=== PATIENT | female | born 1970 | race Two or more races ===

== ENCOUNTER → 2020-10-26 12:07 | Outpatient (BNVA) | payer OTHER, SELFPAY | PROVIDERS: PCP Internal Medicine; Visit Provider Nurse Practitioner Gerontology | DX: E11.65 Type 2 diabetes mellitus with hyperglycemia (principal); E78.5 Hyperlipidemia, unspecified; E03.9 Hypothyroidism, unspecified; E66.9 Obesity, unspecified; Z79.4 Long term (current) use of insulin | CPT/HCPCS: 82947; 99212 ==

== ENCOUNTER 2020-12-03 08:18 | Outpatient (REF) | payer OTHER, SELFPAY ==
[2020-12-03 09:51] LABS: Free T4 (Free Thyroxine) 1.08 ng/dL (0.71-1.85); Thyroid Stimulating Hormone 0.83 uIU/mL (0.32-4.0)
== END 2020-12-03 08:19 | disposition home or self-care (01) ==
LOC: HO.LAB 08:18
PROVIDERS: PCP Internal Medicine; Visit Provider Nurse Practitioner Gerontology
DX: E03.9 Hypothyroidism, unspecified (principal)
CPT/HCPCS: 36415; 84439; 84443; 93005; 99212

== ENCOUNTER → 2020-12-09 09:28 | Outpatient (BNVA) | payer OTHER, SELFPAY | PROVIDERS: PCP Internal Medicine; Visit Provider Nurse Practitioner Gerontology | DX: Z76.89 Persons encountering health services in other specified circumstances (principal) ==

== ENCOUNTER 2020-12-21 09:37 | Outpatient (REF) | payer OTHER, SELFPAY ==
[2020-12-21 10:43] LABS: Alanine Aminotransferase 45 U/L (0-31); Albumin Level 4.5 g/dL (3.5-5.0); Alkaline Phosphatase 134 U/L (39-117); Anion Gap 18 (12-20); Aspartate Amino Transferase 21 U/L (5-31); Bilirubin Total 0.5 mg/dL (0.0-1.0); Blood Urea Nitrogen 16 mg/dL (9-16); Calcium 10.2 mg/dL (8.4-10.2); Carbon Dioxide 28 mmol/L (22-29); Chloride 98 mmol/L (96-108); Estimated Glomerular Filt Rate 57; Glucose Fasting 157 mg/dL (60-99); Potassium 4.7 mmol/l (3.3-5.1); Sodium 139 mmol/L (135-145); Total Protein 8.4 g/dL (6.5-8.0)
[2020-12-21 11:04] LABS: TSH reflex Free T4 0.31 mIU/mL (0.32-4.0)
[2020-12-21 12:32] LABS: Free T4 (Free Thyroxine) 1.13 ng/dL (0.71-1.85)
== END 2020-12-21 09:38 | disposition home or self-care (01) ==
LOC: HO.LAB 09:37
PROVIDERS: Absent Provider Nurse Practitioner Gerontology; PCP Internal Medicine; Visit Provider Internal Medicine
DX: E11.65 Type 2 diabetes mellitus with hyperglycemia (principal); E03.9 Hypothyroidism, unspecified
CPT/HCPCS: 36415; 80053; 82043; 84439; 84443

== ENCOUNTER → 2020-12-24 09:00 | Outpatient (BNVA) | payer OTHER, SELFPAY | PROVIDERS: PCP Internal Medicine; Visit Provider Nurse Practitioner Gerontology | DX: Z13.89 Encounter for screening for other disorder (principal) | CPT/HCPCS: 99212 ==

== ENCOUNTER → 2021-02-01 12:58 | Outpatient (REF) | payer OTHER, SELFPAY ==
--- NOTE | 2021-02-01 13:14 | CA_ITS ---
Transthoracic Echocardiogram Patient (Last, First, Middle): Sirena Griffin, Gender: Female Date of : 1970 Age: 50 Procedure Date: 02/01/2021 Procedure Type: Transthoracic Echocardiogram Location: OP Height: 175.26 cm Weight: 103.87 kg BSA: 2.19 m2 Heart Rate: bpm BP: 122 / 81 mmHg Manager Medical Device: Referring MD: Zachary Draper MD Symptoms: I05.0 - Rheumatic mitral stenosis Study Quality: Fair ECG Rhythm: Sinus Conclusions: - The left ventricular systolic function is normal. The visually estimated ejection fraction is between 60-65%. - The mitral valve appears rheumatic. There is mild mitral valve regurgitation. There is mild mitral valve stenosis. - There is mild to moderate tricuspid valve regurgitation. - Mild pulmonary hypertension is present. Findings Left Ventricle Normal left ventricular cavity size. There is mildly increased left ventricular wall thickness. The left ventricular systolic function is normal. The visually estimated ejection fraction is between 60-65%. There is no evidence of regional wall motion abnormalities. E/E prime ratio is >15, consistent with elevated filling pressures. Evidence suggests grade I (mild) diastolic dysfunction. Right Ventricle Normal right ventricular cavity size and systolic function. Atria The left atrium is mildly dilated. The right atrium is normal in size. Aortic Valve There is a normal trileaflet aortic valve. There is no aortic valve stenosis. There is trace (trivial) aortic valve regurgitation. Mitral Valve The mitral valve appears rheumatic. There is mild anterior and posterior mitral leaflet thickening. There is mild mitral valve regurgitation. There is mild mitral valve stenosis. Mean gradient across the mitral valve 5 mm Hg at 68/Min. Calculated area by pressure half time- 1.67 sq cm. Pulmonic Valve The pulmonic valve was not well visualized. Tricuspid Valve Normal tricuspid valve structure. There is mild to moderate tricuspid valve regurgitation. The right ventricular systolic pressure is 39 mmHg. Mild pulmonary hypertension is present. Great Vessels The aortic annulus, sinuses of valsalva, asc aorta, and aortic arch are normal in size. Venous The inferior vena cava is normal in size and collapses greater than 50% with inspiration. Pericardium/Pleural There is a trivial pericardial effusion. Prior Study Comparison No significant change compared to prior study dated: 10/29/2019. Measurements 2D Linear Measurements IVSd: 1.13 0.6-0.9/0.6-1.0 cm LVIDd: 4.11 3.9-5.3/4.2-5.9 cm LVIDd Index: 1.88 2.4-3.2/2.2-3.1 cm/m2 LVIDs: 2.66 2.0-3.6 cm LVPWd: 1.08 0.7-1.1 cm Ao Root: 2.80 2.1-3.5 cm LA Diam: 4.20 2.7-3.8/3.0-4.0 cm LAIDs Index: 1.92 1.5-2.3 cm/m2 LV Mass: 190.33 67-162/88-224 g LV Mass Index: 86.91 43-95/49-115 g/m2 LVOT Diam: 2.00 3.0+(-)1.3 cm 2D Systolic Function EF 4C: 58.40 >55% EF 2C: 68.70 >55% EF BiP: 64.70 >55% Mitral Valve MV VTI: 0.53 MV Pk Wander: 2.21 MV Mn Wander: 1.07 MV Pk Grad: 20.00 MV Mn Grad: 5.00 MV Pk E: 1.29 MV PK A: 1.90 MV Decel Time: 282.00 E/A: 0.70 E'Lateral: 4.74 E'Medial: 6.29 E/E' Med: 20.50 E/E' Lat: 27.20 PHT: 132.00 MVA PHT: 1.67 MVA Continuity: 1.33 Decel Wood: 3.05 Aortic Valve AoV Pk Wander: 2.13 AoV Mn Wander: 1.40 AoV VTI: 0.41 AoV Pk Grad: 18.00 Aov Mn Grad: 10.00 MUNIRA Cont.VTI: 1.73 LVOT LVOT Pk Wander: 0.97 LVOT Mn Wander: 0.61 LVOT VTI: 0.23 LVOT Pk Grad: 4.00 LVOT Mn Grad: 2.00 LVOT Diam: 2.00 LVOT Area: 3.14 Diastolic Function MV Pk E: 1.29 MV Pk A: 1.90 E/A: 0.70 E'Medial: 6.29 E/E' Med: 20.50 E' Laterial: 4.74 E/E' Lat: 27.20 Tricuspid Valve TR Pk Wander: 3.01 TR Pk Grad: 36.00 RA Press: 3.00 RVSP: 39.00 Great Vessels Aorta Ao Root-2D: 2.80 2.0-3.7 cm Ao Asc: 2.80 2.1-3.4 cm Ao Arch: 2.70 Updated in Other Vendor System with Status of Final Deacon Sharp MD electronically signed on 02/02/2021 9:25:04 AM with status of Final
[2021-02-01 13:27] LABS: Estimated Average Glucose 223 mg/dL; Hemoglobin A1c % 9.4 %
[2021-02-01 14:21] LABS: Free T4 (Free Thyroxine) 0.82 ng/dL (0.71-1.85); Thyroid Stimulating Hormone 2.67 uIU/mL (0.32-4.0)
== END ==
LOC: HO.CARD 12:58
PROVIDERS: Absent Provider Nurse Practitioner Gerontology; PCP Internal Medicine; Visit Provider Internal Medicine Cardiovascular Disease
DX: I05.0 Rheumatic mitral stenosis (principal); I11.9 Hypertensive heart disease without heart failure; E11.65 Type 2 diabetes mellitus with hyperglycemia; E03.9 Hypothyroidism, unspecified
CPT/HCPCS: 36415; 83036; 84439; 84443; 93306

== ENCOUNTER → 2021-03-26 13:04 | Outpatient (BNVA) | payer OTHER, SELFPAY | PROVIDERS: PCP Internal Medicine; Visit Provider Nurse Practitioner Gerontology ==

== ENCOUNTER → 2021-04-28 13:23 | Outpatient (BNVA) | payer OTHER, SELFPAY | PROVIDERS: Visit Provider Nurse Practitioner Gerontology | DX: E11.65 Type 2 diabetes mellitus with hyperglycemia (principal); E03.9 Hypothyroidism, unspecified; E78.5 Hyperlipidemia, unspecified; E66.9 Obesity, unspecified | CPT/HCPCS: 82947 ==

== ENCOUNTER 2021-05-07 13:57 | Emergency (ER) | payer OTHER, SELFPAY ==
--- NOTE | ~2021-05-07 | XR_ITS ---
EXAMINATION: XR CHEST CLINICAL INFORMATION: Cough COMPARISON: Previous chest x-ray most recent January 2019 TECHNIQUE: 2 views of the chest were obtained. FINDINGS: The cardiac and mediastinal contours are normal. The lungs are clear. There is no pleural effusion or pneumothorax. Bony structures are unremarkable. Clustered radiopaque densities are seen on the lateral view only probably related to something on one of the upper arms. XR/XR chest 2V IMPRESSION: No evidence for acute disease in the chest.
[2021-05-07 14:15] VITALS: BP 130/78; BP 140/80; PULSE 89; PULSE 96; RESP 16; O2SAT 95; O2SAT 99; BMI 29.9
--- NOTE | 2021-05-07 14:35 | ECG_ITS ---
Test Reason : CHEST PAIN Blood Pressure : / mmHG Vent. Rate : 090 BPM Atrial Rate : 090 BPM P-R Int : 146 ms QRS Dur : 074 ms QT Int : 388 ms P-R-T Axes : 039 008 051 degrees QTc Int : 474 ms Normal sinus rhythm Possible Left atrial enlargement Borderline ECG When compared to the previous EKG of No significant changes seen Referred By: Kaitlin Finley Electronically Signed By:CARMEN BUSTOS MD
[2021-05-07 15:02] VITALS: PULSE 81; O2SAT 99
[2021-05-07] MEDS: Albuterol Sulfate 90 MCG 8 GM INHALER 4 PUFF INHALE (15:02)
--- NOTE | 2021-05-07 15:07 | ED.SOB ---
HPI - SOB/Dyspnea General Chief Complaint: Dyspnea Stated Complaint: cough Time Seen by Provider: 05/07/21 14:10 Source: patient Mode of arrival: ambulatory Limitations: language barrier (Grenadian-speaking) History of Present Illness HPI Narrative: 50-year-old female with a past medical history of type 2 diabetes, hypertension, hyperlipidemia, diastolic dysfunction, rheumatic mitral stenosis, obesity and hypothyroidism presenting to the ED with complaints of generalized body aches, chills, intermittent headaches, nasal congestion/runny nose, dry cough, shortness of breath, dyspnea on exertion, orthopnea, chest tightness and diarrhea for approximately 3-4 days worse today. Reports that she does not have an albuterol inhaler or nebulizer machine therefore she has been unable to give herself any treatment. Denies recent travel or sick contacts. Denies any measured fevers, dizziness, lightheadedness, nausea/vomiting, abdominal pain, palpitations, dysuria, lower extremity edema or any other symptoms complaints or concerns at this time. MD elicited complaint: shortness of breath, cough, pain with inspiration, chest pain and asthma attack Pertinent past history: asthma and diabetes Onset (ago): day(s) (3 4 days worse today) Timing: constant and progressively worsening Severity: severe Exacerbating factors: lying flat, exertion, movement, coughing, inspiration, talking and deep breaths Relieving factors: nothing Known history of: asthma and diabetes Associated symptoms: chest pain, pain with inspiration, cough, wheezing and orthopnea Treatment prior to arrival: none Related Data Home oxygen amount: none Home Medications Medication Instructions Recorded Confirmed blood sugar diagnostic #10 ea 10/26/20 04/28/21 duloxetine 60 mg capsule,delayed 60 mg PO DAILY 10/26/20 04/28/21 release flash glucose scanning reader #1 ea 10/26/20 04/28/21 gabapentin 400 mg capsule 400 mg PO TID 10/26/20 04/28/21 levothyroxine 150 mcg tablet 150 mcg PO DAILY 10/26/20 04/28/21 mirtazapine 30 mg tablet 30 mg PO BEDTIME 10/26/20 04/28/21 pen needle, diabetic 32 gauge x #50 ea 10/26/20 04/28/21 trazodone 150 mg tablet 150 mg PO BEDTIME PRN 10/26/20 04/28/21 perphenazine 4 mg tablet 4 mg PO tab 12/09/20 04/28/21 Previous Rx's Medication Instructions Recorded citalopram 40 mg tablet 40 mg PO DAILY 90 Days #90 tab 09/24/20 pen needle, diabetic 32 gauge x #120 ea 10/26/20 hydrochlorothiazide 25 mg tablet 25 mg PO DAILY 90 Days #90 tab 11/04/20 lisinopril 5 mg tablet 5 mg PO DAILY 90 Days #90 tab 11/04/20 ezetimibe 10 mg tablet 10 mg PO DAILY #30 tab 12/03/20 insulin glargine 100 unit/mL (3 34 unit SUBCUT QPM 30 Days #15 ml 12/24/20 mL) subcutaneous pen metformin 500 mg tablet,extended 1,000 mg PO BID #120 tab 02/05/21 release 24 hr atorvastatin 80 mg tablet 80 mg PO DAILY #30 tab 03/07/21 flash glucose sensor 1 ea TOPICAL Q2W #2 kit 03/26/21 dulaglutide 4.5 mg/0.5 mL 4.5 mg SUBCUT QWEEK #2 ml 04/28/21 subcutaneous pen injector insulin lispro 100 unit/mL See Rx Instructions SUBCUT TID 30 04/28/21 subcutaneous pen Days #15 ml albuterol sulfate 0.63 mg INHALATION QID PRN #75 ml 05/07/21 albuterol sulfate 1 inh INHALATION QID PRN #8.5 g 05/07/21 azithromycin See Rx Instructions .ROUTE 05/07/21 .COMPLEX #6 tab codeine-guaifenesin [Guaifenesin 5 ml PO Q6H PRN #120 ml 05/07/21 AC] nebulizers [AeroEclipse II #1 ea 05/07/21 Nebulizer] prednisone 40 mg PO DAILY 5 Days #10 tab 05/07/21 Allergies Allergy/AdvReac Type Severity Reaction Status Date / Time No Known Allergies Allergy Verified 03/26/21 13:55 Review of Systems Review of Systems: Constitutional : Positive chills/fatigue/malaise, No Weight loss, No Fever, No Night Sweats ENT/Mouth : No Hearing loss, No Ear Pain, No Nasal Congestion, No Sinus Pain, No Hoarseness, No sore throat, No Rhinorrhea, No Swallowing Difficulty Eyes: No Eye Pain, No Swelling, No Redness, No Foreign Body, No Discharge, No Vision Changes Cardiovascular : Positive chest pain with cough, positive shortness of breath/dyspnea on exertion/orthopnea, No Edema, No Palpitations Respiratory : Positive Cough/wheezing, No Sputum, No Smoke Exposure Gastrointestinal : No Nausea, No Vomiting, No Diarrhea, No Constipation, No abdominal Pain, No Hematochezia, No Melena Genitourinary : no irregular bleeding, No Dysuria, No Urinary Frequency, No Hematuria, No Urinary Incontinence, No Urgency, No Flank Pain, No Urinary Flow Changes, No Hesitancy Musculoskeletal : Positive myalgias, No joint pain, No Myalgias, No Joint Swelling Skin : No Skin Lesions, No rash Neuro : Positive intermittent headaches, No Weakness, No Numbness, No Paresthesias, No Loss of Consciousness, No Dizziness Psych : No Anxiety/Panic, No Depression, No SI/HI/AH/VH, No Social Issues, Heme/Lymph: No Bruising, No Bleeding,No Lymphadenopathy Endocrine : No Polyuria, No Polydipsia, No Temperature Intolerance Yes all other systems are reviewed and are negative [facility] Past Medical History Attestation statement: The following information was validated with the patient. Medical History Anxiety Depression Diastolic dysfunction Glaucoma Hemorrhoids HTN (hypertension) Hyperlipidemia LDL goal <100 Hypothyroidism Insomnia Obesity (BMI 30-39.9) Rheumatic heart disease Rheumatic mitral stenosis Type 2 diabetes mellitus with hyperglycemia, without long-term current use of insulin Surgical History History of section Family History Family History Father Diabetes Mother Diabetes Stroke Maternal Aunt Stroke Hypertension Social History Social History Household Members: Children Patient Tobacco Use Status: Never used Tobacco Advance Directives: Yes Advance Directives Information Provided: No Advance Directives on File: No Patient : No Physical Exam Vital Signs: Vital Signs: Last Vital Signs Pulse 81 05/07/21 15:02 Resp 16 05/07/21 14:15 BP 140/80 H 05/07/21 14:15 Pulse Ox 99 05/07/21 14:15 Body Mass Index 29.9 vital signs have been reviewed as normal and appeared to be correct. Blood pressure hypertensive at 140/80. Heart rate normal. Respiration rate normal. Temperature normal. Oxygen saturation normal. Appearance: Alert. Oriented X3. Mild respiratory distress otherwise no other acute distress. Head: Normal external exam. Normocephalic. Atraumatic. Eyes: PERRLA. EOMI. Conjunctiva and sclera normal. Eyelids normal. ENT: EAC normal. TM's Normal. Pharynx normal. Uvula midline. Moist mucous membranes. No trismus noted. No drooling noted. No muffled voice noted. Neck: Normal inspection. Neck supple. FROM. No adenopathy. Thyroid Normal. No meningeal signs. No neck mass noted. CVS: Normal heart rate and rhythm. Heart sound normal. Pulses normal throughout. No murmurs/rales/gallops. Respiratory: Mild respiratory distress with pain with deep inspiration, decreased breath sounds and mild wheezing throughout. No rales/rhonchi noted. Chest is nontender. No accessory muscle usage or retractions at this time. No stridor noted. Abdomen: Soft and nontender. Bowel sounds normal in all 4 quadrants. No distention noted. No organomegaly noted. No visible injury noted. Back: No CVA tenderness. Full range of motion noted. No rashes/lesion/induration/fluctuance or signs of infection noted. Skin: Skin warm and dry. Normal skin color. Normal skin turgor. No rashes/lesions/lacerations noted. Extremities: No lower extremity edema. No calf tenderness noted. Extremities exhibit normal range of motion. Extremities nontender. Neuro: Oriented X 3. No motor deficit. No sensory deficit. Reflexes normal. Normal steady gait. No focal neuro deficits noted. Vascular: + radial pulses/+ 2 distal pedal pulses/+2 dorsalis pedis b/l. Normal cap refill. No cyanosis noted to upper extremity nails and lower extremity toes nails. Course Course Course Narrative: 14:35pm -50-year-old female with a past medical history of type 2 diabetes, hypertension, hyperlipidemia, diastolic dysfunction, rheumatic mitral stenosis, obesity and hypothyroidism presenting to the ED with complaints of generalized body aches, chills, intermittent headaches, nasal congestion/runny nose, dry cough, shortness of breath, dyspnea on exertion, orthopnea, chest tightness and diarrhea for approximately 3-4 days worse today. Plan: Labs, EKG, COVID/RSV/flu swab, chest x-ray. Provide 4 puffs of albuterol. Provide a L of IV fluids and 125 mg of Solu-Medrol. Provide Robitussin with codeine 10 mg then re-evaluate. Reevaluation(s) Reevaluation #1: - labs reviewed and patient with an elevated creatinine at 1.43 baseline is 1.02 although she did receive a L of IV fluids - random glucose 363. - alkaline phosphate 136. - otherwise all other labs are within normal limits. - COVID/RSV/flu negative. - chest x-ray negative for any acute processes. EKG was normal sinus rhythm no acute ischemic changes were noted. - patient reports she feels mildly better after the 4 puffs of albuterol, IV Solu-Medrol and Robitussin with codeine although reports that she feels like her chest is still tight and is requesting a breathing treatment - therefore breathing treatment ordered at this time. Will also recheck the patient's POC before discharge. Will DC home with antibiotics and symptomatic treatment and instructions to stop her metformin for at least 2 days to increase her water intake for the next 2 days and to follow-up with her primary care provider by Monday for repeat renal function tests. I also explained to the patient due to she will be on steroids for her asthma exacerbation that the steroids will increase her blood glucose and if she is not on the metformin for 2 days will increase it even more therefore she needs to adjust her insulin for that and she understands agrees with this plan. Instructed the patient's return if any new or worsening symptoms. Time: 16:30 MDM - SOB/Dyspnea Medical Records Attestation: I reviewed the patient's medical records. Lab Data Attestation: I reviewed the patient's lab results. Result diagrams: 05/07/21 15:17 05/07/21 15:16 Labs: Lab Results 05/07/21 05/07/21 05/07/21 Range/Units 15:16 15:16 15:16 WBC (4.8-10.8) X10*3/uL RBC (4.20-5.50) X10*6/uL Hgb (12.0-16.0) g/dl Hct (37-47) % MCV (80-98) fL MCH (27.0-33.0) pg MCHC (31.0-35.0) g/dl RDW (11.0-16.0) % Plt Count (160-400) X10*3/uL MPV (9.4-12.3) fL Immature Gran % (Auto) (0.0-0.4) % Neut % (Auto) (45-73) % Lymph % (Auto) (20-40) % [place] % (Auto) (2-11) % Eos % (Auto) (0-4) % Baso % (Auto) (0-2) % Lymph # (Auto) (1.2-4.9) X10*3/uL [place] # (Auto) (0.1-1.2) X10*3/uL Eos # (Auto) (0.0-0.4) X10*3/uL Baso # (Auto) (0.0-0.2) X10*3/uL Abs Immat Gran (auto) (0.00-0.03) X10*3/uL Absolute Neuts (auto) (2.0-8.3) X10*3/uL Absolute Nucleated RBC (0.0-0.012) X10*3/uL Nucleated RBC % (auto) (0.0-0.2) /100WBC PT 12.1 (10.8-13.0) SEC INR 1.0 (0.9-1.1) Sodium 140 (135-145) mmol/L Potassium 4.4 (3.3-5.1) mmol/L Chloride 103 (96-108) mmol/L Carbon Dioxide 27 (22-29) mmol/L Anion Gap 14 (12-20) BUN 16 (9-16) mg/dL Creatinine 1.43 H (0.5-1.4) mg/dL Estim Creat Clear Calc 49.6 Estimated GFR 39 Random Glucose 363 H* (60-115) mg/dL Calcium 9.1 D (8.4-10.2) mg/dL Total Bilirubin 0.2 (0.0-1.0) mg/dL AST 20 (5-31) U/L ALT 20 (0-31) U/L Alkaline Phosphatase 136 H (39-117) U/L Lactate Dehydrogenase (122-220) U/L Troponin I High Sens 3.5 (<3.5-17.0) ng/L B-Natriuretic Peptide 39 (<100) pg/mL Total Protein 7.5 (6.5-8.0) g/dL Albumin 4.0 (3.5-5.0) g/dL Coronavirus (PCR) (Negative) Influenza Type A (PCR) (Negative) Influenza Type B (PCR) (Negative) RSV RNA Qual (PCR) (Negative) 05/07/21 05/07/21 05/07/21 Range/Units 15:16 15:17 15:17 WBC 8.7 (4.8-10.8) X10*3/uL RBC 5.11 (4.20-5.50) X10*6/uL Hgb 14.0 (12.0-16.0) g/dl Hct 43.7 (37-47) % MCV 85.5 (80-98) fL MCH 27.4 (27.0-33.0) pg MCHC 32.0 (31.0-35.0) g/dl RDW 13.4 (11.0-16.0) % Plt Count 238 (160-400) X10*3/uL MPV 10.5 (9.4-12.3) fL Immature Gran % (Auto) 0.2 (0.0-0.4) % Neut % (Auto) 56.0 (45-73) % Lymph % (Auto) 27.8 (20-40) % [place] % (Auto) 6.6 (2-11) % Eos % (Auto) 8.7 H (0-4) % Baso % (Auto) 0.7 (0-2) % Lymph # (Auto) 2.4 (1.2-4.9) X10*3/uL [place] # (Auto) 0.6 (0.1-1.2) X10*3/uL Eos # (Auto) 0.8 H (0.0-0.4) X10*3/uL Baso # (Auto) 0.1 (0.0-0.2) X10*3/uL Abs Immat Gran (auto) 0.02 (0.00-0.03) X10*3/uL Absolute Neuts (auto) 4.9 (2.0-8.3) X10*3/uL Absolute Nucleated RBC 0.000 (0.0-0.012) X10*3/uL Nucleated RBC % (auto) 0.0 (0.0-0.2) /100WBC PT (10.8-13.0) SEC INR (0.9-1.1) Sodium (135-145) mmol/L Potassium (3.3-5.1) mmol/L Chloride (96-108) mmol/L Carbon Dioxide (22-29) mmol/L Anion Gap (12-20) BUN (9-16) mg/dL Creatinine (0.5-1.4) mg/dL Estim Creat Clear Calc Estimated GFR Random Glucose (60-115) mg/dL Calcium (8.4-10.2) mg/dL Total Bilirubin (0.0-1.0) mg/dL AST (5-31) U/L ALT (0-31) U/L Alkaline Phosphatase (39-117) U/L Lactate Dehydrogenase 213 (122-220) U/L Troponin I High Sens (<3.5-17.0) ng/L B-Natriuretic Peptide (<100) pg/mL Total Protein (6.5-8.0) g/dL Albumin (3.5-5.0) g/dL Coronavirus (PCR) NEGATIVE (Negative) Influenza Type A (PCR) NEGATIVE (Negative) Influenza Type B (PCR) NEGATIVE (Negative) RSV RNA Qual (PCR) NEGATIVE (Negative) Imaging Data Chest x-ray: Attestation: I personally reviewed and interpreted this imaging study as follows: Radiologist's impression: FINDINGS: The cardiac and mediastinal contours are normal. The lungs are clear. There is no pleural effusion or pneumothorax. Bony structures are unremarkable. Clustered radiopaque densities are seen on the lateral view only probably related to something on one of the upper arms. XR/XR chest 2V IMPRESSION: No evidence for acute disease in the chest. ECG Data Attestation: I personally reviewed and interpreted this ECG as follows: ECG interpretation date: 05/07/21 ECG interpretation time: 15:34 Interpretation: Normal sinus rhythm with ventricular rate of 90 with a normal KS interval normal QRS duration normal QT/QTC interval. No acute ischemic changes are noted. Critical Care Time Critical Care Time Critical Care Time: Yes Total Critical Care Time: 60 Attestation: I personally attest to this time spent taking care of the patient Discharge Plan Discharge Clinical Impression: WILMAN (acute kidney injury), Acute dehydration, Asthma exacerbation, Bronchitis, Acute bronchitis with bronchospasm, Acute hyperglycemia Patient Disposition: Home, Self-Care Instructions: Asthma (ED), Dehydration (ED), Acute Kidney Injury (DC), Acute Bronchitis (ED), How to Use a Nebulizer (ED), Bronchospasm (ED) Additional Instructions: Your kidney function levels were elevated today your creatinine was 1.43 and her baseline is 1.02 therefore I instructed you do not take the metformin for approximately 2 days although you will be on steroids which will increase her glucose levels therefore you need to adjust her insulin to manage her glucose levels in the normal range. You also need to increase her fluid intake for the next 2-3 days. And I wanted to follow-up with your primary care provider by Monday for repeat kidney function test. At that time discussed with her PCP about restarting metformin. Return if any new or worsening symptoms. You should also get re tested for COVID in approximately 7-10 days because he tested negative today although you might not have enough viral load in your body to produce a positive COVID test. Mitzi niveles de la funci?n del ri??n fueron elevados hoy acosta creatinina era 1,43 y acosta l?sanchez de fondo es 1,02 por lo tanto le instru? no tome el metformin por aproximadamente 2 d?as aunque usted estar? en los esteroides que aumentar?n mitzi niveles de la glucosa por lo tanto usted necesita ajustar acosta insulina para manejar mitzi niveles de la glucosa en la cheng normal. Tambi?n necesita aumentar acosta ingesta de l?quidos lon los pr?ximos 2-3 d?as. Y quer?a hacer un seguimiento con acosta proveedor de atenci?n primaria para el lunes para repetir la prueba de funci?n renal. En aquel momento discuti? con acosta PCP sobre recomenzar metformin. Regrese si hay s?ntomas nuevos o que empeoran. Tambi?n debe volver a hacerse la prueba de COVID en aproximadamente 7-10 d?as porque ?l dylan negativo hoy, aunque es posible que no tenga suficiente carga viral en acosta cuerpo para producir jaclyn prueba de COVID positiva. Prescriptions: New albuterol sulfate 0.63 mg/3 mL solution for nebulization 0.63 mg inhalation QID PRN (Reason: shortness of breath or wheezing) Qty: 75 RF: 0 (DME) AeroEclipse II Nebulizer Misc See Rx Instructions .ROUTE .MEDSUPPLY Qty: 1 RF: 0 albuterol sulfate 90 mcg/actuation HFA aerosol inhaler 1 inh inhalation QID PRN (Reason: shortness of breath or wheezing) Qty: 8.5 RF: 0 azithromycin 250 mg tablet See Rx Instructions .ROUTE .COMPLEX Qty: 6 RF: 0 codeine-guaifenesin [Guaifenesin AC] 10-100 mg/5 mL liquid 5 ml PO Q6H PRN (Reason: cold symptoms) Qty: 120 RF: 0 prednisone 20 mg tablet 40 mg PO DAILY 5 Days Qty: 10 RF: 0 No Action citalopram 40 mg tablet 40 mg PO DAILY 90 Days Qty: 90 RF: 3 lisinopril 5 mg tablet 5 mg PO DAILY 90 Days Qty: 90 RF: 3 hydrochlorothiazide 25 mg tablet 25 mg PO DAILY 90 Days Qty: 90 RF: 3 metformin 500 mg tablet extended release 24 hr 1,000 mg PO BID Qty: 120 RF: 3 atorvastatin 80 mg tablet 80 mg PO DAILY Qty: 30 RF: 1 levothyroxine 150 mcg tablet 150 mcg PO DAILY RF: 0 duloxetine 60 mg capsule,delayed release(DR/EC) 60 mg PO DAILY RF: 0 mirtazapine 30 mg tablet 30 mg PO BEDTIME RF: 0 trazodone 150 mg tablet 150 mg PO BEDTIME PRNRF: 0 gabapentin 400 mg capsule 400 mg PO TID RF: 0 (DME) pen needle, diabetic 32 gauge x 5/32 needle See Rx Instructions ea subcut TID Qty: 50 RF: 0 (DME) FreeStyle Precision Emanuel Strips Strip See Rx Instructions strip .ROUTE .MEDSUPPLY Qty: 10 RF: 0 (DME) FreeStyle Sera 14 Day [place] Misc See Rx Instructions ea topical .MEDSUPPLY Qty: 1 RF: 0 (DME) pen needle, diabetic [BD Ultra-Fine Ramya Pen Needle] 32 gauge x 5/32 needle See Rx Instructions .ROUTE .MEDSUPPLY Qty: 120 RF: 11 perphenazine 4 mg tablet 4 mg PO RF: 0 FreeStyle Sera 14 Day Sensor Kit 1 ea topical Q2W Qty: 2 RF: 11 ezetimibe [Zetia] 10 mg tablet 10 mg PO DAILY Qty: 30 RF: 5 Lantus Solostar U-100 Insulin 100 unit/mL (3 mL) insulin pen 34 unit subcut QPM 30 Days Qty: 15 RF: 3 insulin lispro [Humalog KwikPen Insulin] 100 unit/mL insulin pen See Rx Instructions subcut TID 30 Days Qty: 15 RF: 3 Trulicity 4.5 mg/0.5 mL pen injector 4.5 mg subcut QWEEK Qty: 2 RF: 3 Referrals: Aleyda Paul MD [Primary Care Provider] - 2 days (Patient needs to be seen by Monday for recheck kidney function test) Print Language: Grenadian
[2021-05-07 15:25] LABS: MANUAL DIFF FLAG NO
[2021-05-07 15:27] LABS: Basophils Absolute Auto 0.1 X10*3/uL (0.0-0.2); Basophils Percent Auto 0.7 % (0-2); Eosinophils Absolute Auto 0.8 X10*3/uL (0.0-0.4); Eosinophils Percent Auto 8.7 % (0-4); Hematocrit 43.7 % (37-47); Imm Gran Abs Auto 0.02 X10*3/uL (0.00-0.03); Imm Gran Pct Auto 0.2 % (0.0-0.4); Lymphocytes Absolute Auto 2.4 X10*3/uL (1.2-4.9); Lymphocytes Percent Auto 27.8 % (20-40); Mean Corpuscular Hemoglobin 27.4 pg (27.0-33.0); Mean Corpuscular Volume 85.5 fL (80-98); Mean Platelet Volume 10.5 fL (9.4-12.3); Monocytes Absolute Auto 0.6 X10*3/uL (0.1-1.2); Monocytes Percent Auto 6.6 % (2-11); Neutrophils Absolute Auto 4.9 X10*3/uL (2.0-8.3); Platelet Count 238 X10*3/uL (160-400); Red Blood Count 5.11 X10*6/uL (4.20-5.50); Red Cell Distribution Width 13.4 % (11.0-16.0); White Blood Count 8.7 X10*3/uL (4.8-10.8)
[2021-05-07] MEDS: guaiFEN/Codeine SF 200/20/10ML 10 ML LIQUID PO (15:29)
[2021-05-07] MEDS: 0.9 % Sodium Chloride 1,000 ML 999 ML IVCONT (15:29)
[2021-05-07] MEDS: methylPREDNISolone Sod Succ 125 MG/2 ML VIAL IVPUSH (15:29)
[2021-05-07 15:35] LABS: Prothrombin Time 12.1 SEC (10.8-13.0)
[2021-05-07 16:02] LABS: Lactate Dehydrogenase 213 U/L (122-220)
[2021-05-07 16:06] LABS: B Type Natriuretic Peptide 39 pg/mL (<100); Troponin-I High Sensitivity 3.5 ng/L (<3.5-17.0)
[2021-05-07 16:09] LABS: Influenza A PCR NEGATIVE (Negative); Influenza B PCR NEGATIVE (Negative); Resp Syncy Virus RNA Qual PCR NEGATIVE (Negative); SARS COV2 PCR INHOUSE NEGATIVE (Negative)
[2021-05-07 16:15] LABS: Alanine Aminotransferase 20 U/L (0-31); Alkaline Phosphatase 136 U/L (39-117); Anion Gap 14 (12-20); Aspartate Amino Transferase 20 U/L (5-31); Bilirubin Total 0.2 mg/dL (0.0-1.0); Blood Urea Nitrogen 16 mg/dL (9-16); Calcium 9.1 mg/dL (8.4-10.2); Carbon Dioxide 27 mmol/L (22-29); Chloride 103 mmol/L (96-108); Creatinine Clr Calc Pharmacy 49.6; Estimated Glomerular Filt Rate 39; Glucose Random 363 mg/dL (60-115); Potassium 4.4 mmol/L (3.3-5.1); Sodium 140 mmol/L (135-145); Total Protein 7.5 g/dL (6.5-8.0)
[2021-05-07 16:46] VITALS: PULSE 87; O2SAT 97
[2021-05-07] MEDS: Albuterol Sulfate (0.083%) 2.5 MG/3 ML VIAL.NEB 5 MG INHALE (16:46)
[2021-05-07 17:14] LABS: Glucose, Whole Blood 280 mg/dL (60-115)
[2021-05-07] MEDS: Insulin Regular, Human 100 UNIT/ML 3 ML VIAL 10 UNIT SUBCUT (17:30)
[2021-05-07 17:32] VITALS: BP 122/74; PULSE 95; RESP 16; O2SAT 98
[2021-05-07 18:16] LABS: Procalcitonin 0.03 ng/mL
[2021-05-07 18:26] LABS: C Reactive Protein 3.26 mg/dL (< or = 0.50)
== END 2021-05-07 18:52 | disposition home or self-care (01) ==
PROVIDERS: Physician Assistant Medical; Emergency Provider Emergency Medicine; PCP Internal Medicine
DX: J45.901 Unspecified asthma with (acute) exacerbation (principal); R06.02 Shortness of breath; J20.9 Acute bronchitis, unspecified; N17.9 Acute kidney failure, unspecified; E86.0 Dehydration; E11.65 Type 2 diabetes mellitus with hyperglycemia; I11.9 Hypertensive heart disease without heart failure; Z79.899 Other long term (current) drug therapy; Z20.822 Contact with and (suspected) exposure to COVID-19
CPT/HCPCS: 0241U; 36415; 71046; 80053; 82947; 83615; 83880; 84145; 84484; 85025; 85610; 86140; 86141; 93005; 94640; 96361; 96374; 99285; 99291; J2930

== ENCOUNTER 2021-05-11 08:55 | Outpatient (REF) | payer OTHER, SELFPAY ==
[2021-05-11 11:26] LABS: Creatinine Urine 142.21 mg/dL; Microalbum/Creatinine Ratio Ur 12.6 ug/mg cr
[2021-05-11 11:29] LABS: Alanine Aminotransferase 23 U/L (0-31); Albumin Level 4.1 g/dL (3.5-5.0); Alkaline Phosphatase 99 U/L (39-117); Anion Gap 13 (12-20); Aspartate Amino Transferase 16 U/L (5-31); Bilirubin Total 0.5 mg/dL (0.0-1.0); Blood Urea Nitrogen 18 mg/dL (9-16); Calcium 9.4 mg/dL (8.4-10.2); Carbon Dioxide 25 mmol/L (22-29); Chloride 103 mmol/L (96-108); Cholesterol 204 mg/dL; Estimated Glomerular Filt Rate 55; Glucose Fasting 269 mg/dL (60-99); HDL Cholesterol 51 mg/dL; LDL Cholesterol Calculated 132 mg/dl; Potassium 5.2 mmol/L (3.3-5.1); Sodium 136 mmol/L (135-145); Total Protein 7.3 g/dL (6.5-8.0); Triglycerides 107 mg/dL
[2021-05-12 19:11] LABS: LDL Cholesterol Direct 135 mg/dL (<100)
[2021-05-15 16:57] LABS: Vitamin D 25-OH, D2 <4 ng/mL; Vitamin D 25-OH, D3 15 ng/mL; Vitamin D 25-OH, Total 15 ng/mL (30-100)
== END 2021-05-11 08:56 | disposition home or self-care (01) ==
LOC: HO.LAB 08:55
PROVIDERS: Absent Provider Nurse Practitioner Gerontology; PCP Internal Medicine; Referring Provider Internal Medicine; Visit Provider Internal Medicine Cardiovascular Disease
DX: I10 Essential (primary) hypertension (principal); E55.9 Vitamin D deficiency, unspecified; E11.65 Type 2 diabetes mellitus with hyperglycemia
CPT/HCPCS: 36415; 80053; 80061; 82043; 82306; 83721

== ENCOUNTER 2021-06-18 07:14 | Outpatient (REF) | payer OTHER, SELFPAY ==
[2021-06-18 08:01] LABS: Cholesterol 235 mg/dL; HDL Cholesterol 44 mg/dL; LDL Cholesterol Calculated 136 mg/dl; Triglycerides 278 mg/dL
== END 2021-06-18 07:15 | disposition home or self-care (01) ==
LOC: HO.LAB 07:14
PROVIDERS: PCP Internal Medicine; Visit Provider Nurse Practitioner Gerontology
DX: E11.65 Type 2 diabetes mellitus with hyperglycemia (principal); E78.5 Hyperlipidemia, unspecified; E03.9 Hypothyroidism, unspecified
CPT/HCPCS: 36415; 80061

== ENCOUNTER 2021-07-01 07:37 | Outpatient (REF) | payer OTHER, SELFPAY ==
[2021-07-01 08:41] LABS: Estimated Average Glucose 252 mg/dL; Hemoglobin A1c % 10.4 %
[2021-07-01 09:38] LABS: Alanine Aminotransferase 26 U/L (0-31); Albumin Level 3.9 g/dL (3.5-5.0); Alkaline Phosphatase 100 U/L (39-117); Anion Gap 14 (12-20); Aspartate Amino Transferase 16 U/L (5-31); Bilirubin Total 0.4 mg/dL (0.0-1.0); Blood Urea Nitrogen 11 mg/dL (9-16); Calcium 9.4 mg/dL (8.4-10.2); Carbon Dioxide 27 mmol/L (22-29); Chloride 101 mmol/L (96-108); Estimated Glomerular Filt Rate 53; Glucose Fasting 190 mg/dL (60-99); Potassium 4.6 mmol/L (3.3-5.1); Sodium 137 mmol/L (135-145); Total Protein 7.3 g/dL (6.5-8.0)
[2021-07-01 09:49] LABS: Thyroid Stimulating Hormone 13.42 uIU/mL (0.32-4.0)
== END 2021-07-01 07:38 | disposition home or self-care (01) ==
LOC: HO.LAB 07:37
PROVIDERS: PCP Internal Medicine; Visit Provider Nurse Practitioner Gerontology
DX: E03.9 Hypothyroidism, unspecified (principal); E11.65 Type 2 diabetes mellitus with hyperglycemia
CPT/HCPCS: 36415; 80053; 83036; 84439; 84443

== ENCOUNTER 2021-09-17 08:44 | Outpatient (REF) | payer OTHER, SELFPAY ==
[2021-09-17 09:42] LABS: Alanine Aminotransferase 16 U/L (0-31); Albumin Level 4.1 g/dL (3.5-5.0); Alkaline Phosphatase 117 U/L (39-117); Anion Gap 12 (12-20); Aspartate Amino Transferase 15 U/L (5-31); Bilirubin Total 0.2 mg/dL (0.0-1.0); Blood Urea Nitrogen 12 mg/dL (9-16); Calcium 9.9 mg/dL (8.4-10.2); Carbon Dioxide 28 mmol/L (22-29); Chloride 103 mmol/L (96-108); Estimated Glomerular Filt Rate 55; Glucose Random 214 mg/dL (60-115); Potassium 4.7 mmol/L (3.3-5.1); Sodium 138 mmol/L (135-145); Total Protein 7.4 g/dL (6.5-8.0)
[2021-09-17 10:03] LABS: Vitamin D 25-OH Total 12.4 ng/mL (>30)
== END 2021-09-17 08:45 | disposition home or self-care (01) ==
LOC: HO.LAB 08:44
PROVIDERS: PCP Internal Medicine; Visit Provider Internal Medicine Hypertension Specialist
DX: E11.22 Type 2 diabetes mellitus with diabetic chronic kidney disease (principal); N18.31 Chronic kidney disease, stage 3a
CPT/HCPCS: 36415; 80053; 82306

== ENCOUNTER 2021-09-29 13:30 | Outpatient (REF) | payer OTHER, SELFPAY ==
--- NOTE | ~2021-09-29 | US_ITS ---
EXAMINATION: US RETROPERITONEAL LIMITED (RENAL ONLY) CLINICAL INFORMATION: CKD stage 3. COMPARISON: CT abdomen and pelvis 11/22/2018. KUB 08/13/2017. TECHNIQUE: Real-time imaging of the kidneys. FINDINGS: RIGHT KIDNEY: 11.4 x 4.9 x 5.5 cm (SAG x AP x TRV). The kidney is normal in size, contour, and echogenicity. Renal cortical thickness is normal. No calculi or focal parenchymal lesions. No hydronephrosis. LEFT KIDNEY: 12.0 x 6.2 x 4.7 cm (SAG x AP x TRV). The kidney is normal in size, contour, and echogenicity. Renal cortical thickness is normal. No renal calculi or hydronephrosis. There is a cyst at the lower pole measuring 3.5 x 2.8 x 3.1 cm. There is a thin internal septation without Doppler vascularity. US/US renal BI IMPRESSION: Cyst with thin septation at the lower pole of the left kidney, likely Bosniak 2. No hydronephrosis..
== END 2021-09-29 13:31 | disposition home or self-care (01) ==
LOC: HO.US 13:30
PROVIDERS: PCP Internal Medicine; Visit Provider Internal Medicine Hypertension Specialist
DX: N18.31 Chronic kidney disease, stage 3a (principal)
CPT/HCPCS: 76775

== ENCOUNTER 2021-10-22 17:30 | Emergency (ER) | payer OTHER, SELFPAY ==
--- NOTE | ~2021-10-22 | XR_ITS ---
EXAMINATION: XR CHEST CLINICAL INFORMATION: Cough and shortness of breath. COMPARISON: Chest radiograph dated from 05/07/2021. TECHNIQUE: PA view of the chest was obtained. FINDINGS: No significant abnormality is noted involving the heart, lungs, mediastinum, bony thorax or soft tissues. XR/XR chest 1V IMPRESSION: Unremarkable examination.
[2021-10-22 17:51] VITALS: BP 147/73; PULSE 80; RESP 22; TEMP 37.4; O2SAT 98; BMI 32.3
[2021-10-22 17:55] LABS: COVID-19 Test Positive (Negative); IDNOW Serial# 9DD0AD1C
--- NOTE | 2021-10-22 18:15 | ED_ITS ---
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 Patient having some chest discomfort with coughing with some mild shortness of breath. Patient tells me the cough is keeping her from sleeping. No fevers or chills. No leg swelling or pain. No vomiting or diarrhea. Received Sticky x 2 in August 2021 using albuterol MDI with continued symptoms. Related Data Home Medications Medication Instructions Recorded Confirmed duloxetine 60 mg capsule,delayed 60 mg PO DAILY 10/26/20 05/10/21 release mirtazapine 30 mg tablet 30 mg PO BEDTIME 10/26/20 05/10/21 pen needle, diabetic 32 gauge x #50 ea 10/26/20 05/10/21 trazodone 150 mg tablet 150 mg PO BEDTIME PRN 10/26/20 05/10/21 perphenazine 4 mg tablet 4 mg PO tab 12/09/20 05/10/21 Previous Rx's Medication Instructions Recorded citalopram 40 mg tablet 40 mg PO DAILY 90 Days #90 tab 09/24/20 pen needle, diabetic 32 gauge x #120 ea 10/26/20 (BD Ultra-Fine Ramya Pen Needle) hydrochlorothiazide 25 mg tablet 25 mg PO DAILY 90 Days #90 tab 11/04/20 ezetimibe 10 mg tablet (Zetia) 10 mg PO DAILY #30 tab 12/03/20 insulin glargine 100 unit/mL (3 34 unit (0.34 mL) SUBCUT QPM 30 12/24/20 mL) subcutaneous pen (Lantus Days #15 ml Solostar U-100 Insulin) atorvastatin 80 mg tablet 80 mg PO DAILY #30 tab 03/07/21 flash glucose sensor (FreeStyle 1 ea TOPICAL Q2W #2 kit 03/26/21 Sera 14 Day Sensor) dulaglutide 4.5 mg/0.5 mL 4.5 mg (0.5 mL) SUBCUT QWEEK #2 ml 04/28/21 subcutaneous pen injector (Trulicity) albuterol sulfate 0.63 mg/3 mL 0.63 mg (3 mL) INHALATION QID PRN 05/07/21 solution for nebulization #75 ml albuterol sulfate 90 mcg/actuation 1 inh INHALATION QID PRN #8.5 g 05/07/21 aerosol inhaler azithromycin 250 mg tablet See Rx Instructions .ROUTE 05/07/21 .COMPLEX #6 tab prednisone 20 mg tablet 40 mg PO DAILY 5 Days #10 tab 05/07/21 dextromethorphan-guaifenesin ER 60 1 tab PO Q12H 7 Days #14 tab 05/10/21 mg-1,200 mg tab,extend release,12hr (Mucus Relief ER DM-MAX) nebulizers (AeroEclipse II #1 ea 05/10/21 Nebulizer) codeine 10 mg-guaifenesin 200 mg/5 5 ml PO Q6H PRN 7 Days #473 ml 05/11/21 mL oral liquid lisinopril 10 mg tablet 10 mg PO DAILY 90 Days #90 tab 05/11/21 blood sugar diagnostic (FreeStyle 1 strip MISCELLANEOUS DAILY #25 05/13/21 Precision Emanuel Strips) strip flash glucose scanning reader #1 ea 07/05/21 metformin 500 mg tablet,extended 1,000 mg PO BID #2 tab 07/22/21 release 24 hr levothyroxine 150 mcg tablet See Rx Instructions PO DAILY 30 08/02/21 Days #32 tab insulin lispro 100 unit/mL See Rx Instructions SUBCUT TID 30 10/12/21 subcutaneous pen (Humalog #15 ml (U-100) Insulin) hydrocodone-homatropine 5 mg-1.5 5 ml PO Q6H PRN #30 ml 10/22/21 mg/5 mL (5 mL) oral syrup (Hycodan) prednisone 20 mg tablet 40 mg PO DAILY #10 tab 10/22/21 Allergies Allergy/AdvReac Type Severity Reaction Status Date / Time No Known Allergies Allergy Verified 10/22/21 17:51 Review of Systems Review of Systems: Yes all other systems are reviewed and are negative Constitutional: Constitutional: Reports no additional constitutional complaints, Denies body ache(s), Denies chills, Denies fever(s), Denies headache(s) and Denies weakness Eyes: Eyes: Reports no additional eye complaints and Denies change in vision ENT: Reports system reviewed and no additional complaints, except as documented, Denies dizziness, Denies headache(s), Denies nasal congestion, Denies nasal discharge and Denies neck pain Cardiovascular: Cardiovascular: Reports no additional cardiovascular complaints, Reports chest pain (chest tightness), Denies leg edema and Reports dyspnea Respiratory: Respiratory: Reports no additional respiratory complaints, Reports cough and Reports dyspnea Gastrointestinal: Gastrointestinal: Reports no additional gastrointestinal complaints, Denies abdominal pain, Denies diarrhea, Denies nausea and Denies vomiting Genitourinary: Genitourinary: Reports no additional female genitourinary complaints and Denies urinary incontinence Musculoskeletal: Musculoskeletal: Reports no additional musculoskeletal complaints, Denies back pain, Denies arthralgias, Denies joint swelling, Denies neck pain, Denies numbness and Denies tingling Integumentary/Breasts: Skin/Breast: Reports system reviewed and no additional complaints, except as docu and Denies rash Neurologic: Denies Abnormal speech present, Denies dizziness, Denies headache(s), Denies numbness, Denies tingling and Denies weakness PMFSH Past Medical History Attestation statement: The following information was validated with the patient. Source: old records reviewed and nursing notes reviewed Medical History Anxiety CKD (chronic kidney disease) Depression Diastolic dysfunction Glaucoma Hemorrhoids HTN (hypertension) Hyperlipidemia LDL goal <100 Hypothyroidism Insomnia Obesity (BMI 30-39.9) Rheumatic heart disease Rheumatic mitral stenosis Type 2 diabetes mellitus with hyperglycemia, without long-term current use of insulin Surgical History History of section Family History Family History Father Diabetes Mother Diabetes Stroke Maternal Aunt Stroke Hypertension Social History Social History Household Members: Children Housing: Apartment Alcohol intake: current Alcohol intake frequency: holidays/special occasions only Alcohol type: wine Patient Tobacco Use Status: Never used Tobacco e-Cigarette/Vaping Use: Never Used Second Hand Smoke Exposure: No Advance Directives: No Advance Directives Information Provided: No Patient : No service: No Current occupational status: unemployed Physical Exam Vital Signs: Vital Signs: Last Vital Signs Temp 99.4 F 10/22/21 17:51 Pulse 80 10/22/21 17:51 Resp 22 H 10/22/21 17:51 BP 147/73 H 10/22/21 17:51 Pulse Ox 98 10/22/21 17:51 Body Mass Index 32.3 Const: General: cooperative, healthy appearing, comfortable and no acute distress Orientation/consciousness: patient oriented x3 Limitations: no limitations HENMT: Head: Yes normal to inspection Ears: hearing grossly normal bilaterally General nose exam: Normal external nose present Face and sinus: Yes normal facial exam Mouth: Normal oral and palatal mucosa present Throat: Yes posterior oropharynx normal Eyes: General: appearance normal, both eyes and all related structures Pupils: Equal, round and reactive pupils present Neck: Neck: Yes normal visual inspection Chest: Chest palpation & inspection: normal inspection of the chest Resp: Other: frequent bronchospastic cough Effort & Inspection: normal respiratory effort Auscultation: clear to auscultation bilaterally Cardio: Rate: regular rate Rhythm: regular rhythm Peripheral pulses: Peripheral pulses 2+ throughout GI: Inspection: Yes normal to inspection Palpation (GI): Soft to palpation and nontender Auscultation: normal bowel sounds Back/Spine/Pelvis: Thoracic/Lumbar Spine: thoracic and lumbar spine normal to inspection Skin: General skin exam: no rashes or lesions noted Neuro: General: patient oriented x3, no focal motor deficits and normal sensation to monofilament Cranial nerves: Yes Equal, round and reactive pupils present Cognition (Neuro): normal cognition Speech: No Abnormal speech present Gait exam (Neuro): Normal gait present Motor exam (neuro): 5/5 motor strength present throughout Extrem: General: Yes normal to inspection, Yes no pedal edema and Yes no calf tenderness Course Course Course Narrative: 51-year-old female here with complaints of cough, chest tightness and mild shortness of breath for the last 4 days. On arrival the patient is actual appearing quite well she does have a frequent bronchospastic cough but is speaking full sentences with clear lung sounds. Vitals are stable. will check COVID screen and chest x-ray 1844- COVID screen is positive. Chest x-ray shows no acute finding. Patient appears well. Her oxygen saturation is stable. Speaking full sentences. Will discharge her home with course of prednisone. Reviewed worrisome signs and symptoms of when to return to the emergency department. Comfortable discharge home. MDM - URI/Sore Throat Medical Records Attestation: I reviewed the patient's medical records. Lab Data Attestation: I reviewed the patient's lab results. Labs: Lab Results 10/22/21 Range/Units 17:39 COVID-19 ([facility]) Positive A (Negative) COVID-19 Clin Com See Note Imaging Data Chest x-ray: Attestation: I personally reviewed and interpreted this imaging study as follows: Radiologist's impression: EXAMINATION: XR CHEST CLINICAL INFORMATION: Cough and shortness of breath. COMPARISON: Chest radiograph dated from 05/07/2021. TECHNIQUE: PA view of the chest was obtained. FINDINGS: No significant abnormality is noted involving the heart, lungs, mediastinum, bony thorax or soft tissues. XR/XR chest 1V IMPRESSION: Unremarkable examination. ? Discharge Plan Discharge Clinical Impression: COVID-19 Patient Disposition: Home, Self-Care Instructions: COVID-19 (Coronavirus Disease 2019) (ED) Additional Instructions: Your COVID test is positive. You need to quarantine for 10 days from when your COVID symptoms began. Increase fluids, rest Take Tylenol every 4 hours as needed for pain or fever Seek care in the emergency department for increasing shortness of breath, chest pain or fever which does not respond to Tylenol home. Continue to use the albuterol inhaler 2 puffs every 4 hours Prescriptions: New prednisone 20 mg tablet 40 mg PO DAILY Qty: 10 RF: 0 hydrocodone-homatropine [Hycodan] 5-1.5 mg/5 mL (5 mL) syrup 5 ml PO Q6H PRN (Reason: cough) Qty: 30 RF: 0 No Action citalopram 40 mg tablet 40 mg PO DAILY 90 Days Qty: 90 RF: 3 hydrochlorothiazide 25 mg tablet 25 mg PO DAILY 90 Days Qty: 90 RF: 3 atorvastatin 80 mg tablet 80 mg PO DAILY Qty: 30 RF: 1 lisinopril 10 mg tablet 10 mg PO DAILY 90 Days Qty: 90 RF: 1 codeine-guaifenesin 10-200 mg/5 mL liquid 5 ml PO Q6H PRN (Reason: cough) 7 Days Qty: 473 RF: 0 blood sugar diagnostic [FreeStyle Precision Emanuel Strips] Strip 1 strip miscellaneous DAILY Qty: 25 RF: 11 (DME) flash glucose scanning reader Misc See Rx Instructions ea topical .MEDSUPPLY Qty: 1 RF: 0 metformin 500 mg tablet extended release 24 hr 1,000 mg PO BID Qty: 2 RF: 6 levothyroxine 150 mcg tablet See Rx Instructions PO DAILY 30 Days Qty: 32 RF: 11 insulin lispro [Humalog KwikPen Insulin] 100 unit/mL insulin pen See Rx Instructions subcut TID 30 Days Qty: 15 RF: 4 albuterol sulfate 0.63 mg/3 mL solution for nebulization 0.63 mg inhalation QID PRN (Reason: shortness of breath or wheezing) Qty: 75 RF: 0 albuterol sulfate 90 mcg/actuation HFA aerosol inhaler 1 inh inhalation QID PRN (Reason: shortness of breath or wheezing) Qty: 8.5 RF: 0 azithromycin 250 mg tablet See Rx Instructions .ROUTE .COMPLEX Qty: 6 RF: 0 prednisone 20 mg tablet 40 mg PO DAILY 5 Days Qty: 10 RF: 0 (DME) AeroEclipse II Nebulizer Mis See Rx Instructions .ROUTE .MEDSUPPLY Qty: 1 RF: 0 dextromethorphan-guaifenesin [Mucus Relief ER DM-MAX] 60-1,200 mg tablet extended release 12 hr 1 tab PO Q12H 7 Days Qty: 14 RF: 0 duloxetine 60 mg capsule,delayed release(DR/EC) 60 mg PO DAILY RF: 0 mirtazapine 30 mg tablet 30 mg PO BEDTIME RF: 0 trazodone 150 mg tablet 150 mg PO BEDTIME PRNRF: 0 (DME) pen needle, diabetic 32 gauge x 5/32 needle See Rx Instructions ea subcut TID Qty: 50 RF: 0 (DME) pen needle, diabetic [BD Ultra-Fine Ramya Pen Needle] 32 gauge x 5/32 needle See Rx Instructions .ROUTE .MEDSUPPLY Qty: 120 RF: 11 perphenazine 4 mg tablet 4 mg PO RF: 0 FreeStyle Sera 14 Day Sensor Kit 1 ea topical Q2W Qty: 2 RF: 11 ezetimibe [Zetia] 10 mg tablet 10 mg PO DAILY Qty: 30 RF: 5 Lantus Solostar U-100 Insulin 100 unit/mL (3 mL) insulin pen 34 unit subcut QPM 30 Days Qty: 15 RF: 3 Trulicity 4.5 mg/0.5 mL pen injector 4.5 mg subcut QWEEK Qty: 2 RF: 3 Referrals: Aleyda Paul MD [Primary Care Provider] - 2 days Print Language: Yi
== END 2021-10-22 19:30 | disposition home or self-care (01) ==
PROVIDERS: Emergency Provider Internal Medicine; PCP Internal Medicine
DX: U07.1 COVID-19 (principal); E11.9 Type 2 diabetes mellitus without complications; I10 Essential (primary) hypertension; E78.5 Hyperlipidemia, unspecified; Z79.4 Long term (current) use of insulin; Z79.02 Long term (current) use of antithrombotics/antiplatelets; Z79.899 Other long term (current) drug therapy
CPT/HCPCS: 36415; 71045; 87635; 99283

== ENCOUNTER → 2021-12-06 09:43 | Outpatient (BNVA) | payer OTHER, SELFPAY | PROVIDERS: PCP Internal Medicine; Referring Provider Internal Medicine; Visit Provider Internal Medicine Cardiovascular Disease | DX: I05.0 Rheumatic mitral stenosis (principal); I51.89 Other ill-defined heart diseases | CPT/HCPCS: 99212 ==

== ENCOUNTER 2021-12-22 09:43 | Outpatient (REF) | payer OTHER, SELFPAY ==
[2021-12-22 12:07] LABS: Microalbumin Urine < 5.0 mg/L
[2021-12-22 12:16] LABS: Cholesterol 229 mg/dL; HDL Cholesterol 46 mg/dL; LDL Cholesterol Calculated 141 mg/dl; Triglycerides 213 mg/dL
[2021-12-22 12:17] LABS: Free T4 (Free Thyroxine) 0.66 ng/dL (0.71-1.85); Thyroid Stimulating Hormone 20.33 uIU/mL (0.32-4.0)
== END 2021-12-22 09:44 | disposition home or self-care (01) ==
LOC: HO.LAB 09:43
PROVIDERS: PCP Internal Medicine; Visit Provider Nurse Practitioner Gerontology
DX: E11.65 Type 2 diabetes mellitus with hyperglycemia (principal); E03.9 Hypothyroidism, unspecified; E78.5 Hyperlipidemia, unspecified; E66.9 Obesity, unspecified; I10 Essential (primary) hypertension
CPT/HCPCS: 36415; 80061; 82043; 82947; 83036; 84439; 84443; 99212

== ENCOUNTER → 2022-01-03 10:03 | Outpatient (REF) | payer OTHER, SELFPAY | LOC: HO.SL 10:03 | PROVIDERS: PCP Internal Medicine; Visit Provider Internal Medicine | DX: G47.33 Obstructive sleep apnea (adult) (pediatric) (principal); G47.10 Hypersomnia, unspecified; R06.83 Snoring; R40.0 Somnolence; I10 Essential (primary) hypertension; I51.89 Other ill-defined heart diseases | CPT/HCPCS: 95806 ==

== ENCOUNTER 2022-01-15 22:54 | Emergency (ER) | payer OTHER, SELFPAY ==
--- NOTE | 2022-01-15 | ECG_ITS ---
Test Reason : CHEST PAIN Blood Pressure : / mmHG Vent. Rate : 075 BPM Atrial Rate : 075 BPM P-R Int : 154 ms QRS Dur : 076 ms QT Int : 386 ms P-R-T Axes : 035 019 074 degrees QTc Int : 431 ms Normal sinus rhythm Normal ECG When compared with ECG of 07-MAY-2021 15:34, No significant change was found Referred By: Generic ED Physician Electronically Signed By:CARMEN BUSTOS MD
[2022-01-15 22:56] VITALS: BP 171/54; PULSE 71; RESP 20; TEMP 36.4; O2SAT 100; BMI 32.5
--- NOTE | 2022-01-15 23:17 | ED.CHESTPAIN ---
HPI - Chest Pain General Chief Complaint: Chest Pain Stated Complaint: chest pain Time Seen by Provider: 01/15/22 23:17 Source: patient Mode of arrival: ambulatory Limitations: no limitations History of Present Illness HPI narrative: Patient with history of anxiety/depression hypertension hyperlipidemia diabetes diastolic heart function history of recurrent chest pain comes here for chest pain started 2 hours prior to arrival cardiogram done in the triage showed normal sinus rhythm no acute ischemic changes. Patient complaining of chest pain which increases with palpation and movements also complaining of headache. No nausea no vomiting no shortness of Related Data Home Medications Medication Instructions Recorded Confirmed duloxetine 60 mg capsule,delayed 60 mg PO DAILY 10/26/20 12/06/21 release mirtazapine 30 mg tablet 30 mg PO BEDTIME 10/26/20 12/06/21 pen needle, diabetic 32 gauge x #50 ea 10/26/20 05/10/21 trazodone 150 mg tablet 150 mg PO BEDTIME PRN 10/26/20 12/06/21 perphenazine 4 mg tablet 4 mg PO tab 12/09/20 12/06/21 dextromethorphan-guaifenesin ER 60 1 tab PO Q12H tab 12/06/21 12/06/21 mg-1,200 mg tab,extend release,12hr (Mucus Relief ER DM-MAX) ergocalciferol (vitamin D2) 1,250 1,250 mcg PO QWEEK 12/22/21 12/22/21 mcg (50,000 unit) capsule gabapentin 400 mg capsule 400 mg PO TID 12/22/21 12/22/21 Previous Rx's Medication Instructions Recorded citalopram 40 mg tablet 40 mg PO DAILY 90 Days #90 tab 09/24/20 ezetimibe 10 mg tablet (Zetia) 10 mg PO DAILY #30 tab 12/03/20 flash glucose sensor (FreeStyle 1 ea TOPICAL Q2W #2 kit 03/26/21 Sera 14 Day Sensor) albuterol sulfate 0.63 mg/3 mL 0.63 mg (3 mL) INHALATION QID PRN 05/07/21 solution for nebulization #75 ml albuterol sulfate 90 mcg/actuation 1 inh INHALATION QID PRN #8.5 g 05/07/21 aerosol inhaler prednisone 20 mg tablet 40 mg PO DAILY 5 Days #10 tab 05/07/21 nebulizers (AeroEclipse II #1 ea 05/10/21 Nebulizer) codeine 10 mg-guaifenesin 200 mg/5 5 ml PO Q6H PRN 7 Days #473 ml 05/11/21 mL oral liquid lisinopril 10 mg tablet 10 mg PO DAILY 90 Days #90 tab 05/11/21 blood sugar diagnostic (FreeStyle 1 strip MISCELLANEOUS DAILY #25 05/13/21 Precision Emanuel Strips) strip flash glucose scanning reader #1 ea 07/05/21 hydrocodone-homatropine 5 mg-1.5 5 ml PO Q6H PRN #30 ml 10/22/21 mg/5 mL (5 mL) oral syrup (Hycodan) hydrochlorothiazide 25 mg tablet 25 mg PO DAILY #30 tab 10/31/21 dulaglutide 4.5 mg/0.5 mL 4.5 mg (0.5 mL) SUBCUT QWEEK #2 ml 11/05/21 subcutaneous pen injector (Fashism) pen needle, diabetic 32 gauge x #120 ea 11/11/21 (BD Ultra-Fine Ramya Pen Needle) insulin glargine 100 unit/mL (3 48 unit (0.48 mL) SUBCUT QPM 30 12/22/21 mL) subcutaneous pen (Lantus Days #15 ml Solostar U-100 Insulin) insulin lispro 100 unit/mL See Rx Instructions SUBCUT TID 30 12/22/21 subcutaneous pen (Humalog KwikPen Days #30 ml (U-100) Insulin) rosuvastatin 40 mg tablet 40 mg PO DAILY #30 tab 12/29/21 levothyroxine 175 mcg tablet 175 mcg PO DAILY #90 tab 12/30/21 Allergies Allergy/AdvReac Type Severity Reaction Status Date / Time No Known Allergies Allergy Verified 01/15/22 22:56 Review of Systems Review of Systems: Yes all other systems are reviewed and are negative PMFSH Past Medical History Medical History Anxiety CKD (chronic kidney disease) Depression Diastolic dysfunction Essential hypertension Glaucoma Hemorrhoids HTN (hypertension) Hyperlipidemia LDL goal <100 Hypothyroidism Insomnia Obesity (BMI 30-39.9) Rheumatic heart disease Rheumatic mitral stenosis Type 2 diabetes mellitus with hyperglycemia, without long-term current use of insulin Surgical History History of section Family History Family History Father Diabetes Mother Diabetes Stroke Maternal Aunt Stroke Hypertension Social History Social History Household Members: Children Housing: Apartment Alcohol intake: current Alcohol intake frequency: holidays/special occasions only Alcohol type: wine Patient Tobacco Use Status: Never used Tobacco e-Cigarette/Vaping Use: Never Used Second Hand Smoke Exposure: No Advance Directives: No Patient : No service: No Current occupational status: unemployed Physical Exam Vital Signs: Vital Signs: Last Vital Signs Temp 97.5 F 01/15/22 22:56 Pulse 67 01/16/22 00:00 Resp 16 01/16/22 00:00 BP 154/77 H 01/16/22 00:00 Pulse Ox 96 01/16/22 00:00 BMI result Body Mass Index 32.5 Appearance: Alert. Oriented X3. No acute distress. Eyes: PERRLA, No Nystagmus ENT: Pharynx normal. Oral Mucosa moist Neck: Normal inspection. Neck supple. CVS: Normal heart rate and rhythm. Pulses normal. Left parasternal tenderness Respiratory: No respiratory distress. Equal air entry bilateral, no wheezing/rales/rhonchi Abdomen: Soft and nontender. Bowel sounds are present, no mass palpable, no CVA tenderness Skin: Skin warm and dry. Normal skin color. Normal skin turgor. Extremities: No lower extremity edema. No calf tenderness Neuro: Oriented X 3. No motor deficit. MDM - Chest Pain MDM Narrative Medical decision making narrative: Patient with atypical recurrent musculoskeletal chest pain normal EKG and normal troponin pain improved after Toradol IM will discharge patient home Medical Records Data Attestation: I reviewed the patient's medical records. Lab Data Attestation: I reviewed the patient's lab results. Result diagrams: 01/15/22 23:35 01/15/22 23:35 Labs: Lab Results 01/15/22 01/15/22 01/15/22 Range/Units 23:35 23:35 23:35 WBC 9.9 (4.8-10.8) X10*3/uL RBC 5.25 (4.20-5.50) X10*6/uL Hgb 14.4 (12.0-16.0) g/dl Hct 43.7 (37.0-47.0) % MCV 83.2 (80.0-98.0) fL MCH 27.4 (27.0-33.0) pg MCHC 33.0 (31.0-35.0) g/dl RDW 13.7 (11.0-16.0) % Plt Count 267 (160-400) X10*3/uL MPV 10.5 (9.4-12.3) fL Immature Gran % (Auto) 0.2 (0.0-0.4) % Neut % (Auto) 55.1 (45-73) % Lymph % (Auto) 32.1 (20-40) % [place] % (Auto) 7.2 (2-11) % Eos % (Auto) 4.9 H (0-4) % Baso % (Auto) 0.5 (0-2) % Lymph # (Auto) 3.2 (1.2-4.9) X10*3/uL [place] # (Auto) 0.7 (0.1-1.2) X10*3/uL Eos # (Auto) 0.5 H (0.0-0.4) X10*3/uL Baso # (Auto) 0.1 (0.0-0.2) X10*3/uL Abs Immat Gran (auto) 0.02 (0.00-0.03) X10*3/uL Absolute Neuts (auto) 5.5 (2.0-8.3) x10*3/uL Absolute Nucleated RBC 0.000 (0.0-0.012) X10*3/uL Nucleated RBC % (auto) 0.0 (0.0-0.2) /100WBC Sodium 136 (135-145) mmol/L Potassium 4.3 (3.3-5.1) mmol/L Chloride 103 (96-108) mmol/L Carbon Dioxide 24 (22-29) mmol/L Anion Gap 13 (12-20) BUN 19 H (9-16) mg/dL Creatinine 1.30 (0.5-1.4) mg/dL Estim Creat Clear Calc 64.4 Estimated GFR 43 Random Glucose 249 H (60-115) mg/dL Calcium 10.5 H D (8.4-10.2) mg/dL Troponin I High Sens < 3.5 (<3.5-17.0) ng/L Discharge Plan Discharge Clinical Impression: Chest wall pain Patient Disposition: Home, Self-Care Instructions: Chest Wall Pain (ED) Additional Instructions: Your chest pain is likely musculoskeletal Take ibuprofen for pain 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 Prescriptions: No Action citalopram 40 mg tablet 40 mg PO DAILY 90 Days Qty: 90 3RF lisinopril 10 mg tablet 10 mg PO DAILY 90 Days Qty: 90 1RF codeine-guaifenesin 10-200 mg/5 mL liquid 5 ml PO Q6H PRN (Reason: cough) 7 Days Qty: 473 0RF blood sugar diagnostic [FreeStyle Precision Emanuel Strips] Strip 1 strip miscellaneous DAILY Qty: 25 11RF (DME) flash glucose scanning reader Misc See Rx Instructions ea topical .MEDSUPPLY Qty: 1 0RF Rx Instructions: As directed hydrochlorothiazide 25 mg tablet 25 mg PO DAILY Qty: 30 11RF Trulicity 4.5 mg/0.5 mL pen injector 4.5 mg subcut QWEEK Qty: 2 4RF (DME) pen needle, diabetic [BD Ultra-Fine Ramya Pen Needle] 32 gauge x 5/32 needle See Rx Instructions .ROUTE .MEDSUPPLY Qty: 120 11RF Rx Instructions: As directed four times a day rosuvastatin 40 mg tablet 40 mg PO DAILY Qty: 30 11RF levothyroxine 175 mcg tablet 175 mcg PO DAILY Qty: 90 3RF albuterol sulfate 0.63 mg/3 mL solution for nebulization 0.63 mg inhalation QID PRN (Reason: shortness of breath or wheezing) Qty: 75 0RF albuterol sulfate 90 mcg/actuation HFA aerosol inhaler 1 inh inhalation QID PRN (Reason: shortness of breath or wheezing) Qty: 8.5 0RF prednisone 20 mg tablet 40 mg PO DAILY 5 Days Qty: 10 0RF hydrocodone-homatropine [Hycodan] 5-1.5 mg/5 mL (5 mL) syrup 5 ml PO Q6H PRN (Reason: cough) Qty: 30 0RF (DME) AeroEclipse II Nebulizer Misc See Rx Instructions .ROUTE .MEDSUPPLY Qty: 1 0RF Rx Instructions: As directed duloxetine 60 mg capsule,delayed release(DR/EC) 60 mg PO DAILY 0RF mirtazapine 30 mg tablet 30 mg PO BEDTIME 0RF trazodone 150 mg tablet 150 mg PO BEDTIME PRN0RF (DME) pen needle, diabetic 32 gauge x 5/32 needle See Rx Instructions ea subcut TID Qty: 50 0RF Rx Instructions: As directed perphenazine 4 mg tablet 4 mg PO 0RF FreeStyle Sera 14 Day Sensor Kit 1 ea topical Q2W Qty: 2 11RF ergocalciferol (vitamin D2) 1,250 mcg (50,000 unit) capsule 1,250 mcg PO QWEEK 0RF gabapentin 400 mg capsule 400 mg PO TID 0RF Lantus Solostar U-100 Insulin 100 unit/mL (3 mL) insulin pen 48 unit subcut QPM 30 Days Qty: 15 5RF insulin lispro [Humalog KwikPen Insulin] 100 unit/mL insulin pen See Rx Instructions subcut TID 30 Days Qty: 30 5RF Rx Instructions: 18 units breakfast, 14 units lunch and 22 units dinner, +2units for bg >200 subcut 3x per day. ezetimibe [Zetia] 10 mg tablet 10 mg PO DAILY Qty: 30 5RF dextromethorphan-guaifenesin [Mucus Relief ER DM-MAX] 60-1,200 mg tablet extended release 12 hr 1 tab PO Q12H 0RF
[2022-01-15 23:40] LABS: MANUAL DIFF FLAG NO
[2022-01-15 23:41] LABS: Basophils Absolute Auto 0.1 X10*3/uL (0.0-0.2); Basophils Percent Auto 0.5 % (0-2); Eosinophils Absolute Auto 0.5 X10*3/uL (0.0-0.4); Eosinophils Percent Auto 4.9 % (0-4); Hematocrit 43.7 % (37.0-47.0); Hemoglobin 14.4 g/dl (12.0-16.0); Imm Gran Abs Auto 0.02 X10*3/uL (0.00-0.03); Imm Gran Pct Auto 0.2 % (0.0-0.4); Lymphocytes Absolute Auto 3.2 X10*3/uL (1.2-4.9); Lymphocytes Percent Auto 32.1 % (20-40); Mean Corpuscular Hemoglobin 27.4 pg (27.0-33.0); Mean Corpuscular Volume 83.2 fL (80.0-98.0); Mean Platelet Volume 10.5 fL (9.4-12.3); Monocytes Absolute Auto 0.7 X10*3/uL (0.1-1.2); Monocytes Percent Auto 7.2 % (2-11); Neutrophils Absolute Auto 5.5 x10*3/uL (2.0-8.3); Neutrophils Percent Auto 55.1 % (45-73); Platelet Count 267 X10*3/uL (160-400); Red Blood Count 5.25 X10*6/uL (4.20-5.50); Red Cell Distribution Width 13.7 % (11.0-16.0); White Blood Count 9.9 X10*3/uL (4.8-10.8)
[2022-01-16] VITALS: BP 154/77; PULSE 67; RESP 16; O2SAT 96
[2022-01-16] LABS: Anion Gap 13 (12-20); Blood Urea Nitrogen 19 mg/dL (9-16); Calcium 10.5 mg/dL (8.4-10.2); Carbon Dioxide 24 mmol/L (22-29); Chloride 103 mmol/L (96-108); Creatinine Clr Calc Pharmacy 64.4; Estimated Glomerular Filt Rate 43; Glucose Random 249 mg/dL (60-115); Potassium 4.3 mmol/L (3.3-5.1); Sodium 136 mmol/L (135-145)
[2022-01-16 00:04] LABS: Troponin-I High Sensitivity < 3.5 ng/L (<3.5-17.0)
[2022-01-16] MEDS: Ketorolac Tromethamine 60 MG/2 ML VIAL IM (00:17)
== END 2022-01-16 00:57 | disposition home or self-care (01) ==
PROVIDERS: Emergency Provider Internal Medicine; PCP Internal Medicine
DX: R07.89 Other chest pain (principal); I10 Essential (primary) hypertension; E11.9 Type 2 diabetes mellitus without complications; E78.5 Hyperlipidemia, unspecified; F41.9 Anxiety disorder, unspecified; Z79.4 Long term (current) use of insulin; Z79.02 Long term (current) use of antithrombotics/antiplatelets
CPT/HCPCS: 36415; 80048; 84484; 85025; 93005; 96372; 99284; J1885

== ENCOUNTER 2022-02-01 07:41 | Outpatient (REF) | payer OTHER, SELFPAY ==
[2022-02-01 07:55] LABS: MANUAL DIFF FLAG NO
[2022-02-01 08:26] LABS: Basophils Absolute Auto 0.1 X10*3/uL (0.0-0.2); Basophils Percent Auto 0.6 % (0-2); Eosinophils Absolute Auto 0.5 X10*3/uL (0.0-0.4); Eosinophils Percent Auto 6.2 % (0-4); Hematocrit 44.3 % (37.0-47.0); Hemoglobin 14.1 g/dl (12.0-16.0); Imm Gran Abs Auto 0.03 X10*3/uL (0.00-0.03); Imm Gran Pct Auto 0.4 % (0.0-0.4); Lymphocytes Absolute Auto 2.6 X10*3/uL (1.2-4.9); Lymphocytes Percent Auto 32.2 % (20-40); Mean Corpuscular HGB Conc 31.8 g/dl (31.0-35.0); Mean Corpuscular Hemoglobin 27.4 pg (27.0-33.0); Mean Corpuscular Volume 86.2 fL (80.0-98.0); Mean Platelet Volume 10.7 fL (9.4-12.3); Monocytes Absolute Auto 0.6 X10*3/uL (0.1-1.2); Monocytes Percent Auto 6.8 % (2-11); Neutrophils Absolute Auto 4.4 x10*3/uL (2.0-8.3); Neutrophils Percent Auto 53.8 % (45-73); Platelet Count 249 X10*3/uL (160-400); Red Blood Count 5.14 X10*6/uL (4.20-5.50); White Blood Count 8.2 X10*3/uL (4.8-10.8)
[2022-02-01 08:51] LABS: Creatinine Urine 147.83 mg/dL; Protein/Creatinine Ratio, Ur 0.09 (<0.2); Total Protein Urine Random 13 mg/dL (<12)
[2022-02-01 08:53] LABS: Anion Gap 12 (12-20); Blood Urea Nitrogen 22 mg/dL (9-16); Calcium 9.3 mg/dL (8.4-10.2); Carbon Dioxide 26 mmol/L (22-29); Chloride 104 mmol/L (96-108); Estimated Glomerular Filt Rate 51; Glucose Random 238 mg/dL (60-115); Potassium 4.8 mmol/L (3.3-5.1); Sodium 137 mmol/L (135-145)
== END 2022-02-01 07:42 | disposition home or self-care (01) ==
LOC: HO.LAB 07:41
PROVIDERS: PCP Internal Medicine; Visit Provider Internal Medicine Hypertension Specialist
DX: N18.31 Chronic kidney disease, stage 3a (principal)
CPT/HCPCS: 36415; 80048; 84156; 85025

== ENCOUNTER → 2022-02-10 09:53 | Outpatient (REF) | payer OTHER, SELFPAY ==
--- NOTE | 2022-02-10 09:56 | CA_ITS ---
Transthoracic Echocardiogram Patient (Last, First, Middle): Sirena Griffin, Gender: Female Date of : 1970 Age: 51 Procedure Date: 02/10/2022 Procedure Type: Transthoracic Echocardiogram Location: OP Height: 175.26 cm Weight: 108.86 kg BSA: 2.23 m2 Heart Rate: bpm BP: 122 / 80 mmHg Card Clothier: CONCHIS Referring MD: Zachary Draper MD Symptoms: I05.0 - Rheumatic mitral stenosis Study Quality: Fair ECG Rhythm: Sinus Conclusions: - The left ventricular systolic function is normal. The calculated ejection fraction is 57% by biplane method. - The left atrium is moderately dilated. - The mitral valve appears rheumatic. There is mild mitral valve stenosis. Findings Left Ventricle Normal left ventricular cavity size. There is mildly increased left ventricular wall thickness. The left ventricular systolic function is normal. The calculated ejection fraction is 57% by biplane method. There is no evidence of regional wall motion abnormalities. E/E prime ratio is >15, consistent with elevated filling pressures. Evidence suggests grade I (mild) diastolic dysfunction. Right Ventricle Normal right ventricular cavity size and systolic function. Atria The left atrium is moderately dilated. The right atrium is normal in size. Aortic Valve The aortic valve was not well visualized. There is no aortic valve stenosis. There is trace (trivial) aortic valve regurgitation. Mitral Valve The mitral valve appears rheumatic. There is mild anterior and moderate posterior mitral leaflet thickening. There is trace mitral valve regurgitation. There is mild mitral valve stenosis. Mean gradient across the mitral valve 5 mm Hg. Mitral valve area by pressure half time 1.7 sq cm. Pulmonic Valve The pulmonic valve was not well visualized. Tricuspid Valve Normal tricuspid valve structure. There is mild tricuspid valve regurgitation. The right ventricular systolic pressure is 44 mmHg. Mild pulmonary hypertension is present. Great Vessels The aortic annulus, sinuses of valsalva, asc aorta, and aortic arch are normal in size. Venous The inferior vena cava is normal in size and collapses greater than 50% with inspiration. Pericardium/Pleural There is a small loculated pericardial effusion overlying the left ventricle. There are no definitive echocardiographic findings of tamponade physiology. Prior Study Comparison No significant change compared to prior study dated: 02/01/2021. Measurements 2D Linear Measurements IVSd: 1.13 0.6-0.9/0.6-1.0 cm LVIDd: 4.41 3.9-5.3/4.2-5.9 cm LVIDd Index: 1.98 2.4-3.2/2.2-3.1 cm/m2 LVIDs: 2.87 2.0-3.6 cm LVPWd: 1.14 0.7-1.1 cm LA Diam: 4.50 2.7-3.8/3.0-4.0 cm LAIDs Index: 2.02 1.5-2.3 cm/m2 LV Mass: 220.80 67-162/88-224 g LV Mass Index: 99.02 43-95/49-115 g/m2 LVOT Diam: 2.00 3.0+(-)1.3 cm 2D Systolic Function EF 4C: 50.50 >55% EF 2C: 64.30 >55% EF BiP: 56.90 >55% Mitral Valve MV VTI: 0.57 MV Pk Wander: 1.96 MV Mn Wander: 0.99 MV Pk Grad: 15.00 MV Mn Grad: 5.00 MV Pk E: 1.32 MV PK A: 1.81 MV Decel Time: 360.00 E/A: 0.70 E'Lateral: 5.55 E'Medial: 4.57 E/E' Med: 28.90 E/E' Lat: 23.80 PHT: 127.00 MVA PHT: 1.73 MVA Continuity: 1.30 Decel Tift: 3.34 Aortic Valve AoV Pk Wander: 1.71 AoV Mn Wander: 1.16 AoV VTI: 0.36 AoV Pk Grad: 12.00 Aov Mn Grad: 6.00 MUNIRA Cont.VTI: 2.02 LVOT LVOT Pk Wander: 1.07 LVOT Mn Wander: 0.69 LVOT VTI: 0.23 LVOT Pk Grad: 5.00 LVOT Mn Grad: 2.00 LVOT Diam: 2.00 LVOT Area: 3.14 Diastolic Function MV Pk E: 1.32 MV Pk A: 1.81 E/A: 0.70 E'Medial: 4.57 E/E' Med: 28.90 E' Laterial: 5.55 E/E' Lat: 23.80 Right Ventricle TAPSE (mm): 24.40 TVS' Wander: 12.40 Tricuspid Valve TR Pk Wander: 3.00 TR Pk Grad: 36.00 RA Press: 8.00 RVSP: 44.00 Great Vessels Aorta Sinus of Valsalva: 3.17 2.0-3.[address] Ridge: 2.89 1.7-3.4 cm Ao Asc: 3.30 2.1-3.4 cm Ao Arch: 2.80 Updated in Other Vendor System with Status of Final Deacon Sharp MD electronically signed on 02/12/2022 12:24:47 PM with status of Final
== END ==
LOC: HO.CARD 09:53
PROVIDERS: PCP Internal Medicine; Visit Provider Internal Medicine Cardiovascular Disease
DX: I05.0 Rheumatic mitral stenosis (principal)
CPT/HCPCS: 93306

== ENCOUNTER 2022-03-24 09:36 | Outpatient (REF) | payer OTHER, SELFPAY ==
[2022-03-24 12:29] LABS: Thyroid Stimulating Hormone 9.42 uIU/mL (0.32-4.0)
== END 2022-03-24 09:37 | disposition home or self-care (01) ==
LOC: HO.LAB 09:36
PROVIDERS: PCP Internal Medicine; Visit Provider Nurse Practitioner Gerontology
DX: E11.65 Type 2 diabetes mellitus with hyperglycemia (principal); E03.9 Hypothyroidism, unspecified; E78.5 Hyperlipidemia, unspecified; E66.9 Obesity, unspecified; I10 Essential (primary) hypertension; Z79.4 Long term (current) use of insulin
CPT/HCPCS: 36415; 82947; 83036; 84439; 84443; 99212

== ENCOUNTER 2022-03-29 11:26 | Outpatient (REF) | payer OTHER, SELFPAY ==
--- NOTE | ~2022-03-29 | US_ITS ---
EXAMINATION: US VENOUS ULTRASOUND WITH DOPPLER LOWER EXTREMITY, RIGHT CLINICAL INFORMATION: Pain COMPARISON: None TECHNIQUE: Ultrasound of the deep veins is performed from the hip to the calf with compression sonography and color and pulse Doppler assessment. Spectral analysis with color-flow imaging is performed. FINDINGS: There is normal venous compression and respiratory variation and augmented flow. The visualized common femoral vein, superficial femoral vein, profunda femoral vein, popliteal vein, and the trifurcation region shows no evidence of deep venous thrombosis. There is no significant popliteal fossa cyst. US/US venous duplex LE RT IMPRESSION: No DVT demonstrated in the right lower extremity.
--- NOTE | ~2022-03-29 | XR_ITS ---
EXAMINATION: XR LUMBOSACRAL SPINE CLINICAL INFORMATION: Radiculopathy. COMPARISON: None TECHNIQUE: Three views of the lumbosacral spine. FINDINGS: There is mild straightening of lumbar lordosis. The vertebral heights and alignment is normal. There is mild loss of L5-S1 disc height with mild ventral spondylosis L4-L5 and L5-S1 disc levels. No lytic or sclerotic process seen. XR/XR lumbar spine 2-3V IMPRESSION: Mild degenerative disc changes L5-S1 disc level. No visible acute fracture or dislocation seen.
[2022-03-29 11:35] LABS: MANUAL DIFF FLAG NO
[2022-03-29 12:12] LABS: Basophils Absolute Auto 0.1 X10*3/uL (0.0-0.2); Basophils Percent Auto 0.6 % (0-2); Eosinophils Absolute Auto 0.3 X10*3/uL (0.0-0.4); Eosinophils Percent Auto 3.2 % (0-4); Hematocrit 48.9 % (37.0-47.0); Hemoglobin 15.3 g/dl (12.0-16.0); Imm Gran Abs Auto 0.03 X10*3/uL (0.00-0.03); Imm Gran Pct Auto 0.3 % (0.0-0.4); Lymphocytes Absolute Auto 2.5 X10*3/uL (1.2-4.9); Lymphocytes Percent Auto 27.7 % (20-40); Mean Corpuscular HGB Conc 31.3 g/dl (31.0-35.0); Mean Corpuscular Hemoglobin 26.9 pg (27.0-33.0); Mean Corpuscular Volume 86.1 fL (80.0-98.0); Mean Platelet Volume 10.6 fL (9.4-12.3); Monocytes Absolute Auto 0.4 X10*3/uL (0.1-1.2); Neutrophils Absolute Auto 5.6 x10*3/uL (2.0-8.3); Neutrophils Percent Auto 63.2 % (45-73); Platelet Count 274 X10*3/uL (160-400); Red Blood Count 5.68 X10*6/uL (4.20-5.50); Red Cell Distribution Width 13.4 % (11.0-16.0); White Blood Count 8.8 X10*3/uL (4.8-10.8)
[2022-03-29 12:40] LABS: Alanine Aminotransferase 28 U/L (0-31); Albumin Level 4.5 g/dL (3.5-5.0); Alkaline Phosphatase 98 U/L (39-117); Anion Gap 13 (12-20); Aspartate Amino Transferase 21 U/L (5-31); Bilirubin Total 0.6 mg/dL (0.0-1.0); Blood Urea Nitrogen 15 mg/dL (9-16); Calcium 10.1 mg/dL (8.4-10.2); Carbon Dioxide 27 mmol/L (22-29); Chloride 103 mmol/L (96-108); Cholesterol 226 mg/dL; Estimated Glomerular Filt Rate 50; Glucose Fasting 190 mg/dL (60-99); HDL Cholesterol 43 mg/dL; LDL Cholesterol Calculated 152 mg/dl; Potassium 4.8 mmol/L (3.3-5.1); Sodium 138 mmol/L (135-145); Total Protein 8.4 g/dL (6.5-8.0); Triglycerides 158 mg/dL
[2022-03-29 12:55] LABS: Thyroid Stimulating Hormone 0.64 uIU/mL (0.32-4.0)
[2022-03-29 13:15] LABS: Estimated Average Glucose 229 mg/dL; Hemoglobin A1c % 9.6 %
== END 2022-03-29 11:27 | disposition home or self-care (01) ==
LOC: HO.US 11:26
PROVIDERS: Nurse Practitioner Gerontology; PCP Nurse Practitioner Family; Visit Provider Nurse Practitioner Acute Care
DX: Z00.00 Encounter for general adult medical examination without abnormal findings (principal); E03.9 Hypothyroidism, unspecified; M79.661 Pain in right lower leg; M51.16 Intervertebral disc disorders with radiculopathy, lumbar region; M62.830 Muscle spasm of back
CPT/HCPCS: 36415; 72100; 80053; 80061; 83036; 84439; 84443; 85025; 93971

== ENCOUNTER → 2022-04-22 12:30 | Outpatient (BNVA) | payer OTHER, SELFPAY | PROVIDERS: PCP Nurse Practitioner Family; Visit Provider Registered Nurse Diabetes Educator | DX: E11.65 Type 2 diabetes mellitus with hyperglycemia (principal) | CPT/HCPCS: 99211 ==

== ENCOUNTER 2022-05-02 11:02 | Outpatient (RCR) | payer OTHER, SELFPAY | END 2022-05-13 08:27 | disposition home or self-care (01) | LOC: HO.PT 11:02 | PROVIDERS: Visit Provider Nurse Practitioner Acute Care | DX: M51.16 Intervertebral disc disorders with radiculopathy, lumbar region (principal) | CPT/HCPCS: 97110; 97162 ==

== ENCOUNTER 2022-05-02 22:01 | Emergency (ER) | payer OTHER, SELFPAY ==
--- NOTE | ~2022-05-02 | XR_ITS ---
EXAMINATION: XR CHEST CLINICAL INFORMATION: Cough. COMPARISON: 10/22/2021 chest radiograph. TECHNIQUE: 2 views of the chest were obtained. FINDINGS: No significant abnormality is noted involving the heart, lungs, mediastinum, bony thorax or soft tissues. XR/XR chest 2V IMPRESSION: No acute cardiopulmonary process.
[2022-05-02 22:09] VITALS: BP 146/74; PULSE 83; RESP 18; TEMP 36.4; O2SAT 96; BMI 34.0
--- NOTE | 2022-05-02 23:06 | ED.ASTHMA ---
HPI - Asthma General Chief Complaint: Asthma Stated Complaint: Asthma Time Seen by Provider: 05/02/22 22:20 Source: patient Mode of arrival: ambulatory History of Present Illness HPI Narrative: Patient presents emergency department for evaluation multiple complaints. She reports that she has been having a cough for 3-4 days with ?lung pain?, states that it feels like an exacerbation of her asthma. Her cough was worse today and she has had headaches since earlier this morning. She has trialed Tylenol and ibuprofen without improvement of her pain. She has tried using her albuterol inhaler with no relief. She does not have any albuterol solution for her nebulizer machine. Additional she reports onset of substernal chest pressure and tightness with onset of 3 hours ago. She states that the pain is present constantly, even if she is not coughing. Denies known sick contacts. Denies fevers, chills, dizziness, lightheadedness, vision changes, neck pain, neck stiffness, anterior chest pain back pain, nausea, vomiting, abdominal pain, numbness or tingling of the extremities, generalized weakness. MD complaint: asthma attack Onset (ago): day(s) Severity: moderate Context: none known Associated symptoms: dry cough Treatments Prior to Arrival: inhaled bronchodilator Related Data Home Medications Medication Instructions Recorded Confirmed duloxetine 60 mg capsule,delayed 60 mg PO DAILY 10/26/20 12/06/21 release mirtazapine 30 mg tablet 30 mg PO BEDTIME 10/26/20 12/06/21 pen needle, diabetic 32 gauge x #50 ea 10/26/20 05/10/21 trazodone 150 mg tablet 150 mg PO BEDTIME PRN 10/26/20 12/06/21 perphenazine 4 mg tablet 4 mg PO tab 12/09/20 12/06/21 ergocalciferol (vitamin D2) 1,250 1,250 mcg PO QWEEK 12/22/21 03/24/22 mcg (50,000 unit) capsule gabapentin 400 mg capsule 400 mg PO TID 12/22/21 03/24/22 Previous Rx's Medication Instructions Recorded citalopram 40 mg tablet 40 mg PO DAILY 90 Days #90 tab 09/24/20 ezetimibe 10 mg tablet (Zetia) 10 mg PO DAILY #30 tab 12/03/20 albuterol sulfate 0.63 mg/3 mL 0.63 mg (3 mL) INHALATION QID PRN 05/07/21 solution for nebulization #75 ml albuterol sulfate 90 mcg/actuation 1 inh INHALATION QID PRN #8.5 g 05/07/21 aerosol inhaler flash glucose scanning reader #1 ea 07/05/21 hydrochlorothiazide 25 mg tablet 25 mg PO DAILY #30 tab 10/31/21 pen needle, diabetic 32 gauge x #120 ea 11/11/21 (BD Ultra-Fine Ramya Pen Needle) rosuvastatin 40 mg tablet 40 mg PO DAILY #30 tab 12/29/21 levothyroxine 175 mcg tablet 175 mcg PO DAILY #90 tab 12/30/21 lisinopril 10 mg tablet 10 mg PO DAILY 90 Days #90 tab 01/31/22 flash glucose sensor (FreeStyle 1 ea TOPICAL Q2W #2 kit 03/08/22 Sera 14 Day Sensor) blood sugar diagnostic (FreeStyle #50 ea 03/24/22 Precision Emanuel Strips) insulin degludec 200 unit/mL (3 56 unit (0.28 mL) SUBCUT BEDTIME 03/24/22 mL) subcutaneous pen (Tresiba 30 Days #9 ml FlexTouch U-200 insulin) blood sugar diagnostic (FreeStyle 4 strip MISCELLANEOUS QID #125 03/25/22 Precision Emaunel Strips) strip diclofenac sodium 1 % topical gel 4 g TOPICAL QID PRN #100 g 03/29/22 (Voltaren Arthritis Pain) dulaglutide 4.5 mg/0.5 mL 4.5 mg (0.5 mL) SUBCUT QWEEK #2 ml 04/12/22 subcutaneous pen injector (Trulicity) insulin lispro 100 unit/mL See Rx Instructions SUBCUT TID 30 04/12/22 subcutaneous pen (Humalog #30 ml (U-100) Insulin) tizanidine 2 mg tablet 2 mg PO BEDTIME PRN #30 tab 04/29/22 albuterol sulfate 2.5 mg (3 mL) INHALATION Q4-6H PRN 05/03/22 #75 ml prednisone 20 mg tablet 40 mg PO DAILY 5 Days #10 tab 05/03/22 Allergies Allergy/AdvReac Type Severity Reaction Status Date / Time No Known Allergies Allergy Verified 03/29/22 10:07 Review of Systems Review of Systems: Constitutional : No Weight loss, No Fever, No Chills ENT/Mouth :? No sore throat, No Rhinorrhea Eyes: No Eye Pain, No Swelling Cardiovascular : Positive Chest Pain, pos SOB, no Dyspnea on Exertion, No Orthopnea, No Edema, No Palpitations Respiratory : No Cough, No Sputum Gastrointestinal : No Nausea, No Vomiting, No Diarrhea, No abdominal Pain, No Hematochezia, No Melena Genitourinary : No Dysuria, No Urinary Frequency Musculoskeletal : No joint pain, No Myalgias, No Joint Swelling Skin : No Skin Lesions, No rash Neuro : No Weakness, No Numbness, No Dizziness, positive Headache Psych : No Anxiety/Panic, No Depression Heme/Lymph: No Bruising, No Lymphadenopathy Endocrine : No Polyuria, No Polydipsia Yes all other systems are reviewed and are negative [facility] Past Medical History Attestation statement: The following information was validated with the patient. Source: old records reviewed Medical History Anxiety CKD (chronic kidney disease) Depression Diastolic dysfunction Essential hypertension Glaucoma Hemorrhoids HTN (hypertension) Hyperlipidemia LDL goal <100 Hypothyroidism Insomnia Obesity (BMI 30-39.9) Rheumatic heart disease Rheumatic mitral stenosis Type 2 diabetes mellitus with hyperglycemia, without long-term current use of insulin Surgical History History of section Family History Family History Father Diabetes Mother Diabetes Stroke Maternal Aunt Stroke Hypertension Social History Social History Household Members: Children Housing: Apartment Alcohol intake: current Alcohol intake frequency: holidays/special occasions only Alcohol type: wine Patient Tobacco Use Status: Never used Tobacco e-Cigarette/Vaping Use: Never Used Second Hand Smoke Exposure: No Advance Directives: No service: No Current occupational status: unemployed Cognitive needs: No Hearing needs: No Vision needs: Yes Physical Exam Vital Signs: Vital Signs: Last Vital Signs Temp 97.5 F 05/02/22 22:09 Pulse 83 05/02/22 22:09 Resp 18 05/02/22 22:09 BP 146/74 H 05/02/22 22:09 Pulse Ox 96 05/02/22 22:09 BMI result Body Mass Index 34.0 Vital signs have been reviewed as normal and appeared to be correct. Hypertensive. Heart rate normal.? Respiration rate normal. Temperature normal.? Oxygen saturation normal. Appearance: Alert.?Oriented to person, place and time. No acute distress.?Normal affect. Eyes: Pupils equal, round and reactive to light.? EOMI. No nystagmus. ENT: Pharynx normal.?? Neck: Normal inspection.? Neck supple.??No JVD CVS: Heart sounds normal. Normal heart rate and rhythm.? Pulses normal.?? Respiratory: No respiratory distress.? Lung sounds clear to auscultation mild rhonchi bilaterally, diminished at the bases Abdomen: Soft and non-tender. Normoactive bowel sounds. No pulsatile mass.?? Skin: Skin warm and dry.? Normal skin color.? Normal skin turgor.?? Extremities: No lower extremity edema.? No calf ttp? Neuro: Moves all extremities spontaneously. Sensation intact bilaterally. No motor deficits. Ambulates with normal steady gait. Course Course Course Narrative: Patient is a 51-year-old female with a past medical history of anxiety, chronic kidney disease, depression, diastolic heart dysfunction, rheumatic heart disease with mitral stenosis, mitral regurgitation, aortic regurgitation, hypertension, hyperlipidemia, hypothyroidism, type 2 diabetes. She presents to emergency department for evaluation of headache cough and chest pain. Initially reporting symptoms consistent with an asthma exacerbation, however she is also having constant anterior chest pain with onset a couple of hours ago. Pain is reproducible with palpation of the anterior chest. Given her past medical history, Will obtain CBC to evaluate for leukocytosis/ anemia, CMP and lipase to evaluate for abnormal electrolytes /abnormal renal function/ abnormal hepatic/biliary function, EKG and troponin to evaluate for ischemia/ACS. Chest x-ray to evaluate for consolidation/ infiltrate/ mass/ pulmonary congestion. COVID-19 and influenza testing. Disposition will be pending results. Patient to receive Fioricet for headache at this time, took ibuprofen prior to arrival, will avoid NSAID at this time Reevaluation(s) Reevaluation #1: CBC reveals mild leukocytosis, no left shift. CMP is overall unremarkable. Troponin <3.5, EKG reveals normal sinus rhythm, no acute ischemic changes. Chest x-ray no acute findings. Influenza testing is negative. COVID-19 testing is positive. Chest pain is reproducible, most consistent with muscular strain of the chest wall secondary to cough. COVID-19 infection has likely caused secondary asthma exacerbation. No dyspnea on exertion, no tachypnea or hypoxia with ambulation. Discussed plan of care with patient, patient accepted monoclonal antibody infusion referral, patient received prescriptions for albuterol solution, prednisone, discussed reasons that she should return back to emergency department, advised follow-up with primary care provider within 1 week. [facility] - Asthma Medical Records Attestation: I reviewed the patient's medical records. Lab Data Attestation: I reviewed the patient's lab results. Result diagrams: 05/02/22 23:46 05/02/22 23:46 Labs: Lab Results 05/02/22 05/02/22 05/02/22 Range/Units 22:47 23:46 23:46 WBC 10.9 H (4.8-10.8) X10*3/uL RBC 5.26 (4.20-5.50) X10*6/uL Hgb 14.0 (12.0-16.0) g/dl Hct 44.4 (37.0-47.0) % MCV 84.4 (80.0-98.0) fL MCH 26.6 L (27.0-33.0) pg MCHC 31.5 (31.0-35.0) g/dl RDW 13.8 (11.0-16.0) % Plt Count 295 (160-400) X10*3/uL MPV 10.2 (9.4-12.3) fL Immature Gran % (Auto) 0.4 (0.0-0.4) % Neut % (Auto) 55.4 (45-73) % Lymph % (Auto) 31.9 (20-40) % Kinney % (Auto) 6.0 (2-11) % Eos % (Auto) 5.7 H (0-4) % Baso % (Auto) 0.6 (0-2) % Lymph # (Auto) 3.5 (1.2-4.9) X10*3/uL Kinney # (Auto) 0.7 (0.1-1.2) X10*3/uL Eos # (Auto) 0.6 H (0.0-0.4) X10*3/uL Baso # (Auto) 0.1 (0.0-0.2) X10*3/uL Abs Immat Gran (auto) 0.04 H (0.00-0.03) X10*3/uL Absolute Neuts (auto) 6.0 (2.0-8.3) x10*3/uL Absolute Nucleated RBC 0.000 (0.0-0.012) X10*3/uL Nucleated RBC % (auto) 0.0 (0.0-0.2) /100WBC Sodium 139 (135-145) mmol/L Potassium 4.9 (3.3-5.1) mmol/L Chloride 106 (96-108) mmol/L Carbon Dioxide 25 (22-29) mmol/L Anion Gap 13 (12-20) BUN 21 H (9-16) mg/dL Creatinine 1.12 (0.5-1.4) mg/dL Estim Creat Clear Calc 76.3 Estimated GFR 51 Random Glucose 242 H (60-115) mg/dL Calcium 9.0 D (8.4-10.2) mg/dL Magnesium 2.2 (1.6-2.6) mg/dL Total Bilirubin 0.3 (0.0-1.0) mg/dL AST 20 (5-31) U/L ALT 29 (0-31) U/L Alkaline Phosphatase 133 H D (39-117) U/L Troponin I High Sens (<3.5-17.0) ng/L Total Protein 7.9 (6.5-8.0) g/dL Albumin 3.9 (3.5-5.0) g/dL COVID-19 ([facility]) Positive A (Negative) COVID-19 Clin Com See Note 05/02/22 Range/Units 23:46 WBC (4.8-10.8) X10*3/uL RBC (4.20-5.50) X10*6/uL Hgb (12.0-16.0) g/dl Hct (37.0-47.0) % MCV (80.0-98.0) fL MCH (27.0-33.0) pg MCHC (31.0-35.0) g/dl RDW (11.0-16.0) % Plt Count (160-400) X10*3/uL MPV (9.4-12.3) fL Immature Gran % (Auto) (0.0-0.4) % Neut % (Auto) (45-73) % Lymph % (Auto) (20-40) % Kinney % (Auto) (2-11) % Eos % (Auto) (0-4) % Baso % (Auto) (0-2) % Lymph # (Auto) (1.2-4.9) X10*3/uL Kinney # (Auto) (0.1-1.2) X10*3/uL Eos # (Auto) (0.0-0.4) X10*3/uL Baso # (Auto) (0.0-0.2) X10*3/uL Abs Immat Gran (auto) (0.00-0.03) X10*3/uL Absolute Neuts (auto) (2.0-8.3) x10*3/uL Absolute Nucleated RBC (0.0-0.012) X10*3/uL Nucleated RBC % (auto) (0.0-0.2) /100WBC Sodium (135-145) mmol/L Potassium (3.3-5.1) mmol/L Chloride (96-108) mmol/L Carbon Dioxide (22-29) mmol/L Anion Gap (12-20) BUN (9-16) mg/dL Creatinine (0.5-1.4) mg/dL Estim Creat Clear Calc Estimated GFR Random Glucose (60-115) mg/dL Calcium (8.4-10.2) mg/dL Magnesium (1.6-2.6) mg/dL Total Bilirubin (0.0-1.0) mg/dL AST (5-31) U/L ALT (0-31) U/L Alkaline Phosphatase (39-117) U/L Troponin I High Sens < 3.5 (<3.5-17.0) ng/L Total Protein (6.5-8.0) g/dL Albumin (3.5-5.0) g/dL COVID-19 ([facility]) (Negative) COVID-19 Clin Com Imaging Data Chest x-ray: Radiologist's impression: XR/XR chest 2V IMPRESSION: No acute cardiopulmonary process. ECG Data Attestation: I personally reviewed and interpreted this ECG as follows: ECG interpretation date: 05/03/22 Prior ECG tracings: available for review Interpretation: Rate: 75 Rhythm:? Normal sinus rhythm Revere:? Normal Normal P waves.? Normal SHANNA.?? Normal QRS complex.?? ST T wave :??No ST elevation, no ST depression. T-wave inversion in aVL, consistent with prior EKG in December 2021 qTC: 431 prior studies:? December 2021 The study has been interpreted contemporaneously by me. Discharge Plan Discharge Clinical Impression: Asthma exacerbation, COVID-19 Patient Disposition: Home, Self-Care Instructions: Asthma (ED), COVID-19 (Coronavirus Disease 2019) (ED) Additional Instructions: You will be contacted by Con for the monoclonal antibody infusion. Prescriptions were sent to the pharmacy for your albuterol solution in addition to prednisone. Tylenol may be used as needed for pain/fever. You may return to the emergency department any new or worsening symptoms or concerns. If you develop worsening chest pain, shortness of breath, difficulty breathing please come back for re-evaluation. Contact your primary care provider and schedule follow-up visit within 1 week. Prescriptions: New albuterol sulfate 2.5 mg /3 mL (0.083 %) solution for nebulization 2.5 mg inhalation Q4-6H PRN (Reason: shortness of breath or wheezing) Qty: 75 0RF prednisone 20 mg tablet 40 mg PO DAILY 5 Days Qty: 10 0RF No Action citalopram 40 mg tablet 40 mg PO DAILY 90 Days Qty: 90 3RF (DME) flash glucose scanning reader Misc See Rx Instructions ea topical .MEDSUPPLY Qty: 1 0RF Rx Instructions: As directed hydrochlorothiazide 25 mg tablet 25 mg PO DAILY Qty: 30 11RF (DME) pen needle, diabetic [BD Ultra-Fine Ramya Pen Needle] 32 gauge x 5/32 needle See Rx Instructions .ROUTE .MEDSUPPLY Qty: 120 11RF Rx Instructions: As directed four times a day rosuvastatin 40 mg tablet 40 mg PO DAILY Qty: 30 11RF levothyroxine 175 mcg tablet 175 mcg PO DAILY Qty: 90 3RF lisinopril 10 mg tablet 10 mg PO DAILY 90 Days Qty: 90 1RF FreeStyle Sera 14 Day Sensor Kit 1 ea topical Q2W Qty: 2 11RF FreeStyle Precision Emanuel Strips Strip 4 strip miscellaneous QID Qty: 125 11RF Trulicity 4.5 mg/0.5 mL pen injector 4.5 mg subcut QWEEK Qty: 2 6RF insulin lispro [Humalog KwikPen Insulin] 100 unit/mL insulin pen See Rx Instructions subcut TID 30 Days Qty: 30 6RF Rx Instructions: 18 units breakfast, 14 units lunch and 22 units dinner, +2units for bg >200 subcut 3x per day. tizanidine 2 mg tablet 2 mg PO BEDTIME PRN (Reason: muscle spasticity) Qty: 30 0RF albuterol sulfate 0.63 mg/3 mL solution for nebulization 0.63 mg inhalation QID PRN (Reason: shortness of breath or wheezing) Qty: 75 0RF albuterol sulfate 90 mcg/actuation HFA aerosol inhaler 1 inh inhalation QID PRN (Reason: shortness of breath or wheezing) Qty: 8.5 0RF diclofenac sodium [Voltaren Arthritis Pain] 1 % gel 4 g topical QID PRN (Reason: pain (scale score 7-10)) Qty: 100 0RF Rx Instructions: apply to single knee, ankle, foot; for foot includes sole/toes/top of foot duloxetine 60 mg capsule,delayed release(DR/EC) 60 mg PO DAILY 0RF mirtazapine 30 mg tablet 30 mg PO BEDTIME 0RF trazodone 150 mg tablet 150 mg PO BEDTIME PRN0RF (DME) pen needle, diabetic 32 gauge x 5/32 needle See Rx Instructions ea subcut TID Qty: 50 0RF Rx Instructions: As directed perphenazine 4 mg tablet 4 mg PO 0RF ergocalciferol (vitamin D2) 1,250 mcg (50,000 unit) capsule 1,250 mcg PO QWEEK 0RF gabapentin 400 mg capsule 400 mg PO TID 0RF ezetimibe [Zetia] 10 mg tablet 10 mg PO DAILY Qty: 30 5RF Tresiba FlexTouch U-200 200 unit/mL (3 mL) insulin pen 56 unit subcut BEDTIME 30 Days Qty: 9 6RF (DME) FreeStyle Precision Emanuel Strips Strip See Rx Instructions .ROUTE .MEDSUPPLY Qty: 50 11RF Rx Instructions: As directed once daily Print Language: Kiswahili
[2022-05-02 23:07] LABS: COVID-19 Test Positive (Negative)
[2022-05-02] MEDS: Butalb/Acetamin/Caff 50/325/40 TABLET 1 TAB PO (23:28)
--- NOTE | 2022-05-02 23:34 | ECG_ITS ---
Test Reason : CP Blood Pressure : / mmHG Vent. Rate : 075 BPM Atrial Rate : 075 BPM P-R Int : 162 ms QRS Dur : 080 ms QT Int : 400 ms P-R-T Axes : 037 005 067 degrees QTc Int : 446 ms Normal sinus rhythm Possible Left atrial enlargement Borderline ECG When compared with ECG of 15-JAN-2022 22:58, No significant change was found Referred By: Eunice Hernadez Electronically Signed By:CHELLY MORTON
[2022-05-02 23:51] LABS: MANUAL DIFF FLAG NO
[2022-05-02 23:52] LABS: Basophils Absolute Auto 0.1 X10*3/uL (0.0-0.2); Basophils Percent Auto 0.6 % (0-2); Eosinophils Absolute Auto 0.6 X10*3/uL (0.0-0.4); Eosinophils Percent Auto 5.7 % (0-4); Hematocrit 44.4 % (37.0-47.0); Imm Gran Abs Auto 0.04 X10*3/uL (0.00-0.03); Imm Gran Pct Auto 0.4 % (0.0-0.4); Lymphocytes Absolute Auto 3.5 X10*3/uL (1.2-4.9); Lymphocytes Percent Auto 31.9 % (20-40); Mean Corpuscular HGB Conc 31.5 g/dl (31.0-35.0); Mean Corpuscular Hemoglobin 26.6 pg (27.0-33.0); Mean Corpuscular Volume 84.4 fL (80.0-98.0); Mean Platelet Volume 10.2 fL (9.4-12.3); Monocytes Absolute Auto 0.7 X10*3/uL (0.1-1.2); Neutrophils Percent Auto 55.4 % (45-73); Platelet Count 295 X10*3/uL (160-400); Red Blood Count 5.26 X10*6/uL (4.20-5.50); Red Cell Distribution Width 13.8 % (11.0-16.0); White Blood Count 10.9 X10*3/uL (4.8-10.8)
[2022-05-03 00:11] LABS: Troponin-I High Sensitivity < 3.5 ng/L (<3.5-17.0)
[2022-05-03 00:17] LABS: Alanine Aminotransferase 29 U/L (0-31); Albumin Level 3.9 g/dL (3.5-5.0); Alkaline Phosphatase 133 U/L (39-117); Anion Gap 13 (12-20); Aspartate Amino Transferase 20 U/L (5-31); Bilirubin Total 0.3 mg/dL (0.0-1.0); Blood Urea Nitrogen 21 mg/dL (9-16); Carbon Dioxide 25 mmol/L (22-29); Chloride 106 mmol/L (96-108); Creatinine Clr Calc Pharmacy 76.3; Estimated Glomerular Filt Rate 51; Glucose Random 242 mg/dL (60-115); Magnesium 2.2 mg/dL (1.6-2.6); Potassium 4.9 mmol/L (3.3-5.1); Sodium 139 mmol/L (135-145); Total Protein 7.9 g/dL (6.5-8.0)
== END 2022-05-03 01:17 | disposition home or self-care (01) ==
PROVIDERS: Emergency Medicine; Nurse Practitioner Family; Emergency Provider Internal Medicine; PCP Nurse Practitioner Family
DX: U07.1 COVID-19 (principal); J45.901 Unspecified asthma with (acute) exacerbation; I13.0 Hypertensive heart and chronic kidney disease with heart failure and stage 1 through stage 4 chronic kidney disease, or unspecified chronic kidney disease; N18.9 Chronic kidney disease, unspecified; I50.30 Unspecified diastolic (congestive) heart failure; E78.5 Hyperlipidemia, unspecified; Z79.02 Long term (current) use of antithrombotics/antiplatelets; Z79.4 Long term (current) use of insulin
CPT/HCPCS: 36415; 71046; 80053; 83735; 84484; 85025; 87635; 93005; 99283; 99284

== ENCOUNTER → 2022-06-02 10:15 | Outpatient (BNVA) | payer OTHER, SELFPAY | PROVIDERS: PCP Nurse Practitioner Family; Visit Provider Surgery | DX: K64.9 Unspecified hemorrhoids (principal) | CPT/HCPCS: 46600; 99202 ==

== ENCOUNTER 2022-06-03 13:01 | Outpatient (REF) | payer OTHER, SELFPAY ==
--- NOTE | ~2022-06-03 | MM_ITS ---
EXAMINATION: MM SCREENING DIGITAL BREAST TOMOSYNTHESIS, BILATERAL CLINICAL INFORMATION: Screening. Asymptomatic. The lifetime risk of breast cancer based on the Tyrer-Cuzick Model is 9%. COMPARISON: Mammography: 04/10/2018, 02/17/2017, 12/14/2015 TECHNIQUE: Digital breast tomosynthesis is performed in both the craniocaudal and mediolateral oblique views along with computer-aided detection (CAD). Synthesized 2D images are generated from the tomosynthesis. Additional right CC view is provided. FINDINGS: The breasts are almost entirely fatty (ACR BI-RADS breast composition Category a). There are no significant masses, abnormal calcifications, or other abnormalities. Background stromal markings are stable. The axilla are unremarkable. MM/MM tomosynthesis screening BI IMPRESSION: No mammographic evidence of malignancy. ASSESSMENT: BI-RADS 1: Negative RECOMMENDATION: Routine annual mammography screening. This patient's information was entered into a reminder system with a target due date for their next mammogram.
== END 2022-06-03 13:02 | disposition home or self-care (01) ==
LOC: HO.MAMMO 13:01
PROVIDERS: PCP Nurse Practitioner Family; Visit Provider Nurse Practitioner Family
DX: Z12.31 Encounter for screening mammogram for malignant neoplasm of breast (principal)
CPT/HCPCS: 77063; 77067; 99211

== ENCOUNTER → 2022-06-27 10:35 | Outpatient (BNVA) | payer OTHER, SELFPAY | PROVIDERS: PCP Nurse Practitioner Family; Visit Provider Obstetrics & Gynecology | DX: N95.0 Postmenopausal bleeding (principal) | CPT/HCPCS: 99202 ==

== ENCOUNTER → 2022-06-28 07:42 | Outpatient (BNVA) | payer OTHER, SELFPAY | PROVIDERS: PCP Nurse Practitioner Family; Referring Provider Nurse Practitioner Family; Visit Provider Nurse Practitioner Family | DX: Z12.11 Encounter for screening for malignant neoplasm of colon (principal) | CPT/HCPCS: 99202; 99212 ==

== ENCOUNTER → 2022-07-08 09:35 | Outpatient (BNVA) | payer OTHER, SELFPAY | PROVIDERS: PCP Nurse Practitioner Family; Visit Provider Registered Nurse Diabetes Educator | DX: E11.65 Type 2 diabetes mellitus with hyperglycemia (principal) | CPT/HCPCS: 99211 ==

== ENCOUNTER → 2022-07-20 08:44 | Outpatient (BNVA) | payer OTHER, SELFPAY | PROVIDERS: PCP Nurse Practitioner Family; Visit Provider Surgery | DX: K64.9 Unspecified hemorrhoids (principal) | CPT/HCPCS: 99212 ==

== ENCOUNTER 2022-08-05 08:34 | Outpatient (REF) | payer OTHER, SELFPAY ==
--- NOTE | ~2022-08-05 | US_ITS ---
EXAM: Pelvic Ultrasound CLINICAL INDICATION: Postmenopausal bleeding COMPARISON: CT abdomen pelvis 11/22/2018 and pelvic ultrasound 08/08/2013 TECHNIQUE: The pelvis was evaluated using transabdominal and transvaginal imaging. FINDINGS: Retroverted uterus measures 9.2 x 4.6 x 5.6 cm in longitudinal by AP by transverse dimension. The endometrial stripe measures 0.4 cm. The left ovary measures approximately 3.0 x 1.4 x 1.6 cm and is normal. The right ovary measures approximately 2.9 x 1.9 x 2.8 cm and is also normal. There are no abnormal adnexal masses. There is no free fluid in the pelvis. US/US pelvic and transvaginal IMPRESSION: -Endometrium measures 4 mm in thickness. -Unremarkable ovaries.
== END 2022-08-05 08:35 | disposition home or self-care (01) ==
LOC: HO.US 08:34
PROVIDERS: Visit Provider Obstetrics & Gynecology
DX: N95.0 Postmenopausal bleeding (principal)
CPT/HCPCS: 76830; 76856

== ENCOUNTER 2022-08-07 15:51 | Emergency (ER) | payer OTHER, SELFPAY | END 2022-08-07 17:01 | disposition left against medical advice (07) | PROVIDERS: Emergency Provider Emergency Medicine | DX: M54.50 Low back pain, unspecified (principal) ==

== ENCOUNTER 2022-08-09 08:51 | Outpatient (REF) | payer OTHER, SELFPAY ==
[2022-08-09 09:35] LABS: Hematocrit 47.5 % (37.0-47.0); Hemoglobin 15.3 g/dl (12.0-16.0); Mean Corpuscular HGB Conc 32.2 g/dl (31.0-35.0); Mean Corpuscular Hemoglobin 26.9 pg (27.0-33.0); Mean Corpuscular Volume 83.6 fL (80.0-98.0); Mean Platelet Volume 10.4 fL (9.4-12.3); Platelet Count 318 X10*3/uL (160-400); Red Blood Count 5.68 X10*6/uL (4.20-5.50); White Blood Count 7.6 X10*3/uL (4.8-10.8)
[2022-08-09 10:01] LABS: Anion Gap 16 (12-20); Blood Urea Nitrogen 22 mg/dL (9-16); Calcium 10.2 mg/dL (8.4-10.2); Carbon Dioxide 28 mmol/L (22-29); Chloride 97 mmol/L (96-108); Estimated Glomerular Filt Rate 44; Phosphorus 4.6 mg/dL (2.7-4.5); Potassium 5.1 mmol/L (3.3-5.1); Sodium 136 mmol/L (135-145)
[2022-08-09 10:11] LABS: Alanine Aminotransferase 23 U/L (0-31); Albumin Level 4.3 g/dL (3.5-5.0); Alkaline Phosphatase 100 U/L (39-117); Anion Gap 15 (12-20); Aspartate Amino Transferase 16 U/L (5-31); Bilirubin Total 0.4 mg/dL (0.0-1.0); Blood Urea Nitrogen 25 mg/dL (9-16); Calcium 10.2 mg/dL (8.4-10.2); Carbon Dioxide 28 mmol/L (22-29); Chloride 99 mmol/L (96-108); Cholesterol 291 mg/dL; Estimated Glomerular Filt Rate 45; Glucose Random 209 mg/dL (60-115); HDL Cholesterol 44 mg/dL; LDL Cholesterol Calculated 202 mg/dl; Potassium 5.1 mmol/L (3.3-5.1); Sodium 137 mmol/L (135-145); Total Protein 8.3 g/dL (6.5-8.0); Triglycerides 229 mg/dL
[2022-08-09 10:15] LABS: TSH reflex Free T4 3.44 uIU/mL (0.32-4.0); Vitamin D 25-OH Total 17.3 ng/mL (>30)
[2022-08-09 11:05] LABS: Vitamin B12 393 pg/mL (200-900)
== END 2022-08-09 08:52 | disposition home or self-care (01) ==
LOC: HO.LAB 08:51
PROVIDERS: Absent Provider Nurse Practitioner Family; PCP Nurse Practitioner Family; Visit Provider Internal Medicine Hypertension Specialist
DX: E78.5 Hyperlipidemia, unspecified (principal); E03.9 Hypothyroidism, unspecified; I12.9 Hypertensive chronic kidney disease with stage 1 through stage 4 chronic kidney disease, or unspecified chronic kidney disease; N18.31 Chronic kidney disease, stage 3a
CPT/HCPCS: 36415; 80051; 80053; 80061; 82306; 82310; 82565; 82607; 82746; 84100; 84443; 84520; 85027

== ENCOUNTER 2022-08-12 08:31 | Day surgery (SDC) | payer OTHER, SELFPAY ==
[2022-08-04 10:19] VITALS: BMI 34.0
--- NOTE | 2022-08-11 10:42 | HO.ANESPROP2 ---
Documented by User: Cierra Peña NP 08/11/22 10:55 HPI - Anesthesia Eval Consult details Narrative: 51yo F for EUA,Hemorrhoidectomy,poss Sphincterotomy Stable at 11/2021 cardiac visit - post visit Echo nml and mild CORNELIUS by sleep study PMF Active Problems Active Problems: All Active Problems (Updated 08/10/22 @ 13:18 by CAMILLA Plunkett) Low vitamin D level (Acute) Atypical chest pain (Acute) DVT (deep vein thrombosis) in (Acute) Lumbar paraspinal muscle spasm (Acute) Annual physical exam (Acute) Lumbar disc disease with radiculopathy (Acute) Lumbar back pain with radiculopathy affecting lower extremity (Acute) DVT (deep venous thrombosis) (Acute) Pain of left calf (Acute) Pain of right calf (Acute) Screening for breast cancer (Acute) Screening for colon cancer (Acute) Migraines (Acute) Abnormal uterine bleeding (AUB) (Acute) Postmenopausal bleeding (Acute) Bleeding hemorrhoids (Acute) Depression (Acute) Essential hypertension (Acute) CKD (chronic kidney disease) (Acute) Rheumatic mitral stenosis (Acute) Diastolic dysfunction (Acute) HTN (hypertension) (Acute) Type 2 diabetes mellitus with hyperglycemia, without long-term current use of insulin (Acute) Hypothyroidism (Acute) Hyperlipidemia LDL goal <100 (Acute) Obesity (BMI 30-39.9) (Acute) Past Medical History Medical History Anxiety Bleeding hemorrhoids Cervical high risk HPV (human papillomavirus) test positive CKD (chronic kidney disease) COVID-19 Depression Diastolic dysfunction Essential hypertension Glaucoma Hemorrhoids HTN (hypertension) Hyperlipidemia LDL goal <100 Hypothyroidism Insomnia Obesity (BMI 30-39.9) Rheumatic heart disease Rheumatic mitral stenosis Type 2 diabetes mellitus with hyperglycemia, without long-term current use of insulin Family History Family History Father Diabetes Mother Diabetes Stroke Maternal Aunt Stroke Hypertension Surgical History Surgical History H/O hemorrhoidectomy History of section Hx of colonoscopy Hx of tubal ligation Social History Social History Household Members: Children Housing: Apartment Are you a primary medication care manager to a significant other at home: No Do you presently have visiting nurse or other home services: No Alcohol intake: current Alcohol intake frequency: does not drink Alcohol type: wine Patient Tobacco Use Status: Never used Tobacco e-Cigarette/Vaping Use: Never Used Second Hand Smoke Exposure: No Use of substances other than those prescribed or required for medical reasons: No Have you been hit, kicked, punched, or otherwise hurt by someone within the past year? If so, by whom?: No Are you DNR?: No Advance Directives: No Advance Directives Information Provided: Yes Advance Directives on File: No Recently lost weight without trying: No Eating poorly because of decreased appetite: No Nutrition Risks: No Nutritional Risk service: No Current occupational status: unemployed Cognitive needs: No Hearing needs: No Vision needs: Yes Meds Allergies Allergy/AdvReac Type Severity Reaction Status Date / Time No Known Allergies Allergy Verified 08/08/22 09:52 Home Medications Medication Instructions Recorded Confirmed Last Taken Type duloxetine 60 mg capsule,delayed 60 mg PO DAILY 10/26/20 08/04/22 Unknown History release mirtazapine 30 mg tablet 30 mg PO BEDTIME 10/26/20 08/04/22 Unknown History pen needle, diabetic 32 gauge x #50 ea 10/26/20 07/20/22 Unknown History trazodone 150 mg tablet 150 mg PO BEDTIME PRN Sleep 10/26/20 08/04/22 Unknown History perphenazine 4 mg tablet 4 mg PO 12/09/20 07/20/22 Unknown History gabapentin 400 mg capsule 400 mg PO TID 12/22/21 08/04/22 Unknown History Exam Exam Date and Time: August 11, 2022 1042 Height,Weight and Vital Signs: Height 5 ft 9 in Weight 104.326 kg Pertinent Lab Results Pertinent Lab Results: Laboratory Tests 08/09/22 08/09/22 09:14 09:14 WBC 7.6 Hgb 15.3 Hct 47.5 H Plt Count 318 Sodium 137 Potassium 5.1 Chloride 99 Carbon Dioxide 28 BUN 25 H Creatinine 1.26 Narrative Narrative: EKG 04/2022 Vent. Rate : 075 BPM ? ? Atrial Rate : 075 BPM ?? P-R Int : 162 ms? QRS Dur : 080 ms ? ? QT Int : 400 ms ? ? ? P-R-T Axes : 037 005 067 degrees ?? QTc Int : 446 ms ? ECHO 01/2022 Normal sinus rhythm Possible Left atrial enlargement Borderline ECG When compared with ECG of 15-JAN-2022 22:58, No significant change was found Assessment and Plan Assessment Anesthesia Assessment: Chart Reviewed Documented by User: Juan Antonio Ortega MD 08/12/22 10:16 PMFSH Past Medical History Medical History Anxiety Bleeding hemorrhoids Cervical high risk HPV (human papillomavirus) test positive CKD (chronic kidney disease) COVID-19 Depression Diastolic dysfunction Essential hypertension Glaucoma Hemorrhoids HTN (hypertension) Hyperlipidemia LDL goal <100 Hypothyroidism Insomnia Obesity (BMI 30-39.9) Rheumatic heart disease Rheumatic mitral stenosis Type 2 diabetes mellitus with hyperglycemia, without long-term current use of insulin Family History Family History Father Diabetes Mother Diabetes Stroke Maternal Aunt Stroke Hypertension Family history of problems with anesthesia: No Surgical History Surgical History H/O hemorrhoidectomy History of section Hx of colonoscopy Hx of tubal ligation History of Problems with Anesthesia: No Social History Social History Household Members: Children Housing: Apartment Are you a primary medication care manager to a significant other at home: No Do you presently have visiting nurse or other home services: No Alcohol intake: current Alcohol intake frequency: does not drink Alcohol type: wine Patient Tobacco Use Status: Never used Tobacco e-Cigarette/Vaping Use: Never Used Second Hand Smoke Exposure: No Use of substances other than those prescribed or required for medical reasons: No Have you been hit, kicked, punched, or otherwise hurt by someone within the past year? If so, by whom?: No Are you DNR?: No Advance Directives: No Advance Directives Information Provided: Yes Advance Directives on File: No Recently lost weight without trying: No Eating poorly because of decreased appetite: No Nutrition Risks: No Nutritional Risk service: No Current occupational status: unemployed Cognitive needs: No Hearing needs: No Vision needs: Yes Meds Allergies Allergy/AdvReac Type Severity Reaction Status Date / Time No Known Allergies Allergy Verified 08/08/22 09:52 Home Medications Medication Instructions Recorded Confirmed Last Taken Type duloxetine 60 mg capsule,delayed 60 mg PO DAILY 10/26/20 08/04/22 Unknown History release mirtazapine 30 mg tablet 30 mg PO BEDTIME 10/26/20 08/04/22 Unknown History pen needle, diabetic 32 gauge x #50 ea 10/26/20 07/20/22 Unknown History trazodone 150 mg tablet 150 mg PO BEDTIME PRN Sleep 10/26/20 08/04/22 Unknown History perphenazine 4 mg tablet 4 mg PO 12/09/20 07/20/22 Unknown History gabapentin 400 mg capsule 400 mg PO TID 12/22/21 08/04/22 Unknown History Exam Airway Mallampati Class: III TM Dist: >3cm Neck ROM: Full Loose/Missing/Broken Teeth: Yes (2 upper front caps, loer middle missing vs gap) Heart: rrr+[id number] Lungs: cta b/l Assessment and Plan Assessment Anesthesia Assessment: Anesthesia Plan Discussed Final Anesthetic Review Family History of Problems with Anesthesia: No History of Problems with Anesthesia: No NPO: Yes ASA Class: III Final Preanesthetic Review: No Changes in Pt Med Stat, Meds/Allgs Chart Reviewed, Consent Obtained/Reviewed and Anes Risks/Benef Reviewed Patient Risk: Intermediate Procedure Risk: Intermediate Assessment/Block/Sedation in SS: Assess/Block/Sedation-SS Anesthetic Plan Anesthetic Plan: GA and Agree w/ Assess. and Plan Disposition: Standard PACU
[2022-08-12] VITALS (16 sets, daily range): BP systolic 123–153; BP diastolic 64–90; PULSE 67–85; RESP 10–20; TEMP 35.9–36.2; O2SAT 94–98
[2022-08-12 08:51] LABS: Glucose, Whole Blood 196 mg/dL (60-115)
--- NOTE | 2022-08-12 09:03 | MHC.SHP ---
Pre-Procedural Eval Section A Date of Service: 08/12/22 The patient is an INPATIENT: No The History & Physical has been completed within 30 days and I have reviewed it.: Yes Section B Chief Complaint: hemorrhoids Allergies: Allergies Allergy/AdvReac Type Severity Reaction Status Date / Time No Known Allergies Allergy Verified 08/08/22 09:52 Plan I have reviewed the history and physical and performed a pertinent physical examination on my patient. No changes have occurred unless specified.
[2022-08-12] MEDS: Lactated Ringers 1,000 ML 100 ML IVCONT (09:04)
--- NOTE | 2022-08-12 10:10 | W.PM.OPN ---
Operative Note Operative Note Date of Service: 08/12/22 Narrative: Preop diagnosis: internal and external hemorrhoids with bleeding and pain Postop diagnsosi: the same Procedure: Exam under anestehsia, hemorrhoidectomy x 2 columns The patient is a 51F with internal and external hemorrhoids, who wanted to proceed with hemorrhoidectomy in view of symptoms. She was aware of the risks, benefits and alternatives and had given consent. She was brought to the OR and placed in prone jacknife position. The buttocks were retracted with wide tape laterally. The perianal area was prepped and draped in the usual fashion. A surgical timeout was done. I infiltrated the perianal with Lidocaine 1%. Examination showed external hemorrhoids, not bulky, on the left and right side. There was no fissure. I inserted the He-Roque retractor and examined the anal canal circumferentially. Again, the 2 hemorrhoidal columns were seen, a mix of internal and external. There were no other lesions. There was no bleeding. I applied a Moon grasper on the hemorrhoidal column on the left. I made a figure of 8 stitch at the pedicle using a chromic 3-0. I made an incision around this hemorrhoidal column to the perianal skin using a christy 15. I excised the hemorrhoidal column above the plane of the sphincters using scissors. I closed the incision with a running chromic 3-0 stitch with additionl hemostatic figure of 8 sutures placed for oozing. I repeated the procedure on the hemorrhoidal column on the right. I applied a Moon graper on the hemorrhoid, made a figure of 8 stitch at the pedicle and made an incision around this column with a blade 15. I excised this column above the plane of the sphincters using scissors and closed the incision using a ruinnign chromic 3-0 stitch. I obeserved for hemostasis. Once hemostasis was confirmed, I infiltrated the perianal area with Marcain .5% for postop analagesia. The procedure was then completed. The patient tolerated the procedure well. There were no immediate complications. Estimated blood loss was about 25 cc. The patient was extubated without difficulty and transferred to the PACU with stable VS.
[2022-08-12] MEDS: oxyCODONE HCl Immed Release 5 MG TABLET 10 MG PO (10:34)
[2022-08-12] MEDS: Acetaminophen 325 MG TABLET 650 MG PO (10:35)
[2022-08-12] MEDS: fentaNYL citrate/PF 100 MCG/2 ML VIAL 50 MCG IVPUSH ×3 (10:37→11:32)
== END 2022-08-12 16:10 | disposition home or self-care (01) ==
PROVIDERS: Visit Provider Surgery
PROC: (CPT 46260; principal; 2022-08-12 10:45)
DX: K64.8 Other hemorrhoids (principal); K64.4 Residual hemorrhoidal skin tags; I13.0 Hypertensive heart and chronic kidney disease with heart failure and stage 1 through stage 4 chronic kidney disease, or unspecified chronic kidney disease; I50.30 Unspecified diastolic (congestive) heart failure; N18.30 Chronic kidney disease, stage 3 unspecified; E11.22 Type 2 diabetes mellitus with diabetic chronic kidney disease; Z79.4 Long term (current) use of insulin; Z79.899 Other long term (current) drug therapy; Z86.16 Personal history of COVID-19; E78.5 Hyperlipidemia, unspecified; E03.9 Hypothyroidism, unspecified; I09.9 Rheumatic heart disease, unspecified
CPT/HCPCS: 46260; 82947; 88304; J1100; J2250; J2405; J2795; J3010

== ENCOUNTER → 2022-10-03 09:43 | Outpatient (BNVA) | payer OTHER, SELFPAY | PROVIDERS: PCP Nurse Practitioner Family; Visit Provider Registered Nurse Diabetes Educator | DX: E11.65 Type 2 diabetes mellitus with hyperglycemia (principal) | CPT/HCPCS: 99211 ==

== ENCOUNTER → 2022-11-03 10:20 | Outpatient (BNVA) | payer OTHER, SELFPAY | PROVIDERS: PCP Nurse Practitioner Family; Visit Provider Registered Nurse Diabetes Educator | DX: E11.65 Type 2 diabetes mellitus with hyperglycemia (principal) | CPT/HCPCS: 99211 ==

== ENCOUNTER → 2022-11-09 07:51 | Outpatient (BNVA) | payer OTHER, SELFPAY | PROVIDERS: PCP Nurse Practitioner Family; Visit Provider Internal Medicine Endocrinology, Diabetes & Metabolism | DX: E11.65 Type 2 diabetes mellitus with hyperglycemia (principal); E11.22 Type 2 diabetes mellitus with diabetic chronic kidney disease; N18.9 Chronic kidney disease, unspecified; E03.9 Hypothyroidism, unspecified; Z79.4 Long term (current) use of insulin; Z79.899 Other long term (current) drug therapy | CPT/HCPCS: 82947; 99212 ==

== ENCOUNTER 2022-11-14 10:41 | Day surgery (SDC) | payer OTHER, SELFPAY ==
[2022-11-09 10:44] VITALS: BMI 34.4
--- NOTE | 2022-11-11 13:32 | HO.ANESPROP2 ---
Documented by User: Cierra Peña NP 11/11/22 13:38 HPI - Anesthesia Eval Consult details Narrative: 52yo F Colonoscopy s/p hemmorhoidectomy 07/2022 with GA-ETT 7 PMFSH Active Problems Active Problems: All Active Problems (Updated 11/09/22 @ 10:46 by Massile Marte RN) Atypical chest pain (Acute) DVT (deep vein thrombosis) in (Acute) Lumbar paraspinal muscle spasm (Acute) Annual physical exam (Acute) Lumbar disc disease with radiculopathy (Acute) Lumbar back pain with radiculopathy affecting lower extremity (Acute) DVT (deep venous thrombosis) (Acute) Pain of left calf (Acute) Pain of right calf (Acute) Screening for breast cancer (Acute) Screening for colon cancer (Acute) Migraines (Acute) Abnormal uterine bleeding (AUB) (Acute) Postmenopausal bleeding (Acute) Low vitamin D level (Acute) Bleeding hemorrhoids (Acute) Depression (Acute) Essential hypertension (Acute) CKD (chronic kidney disease) (Acute) Rheumatic mitral stenosis (Acute) Diastolic dysfunction (Acute) HTN (hypertension) (Acute) Type 2 diabetes mellitus with hyperglycemia, without long-term current use of insulin (Acute) Hypothyroidism (Acute) Hyperlipidemia LDL goal <100 (Acute) Obesity (BMI 30-39.9) (Acute) Past Medical History Medical History (Updated 11/09/22 @ 10:46 by Massiel Marte RN) Anxiety Bleeding hemorrhoids Cervical high risk HPV (human papillomavirus) test positive CKD (chronic kidney disease) COVID-19 Depression Diastolic dysfunction Essential hypertension Glaucoma Hemorrhoids HTN (hypertension) Hyperlipidemia LDL goal <100 Hypothyroidism Insomnia Obesity (BMI 30-39.9) Rheumatic heart disease Rheumatic mitral stenosis Sleep apnea Type 2 diabetes mellitus with hyperglycemia, without long-term current use of insulin Family History Family History Father Diabetes Mother Diabetes Stroke Maternal Aunt Stroke Hypertension Family history of problems with anesthesia: No Surgical History Surgical History (Updated 11/09/22 @ 10:23 by Massiel Marte RN) H/O hemorrhoidectomy History of section Hx of colonoscopy Hx of tubal ligation History of Problems with Anesthesia: No Social History Social History Household Members: Children Housing: Apartment Are you a primary pharmacy customer care specialist to a significant other at home: No Do you presently have visiting nurse or other home services: No Alcohol intake: current Alcohol intake frequency: does not drink Alcohol type: wine Patient Tobacco Use Status: Never used Tobacco e-Cigarette/Vaping Use: Never Used Second Hand Smoke Exposure: No Advance Directives: No Advance Directives Information Provided: Yes service: No Current occupational status: unemployed Cognitive needs: No Hearing needs: No Vision needs: Yes Meds Allergies Allergy/AdvReac Type Severity Reaction Status Date / Time No Known Allergies Allergy Verified 11/14/22 10:54 Home Medications Medication Instructions Recorded Confirmed Last Taken Type duloxetine 60 mg capsule,delayed 60 mg PO DAILY 10/26/20 11/09/22 Unknown History release mirtazapine 30 mg tablet 30 mg PO BEDTIME 10/26/20 11/09/22 Unknown History pen needle, diabetic 32 gauge x #50 ea 10/26/20 11/14/22 Unknown History perphenazine 4 mg tablet 4 mg PO BID 12/09/20 11/09/22 Unknown History trazodone 100 mg tablet 200 mg PO BEDTIME PRN Insomnia 11/09/22 11/09/22 Unknown History Exam Exam Date and Time: November 11, 2022 1332 Height,Weight and Vital Signs: Height 5 ft 9 in Weight 106 kg Pertinent Lab Results Pertinent Lab Results: Laboratory Tests 08/09/22 08/09/22 09:14 09:14 WBC 7.6 Hgb 15.3 Hct 47.5 H Plt Count 318 Sodium 137 Potassium 5.1 Chloride 99 Carbon Dioxide 28 BUN 25 H Creatinine 1.26 Narrative Narrative: EKG 04/2022 Vent. Rate : 075 BPM ? ? Atrial Rate : 075 BPM ?? P-R Int : 162 ms? QRS Dur : 080 ms ? ? QT Int : 400 ms ? ? ? P-R-T Axes : 037 005 067 degrees ?? QTc Int : 446 ms ? Normal sinus rhythm Possible Left atrial enlargement Borderline ECG When compared with ECG of 15-JAN-2022 22:58, No significant change was found ECHO 01/2022 Conclusions: - The left ventricular systolic function is normal.? The ? calculated ejection fraction is 57% by biplane method. ? - The left atrium is moderately dilated. ? - The mitral valve appears rheumatic. ? There is mild mitral ? ? valve stenosis.? Assessment and Plan Assessment Anesthesia Assessment: Chart Reviewed Final Anesthetic Review Family History of Problems with Anesthesia: No History of Problems with Anesthesia: No Documented by User: Adri Helton MD 11/14/22 11:06 [facility] Past Medical History Medical History (Updated 11/09/22 @ 10:46 by Massiel Marte RN) Anxiety Bleeding hemorrhoids Cervical high risk HPV (human papillomavirus) test positive CKD (chronic kidney disease) COVID-19 Depression Diastolic dysfunction Essential hypertension Glaucoma Hemorrhoids HTN (hypertension) Hyperlipidemia LDL goal <100 Hypothyroidism Insomnia Obesity (BMI 30-39.9) Rheumatic heart disease Rheumatic mitral stenosis Sleep apnea Type 2 diabetes mellitus with hyperglycemia, without long-term current use of insulin Family History Family History Father Diabetes Mother Diabetes Stroke Maternal Aunt Stroke Hypertension Surgical History Surgical History (Updated 11/09/22 @ 10:23 by Massiel Marte RN) H/O hemorrhoidectomy History of section Hx of colonoscopy Hx of tubal ligation Social History Social History Household Members: Children Housing: Apartment Are you a primary pharmacy customer care specialist to a significant other at home: No Do you presently have visiting nurse or other home services: No Alcohol intake: current Alcohol intake frequency: does not drink Alcohol type: wine Patient Tobacco Use Status: Never used Tobacco e-Cigarette/Vaping Use: Never Used Second Hand Smoke Exposure: No Advance Directives: No Advance Directives Information Provided: Yes service: No Current occupational status: unemployed Cognitive needs: No Hearing needs: No Vision needs: Yes Meds Allergies Allergy/AdvReac Type Severity Reaction Status Date / Time No Known Allergies Allergy Verified 12/19/22 10:54 Home Medications Medication Instructions Recorded Confirmed Last Taken Type duloxetine 60 mg capsule,delayed 60 mg PO DAILY 10/26/20 11/09/22 Unknown History release mirtazapine 30 mg tablet 30 mg PO BEDTIME 10/26/20 11/09/22 Unknown History pen needle, diabetic 32 gauge x #50 ea 10/26/20 11/14/22 Unknown History perphenazine 4 mg tablet 4 mg PO BID 12/09/20 11/09/22 Unknown History trazodone 100 mg tablet 200 mg PO BEDTIME PRN Insomnia 11/09/22 11/09/22 Unknown History Exam Airway Mallampati Class: II (Top front left cap) TM Dist: >3cm Neck ROM: Full Heart: rrr Lungs: cta Assessment and Plan Assessment Anesthesia Assessment: Anesthesia Plan Discussed Final Anesthetic Review NPO: Yes ASA Class: III Final Preanesthetic Review: No Changes in Pt Med Stat, Meds/Allgs Chart Reviewed and Consent Obtained/Reviewed Patient Risk: Intermediate Procedure Risk: Intermediate Anesthetic Plan Anesthetic Plan: MAC: Disposition: Standard PACU
[2022-11-14 11:05] VITALS: BP 164/85; PULSE 67; RESP 16; TEMP 36.3; O2SAT 97; BMI 34.0
[2022-11-14 11:15] LABS: Glucose, Whole Blood 140 mg/dL (60-115)
[2022-11-14] MEDS: Lactated Ringers 1,000 ML 100 ML IVCONT (11:23)
--- NOTE | 2022-11-14 11:40 | P.CONAN_ITS ---
[facility] Active Problems Active Problems: All Active Problems (Updated 11/09/22 @ 10:46 by Massiel Marte RN) Atypical chest pain (Acute) DVT (deep vein thrombosis) in (Acute) Lumbar paraspinal muscle spasm (Acute) Annual physical exam (Acute) Lumbar disc disease with radiculopathy (Acute) Lumbar back pain with radiculopathy affecting lower extremity (Acute) DVT (deep venous thrombosis) (Acute) Pain of left calf (Acute) Pain of right calf (Acute) Screening for breast cancer (Acute) Screening for colon cancer (Acute) Migraines (Acute) Abnormal uterine bleeding (AUB) (Acute) Postmenopausal bleeding (Acute) Low vitamin D level (Acute) Bleeding hemorrhoids (Acute) Depression (Acute) Essential hypertension (Acute) CKD (chronic kidney disease) (Acute) Rheumatic mitral stenosis (Acute) Diastolic dysfunction (Acute) HTN (hypertension) (Acute) Type 2 diabetes mellitus with hyperglycemia, without long-term current use of insulin (Acute) Hypothyroidism (Acute) Hyperlipidemia LDL goal <100 (Acute) Obesity (BMI 30-39.9) (Acute) Past Medical History Medical History Anxiety Bleeding hemorrhoids Cervical high risk HPV (human papillomavirus) test positive CKD (chronic kidney disease) COVID-19 Depression Diastolic dysfunction Essential hypertension Glaucoma Hemorrhoids HTN (hypertension) Hyperlipidemia LDL goal <100 Hypothyroidism Insomnia Obesity (BMI 30-39.9) Rheumatic heart disease Rheumatic mitral stenosis Sleep apnea Type 2 diabetes mellitus with hyperglycemia, without long-term current use of insulin Family History Family History Father Diabetes Mother Diabetes Stroke Maternal Aunt Stroke Hypertension Family history of problems with anesthesia: No Surgical History Surgical History H/O hemorrhoidectomy History of section Hx of colonoscopy Hx of tubal ligation History of Problems with Anesthesia: No Social History Social History Household Members: Children Housing: Apartment Are you a primary physician primary care sports medicine to a significant other at home: No Do you presently have visiting nurse or other home services: No Alcohol intake: current Alcohol intake frequency: does not drink Alcohol type: wine Patient Tobacco Use Status: Never used Tobacco e-Cigarette/Vaping Use: Never Used Second Hand Smoke Exposure: No Use of substances other than those prescribed or required for medical reasons: No Are you DNR?: No Advance Directives: No Advance Directives Information Provided: Yes service: No Current occupational status: unemployed Cognitive needs: No Hearing needs: No Vision needs: Yes Meds Allergies Allergy/AdvReac Type Severity Reaction Status Date / Time No Known Allergies Allergy Verified 11/14/22 10:54 Active Medications: Current Medications Lactated Ringer's (Lr) 1,000 mls @ 100 mls/hr IVCONT .Q10H ANGIE Last Admin: 11/14/22 11:23 Dose: 100 mls/hr Ondansetron HCl (Ondansetron Hcl 4 Mg/2 Ml Vial) 4 mg IVPUSH ONCE PRN PRN Reason: Nausea and Vomiting Ondansetron HCl (Ondansetron Hcl 4 Mg/2 Ml Vial) 4 mg IVPUSH ONCE PRN PRN Reason: Nausea and Vomiting Home Medications Medication Instructions Recorded Confirmed Last Taken Type duloxetine 60 mg capsule,delayed 60 mg PO DAILY 10/26/20 11/14/22 Unknown History release mirtazapine 30 mg tablet 30 mg PO BEDTIME 10/26/20 11/14/22 Unknown History pen needle, diabetic 32 gauge x #50 ea 10/26/20 11/14/22 Unknown History perphenazine 4 mg tablet 4 mg PO BID 12/09/20 11/14/22 Unknown History trazodone 100 mg tablet 200 mg PO BEDTIME PRN Insomnia 11/09/22 11/14/22 Unknown History Exam Exam Date and Time: November 14, 2022 1140 Height,Weight and Vital Signs: Height 5 ft 9 in Weight 104.326 kg Last Vital Signs Temp 97.3 F 11/14/22 11:05 Pulse 67 11/14/22 11:05 Resp 16 11/14/22 11:05 BP 164/85 H 11/14/22 11:05 Pulse Ox 97 11/14/22 11:05 O2 Del Method 11/14/22 11:05 Pertinent Lab Results Pertinent Lab Results: Laboratory Tests 11/14/22 11:10 POC Glucose 140 H Assessment and Plan Final Anesthetic Review Family History of Problems with Anesthesia: No History of Problems with Anesthesia: No
--- NOTE | 2022-11-14 12:00 | MHC.SHP ---
Pre-Procedural Eval Section A Date of Service: 11/14/22 The patient is an INPATIENT: No The History & Physical has been completed within 30 days and I have reviewed it.: No Section B Chief Complaint: screening Details of Present Illness: screening Relevant Family History (Specify if Yes): No Relevant Social History: None Present Medications: see Short Stay Collaborative assessment Medical History: Significant History (Cervical high risk HPV (human papillomavirus) test positive CKD (chronic kidney disease) COVID-19 Depression Diastolic dysfunction Encounter to establish care with new doctor Essential hypertension Glaucoma Hemorrhoids HTN (hypertension) Hyperlipidemia LDL goal <100 Hypothyroidism Insomnia Obesity () History of Previous Operations: Relevant previous surgery/procedure and date(s) (H/O hemorrhoidectomy History of section Hx of tubal ligation) Allergies: Allergies Allergy/AdvReac Type Severity Reaction Status Date / Time No Known Allergies Allergy Verified 11/14/22 10:54 Review of Systems Sugical H&P ROS: Negative: Constitution, Cardiovascular, Respiratory and Gastrointestinal Exam Surgical H&P Exam: Normal: Heart, Normal: Lungs, Normal: Extremities and Normal: Abdomen Plan Diagnosis/Plan: Unchanged I have reviewed the history and physical and performed a pertinent physical examination on my patient. No changes have occurred unless specified. Time Spent With Patient Time: Total time managing care of this patient today ____ minutes.
--- NOTE | 2022-11-14 12:02 | PM.OP ---
Brief Operative Note Date of Service: 11/14/22 Pre-op diagnosis: COLON CANCER SCREENING Post-op diagnosis: other (COLON POLYP, DIVERTICULOSIS, HEMORRHOIDS) Procedure: COLONOSCOPY TO CECUM WITH SNARE POLYPECTOMY Surgeon: Nichelle Roberson MD Anesthesia: MAC Was an Railroad Mechanic used for this Procedure?: Yes Railroad Mechanic: Lilly Torrez Estimated blood loss (mL): 0 Pathology: other (A. rectal polyp) Condition: stable Disposition: PACU
--- NOTE | 2022-11-14 12:40 | P.OP_ITS ---
Operative Note Operative Note Date of Service: 11/14/22 Narrative: Pre-op diagnosis: COLON CANCER SCREENING Post-op diagnosis:?other (COLON POLYP, DIVERTICULOSIS, HEMORRHOIDS) Surgeon: Nichelle Roberson MD Anesthesia:?MAC COLONOSCOPY TILL CECUM WITH SNARE POLYPECTOMY Consent: Indications for the procedure and potential complications of bleeding, perforation, reaction to medications and missed diagnosis were discussed with the patient with the help of a Kiswahili modern languages professor and informed consent was obtained. Instrument: Olympus PCF H 190 L variable stiffness pediatric colonoscope Monitoring: Vital signs and clinical assessment, intermittent blood pressure monitoring, continuous EKG monitoring, Pulse oximetry and Carbon Dioxide monitoring were done throughout the procedure. Colon withdrawl time was 22 minutes. Procedure: The patient was placed in the left lateral decubitis position and pre-procedure medications were administered. After a digital rectal examination of the ano-rectum, the video colonoscope was inserted into the rectum and advanced through the colon to the cecum. The colonoscope was slowly withdrawn in a retrograde panoramic fashion and the colon mucosa was carefully examined including a retroflexed view of the rectum. Findings and interventions are described below. Procedure Difficulty: Without difficulty Findings: Terminal Ileum: Not evaluated Cecum: Partially evaluated due to sub-optimal prep with adherent stools Ascending Colon: Partially evaluated due to suboptimal prep Transverse Colon: Normal Descending Colon: Moderate diverticulosis Sigmoid Colon: Moderate diverticulosis Rectum: A 12-15 mm sessile polyp at the anal verge - Removed with a hot snare. Ano-rectum: Moderate internal hemorrhoids Colon preparation: Good in the transverse and left colon and poor in the right colon due to adherent stools which could not be flushed despite copious irrigation. Impression and Post Procedure Diagnosis: Colonoscopy Findings: One medium sized polyp removed Moderate diverticulosis seen in the left colon Moderate hemorrhoids on retroflexed exam. Poor prep in the right colon due to adherent stools which could not be flushed despite copious irrigation. Plan: Await pathology results Patient has an appointment on 12/05/22 in the [facility] with Zenaida Smith FNP-BC. Repeat Colonoscopy in 6 months due to poor prep in the right colon (recommend dulcolax 2 tablets daily x 5 days prior to future colonoscopies). Colon polyps and diverticulosis handouts were given in the discharge area
[2022-11-14 12:48] VITALS: BP 111/64; PULSE 63; RESP 16; TEMP 36.1; O2SAT 96
[2022-11-14] MEDS: Acetaminophen 325 MG TABLET 650 MG PO (12:56)
[2022-11-14 13:02] VITALS: BP 137/80; PULSE 88; RESP 16; O2SAT 99
[2022-11-14 13:15] VITALS: BP 142/75; PULSE 60; RESP 16; TEMP 36.1; O2SAT 99
== END 2022-11-14 13:46 | disposition home or self-care (01) ==
PROVIDERS: Visit Provider Internal Medicine Gastroenterology
PROC: 0DJD8ZZ Inspection of Lower Intestinal Tract, Via Natural or Artificial Opening Endoscopic (ICD-10-PCS; CPT 45378; principal; 2022-11-14 12:00)
DX: Z12.11 Encounter for screening for malignant neoplasm of colon (principal); K62.1 Rectal polyp; K57.30 Diverticulosis of large intestine without perforation or abscess without bleeding; K64.8 Other hemorrhoids; I12.9 Hypertensive chronic kidney disease with stage 1 through stage 4 chronic kidney disease, or unspecified chronic kidney disease; E08.22 Diabetes mellitus due to underlying condition with diabetic chronic kidney disease; N18.30 Chronic kidney disease, stage 3 unspecified; Z79.4 Long term (current) use of insulin; I09.9 Rheumatic heart disease, unspecified; I05.0 Rheumatic mitral stenosis; E78.5 Hyperlipidemia, unspecified; E03.9 Hypothyroidism, unspecified; Z79.899 Other long term (current) drug therapy; Z86.16 Personal history of COVID-19
CPT/HCPCS: 45385; 82947; 88305

== ENCOUNTER → 2022-12-05 08:43 | Outpatient (BNVA) | payer OTHER, SELFPAY | PROVIDERS: Visit Provider Nurse Practitioner Family | DX: K59.01 Slow transit constipation (principal); Z98.890 Other specified postprocedural states | CPT/HCPCS: 99212 ==

== ENCOUNTER 2022-12-06 10:03 | Outpatient (REF) | payer OTHER, SELFPAY ==
[2022-12-07 16:57] LABS: HPV mRNA E6/E7 rflx Not Detected (Not Detected)
== END 2022-12-06 10:04 | disposition home or self-care (01) ==
LOC: HO.LNP 10:03
PROVIDERS: Visit Provider Obstetrics & Gynecology
DX: N95.0 Postmenopausal bleeding (principal)
CPT/HCPCS: 87624; 88142; 99212

== ENCOUNTER 2022-12-08 09:52 | Outpatient (REF) | payer OTHER, SELFPAY ==
[2022-12-08 11:35] LABS: D Dimer High Sensitivity 200 NG/ML
== END 2022-12-08 09:53 | disposition home or self-care (01) ==
LOC: HO.LAB 09:52
PROVIDERS: PCP Nurse Practitioner Family; Referring Provider Nurse Practitioner Family; Visit Provider Internal Medicine Cardiovascular Disease
DX: R07.89 Other chest pain (principal); I05.0 Rheumatic mitral stenosis; Z79.899 Other long term (current) drug therapy
CPT/HCPCS: 36415; 85379; 93005; 99212

== ENCOUNTER → 2022-12-21 08:08 | Outpatient (REF) | payer OTHER, SELFPAY ==
--- NOTE | ~2022-12-21 | NM_ITS ---
Exercise Myocardial perfusion study Indication: Chest pain to evaluate for myocardial ischemia Technique: The patient was brought in for an exercise perfusion study on 12/21/2022. Patient performed exercise as per Phani protocol and was injected 35 mCi of sestamibi was given intravenously one target HR was achieved. Images were obtained using the SPECT gamma camera interlaced with the gating device. Images were obtained in supine position. Resting perfusion study was performed on 12/22/2022. Patient was administered 35 mCi of sestamibi intravenously at rest. Images were then obtained in supine position. Images obtained with and without CT attenuation. Total DLP 158 mGy-cm. Images were processed with the software and compared side to side in short axis, horizontal long axis and vertical long axis views. Findings: The stress perfusion study showed non attenuated images show some thinning of the distal anterior wall of the LV myocardium. Remainder of the LV myocardium normally perfused. There is also minimally reduced uptake in the distal anterolateral wall of the LV myocardium. Attenuation corrected images show normal uptake of radiotracer in all segments of LV myocardium.. The gated study shows normal LV systolic function with calculated LVEF of 63%. LV cavity is normal in size. The gated study shows normal systolic wall thickening and contraction of all segments. There is no transient ischemic dilation. Resting study shows attenuated corrected show normal uptake of radiotracer in all segments of LV myocardium. Gating at rest reveals normal systolic wall motion with ejection fraction at 73%. The findings are consistent with normal myocardial perfusion. NM/NM cardiolite stress test Impression: 1. Normal myocardial perfusion 2. Gated LVEF is 63 3. Transient ischemic dilatation not present Stress EKG is no evidence of ischemia.
--- NOTE | 2022-12-21 08:11 | CA_ITS ---
Acquisition Time: 2022-12-21 08:43:09 Total Exercise Time: 00:07:43 Test Indications: CP Medications: Protocol: KEMAL Max HR: 141 BPM 83% of Pred: 168 BPM Max BP: 210/092 mmHG Max Work Load: 9.6 METS Exercise stress test with exercise 7 min 43 sec of Kemal protocol, achieving 82% MPHR, 9.6 METS, with need to stop due to fatigue and sob, with mild to moderate sob, no chest discomfort, with isolated PACs and in stage 3 there are isolated PVCs, with hypertensive response to exercise with max BP 210/92, without EKG changes meeting criteria for ischemia at achieved workload. In recovery her BP returned to 144/80 and breathing normalized. Nuclear images pending. Test reviewed with Dr Sharp Referred By: Zachary Draper Overread By: JENNIE CORONEL
== END ==
LOC: HO.CARD 08:08
PROVIDERS: PCP Nurse Practitioner Family; Visit Provider Internal Medicine Cardiovascular Disease
DX: R07.89 Other chest pain (principal)
CPT/HCPCS: 78452; 93017; A9500

== ENCOUNTER 2022-12-22 07:54 | Outpatient (REF) | payer OTHER, SELFPAY ==
[2022-12-22 08:09] LABS: Hematocrit 44.2 % (37.0-47.0); Hemoglobin 14.3 g/dl (12.0-16.0); Mean Corpuscular HGB Conc 32.4 g/dl (31.0-35.0); Mean Corpuscular Hemoglobin 27.2 pg (27.0-33.0); Mean Corpuscular Volume 84.2 fL (80.0-98.0); Platelet Count 256 X10*3/uL (160-400); Red Blood Count 5.25 X10*6/uL (4.20-5.50); Red Cell Distribution Width 13.7 % (11.0-16.0); White Blood Count 10.5 X10*3/uL (4.8-10.8)
[2022-12-22 08:42] LABS: Alanine Aminotransferase 28 U/L (0-31); Albumin Level 3.9 g/dL (3.5-5.0); Alkaline Phosphatase 99 U/L (39-117); Anion Gap 12 (12-20); Aspartate Amino Transferase 22 U/L (5-31); Bilirubin Total 0.3 mg/dL (0.0-1.0); Blood Urea Nitrogen 20 mg/dL (9-16); Calcium 8.9 mg/dL (8.4-10.2); Carbon Dioxide 29 mmol/L (22-29); Chloride 105 mmol/L (96-108); Cholesterol 174 mg/dL; Estimated Glomerular Filt Rate 59; Glucose Random 151 mg/dL (60-115); HDL Cholesterol 44 mg/dL; LDL Cholesterol Calculated 98 mg/dl; Potassium 4.5 mmol/L (3.3-5.1); Sodium 141 mmol/L (135-145); Total Protein 7.2 g/dL (6.5-8.0); Triglycerides 164 mg/dL
[2022-12-22 08:55] LABS: TSH reflex Free T4 21.52 uIU/mL (0.32-4.0); Vitamin D 25-OH Total 10.8 ng/mL (>30)
[2022-12-22 08:58] LABS: Free T4 (Free Thyroxine) 0.87 ng/dL (0.71-1.85); Thyroid Stimulating Hormone 24.38 uIU/mL (0.32-4.0)
[2022-12-22 11:14] LABS: Creatinine Urine 111.74 mg/dL
== END 2022-12-22 07:55 | disposition home or self-care (01) ==
LOC: HO.LAB 07:54
PROVIDERS: Absent Provider Nurse Practitioner Family; PCP Nurse Practitioner Family; Visit Provider Internal Medicine Endocrinology, Diabetes & Metabolism
DX: E03.9 Hypothyroidism, unspecified (principal); E78.5 Hyperlipidemia, unspecified; I10 Essential (primary) hypertension; E11.65 Type 2 diabetes mellitus with hyperglycemia; R79.89 Other specified abnormal findings of blood chemistry
CPT/HCPCS: 36415; 80053; 80061; 82043; 82306; 84439; 84443; 85027

== ENCOUNTER 2022-12-23 09:07 | Day surgery (SDC) | payer OTHER, SELFPAY ==
[2022-12-20 15:06] VITALS: BMI 34.7
--- NOTE | 2022-12-22 09:31 | P.CONAN_ITS ---
Documented by User: Cierra Peña NP 12/22/22 09:37 HPI - Anesthesia Eval Consult details Narrative: 52yo F for D&C Hysteroscopy possible polypectomy/myomectomy Cardiology cleared [facility] Active Problems Active Problems: All Active Problems (Updated 12/08/22 @ 17:36 by CAMILLA Plunkett) Atypical chest pain (Acute) DVT (deep vein thrombosis) in (Acute) Lumbar paraspinal muscle spasm (Acute) Annual physical exam (Acute) Lumbar disc disease with radiculopathy (Acute) Lumbar back pain with radiculopathy affecting lower extremity (Acute) DVT (deep venous thrombosis) (Acute) Pain of left calf (Acute) Pain of right calf (Acute) Screening for breast cancer (Acute) Screening for colon cancer (Acute) Migraines (Acute) Abnormal uterine bleeding (AUB) (Acute) Postmenopausal bleeding (Acute) Low vitamin D level (Acute) Asthma (Acute) Bleeding hemorrhoids (Acute) Depression (Acute) Essential hypertension (Acute) CKD (chronic kidney disease) (Acute) Rheumatic mitral stenosis (Acute) Diastolic dysfunction (Acute) HTN (hypertension) (Acute) Type 2 diabetes mellitus with hyperglycemia, without long-term current use of insulin (Acute) Hypothyroidism (Acute) Hyperlipidemia LDL goal <100 (Acute) Obesity (BMI 30-39.9) (Acute) Past Medical History Medical History Anxiety Bleeding hemorrhoids Cervical high risk HPV (human papillomavirus) test positive CKD (chronic kidney disease) COVID-19 Depression Diastolic dysfunction Essential hypertension Glaucoma Hemorrhoids HTN (hypertension) Hyperlipidemia LDL goal <100 Hypothyroidism Insomnia Obesity (BMI 30-39.9) Rheumatic heart disease Rheumatic mitral stenosis Sleep apnea Type 2 diabetes mellitus with hyperglycemia, without long-term current use of insulin Family History Family History Father Diabetes Mother Diabetes Stroke Maternal Aunt Stroke Hypertension Family history of problems with anesthesia: No Surgical History Surgical History (Updated 12/16/22 @ 12:48 by Lima Vera RN) H/O hemorrhoidectomy History of section Hx of colonoscopy Hx of tubal ligation History of Problems with Anesthesia: No Social History Social History Household Members: Children Housing: Apartment Are you a primary career services assistant to a significant other at home: No Do you presently have visiting nurse or other home services: No Alcohol intake: current Alcohol intake frequency: does not drink Alcohol type: wine Patient Tobacco Use Status: Never used Tobacco e-Cigarette/Vaping Use: Never Used Second Hand Smoke Exposure: No Are you DNR?: No Advance Directives: No Advance Directives Information Provided: Yes Advance Directives on File: No Recently lost weight without trying: No Eating poorly because of decreased appetite: No Nutrition Risks: No Nutritional Risk Patient : No service: No Current occupational status: unemployed Cognitive needs: No Hearing needs: No Vision needs: Yes Meds Allergies Allergy/AdvReac Type Severity Reaction Status Date / Time No Known Allergies Allergy Verified 12/20/22 14:51 Home Medications Medication Instructions Recorded Confirmed Last Taken Type duloxetine 60 mg capsule,delayed 60 mg PO DAILY 10/26/20 12/16/22 Unknown History release mirtazapine 30 mg tablet 30 mg PO BEDTIME 10/26/20 12/16/22 Unknown History pen needle, diabetic 32 gauge x #50 ea 10/26/20 12/08/22 Unknown History perphenazine 4 mg tablet 4 mg PO BID 12/09/20 12/16/22 Unknown History trazodone 100 mg tablet 200 mg PO BEDTIME PRN Insomnia 11/09/22 12/16/22 Unknown History hydroxyzine HCl 25 mg tablet 25 mg PO BID PRN anxiety 12/08/22 12/16/22 Unknown History gabapentin 400 mg capsule 1 cap PO TID 12/16/22 12/16/22 Unknown History Exam Exam Date and Time: December 22, 2022 0931 Height,Weight and Vital Signs: Height 5 ft 9 in Weight 106.594 kg Pertinent Lab Results Pertinent Lab Results: Laboratory Tests 12/22/22 12/22/22 08:02 08:02 WBC 10.5 Hgb 14.3 Hct 44.2 Plt Count 256 Sodium 141 Potassium 4.5 Chloride 105 Carbon Dioxide 29 BUN 20 H Creatinine 0.99 Narrative Narrative: EKG 11/2022 normal sinus rhythm with normal EKG ECHO 2021 Conclusions: - The left ventricular systolic function is normal.? The ? calculated ejection fraction is 57% by biplane method. ? - The left atrium is moderately dilated. ? - The mitral valve appears rheumatic. ? There is mild mitral ? ? valve stenosis.? Stress Test 11/2022 Protocol: PHANI ? Max HR: 141 BPM? 83% of? Pred: 168 BPM Max BP: 210/092 mmHG Max Work Load: 9.6 METS ? Exercise stress test with exercise 7 min 43 sec of Phani protocol, achieving 82% ?MPHR, 9.6 METS, with need to stop due to fatigue and sob, with mild to moderate ?sob, no chest discomfort, with isolated PACs and in stage 3 there are isolated ?PVCs, with hypertensive response to exercise with max BP 210/92, without EKG ?changes meeting criteria for ischemia at achieved workload. In recovery her BP ?returned to 144/80 and breathing normalized. Nuclear images pending. Test ?reviewed with Dr Sharp Assessment and Plan Assessment Anesthesia Assessment: Chart Reviewed Final Anesthetic Review Family History of Problems with Anesthesia: No History of Problems with Anesthesia: No Documented by User: Tyler Sethi MD 12/23/22 11:46 PMFSH Past Medical History Medical History Anxiety Bleeding hemorrhoids Cervical high risk HPV (human papillomavirus) test positive CKD (chronic kidney disease) COVID-19 Depression Diastolic dysfunction Essential hypertension Glaucoma Hemorrhoids HTN (hypertension) Hyperlipidemia LDL goal <100 Hypothyroidism Insomnia Obesity (BMI 30-39.9) Rheumatic heart disease Rheumatic mitral stenosis Sleep apnea Type 2 diabetes mellitus with hyperglycemia, without long-term current use of insulin Family History Family History Father Diabetes Mother Diabetes Stroke Maternal Aunt Stroke Hypertension Surgical History Surgical History (Updated 12/16/22 @ 12:48 by Lima Vera RN) H/O hemorrhoidectomy History of section Hx of colonoscopy Hx of tubal ligation Social History Social History Household Members: Children Housing: Apartment Are you a primary career services assistant to a significant other at home: No Do you presently have visiting nurse or other home services: No Alcohol intake: current Alcohol intake frequency: does not drink Alcohol type: wine Patient Tobacco Use Status: Never used Tobacco e-Cigarette/Vaping Use: Never Used Second Hand Smoke Exposure: No Are you DNR?: No Advance Directives: No Advance Directives Information Provided: Yes Advance Directives on File: No Recently lost weight without trying: No Eating poorly because of decreased appetite: No Nutrition Risks: No Nutritional Risk Patient : No service: No Current occupational status: unemployed Cognitive needs: No Hearing needs: No Vision needs: Yes Meds Allergies Allergy/AdvReac Type Severity Reaction Status Date / Time No Known Allergies Allergy Verified 12/20/22 14:51 Home Medications Medication Instructions Recorded Confirmed Last Taken Type duloxetine 60 mg capsule,delayed 60 mg PO DAILY 10/26/20 12/16/22 Unknown History release mirtazapine 30 mg tablet 30 mg PO BEDTIME 10/26/20 12/16/22 Unknown History pen needle, diabetic 32 gauge x #50 ea 10/26/20 12/08/22 Unknown History perphenazine 4 mg tablet 4 mg PO BID 12/09/20 12/16/22 Unknown History trazodone 100 mg tablet 200 mg PO BEDTIME PRN Insomnia 11/09/22 12/16/22 Unknown History hydroxyzine HCl 25 mg tablet 25 mg PO BID PRN anxiety 12/08/22 12/16/22 Unknown History gabapentin 400 mg capsule 1 cap PO TID 12/16/22 12/16/22 Unknown History Exam Airway Mallampati Class: I TM Dist: >3cm Neck ROM: Full Loose/Missing/Broken Teeth: No Heart: ok Lungs: ok Assessment and Plan Final Anesthetic Review NPO: Yes ASA Class: III Final Preanesthetic Review: No Changes in Pt Med Stat, Meds/Allgs Chart Reviewed, Consent Obtained/Reviewed and Anes Risks/Benef Reviewed Patient Risk: High Procedure Risk: Low Anesthetic Plan Anesthetic Plan: GA and Agree w/ Assess. and Plan Disposition: Standard PACU
[2022-12-23] VITALS (9 sets, daily range): BP systolic 119–178; BP diastolic 68–105; PULSE 56–76; RESP 11–18; TEMP 36.2–37; O2SAT 93–97
[2022-12-23 10:04] LABS: Glucose, Whole Blood 154 mg/dL (60-115)
[2022-12-23] MEDS: Lactated Ringers 1,000 ML 100 ML IVCONT (10:22)
--- NOTE | 2022-12-23 11:25 | MHC.SHP ---
Pre-Procedural Eval Section A Date of Service: 12/23/22 The patient is an INPATIENT: No Changes since office visit: No Cold of Flu in the past 2 weeks, No New Medical Problems, No Changes in Medication and No Patient answered all questions The History & Physical has been completed within 30 days and I have reviewed it.: Yes Section B Chief Complaint: Postmenopausal bleeding Allergies: Allergies Allergy/AdvReac Type Severity Reaction Status Date / Time No Known Allergies Allergy Verified 12/20/22 14:51 Plan Diagnosis/Plan: Unchanged I have reviewed the history and physical and performed a pertinent physical examination on my patient. No changes have occurred unless specified. Time Spent With Patient Time: Total time managing care of this patient today ____ minutes.
--- NOTE | 2022-12-23 12:28 | PM.OP ---
Brief Operative Note Date of Service: 12/23/22 Pre-op diagnosis: Postmenopausal bleeding Post-op diagnosis: same (Endometrial polyp) Procedure: Hysteroscopy D&C, Polypectomy Surgeon: Guanako Fernandez MD Anesthesia: GLMA Was an Chemical Sales Representative used for this Procedure?: No Estimated blood loss (mL): 0 Pathology: other (Endometrial Scrapping. Polyp) Condition: stable Disposition: PACU
--- NOTE | 2022-12-23 12:29 | P.OP_ITS ---
Operative Note Operative Note Date of Service: 12/23/22 Narrative: Preop Diagnosis: Postmenopausal bleeding Operation: Diagnostic Hysteroscopy, Dilataion & Curettage and polypectomy Post Op Diagnosis: Endometrial Polyp QBL: Minimal Anesthesia: GLMA Surgeon: Guanako Fernandez MD Elevator Examiner: None Complication: None Pathology: Endometrial Scrapings, Endometrial polyp Procedure: The patient was put in the dorsal lithotomy position, scrubbed, and draped in the usual manner. A sterile speculum was inserted in the patient's vagina. The anterior lip of the cervix was grasped with a single tooth tenaculum. The cervix was dilated up to 5 mm, then the scope was inserted in the patient's uterus. Inspection revealed endometrial polyp. The Myosure Reach device was used; it was introduced through the operative channel and polypectomy done with no complications. The scope was then taken out from the uterine cavity, sharp curettings was carried on with minimal amount of tissues retrieved. At the end of the procedure, all instruments were taken out of the patient uterine and vaginal cavity. The single tooth tenaculum was removed and homeostasis was assured using pressure,. The patient tolerated the procedure well and was transferred to the PACU in a stable condition.
[2022-12-23] MEDS: oxyCODONE HCl Immed Release 5 MG TABLET PO (12:41)
[2022-12-23] MEDS: Acetaminophen 325 MG TABLET 650 MG PO (12:42)
[2022-12-23] MEDS: fentaNYL citrate/PF 100 MCG/2 ML VIAL 50 MCG IVPUSH (12:43)
--- NOTE | 2022-12-23 14:01 | PC.NURSE ---
all discharge instructions reviewed by Mitra Willingham in Pacu - see pacu documentation. Patient in discharge tolerating maynor breezy well and waiting for ride.
== END 2022-12-23 14:06 | disposition home or self-care (01) ==
PROVIDERS: PCP Nurse Practitioner Family; Visit Provider Obstetrics & Gynecology
PROC: 0UDB8ZZ Extraction of Endometrium, Via Natural or Artificial Opening Endoscopic (ICD-10-PCS; CPT 58558; principal; 2022-12-23 12:10)
DX: N95.0 Postmenopausal bleeding (principal); N84.0 Polyp of corpus uteri; R87.810 Cervical high risk human papillomavirus (HPV) DNA test positive; E11.22 Type 2 diabetes mellitus with diabetic chronic kidney disease; I13.10 Hypertensive heart and chronic kidney disease without heart failure, with stage 1 through stage 4 chronic kidney disease, or unspecified chronic kidney disease; N18.30 Chronic kidney disease, stage 3 unspecified; I05.0 Rheumatic mitral stenosis; E78.5 Hyperlipidemia, unspecified; G47.30 Sleep apnea, unspecified; E66.9 Obesity, unspecified; Z68.34 Body mass index [BMI] 34.0-34.9, adult; Z79.4 Long term (current) use of insulin; Z79.899 Other long term (current) drug therapy; Z98.51 Tubal ligation status; Z86.16 Personal history of COVID-19
CPT/HCPCS: 58558; 82947; 88305; J1885; J2405; J3010

== ENCOUNTER → 2023-01-02 08:43 | Outpatient (BNVA) | payer OTHER, SELFPAY | PROVIDERS: PCP Nurse Practitioner Family; Visit Provider Obstetrics & Gynecology | DX: N95.0 Postmenopausal bleeding (principal); Z98.890 Other specified postprocedural states | CPT/HCPCS: 99212 ==

== ENCOUNTER → 2023-01-26 07:28 | Outpatient (REF) | payer OTHER, SELFPAY ==
--- NOTE | 2023-01-26 07:42 | CA_ITS ---
Transthoracic Echocardiogram Patient (Last, First, Middle): Sirena Griffin, Gender: Female Date of : 1970 Age: 52 Procedure Date: 01/26/2023 Procedure Type: Transthoracic Echocardiogram Location: OP Height: 175.26 cm Weight: 104.33 kg BSA: 2.19 m2 Heart Rate: bpm BP: 145 / 92 mmHg Interventional Neuroradiologist: TO Referring MD: Zachary Draper MD Special Warfare Combatant Crewman: Zachary Draper MD Symptoms: I05.0 - Rheumatic mitral stenosis Study Quality: Adequate ECG Rhythm: Sinus Conclusions: - 1. Normal LV systolic function 2. Mildly dilated left atrium 3. Moderate rheumatic mitral stenosis with [id number] mitral regurgitation 4. Mild aortic regurgitation 5. Upper limits of normal RV systolic pressure 6. No gross pericardial effusion Findings Left Ventricle Normal left ventricular size, thickness, and systolic function. The visually estimated ejection fraction is between 60-65%. Diastolic function is indeterminate on the basis of available data. Right Ventricle Normal right ventricular cavity size and systolic function. Atria The left atrium is mildly dilated. There is no evidence of interatrial shunt. The right atrium is likely dilated. Aortic Valve There is mild thickening of the aortic valve. There is no aortic valve stenosis. There is mild aortic valve regurgitation. Mitral Valve The mitral valve appears rheumatic. There is moderate anterior and posterior mitral leaflet thickening. There is mild to moderate mitral valve regurgitation. There is moderate mitral valve stenosis. Pulmonic Valve The pulmonic valve is likely normal. Tricuspid Valve There is mild tricuspid valve regurgitation. Normal right atrial pressure. There is no evidence of pulmonary hypertension. Great Vessels All visible segments of the aorta are normal in size. The pulmonary artery was not well visualized. Venous The inferior vena cava is normal in size and collapses greater than 50% with inspiration. Pericardium/Pleural There is no evidence of pericardial effusion. Measurements 2D Linear Measurements IVSd: 1.28 0.6-0.9/0.6-1.0 cm LVIDd: 4.66 3.9-5.3/4.2-5.9 cm LVIDd Index: 2.13 2.4-3.2/2.2-3.1 cm/m2 LVIDs: 2.97 2.0-3.6 cm LVPWd: 1.06 0.7-1.1 cm LA Diam: 4.60 2.7-3.8/3.0-4.0 cm LAIDs Index: 2.10 1.5-2.3 cm/m2 LV Mass: 251.48 67-162/88-224 g LV Mass Index: 114.83 43-95/49-115 g/m2 LVOT Diam: 1.90 3.0+(-)1.3 cm 2D Systolic Function EF 4C: 62.40 >55% EF 2C: 61.00 >55% EF BiP: 60.30 >55% Mitral Valve MV VTI: 0.57 MV Pk Wander: 2.06 MV Mn Wander: 1.36 MV Pk Grad: 17.00 MV Mn Grad: 9.00 MV Pk E: 1.62 MV PK A: 1.65 MV Decel Time: 292.00 E/A: 1.00 E'Lateral: 5.66 E'Medial: 4.24 E/E' Med: 38.20 E/E' Lat: 28.60 PHT: 85.00 MVA PHT: 2.59 MVA Continuity: 1.22 Decel [place]: 5.56 MR Vol - PW Dopp: 86.94 MR VTI: 2.07 MR ERO: 42.00 MR Alias Wander: 0.47 MR RAD: 0.90 Aortic Valve AoV Pk Wander: 2.02 AoV Mn Wander: 1.46 AoV VTI: 0.46 AoV Pk Grad: 16.00 Aov Mn Grad: 9.00 MUNIRA Cont.VTI: 1.52 AI Pk Wander: 4.92 AI [place]: 2.22 LVOT LVOT Pk Wander: 1.13 LVOT Mn Wander: 0.77 LVOT VTI: 0.25 LVOT Pk Grad: 5.00 LVOT Mn Grad: 3.00 LVOT Diam: 1.90 LVOT Area: 2.84 Diastolic Function MV Pk E: 1.62 MV Pk A: 1.65 E/A: 1.00 E'Medial: 4.24 E/E' Med: 38.20 E' Laterial: 5.66 E/E' Lat: 28.60 Right Ventricle TAPSE (mm): 18.40 TVS' Wander: 10.60 Tricuspid Valve TR Pk Wander: 2.91 TR Pk Grad: 34.00 RA Press: 0.00 RVSP: 37.00 Great Vessels Aorta Sinus of Valsalva: 2.89 2.0-3.5 cm Ao Asc: 3.30 2.1-3.4 cm Updated in Other Vendor System with Status of Final Zachary Draper MD electronically signed on 01/27/2023 12:24:28 PM with status of Final
[2023-01-26 10:00] LABS: Free T4 (Free Thyroxine) 1.51 ng/dL (0.71-1.85); Thyroid Stimulating Hormone 0.07 uIU/mL (0.32-4.0)
== END ==
LOC: HO.CARD 07:28
PROVIDERS: Absent Provider Internal Medicine Endocrinology, Diabetes & Metabolism; PCP Nurse Practitioner Family; Visit Provider Internal Medicine Cardiovascular Disease
DX: I05.0 Rheumatic mitral stenosis (principal); E03.9 Hypothyroidism, unspecified
CPT/HCPCS: 36415; 84439; 84443; 93306

== ENCOUNTER 2023-02-08 13:13 | Outpatient (REF) | payer OTHER, SELFPAY ==
[2023-02-08 16:19] LABS: Creatinine Urine 141.85 mg/dL; Total Protein Urine Random 14 mg/dL (<12)
[2023-02-08 16:23] LABS: Anion Gap 17 (12-20); Blood Urea Nitrogen 17 mg/dL (9-16); Calcium 9.5 mg/dL (8.4-10.2); Carbon Dioxide 26 mmol/L (22-29); Chloride 105 mmol/L (96-108); Estimated Glomerular Filt Rate > 60; Glucose Random 98 mg/dL (60-115); Potassium 5.2 mmol/L (3.3-5.1); Sodium 143 mmol/L (135-145)
== END 2023-02-08 13:14 | disposition home or self-care (01) ==
LOC: HO.LAB 13:13
PROVIDERS: Absent Provider Internal Medicine Hypertension Specialist; PCP Nurse Practitioner Family; Visit Provider Internal Medicine Endocrinology, Diabetes & Metabolism
DX: E11.22 Type 2 diabetes mellitus with diabetic chronic kidney disease (principal); E11.65 Type 2 diabetes mellitus with hyperglycemia; E78.5 Hyperlipidemia, unspecified; E03.9 Hypothyroidism, unspecified; I12.9 Hypertensive chronic kidney disease with stage 1 through stage 4 chronic kidney disease, or unspecified chronic kidney disease; N18.31 Chronic kidney disease, stage 3a; Z79.899 Other long term (current) drug therapy; Z79.4 Long term (current) use of insulin
CPT/HCPCS: 36415; 80048; 82947; 84156; 99212

== ENCOUNTER 2023-03-17 12:33 | Outpatient (REF) | payer OTHER, SELFPAY ==
[2023-03-17 13:38] LABS: Free T4 (Free Thyroxine) 1.24 ng/dL (0.71-1.85); Thyroid Stimulating Hormone 0.06 uIU/mL (0.32-4.0)
== END 2023-03-17 12:34 | disposition home or self-care (01) ==
LOC: HO.LAB 12:33
PROVIDERS: Absent Provider Internal Medicine Endocrinology, Diabetes & Metabolism; PCP Nurse Practitioner Family; Visit Provider Nurse Practitioner Family
DX: Z01.818 Encounter for other preprocedural examination (principal); K59.04 Chronic idiopathic constipation; E03.9 Hypothyroidism, unspecified
CPT/HCPCS: 36415; 84439; 84443; 99212

== ENCOUNTER 2023-04-20 14:00 | Emergency (ER) | payer OTHER, SELFPAY ==
--- NOTE | ~2023-04-20 | XR_ITS ---
EXAMINATION: XR CHEST CLINICAL INFORMATION: Bilateral chest wall pain COMPARISON: Chest x-ray on 05/02/2022 TECHNIQUE: 2 views of the chest were obtained. FINDINGS: The cardiac silhouette is normal. There is mild diffuse bronchial wall thickening. There are no areas of consolidation. There are no pleural effusions or pneumothoraces. The bones and soft tissues are unremarkable for the patient's age. XR/XR chest 2V IMPRESSION: Bronchial wall thickening may be infectious and/or inflammatory in etiology.
--- NOTE | ~2023-04-20 | CT_ITS ---
EXAMINATION: CT HEAD WITHOUT CONTRAST CLINICAL INFORMATION: Headache COMPARISON: None available. TECHNIQUE: Contiguous axial imaging was performed from the skull base to vertex without intravenous administration of contrast. This CT examination was performed using dose optimization techniques as appropriate, variously including the following: *Automated exposure control *Adjustment of mA and/or kV according to patient size (this includes techniques or standardized protocols for targeted exams where dose is matched to indication/reason for exam; i.e. extremities or head) *Use of iterative reconstruction technique DLP: 699 mGy-cm FINDINGS: There is no acute intra-axial, extra-axial bleed, masses or midline shift. There is no acute infarction evolution. There is no edema. The holguin to white matter differentiation is maintained. The lateral ventricles are symmetrical in size and configuration without enlargement. Bone windows reveal no calvarial abnormality. There is no scalp soft tissue abnormality. There is diffuse mucoperiosteal thickening right maxillary sinus. Rest of the paranasal sinuses and mastoid air cells are well-aerated. There is no scalp soft tissue abnormality. CT/CT head/brain wo IV con IMPRESSION: 1. No acute intracranial process seen. 2. Chronic right maxillary sinus inflammatory changes.
--- NOTE | 2023-04-20 14:03 | ED.CHESTPAIN ---
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 complaining of headache x3 days, no photophobia, no neck stiffness describes the head as involving the whole entire head, feeling nauseous but no vomiting patient stated it is similar to her previous migraines in the past. Patient also is complaining of bilateral rib pain, no history of trauma to the chest, no coughing, no fever, no chills. Patient also has been losing her with spot of baldness on the back of her scalp. Related Data Home Medications Medication Instructions Recorded Confirmed duloxetine 60 mg capsule,delayed 60 mg PO DAILY 10/26/20 12/27/22 release mirtazapine 30 mg tablet 30 mg PO BEDTIME 10/26/20 12/27/22 pen needle, diabetic 32 gauge x #50 ea 10/26/20 12/27/22 perphenazine 4 mg tablet 4 mg PO BID 12/09/20 12/27/22 trazodone 100 mg tablet 200 mg PO BEDTIME PRN Insomnia 11/09/22 12/27/22 hydroxyzine HCl 25 mg tablet 25 mg PO BID PRN anxiety 12/08/22 12/27/22 Previous Rx's Medication Instructions Recorded citalopram 40 mg tablet 40 mg PO DAILY 90 days #90 tabs 09/24/20 hydrochlorothiazide 25 mg tablet 25 mg PO DAILY #30 tabs 10/31/21 pen needle, diabetic 32 gauge x #120 ea 11/11/21 (BD Ultra-Fine Ramya Pen Needle) rosuvastatin 40 mg tablet 40 mg PO DAILY #30 tabs 12/29/21 blood sugar diagnostic (FreeStyle #50 ea 03/24/22 Precision Emanuel Strips) diclofenac sodium 1 % topical gel 4 g topical QID PRN pain (scale 03/29/22 (Voltaren Arthritis Pain) score 7-10) #100 grams tizanidine 2 mg tablet 2 mg PO BEDTIME PRN muscle 04/29/22 spasticity #30 tabs blood sugar diagnostic (FreeStyle 1 strip miscellaneous QID #125 06/02/22 Precision Emanuel Strips) strips sumatriptan succinate 25 mg tablet See Rx Instructions PO .COMPLEX #7 06/14/22 tabs ergocalciferol (vitamin D2) 1,250 1,250 mcg PO QWEEK #12 caps 08/10/22 mcg (50,000 unit) capsule docusate sodium 100 mg capsule 100 mg PO BID #60 caps 08/12/22 (Colace) ibuprofen 600 mg tablet 600 mg PO Q6H PRN pain #30 tabs 08/12/22 metformin 500 mg tablet 500 mg PO BID #60 tabs 11/09/22 dulaglutide 1.5 mg/0.5 mL 1.5 mg (0.5 mL) subcut QWEEK #2 mL 11/15/22 subcutaneous pen injector (Trulicity) polyethylene glycol 3350 17 17 g PO DAILY #510 grams 12/05/22 gram/dose oral powder (Miralax) albuterol sulfate 2.5 mg/3 mL 2.5 mg (3 mL) inhalation Q4-6H PRN 12/08/22 (0.083 %) solution for nebulization shortness of breath or wheezing #75 mL miscellaneous medical supply 1 ea miscellaneous DAILY #1 ea 12/08/22 flash glucose scanning reader #1 ea 01/06/23 (FreeStyle Sera 2 Fithian) flash glucose sensor (FreeStyle #2 ea 01/06/23 Sera 2 Sensor kit) albuterol sulfate 90 mcg/actuation 1 puff PO QID PRN for wheezing #18 03/11/23 aerosol inhaler (Ventolin HFA) ea bisacodyl 5 mg tablet,delayed 10 mg PO BEDTIME #180 tabs 03/17/23 release (Dulcolax (bisacodyl)) levothyroxine 137 mcg tablet 137 mcg PO DAILY #30 tabs 03/17/23 polyethylene glycol 3350 17 238 g PO ONCE #238 grams 03/17/23 gram/dose oral powder (Miralax) ezetimibe 10 mg tablet (Zetia) 10 mg PO DAILY #30 tabs 03/30/23 lisinopril 10 mg tablet 10 mg PO DAILY 90 days #90 tabs 04/11/23 insulin degludec 200 unit/mL (3 56 unit (0.28 mL) subcut BEDTIME 04/12/23 mL) subcutaneous pen (Tresiba 30 days #9 mL FlexTouch U-200 insulin) insulin lispro 100 unit/mL See Rx Instructions subcut TID 30 04/12/23 subcutaneous pen (Humalog KwikPen days #30 mL (U-100) Insulin) Allergies Allergy/AdvReac Type Severity Reaction Status Date / Time No Known Allergies Allergy Verified 03/17/23 12:58 Review of Systems Review of Systems: All other systems are reviewed and are negative Constitutional: Reports as per HPI and Reports no additional constitutional complaints Eyes: Reports as per HPI and Reports no additional eye complaints Reports system reviewed and no additional complaints, except as documented Cardiovascular: Reports as per HPI and Reports no additional cardiovascular complaints Respiratory: Reports as per HPI and Reports no additional respiratory complaints Gastrointestinal: Reports as per HPI and Reports no additional gastrointestinal complaints Genitourinary: Reports no additional female genitourinary complaints Musculoskeletal: Reports no additional musculoskeletal complaints Skin/Breast: Reports system reviewed and no additional complaints, except as docu Psychiatric: Reports no additional psychiatric complaints Endocrine: Reports no additional endocrine complaints Hematologic/Lymphatic: Reports no additional hematologic/lymphatic complaints Allergic/Immunologic: Reports no additional allergic/immunologic complaints Reports system reviewed and no additional complaints, except as documented and Reports Abnormal speech present [facility] Past Medical History Medical History Anxiety Bleeding hemorrhoids Cervical high risk HPV (human papillomavirus) test positive CKD (chronic kidney disease) COVID-19 Depression Diastolic dysfunction Essential hypertension Glaucoma Hemorrhoids HTN (hypertension) Hyperlipidemia LDL goal <100 Hypothyroidism Insomnia Obesity (BMI 30-39.9) Rheumatic heart disease Rheumatic mitral stenosis Sleep apnea Type 2 diabetes mellitus with hyperglycemia, without long-term current use of insulin Surgical History H/O hemorrhoidectomy History of section Hx of colonoscopy Hx of tubal ligation Family History Family History Father Diabetes Mother Diabetes Stroke Maternal Aunt Stroke Hypertension Social History Social History Household Members: Children Housing: Apartment Are you a primary home health aide caregiver to a significant other at home: No Do you presently have visiting nurse or other home services: No Alcohol intake: current Alcohol intake frequency: does not drink Alcohol type: wine Patient Tobacco Use Status: Never used Tobacco e-Cigarette/Vaping Use: Never Used Second Hand Smoke Exposure: No Advance Directives: No Advance Directives Information Provided: No service: No Current occupational status: unemployed Cognitive needs: No Hearing needs: No Vision needs: Yes Physical Exam Vital Signs: Vital Signs: Last Vital Signs Temp 98.6 F 04/20/23 20:37 Pulse 79 04/20/23 20:37 Resp 17 04/20/23 20:37 BP 153/72 H 04/20/23 20:37 Pulse Ox 93 04/20/23 20:37 O2 Del Method Room Air 04/20/23 20:37 BMI result Body Mass Index 34.0 Vital signs have been reviewed as appeared to be correct. Blood pressure normal. Heart rate normal. Respiration rate normal. Temperature normal. Oxygen saturation normal. Appearance: Alert. Oriented X3. No acute distress. Head: Normal external exam. Normocephalic. Atraumatic. No Live signs noted. No raccoon eyes noted, 3 x 4 cm area of alopecia. Eyes: PERRLA. EOMI. Conjunctiva and sclera normal. Eyelids normal. ENT: TM's Normal. Pharynx normal. Uvula midline. Moist mucous membranes. No trismus noted. No drooling noted. No muffled voice noted. Neck: Normal inspection. Neck supple. FROM. No adenopathy. Thyroid Normal. No meningeal signs. No neck mass noted. CVS: Normal heart rate and rhythm. Heart sound normal. No murmurs noted. Pulses normal throughout. Respiratory: No respiratory distress. Painless inspiration. Breath sounds normal. No wheezes/rales/rhonchi noted. Chest nontender. No accessory muscle usage noted or decreased air movement noted. Abdomen: Soft and nontender. Bowel sounds normal in all 4 quadrants. No distention noted. No organomegaly noted. No visible injury noted. Back: No CVA tenderness. Full range of motion noted. Skin: Skin warm and dry. Normal skin color. Normal skin turgor. No rashes/lesions/lacerations noted. Extremities: No lower extremity edema. Extremities exhibit normal range of motion. Extremities nontender. Neuro: Oriented X 3. Cranial nerve exam: II-XII are grossly intact No motor deficit. No sensory deficit. Reflexes normal. Course Course Course Narrative: This is a rapid medical exam. Deferred additional HPI, ROS, PE to primary provider. 52 yo with history of HTN, HLD, DM, depression, anxiety here headache, chest tightness, nausea, high blood pressure, back pain, dizziness which began today at 9am. Will obtain labs, EKG BP 176/89 in triage, other VS stable. Reevaluation(s) Reevaluation #1: Patient feels better, no headache, nausea vomiting. Area of alopecia patient was instructed to follow up with compactor driver. Bilateral chest wall pain negative x-ray, unremarkable EKG and troponin. Time: 22:21 Medications Administered Discontinued Medications Generic Name Dose Route Start Last Admin Trade Name Freq PRN Reason Stop Dose Admin Diphenhydramine HCl 25 mg 04/20/23 19:03 04/20/23 19:23 Diphenhydramine Hcl 50 Mg/Ml Vial IVPUSH 04/20/23 19:04 25 mg ONCE ONE Administration Sodium Chloride 1,000 mls @ 999 mls/hr 04/20/23 19:03 04/20/23 21:43 Ns IV 04/20/23 20:03 Infused .Q1H1M ONE Infusion Methylprednisolone Sodium Succinate 125 mg 04/20/23 19:03 04/20/23 19:25 Methylprednisolone Sod Succ 125 Mg/2 Ml Vial IVPUSH 04/20/23 19:04 125 mg ONCE ONE Administration Ondansetron HCl 4 mg 04/20/23 19:03 04/20/23 19:25 Ondansetron Hcl 4 Mg/2 Ml Vial IVPUSH 04/20/23 19:04 4 mg ONCE ONE Administration Medical Decision Making Differential Diagnosis Differential Diagnoses: The differential diagnosis associated with the presentation includes (Tension headache, migraine, chest wall pain, rib fracture.) Admission/Observation Consideration of admission/observation: Escalation of care including admission/observation considered Lab Data MDM Lab Attestation statement: I reviewed the patient's lab results. 04/20/23 14:19 04/20/23 14:19 Labs: Lab Results 04/20/23 04/20/23 04/20/23 Range/Units 14:19 14:19 14:19 WBC 9.4 (4.8-10.8) X10*3/uL RBC 5.46 (4.20-5.50) X10*6/uL Hgb 14.2 (12.0-16.0) g/dl Hct 44.0 (37.0-47.0) % MCV 80.6 (80.0-98.0) fL MCH 26.0 L (27.0-33.0) pg MCHC 32.3 (31.0-35.0) g/dl RDW 14.3 (11.0-16.0) % Plt Count 271 (160-400) X10*3/uL MPV 10.2 (9.4-12.3) fL Immature Gran % (Auto) 0.3 (0.0-0.4) % Neut % (Auto) 64.9 (45-73) % Lymph % (Auto) 23.9 (20-40) % [place] % (Auto) 4.9 (2-11) % Eos % (Auto) 5.3 H (0-4) % Baso % (Auto) 0.7 (0-2) % Lymph # (Auto) 2.2 (1.2-4.9) X10*3/uL [place] # (Auto) 0.5 (0.1-1.2) X10*3/uL Eos # (Auto) 0.5 H (0.0-0.4) X10*3/uL Baso # (Auto) 0.1 (0.0-0.2) X10*3/uL Abs Immat Gran (auto) 0.03 (0.00-0.03) X10*3/uL Absolute Neuts (auto) 6.1 (2.0-8.3) x10*3/uL Absolute Nucleated RBC 0.000 (0.0-0.012) X10*3/uL Nucleated RBC % (auto) 0.0 (0.0-0.2) /100WBC PT 10.9 (10.0-13.1) SEC INR 1.0 (0.9-1.1) D-Dimer High Sensitivty 217 NG/ML Sodium 140 (135-145) mmol/L Potassium 4.3 (3.3-5.1) mmol/L Chloride 106 (96-108) mmol/L Carbon Dioxide 26 (22-29) mmol/L Anion Gap 12 (12-20) BUN 12 (9-16) mg/dL Creatinine 1.15 (0.5-1.4) mg/dL Estim Creat Clear Calc 73.5 Estimated GFR 50 Random Glucose 201 H (60-115) mg/dL Calcium 9.3 (8.4-10.2) mg/dL Magnesium 1.9 (1.6-2.6) mg/dL Total Bilirubin 0.3 (0.0-1.0) mg/dL Direct Bilirubin 0.1 (0.0-0.5) mg/dL AST 18 (5-31) U/L ALT 25 (0-31) U/L Alkaline Phosphatase 106 (39-117) U/L Troponin I High Sens (<3.5-17.0) ng/L Total Protein 7.4 (6.5-8.0) g/dL Albumin 3.8 (3.5-5.0) g/dL Urine Color Urine Appearance Urine pH (5.0-9.0) Ur Specific [place] (1.005-1.025) Urine Protein (Neg-Trace) mg/dL Urine Glucose (UA) (Negative) mg/dL Urine Ketones (Negative) mg/dL Urine Blood (Negative) Urine Nitrite (Negative) Ur Leukocyte Esterase (Negative) Influenza Type A (PCR) (Negative) Influenza Type B (PCR) (Negative) RSV RNA Qual (PCR) (Negative) SARS-CoV-2 RNA (RT-PCR) (Negative) 04/20/23 04/20/23 04/20/23 Range/Units 14:19 15:48 20:43 WBC (4.8-10.8) X10*3/uL RBC (4.20-5.50) X10*6/uL Hgb (12.0-16.0) g/dl Hct (37.0-47.0) % MCV (80.0-98.0) fL MCH (27.0-33.0) pg MCHC (31.0-35.0) g/dl RDW (11.0-16.0) % Plt Count (160-400) X10*3/uL MPV (9.4-12.3) fL Immature Gran % (Auto) (0.0-0.4) % Neut % (Auto) (45-73) % Lymph % (Auto) (20-40) % [place] % (Auto) (2-11) % Eos % (Auto) (0-4) % Baso % (Auto) (0-2) % Lymph # (Auto) (1.2-4.9) X10*3/uL [place] # (Auto) (0.1-1.2) X10*3/uL Eos # (Auto) (0.0-0.4) X10*3/uL Baso # (Auto) (0.0-0.2) X10*3/uL Abs Immat Gran (auto) (0.00-0.03) X10*3/uL Absolute Neuts (auto) (2.0-8.3) x10*3/uL Absolute Nucleated RBC (0.0-0.012) X10*3/uL Nucleated RBC % (auto) (0.0-0.2) /100WBC PT (10.0-13.1) SEC INR (0.9-1.1) D-Dimer High Sensitivty NG/ML Sodium (135-145) mmol/L Potassium (3.3-5.1) mmol/L Chloride (96-108) mmol/L Carbon Dioxide (22-29) mmol/L Anion Gap (12-20) BUN (9-16) mg/dL Creatinine (0.5-1.4) mg/dL Estim Creat Clear Calc Estimated GFR Random Glucose (60-115) mg/dL Calcium (8.4-10.2) mg/dL Magnesium (1.6-2.6) mg/dL Total Bilirubin (0.0-1.0) mg/dL Direct Bilirubin (0.0-0.5) mg/dL AST (5-31) U/L ALT (0-31) U/L Alkaline Phosphatase (39-117) U/L Troponin I High Sens 3.1 (<3.5-17.0) ng/L Total Protein (6.5-8.0) g/dL Albumin (3.5-5.0) g/dL Urine Color Yellow Urine Appearance Clear Urine pH 5.5 (5.0-9.0) Ur Specific [place] 1.010 (1.005-1.025) Urine Protein Negative (Neg-Trace) mg/dL Urine Glucose (UA) Negative (Negative) mg/dL Urine Ketones Negative (Negative) mg/dL Urine Blood Negative (Negative) Urine Nitrite Negative (Negative) Ur Leukocyte Esterase Negative (Negative) Influenza Type A (PCR) NEGATIVE (Negative) Influenza Type B (PCR) NEGATIVE (Negative) RSV RNA Qual (PCR) NEGATIVE (Negative) SARS-CoV-2 RNA (RT-PCR) NEGATIVE (Negative) Independent Interpretation I performed an independent interpretation of an: EKG (Normal sinus rhythm at 81 beats per minutes, normal intervals, no ST-T changes, no change from previous EKG.), Plain X-Ray (Bronchial wall thickening may be infectious and/or inflammatory in etiology. ) and CT Scan (Head CT: No acute intracranial pathology.) Radiology Impression Discussion of test interpretation with radiology: I have reviewed the radiologist's reading. Discharge Plan Discharge Clinical Impression: Headache, Acute chest wall pain, Alopecia Patient Disposition: Home, Self-Care Instructions: Acute Headache (ED) Prescriptions: No Action citalopram 40 mg tablet 40 mg PO DAILY 90 Days Qty: 90 3RF hydrochlorothiazide 25 mg tablet 25 mg PO DAILY Qty: 30 11RF (DME) pen needle, diabetic [BD Ultra-Fine Ramya Pen Needle] 32 gauge x 5/32 needle See Rx Instructions .ROUTE .MEDSUPPLY Qty: 120 11RF Rx Instructions: As directed four times a day rosuvastatin 40 mg tablet 40 mg PO DAILY Qty: 30 11RF tizanidine 2 mg tablet 2 mg PO BEDTIME PRN (Reason: muscle spasticity) Qty: 30 0RF FreeStyle Precision Emanuel Strips Strip 1 strip miscellaneous QID Qty: 125 11RF Rx Instructions: Testing blood glucose 4 times per day. sumatriptan succinate 25 mg tablet See Rx Instructions PO .COMPLEX Qty: 7 0RF Rx Instructions: take 1 tab at onset of headache; if no relief may repeat 1 tab after at least 2 hrs; max = 4 tabs/24 hr PO ergocalciferol (vitamin D2) 1,250 mcg (50,000 unit) capsule 1,250 mcg PO QWEEK Qty: 12 0RF Trulicity 1.5 mg/0.5 mL pen injector 1.5 mg subcut QWEEK Qty: 2 5RF albuterol sulfate 2.5 mg /3 mL (0.083 %) solution for nebulization 2.5 mg inhalation Q4-6H PRN (Reason: shortness of breath or wheezing) Qty: 75 0RF miscellaneous medical supply Misc 1 ea miscellaneous DAILY Qty: 1 0RF Rx Instructions: nebulizer mask (DME) FreeStyle Sera 2 Fithian Misc See Rx Instructions .Route Qty: 1 0RF Rx Instructions: As directed (DME) FreeStyle Sera 2 Sensor Kit See Rx Instructions .Route Qty: 2 5RF Rx Instructions: As directed change every 14 days albuterol sulfate [Ventolin HFA] 90 mcg/actuation HFA aerosol inhaler 1 puff PO QID PRN (Reason: for wheezing) Qty: 18 2RF levothyroxine 137 mcg tablet 137 mcg PO DAILY Qty: 30 5RF ezetimibe [Zetia] 10 mg tablet 10 mg PO DAILY Qty: 30 5RF lisinopril 10 mg tablet 10 mg PO DAILY 90 Days Qty: 90 1RF Tresiba FlexTouch U-200 200 unit/mL (3 mL) insulin pen 56 unit subcut BEDTIME 30 Days Qty: 9 6RF Patient Comments: patient states she only takes 20 units at night insulin lispro [Humalog KwikPen Insulin] 100 unit/mL insulin pen See Rx Instructions subcut TID 30 Days Qty: 30 6RF Rx Instructions: 18 units breakfast, 14 units lunch and 22 units dinner, +2units for bg >200 subcut 3x per day. docusate sodium [Colace] 100 mg capsule 100 mg PO BID Qty: 60 2RF ibuprofen 600 mg tablet 600 mg PO Q6H PRN (Reason: pain) Qty: 30 0RF diclofenac sodium [Voltaren Arthritis Pain] 1 % gel 4 g topical QID PRN (Reason: pain (scale score 7-10)) Qty: 100 0RF Rx Instructions: apply to single knee, ankle, foot; for foot includes sole/toes/top of foot duloxetine 60 mg capsule,delayed release(DR/EC) 60 mg PO DAILY mirtazapine 30 mg tablet 30 mg PO BEDTIME (DME) pen needle, diabetic 32 gauge x 5/32 needle See Rx Instructions subcut TID Qty: 50 Rx Instructions: As directed perphenazine 4 mg tablet 4 mg PO BID hydroxyzine HCl 25 mg tablet 25 mg PO BID PRN (Reason: anxiety) (DME) FreeStyle Precision Emanuel Strips Strip See Rx Instructions .ROUTE .MEDSUPPLY Qty: 50 11RF Rx Instructions: As directed once daily polyethylene glycol 3350 [Miralax] 17 gram/dose powder 17 g PO DAILY Qty: 510 2RF bisacodyl [Dulcolax (bisacodyl)] 5 mg tablet,delayed release (DR/EC) 10 mg PO BEDTIME Qty: 180 4RF polyethylene glycol 3350 [Miralax] 17 gram/dose powder 238 g PO ONCE Qty: 238 0RF Rx Instructions: As directed by gastroenterology department at [facility] trazodone 100 mg tablet 200 mg PO BEDTIME PRN (Reason: Insomnia) metformin 500 mg tablet 500 mg PO BID Qty: 60 5RF Referrals: Oly Sanchez FNP [Primary Care Provider] - Stand Alone Forms: Work/School Release
[2023-04-20 14:04] VITALS: BP 176/99; PULSE 84; RESP 18; TEMP 36.6; O2SAT 97; BMI 34.0
--- NOTE | 2023-04-20 14:05 | ECG_ITS ---
Test Reason : cheat pain Blood Pressure : / mmHG Vent. Rate : 081 BPM Atrial Rate : 081 BPM P-R Int : 142 ms QRS Dur : 078 ms QT Int : 396 ms P-R-T Axes : 042 008 079 degrees QTc Int : 460 ms Normal sinus rhythm Possible Left atrial enlargement Borderline ECG When compared with ECG of 02-MAY-2022 23:48, No significant change was found Referred By: Jalyn Coats Electronically Signed By:CHELLY MORTON
[2023-04-20 14:27] LABS: MANUAL DIFF FLAG NO
[2023-04-20 14:32] LABS: Basophils Absolute Auto 0.1 X10*3/uL (0.0-0.2); Basophils Percent Auto 0.7 % (0-2); Eosinophils Absolute Auto 0.5 X10*3/uL (0.0-0.4); Eosinophils Percent Auto 5.3 % (0-4); Hemoglobin 14.2 g/dl (12.0-16.0); Imm Gran Abs Auto 0.03 X10*3/uL (0.00-0.03); Imm Gran Pct Auto 0.3 % (0.0-0.4); Lymphocytes Absolute Auto 2.2 X10*3/uL (1.2-4.9); Lymphocytes Percent Auto 23.9 % (20-40); Mean Corpuscular HGB Conc 32.3 g/dl (31.0-35.0); Mean Corpuscular Volume 80.6 fL (80.0-98.0); Mean Platelet Volume 10.2 fL (9.4-12.3); Monocytes Absolute Auto 0.5 X10*3/uL (0.1-1.2); Monocytes Percent Auto 4.9 % (2-11); Neutrophils Absolute Auto 6.1 x10*3/uL (2.0-8.3); Neutrophils Percent Auto 64.9 % (45-73); Platelet Count 271 X10*3/uL (160-400); Red Blood Count 5.46 X10*6/uL (4.20-5.50); Red Cell Distribution Width 14.3 % (11.0-16.0); White Blood Count 9.4 X10*3/uL (4.8-10.8)
[2023-04-20 14:36] LABS: Prothrombin Time 10.9 SEC (10.0-13.1)
[2023-04-20 14:44] LABS: Alanine Aminotransferase 25 U/L (0-31); Albumin Level 3.8 g/dL (3.5-5.0); Alkaline Phosphatase 106 U/L (39-117); Anion Gap 12 (12-20); Aspartate Amino Transferase 18 U/L (5-31); Bilirubin Direct 0.1 mg/dL (0.0-0.5); Bilirubin Total 0.3 mg/dL (0.0-1.0); Blood Urea Nitrogen 12 mg/dL (9-16); Calcium 9.3 mg/dL (8.4-10.2); Carbon Dioxide 26 mmol/L (22-29); Chloride 106 mmol/L (96-108); Creatinine Clr Calc Pharmacy 73.5; Estimated Glomerular Filt Rate 50; Glucose Random 201 mg/dL (60-115); Magnesium 1.9 mg/dL (1.6-2.6); Potassium 4.3 mmol/L (3.3-5.1); Sodium 140 mmol/L (135-145); Total Protein 7.4 g/dL (6.5-8.0)
[2023-04-20 14:49] LABS: Troponin-I High Sensitivity 3.1 ng/L (<3.5-17.0)
[2023-04-20 16:07] LABS: Appearance Urine Clear; Color Urine Yellow; Glucose Urine UA Negative (Negative); Leukocyte Esterase Urine Negative (Negative); Nitrite Urine Negative (Negative); PH 5.5 (5.0-9.0); Urine Blood Negative (Negative); Urine Ketones Negative (Negative); Urine Protein Negative (Neg-Trace)
[2023-04-20 18:25] VITALS: BP 166/76; PULSE 79; RESP 18; TEMP 36.7; O2SAT 95
--- NOTE | 2023-04-20 19:12 | PC.NURSE ---
pt to CT.
[2023-04-20] MEDS: 0.9 % Sodium Chloride 1,000 ML 999 ML IV (19:21)
[2023-04-20] MEDS: diphenhydrAMINE HCL 50 MG/ML VIAL 25 MG IVPUSH (19:23)
[2023-04-20] MEDS: methylPREDNISolone Sod Succ 125 MG/2 ML VIAL IVPUSH (19:25)
[2023-04-20] MEDS: ondansetron HCL 4 MG/2 ML VIAL IVPUSH (19:25)
[2023-04-20 19:41] LABS: D Dimer High Sensitivity 217 NG/ML
[2023-04-20 20:37] VITALS: BP 153/72; PULSE 79; RESP 17; TEMP 37; O2SAT 93
--- NOTE | 2023-04-20 20:58 | PC.NURSE ---
pt reporting improvement in pain, feeling much better, ivf running, pt pending ED provider reeval.
[2023-04-20 21:25] LABS: Influenza A PCR NEGATIVE (Negative); Influenza B PCR NEGATIVE (Negative); Resp Syncy Virus RNA Qual PCR NEGATIVE (Negative); SARS COV2 PCR INHOUSE NEGATIVE (Negative)
== END 2023-04-20 22:34 | disposition home or self-care (01) ==
PROVIDERS: Nurse Practitioner Family; Emergency Provider Emergency Medicine; PCP Nurse Practitioner Family
DX: R07.89 Other chest pain (principal); R07.81 Pleurodynia; I10 Essential (primary) hypertension; G43.909 Migraine, unspecified, not intractable, without status migrainosus; L65.9 Nonscarring hair loss, unspecified; Z20.822 Contact with and (suspected) exposure to COVID-19; Z20.828 Contact with and (suspected) exposure to other viral communicable diseases; Z79.899 Other long term (current) drug therapy
CPT/HCPCS: 0241U; 36415; 70450; 71046; 80048; 80076; 81003; 83735; 84484; 85025; 85379; 85610; 93005; 96361; 96374; 96375; 99284; J1200; J2405; J2930

== ENCOUNTER 2023-05-16 10:56 | Outpatient (REF) | payer OTHER, SELFPAY ==
[2023-05-16 11:44] LABS: Hematocrit 46.9 % (37.0-47.0); Mean Corpuscular Hemoglobin 26.5 pg (27.0-33.0); Mean Platelet Volume 10.4 fL (9.4-12.3); Platelet Count 282 X10*3/uL (160-400); Red Blood Count 5.65 X10*6/uL (4.20-5.50); Red Cell Distribution Width 15.1 % (11.0-16.0); White Blood Count 8.7 X10*3/uL (4.8-10.8)
[2023-05-16 11:54] LABS: Estimated Average Glucose 171 mg/dL; Hemoglobin A1c % 7.6 %
[2023-05-16 12:25] LABS: Alanine Aminotransferase 24 U/L (0-31); Albumin Level 3.9 g/dL (3.5-5.0); Alkaline Phosphatase 92 U/L (39-117); Anion Gap 14 (12-20); Aspartate Amino Transferase 19 U/L (5-31); Bilirubin Total 0.4 mg/dL (0.0-1.0); Blood Urea Nitrogen 16 mg/dL (9-16); Calcium 9.5 mg/dL (8.4-10.2); Carbon Dioxide 26 mmol/L (22-29); Chloride 105 mmol/L (96-108); Cholesterol 247 mg/dL; Estimated Glomerular Filt Rate > 60; Glucose Fasting 139 mg/dL (60-99); HDL Cholesterol 40 mg/dL; LDL Cholesterol Calculated 152 mg/dl; Potassium 4.6 mmol/L (3.3-5.1); Sodium 140 mmol/L (135-145); Triglycerides 279 mg/dL
[2023-05-16 12:31] LABS: Creatinine Urine 85.43 mg/dL; Microalbum/Creatinine Ratio Ur 9.3 ug/mg cr
[2023-05-16 12:40] LABS: Free T4 (Free Thyroxine) 0.86 ng/dL (0.71-1.85)
[2023-05-16 12:42] LABS: Thyroid Stimulating Hormone 6.44 uIU/mL (0.32-4.0); Vitamin D 25-OH Total 17.8 ng/mL (>30)
[2023-05-16 12:56] LABS: Folate 10.5 ng/mL (> or = 4.0); Vitamin B12 425 pg/mL (200-900)
== END 2023-05-16 10:57 | disposition home or self-care (01) ==
LOC: HO.LAB 10:56
PROVIDERS: Absent Provider Nurse Practitioner Family; PCP Nurse Practitioner Family; Visit Provider Internal Medicine Endocrinology, Diabetes & Metabolism
DX: I10 Essential (primary) hypertension (principal); E11.65 Type 2 diabetes mellitus with hyperglycemia; E03.9 Hypothyroidism, unspecified; E78.5 Hyperlipidemia, unspecified; R79.89 Other specified abnormal findings of blood chemistry
CPT/HCPCS: 36415; 80053; 80061; 82043; 82306; 82607; 82746; 83036; 84439; 84443; 85027

== ENCOUNTER 2023-05-22 11:11 | Day surgery (SDC) | payer OTHER, SELFPAY ==
[2023-05-18 15:42] VITALS: BMI 36.5
--- NOTE | 2023-05-19 10:46 | HO.ANESPROP2 ---
Documented by User: Cierra Peña NP 05/19/23 10:50 HPI - Anesthesia Eval Consult details Narrative: 52yo F for Colonoscopy PMFSH Active Problems Active Problems: All Active Problems (Updated 05/16/23 @ 10:39 by CAMILLA Plunkett) Atypical chest pain (Acute) DVT (deep vein thrombosis) in (Acute) Lumbar paraspinal muscle spasm (Acute) Annual physical exam (Acute) Lumbar disc disease with radiculopathy (Acute) Lumbar back pain with radiculopathy affecting lower extremity (Acute) DVT (deep venous thrombosis) (Acute) Pain of left calf (Acute) Pain of right calf (Acute) Screening for breast cancer (Acute) Screening for colon cancer (Acute) Migraines (Acute) Abnormal uterine bleeding (AUB) (Acute) Postmenopausal bleeding (Acute) Low vitamin D level (Acute) Asthma (Acute) Snoring (Acute) CORNELIUS (obstructive sleep apnea) (Acute) Bleeding hemorrhoids (Acute) Depression (Acute) Essential hypertension (Acute) CKD (chronic kidney disease) (Acute) Rheumatic mitral stenosis (Acute) Diastolic dysfunction (Acute) HTN (hypertension) (Acute) Type 2 diabetes mellitus with hyperglycemia, without long-term current use of insulin (Acute) Hypothyroidism (Acute) Hyperlipidemia LDL goal <100 (Acute) Obesity (BMI 30-39.9) (Acute) Past Medical History Medical History Anxiety Bleeding hemorrhoids Cervical high risk HPV (human papillomavirus) test positive CKD (chronic kidney disease) COVID-19 Depression Diastolic dysfunction Essential hypertension Glaucoma Hemorrhoids HTN (hypertension) Hyperlipidemia LDL goal <100 Hypothyroidism Insomnia Obesity (BMI 30-39.9) Rheumatic heart disease Rheumatic mitral stenosis Sleep apnea Type 2 diabetes mellitus with hyperglycemia, without long-term current use of insulin Family History Family History Father Diabetes Mother Diabetes Stroke Maternal Aunt Stroke Hypertension Family history of problems with anesthesia: No Surgical History Surgical History H/O hemorrhoidectomy History of section History of hysteroscopy Hx of colonoscopy Hx of tubal ligation History of Problems with Anesthesia: No Social History Social History Household Members: Children Housing: Apartment Are you a primary primary care physician to a significant other at home: No Do you presently have visiting nurse or other home services: No Alcohol intake: current Alcohol intake frequency: does not drink Alcohol type: wine Patient Tobacco Use Status: Never used Tobacco e-Cigarette/Vaping Use: Never Used Second Hand Smoke Exposure: No Use of substances other than those prescribed or required for medical reasons: No Are you DNR?: No Advance Directives: No Advance Directives Information Provided: Yes service: No Current occupational status: unemployed Cognitive needs: No Hearing needs: No Vision needs: Yes Meds Allergies Allergy/AdvReac Type Severity Reaction Status Date / Time No Known Allergies Allergy Verified 05/16/23 10:23 Home Medications Medication Instructions Recorded Confirmed Last Taken Type duloxetine 60 mg capsule,delayed 60 mg PO DAILY 10/26/20 05/18/23 Unknown History release mirtazapine 30 mg tablet 30 mg PO BEDTIME 10/26/20 05/18/23 Unknown History pen needle, diabetic 32 gauge x #50 ea 10/26/20 05/16/23 Unknown History perphenazine 4 mg tablet 4 mg PO BID 12/09/20 05/18/23 Unknown History trazodone 100 mg tablet 200 mg PO BEDTIME PRN Insomnia 11/09/22 05/18/23 Unknown History hydroxyzine HCl 25 mg tablet 25 mg PO BID PRN anxiety 12/08/22 05/18/23 Unknown History Exam Exam Date and Time: May 19, 2023 1046 Height,Weight and Vital Signs: Height 5 ft 9 in Weight 112.037 kg Pertinent Lab Results Pertinent Lab Results: Laboratory Tests 05/16/23 05/16/23 11:16 11:16 WBC 8.7 Hgb 15.0 Hct 46.9 Plt Count 282 Sodium 140 Potassium 4.6 Chloride 105 Carbon Dioxide 26 BUN 16 Creatinine 0.97 Narrative Narrative: EKG Vent. Rate : 081 BPM ? ? Atrial Rate : 081 BPM ?? P-R Int : 142 ms? QRS Dur : 078 ms ? ? QT Int : 396 ms ? ? ? P-R-T Axes : 042 008 079 degrees ?? QTc Int : 460 ms ? Normal sinus rhythm Possible Left atrial enlargement Borderline ECG When compared with ECG of 02-MAY-2022 23:48, No significant change was found ECHO 01/2023 Conclusions: - 1. Normal LV systolic function ? 2. Mildly dilated left atrium? 3. Moderate rheumatic mitral stenosis with [id number]? ? ? mitral regurgitation ? 4. Mild aortic regurgitation ? 5. Upper limits of normal RV systolic pressure ? 6. No gross pericardial effusion ? Assessment and Plan Assessment Anesthesia Assessment: Chart Reviewed Final Anesthetic Review Family History of Problems with Anesthesia: No History of Problems with Anesthesia: No Documented by User: Catalina Zapata MD 05/22/23 13:21 [facility] Past Medical History Medical History Anxiety Bleeding hemorrhoids Cervical high risk HPV (human papillomavirus) test positive CKD (chronic kidney disease) COVID-19 Depression Diastolic dysfunction Essential hypertension Glaucoma Hemorrhoids HTN (hypertension) Hyperlipidemia LDL goal <100 Hypothyroidism Insomnia Obesity (BMI 30-39.9) Rheumatic heart disease Rheumatic mitral stenosis Sleep apnea Type 2 diabetes mellitus with hyperglycemia, without long-term current use of insulin Family History Family History Father Diabetes Mother Diabetes Stroke Maternal Aunt Stroke Hypertension Surgical History Surgical History H/O hemorrhoidectomy History of section History of hysteroscopy Hx of colonoscopy Hx of tubal ligation Social History Social History Household Members: Children Housing: Apartment Are you a primary primary care physician to a significant other at home: No Do you presently have visiting nurse or other home services: No Alcohol intake: current Alcohol intake frequency: does not drink Alcohol type: wine Patient Tobacco Use Status: Never used Tobacco e-Cigarette/Vaping Use: Never Used Second Hand Smoke Exposure: No Use of substances other than those prescribed or required for medical reasons: No Are you DNR?: No Advance Directives: No Advance Directives Information Provided: Yes service: No Current occupational status: unemployed Cognitive needs: No Hearing needs: No Vision needs: Yes Meds Allergies Allergy/AdvReac Type Severity Reaction Status Date / Time No Known Allergies Allergy Verified 05/16/23 10:23 Home Medications Medication Instructions Recorded Confirmed Last Taken Type duloxetine 60 mg capsule,delayed 60 mg PO DAILY 10/26/20 05/18/23 Unknown History release mirtazapine 30 mg tablet 30 mg PO BEDTIME 10/26/20 05/18/23 Unknown History pen needle, diabetic 32 gauge x #50 ea 10/26/20 05/16/23 Unknown History perphenazine 4 mg tablet 4 mg PO BID 12/09/20 05/18/23 Unknown History trazodone 100 mg tablet 200 mg PO BEDTIME PRN Insomnia 11/09/22 05/18/23 Unknown History hydroxyzine HCl 25 mg tablet 25 mg PO BID PRN anxiety 12/08/22 05/18/23 Unknown History Exam Airway Mallampati Class: III TM Dist: >3cm Neck ROM: Full Loose/Missing/Broken Teeth: No Heart: RRR Lungs: CTA Assessment and Plan Assessment Anesthesia Assessment: Anesthesia Plan Discussed Final Anesthetic Review NPO: Yes ASA Class: III Final Preanesthetic Review: Meds/Allgs Chart Reviewed, Consent Obtained/Reviewed and Anes Risks/Benef Reviewed Patient Risk: Intermediate Procedure Risk: Low Anesthetic Plan Anesthetic Plan: MAC: Disposition: Standard PACU
[2023-05-22 12:37] VITALS: BMI 32.5
[2023-05-22 12:39] VITALS: BP 162/77; PULSE 68; RESP 18; TEMP 36.1; O2SAT 96
--- NOTE | 2023-05-22 12:52 | MHC.SHP ---
Pre-Procedural Eval Section A Date of Service: 05/22/23 Section B Chief Complaint: Encounter for screening for malignant neoplasm Relevant Family History (Specify if Yes): No Relevant Social History: None Present Medications: see Short Stay Collaborative assessment Medical History: Significant History (Bleeding hemorrhoids Cervical high risk HPV (human papillomavirus) test positive CKD (chronic kidney disease) COVID-19 Depression Diastolic dysfunction Essential hypertension Glaucoma Hemorrhoids HTN (hypertension) Hyperlipidemia LDL goal <100 Hypothyroidism Insomnia Obesity (BMI 30-39.9) Rheumatic ) History of Previous Operations: Relevant previous surgery/procedure and date(s) (H/O hemorrhoidectomy History of section Hx of colonoscopy Hx of tubal ligation) Allergies: Allergies Allergy/AdvReac Type Severity Reaction Status Date / Time No Known Allergies Allergy Verified 05/16/23 10:23 Review of Systems Sugical H&P ROS: Negative: Constitution, Cardiovascular, Respiratory and Gastrointestinal Exam Surgical H&P Exam: Normal: Heart, Normal: Lungs, Normal: Extremities and Normal: Abdomen Plan Diagnosis/Plan: Unchanged I have reviewed the history and physical and performed a pertinent physical examination on my patient. No changes have occurred unless specified. Time Spent With Patient Time: Total time managing care of this patient today ____ minutes.
[2023-05-22 12:54] LABS: Glucose, Whole Blood 120 mg/dL (60-115)
[2023-05-22] MEDS: Lactated Ringers 1,000 ML 100 ML IVCONT (13:06)
--- NOTE | 2023-05-22 13:40 | W.PM.OPN ---
Operative Note Operative Note Date of Service: 05/22/23 Narrative: COLONOSCOPY TILL CECUM WITH BIOPSIES AND SNARE POLYPECTOMY Pre-op diagnosis: Colon cancer screening (sub-optimal prep on colon 6 months ago) Post-op diagnosis:?colon polyps, diverticulosis, hemorrhoids Endoscopist:? Nichelle Roberson MD Anesthesia:?MAC Consent: Indications for the procedure and potential complications of bleeding, perforation, reaction to medications and missed diagnosis were discussed with the patient and informed consent was obtained. Instrument: Olympus PCF H 190 L variable stiffness pediatric colonoscope Monitoring: Vital signs and clinical assessment, intermittent blood pressure monitoring, continuous EKG monitoring, Pulse oximetry and Carbon Dioxide monitoring were done throughout the procedure. Please see anesthesia flowsheet. Colon withdrawl time was 15 minutes. Procedure: The patient was placed in the left lateral decubitis position and pre-procedure medications were administered. After a digital rectal examination of the ano-rectum, the video colonoscope was inserted into the rectum and advanced through the colon to the cecum. The colonoscope was slowly withdrawn in a retrograde panoramic fashion and the colon mucosa was carefully examined including a retroflexed view of the rectum. Findings and interventions are described below. Procedure Difficulty: Without difficulty Findings: Terminal Ileum: Not evaluated Cecum: Normal Ascending Colon: A 2-3 mm sessile polyp in the distal AC/hepatic flexure - removed with a cold bx Transverse Colon: A 7 - 8 mm sessile polyp - removed with a cold snare Descending Colon: Normal Sigmoid Colon: Moderate diverticulosis Rectum: Normal Ano-rectum: Moderate internal hemorrhoids Colon preparation: Good after some irrigation Impression and Post Procedure Diagnosis: Colonoscopy Findings: Two small polyps removed Moderate diverticulosis seen in the left colon Moderate hemorrhoids on retroflexed exam. Plan: Await pathology results Patient has an appointment on 06/05/23 in the GI Clinic with Zenaida Smith FNP-BC. Repeat Colonoscopy interval based on path results - in 5 years if polyps are adenomatous and 10 years if polyps are hyperplastic. Above findings were reviewed with the patient and colon polyps handout was given in the discharge area
[2023-05-22 14:17] VITALS: BP 90/41; PULSE 97; RESP 20; TEMP 36.5; O2SAT 98
[2023-05-22 14:22] VITALS: BP 87/46; PULSE 93; RESP 20; O2SAT 95
[2023-05-22 14:27] VITALS: BP 101/46; PULSE 64; RESP 20; O2SAT 94
[2023-05-22 14:32] VITALS: BP 113/53; PULSE 62; RESP 20; O2SAT 95
[2023-05-22 14:49] VITALS: BP 113/53; PULSE 62; RESP 20; TEMP 36.5; O2SAT 95
== END 2023-05-22 15:17 | disposition home or self-care (01) ==
PROVIDERS: PCP Nurse Practitioner Family; Visit Provider Internal Medicine Gastroenterology
PROC: 0DJD8ZZ Inspection of Lower Intestinal Tract, Via Natural or Artificial Opening Endoscopic (ICD-10-PCS; CPT 45378; principal; 2023-05-22 13:40)
DX: Z12.11 Encounter for screening for malignant neoplasm of colon (principal); K63.5 Polyp of colon; K57.30 Diverticulosis of large intestine without perforation or abscess without bleeding; K64.8 Other hemorrhoids; K59.04 Chronic idiopathic constipation; E11.22 Type 2 diabetes mellitus with diabetic chronic kidney disease; I12.9 Hypertensive chronic kidney disease with stage 1 through stage 4 chronic kidney disease, or unspecified chronic kidney disease; N18.9 Chronic kidney disease, unspecified; I09.9 Rheumatic heart disease, unspecified; I05.0 Rheumatic mitral stenosis; E03.9 Hypothyroidism, unspecified; E78.5 Hyperlipidemia, unspecified; G47.33 Obstructive sleep apnea (adult) (pediatric); F41.1 Generalized anxiety disorder; E66.9 Obesity, unspecified; Z68.35 Body mass index [BMI] 35.0-35.9, adult; Z79.84 Long term (current) use of oral hypoglycemic drugs; Z79.899 Other long term (current) drug therapy; Z86.16 Personal history of COVID-19
CPT/HCPCS: 45385; 45380; 82947; 88305

== ENCOUNTER 2023-06-05 13:17 | Outpatient (AMB) | payer OTHER, SELFPAY ==
--- NOTE | 2023-06-05 13:23 | A.OFFVIS_ITS ---
Intake Vital Signs 06/05/23 13:24 Height 5 ft 9 in Weight 238 lb 1.588 oz BMI 35.2 BP 157/74 H Blood Pressure Location Lt brachial Position Sitting Pulse 73 Intake Visit Reasons: S/p colo Da Intake Note: Sirena presents in office as a est.patient for a post-op for colonoscopy Pt got it done 05.22.23 PT CC: pt reports having no concerns pt denies any other GI Issues Change Management Consultant Required: Yes Change Management Consultant Language: Ugandan Accompanied by: Self / Same As Patient Allergies No Known Allergies Allergy (Verified 06/05/23 13:24) HPI S/p colo Da HPI Details LAST VISIT Screening for colon cancer Discussed with patient the importance of good bowel prep and moving her bowels before going for procedure. Patient still does not moving her bowels well she can continue taking MiraLax in the morning. Patient will start taking Dulcolax 1-2 tablets every night. What to expect before during and after the procedure discussed with patient. Patient reports no change since the procedure. Denies any respiratory or cardiac symptoms. Will book patient for procedure for April Chronic idiopathic constipation Continue MiraLax will add DULCOLAX tablets 1-2 every evening. Patient was encouraged to increase fluid intake as much as about due to CKD as well as activity to promote better bowel motility. I will see patient after the procedure, sooner on as needed basis. Patient is agreeable to this plan and verbalizes understanding of instructions. She was given the opportunity to ask questions and all questions answered. ? Thank you for allowing me to participate in her care Plan Medications New bisacodyl (Dulcolax (bisacodyl)) 10 mg (2 x 5 mg) PO BEDTIME 180 tabs 4RF polyethylene glycol 3350 (Miralax) As directed by gastroenterology department at [facility] 238 grams PO ONCE 238 grams 0RF Z12.11 COLONOSCOPY Findings: Terminal Ileum: Not evaluated Cecum:? Normal Ascending Colon:? A 2-3 mm sessile polyp in the distal AC/hepatic flexure - removed with a cold bx Transverse Colon:? A 7 - 8 mm sessile polyp - removed with a cold snare Descending Colon:? Normal Sigmoid Colon:? Moderate diverticulosis Rectum:? Normal Ano-rectum:? Moderate internal hemorrhoids Colon preparation:? Good after some irrigation Impression and Post Procedure Diagnosis: Colonoscopy Findings: Two small polyps removed Moderate diverticulosis seen in the left colon Moderate hemorrhoids on retroflexed exam. Plan: Repeat Colonoscopy interval based on path results - in 5 years if polyps are adenomatous and 10 years if polyps are hyperplastic. PATHOLOGY RESULTS Diagnosis A.? Colon, hepatic flexure, polypectomy:? Colonic mucosa with prominent lymphoid aggregate; no dysplasia seen. B.? Colon, transverse, polypectomy:? Hyperplastic mucosal polyp; multiple additional levels examined. TODAY'S VISIT Patient is here today for follow-up and to discuss colonoscopy results. Patient denies any ill effects from the prep, anesthesia procedure itself. Patient had hyperplastic mucosal polyps and colonoscopy screening will be repeated in 10 years, sooner if clinically necessary. Patient reports that she is moving her bowels better. Patient states that she takes MiraLax never received Dulcolax tablets. States that she is moving her bowels, however she does not feel like she empties them completely. Patient denies melena, hematochezia, unintentional weight loss or ribbon like stools. Patient denies any dyspepsia, dysphagia or odynophagia. Patient denies any GI concerning symptoms today PFSH Medical History Anxiety Bleeding hemorrhoids Cervical high risk HPV (human papillomavirus) test positive CKD (chronic kidney disease) COVID-19 Depression Diastolic dysfunction Essential hypertension Glaucoma Hemorrhoids HTN (hypertension) Hyperlipidemia LDL goal <100 Hypothyroidism Insomnia Obesity (BMI 30-39.9) Rheumatic heart disease Rheumatic mitral stenosis Sleep apnea Type 2 diabetes mellitus with hyperglycemia, without long-term current use of insulin Surgical History H/O hemorrhoidectomy History of section History of hysteroscopy Hx of colonoscopy Hx of tubal ligation Family History Father Diabetes Mother Diabetes Stroke Maternal Aunt Stroke Hypertension Social History Household Members: Children Housing: Apartment Are you a primary critical care nurse to a significant other at home: No Do you presently have visiting nurse or other home services: No Alcohol intake: current Alcohol intake frequency: does not drink Alcohol type: wine Patient Tobacco Use Status: Never used Tobacco e-Cigarette/Vaping Use: Never Used Second Hand Smoke Exposure: No service: No Current occupational status: unemployed Cognitive needs: No Hearing needs: No Vision needs: Yes Female Reproductive History Menstrual Age of Menarche: 9 Review of Systems Const Denies weight gain and Denies weight loss ENT Reports no additional complaints, Denies dysphagia and Denies odynophagia Card Reports no additional complaints Resp Reports no additional complaints GI Denies abdominal pain, Denies belching, Denies melena, Denies bloating, Denies change in bowel habits, Denies dysphagia, Denies excessive flatus, Denies dyspepsia, Denies heartburn, Denies diarrhea, Denies loose stools, Denies nausea, Denies odynophagia and Denies vomiting Musc Reports no additional complaints Neuro Reports no additional complaints Psych Reports no additional complaints Endo Reports no additional complaints Physical Exam Vital Signs: Last Vital Signs Pulse 73 06/05/23 13:24 BP 157/74 H 06/05/23 13:24 BMI result Body Mass Index 35.2 Const General: healthy appearing, no acute distress and well developed Nutritional Appearance: obese Orientation/consciousness: patient oriented x3 HEENT Head: Yes normal to inspection, Yes normocephalic and Yes atraumatic Face and sinus: Yes normal facial exam Mouth: Normal oral and palatal mucosa present Throat: Yes posterior oropharynx normal, Yes tonsils normal and Yes uvula midline Eyes General: appearance normal, both eyes and all related structures Neck Neck: Yes normal visual inspection, Yes full ROM and Yes trachea midline Thyroid: Thyroid normal Resp Effort & Inspection: normal respiratory effort, able to speak in complete sentences, no tracheal deviation and symmetric chest movement Auscultation: clear to auscultation bilaterally Cardio Rate: regular rate Heart sounds: S1 normal heart sound present and S2 normal heart sound present GI Inspection: Yes normal to inspection, No distended and Yes obesity Palpation (GI): Soft to palpation, not firm, nontender and No hepatosplenomegaly present Auscultation: normal bowel sounds General: Yes no CVA tenderness Back/Spine/Pelvis Back: no CVA tenderness Skin General skin exam: elasticity normal, turgor normal and dry skin Neuro General: patient oriented x3 Psych Appearance: grossly normal Mental Status: mental status grossly normal Speech and movement: Normal speech and movement present Affect: normal affect Assessment & Plan Assessment & Plan (1) Chronic idiopathic constipation: Code(s): K59.04 - Chronic idiopathic constipation Plan: Continue MiraLax, will start patient on Dulcolax tablets. Patient was also encouraged to increase fluid intake and activity to promote better bowel motility (2) Status post colonoscopy: Code(s): Z98.890 - Other specified postprocedural states Plan: Patient denies any ill effects from the prep, anesthesia procedure itself. Hyperplastic polyp found. Colorectal screening in 10 years, sooner if clinically necessary. I will see patient in 6 months, sooner on as needed basis. Patient is agreeable to this plan and verbalizes understanding of instructions. She was given the opportunity to ask questions and all questions answered. Thank you for allowing me to participate in her care Medications: Refilled polyethylene glycol 3350 (Miralax) 17 grams PO DAILY 510 grams 2RF bisacodyl (Dulcolax (bisacodyl)) 10 mg (2 x 5 mg) PO BEDTIME 180 tabs 4RF Coding Level of Care Code Est Pt Level 3 (40891) Diagnoses Chronic idiopathic constipation K59.04 Status post colonoscopy Z98.890 Time Spent (min) 30 Comment 20 minutes spent with patient and additional 10 minutes spent reviewing her records
[2023-06-05 13:24] VITALS: BP 157/74; PULSE 73; BMI 35.2
== END 2023-06-05 13:45 | disposition home or self-care (01) ==
PROVIDERS: PCP Nurse Practitioner Family; Visit Provider Nurse Practitioner Family
DX: K59.04 Chronic idiopathic constipation (principal); Z98.890 Other specified postprocedural states
CPT/HCPCS: 99213

== ENCOUNTER → 2023-06-05 13:17 | Outpatient (BNVA) | payer OTHER, SELFPAY | PROVIDERS: PCP Nurse Practitioner Family; Visit Provider Nurse Practitioner Family | DX: K59.04 Chronic idiopathic constipation (principal); Z98.890 Other specified postprocedural states | CPT/HCPCS: 99212 ==

== ENCOUNTER 2023-06-08 08:57 | Outpatient (REF) | payer OTHER, SELFPAY ==
--- NOTE | ~2023-06-08 | MM_ITS ---
EXAMINATION: MM SCREENING DIGITAL BREAST TOMOSYNTHESIS, BILATERAL CLINICAL INFORMATION: Screening. Asymptomatic. The lifetime risk of breast cancer based on the Tyrer-Cuzick Model is 6.3%. COMPARISON: Mammography: This study is compared with prior exams dating back to 2018. TECHNIQUE: Digital breast tomosynthesis is performed in both the craniocaudal and mediolateral oblique views along with computer-aided detection (CAD). Synthesized 2D images are generated from the tomosynthesis. FINDINGS: The breasts are almost entirely fatty (ACR BI-RADS breast composition Category a). There are no significant masses, abnormal calcifications, or other abnormalities. MM/MM tomosynthesis screening BI IMPRESSION: No mammographic evidence of malignancy. ASSESSMENT: BI-RADS BI-RADS 1 - Negative RECOMMENDATION: Routine annual mammography screening. 1 year F/U This examination should not preclude the clinical evaluation of a suspicious palpable abnormality. This patient's information was entered into a reminder system with a target due date for their next mammogram.
== END 2023-06-08 08:58 | disposition home or self-care (01) ==
LOC: HO.MAMMO 08:57
PROVIDERS: PCP Nurse Practitioner Family; Visit Provider Nurse Practitioner Family
DX: Z12.31 Encounter for screening mammogram for malignant neoplasm of breast (principal)
CPT/HCPCS: 77063; 77067

== ENCOUNTER → 2023-06-08 10:15 | Outpatient (BNV) | payer OTHER, SELFPAY | PROVIDERS: PCP Nurse Practitioner Family; Visit Provider Radiology Diagnostic Radiology | DX: Z12.31 Encounter for screening mammogram for malignant neoplasm of breast (principal) | CPT/HCPCS: 77063; 77067 ==

== ENCOUNTER 2023-06-16 12:14 | Outpatient (AMB) | payer OTHER, SELFPAY ==
--- NOTE | 2023-06-16 13:03 | MHC.AMDMED ---
Intake Intake Visit Reasons: dm Safety And Security Officer Required: Yes Safety And Security Officer Language: Pie Crimping Machine Operator Name: Video [id number] Information Interpreted: non-clinical & clinical Accompanied by: Self / Same As Patient Allergies No Known Allergies Allergy (Verified 06/05/23 13:24) HPI Comprehensive Diabetes Asmnt General Diabetes type type 2 Most Recent Diabetes Results: Microalb/Creat Ratio 9.3 ug/mg cr 05/16/23 Cholesterol 247 mg/dL 05/16/23 HDL Cholesterol 40 mg/dL 05/16/23 Triglycerides 279 mg/dL 05/16/23 Creatinine 0.97 mg/dL (0.5-1.4) 05/16/23 Blood Urea Nitrogen 16 mg/dL (9-16) 05/16/23 Sodium 140 mmol/L (135-145) 05/16/23 Potassium 4.6 mmol/L (3.3-5.1) 05/16/23 Chloride 105 mmol/L (96-108) 05/16/23 Carbon Dioxide 26 mmol/L (22-29) 05/16/23 Calcium 9.5 mg/dL (8.4-10.2) 05/16/23 AST 19 U/L (5-31) 05/16/23 ALT 24 U/L (0-31) 05/16/23 Total Protein 8.0 g/dL (6.5-8.0) 05/16/23 Albumin 3.9 g/dL (3.5-5.0) 05/16/23 PFSH Medical History Anxiety Bleeding hemorrhoids Cervical high risk HPV (human papillomavirus) test positive CKD (chronic kidney disease) COVID-19 Depression Diastolic dysfunction Essential hypertension Glaucoma Hemorrhoids HTN (hypertension) Hyperlipidemia LDL goal <100 Hypothyroidism Insomnia Obesity (BMI 30-39.9) Rheumatic heart disease Rheumatic mitral stenosis Sleep apnea Type 2 diabetes mellitus with hyperglycemia, without long-term current use of insulin Surgical History H/O hemorrhoidectomy History of section History of hysteroscopy Hx of colonoscopy Hx of tubal ligation Family History Father Diabetes Mother Diabetes Stroke Maternal Aunt Stroke Hypertension Social History Household Members: Children Housing: Apartment Are you a primary healthcare economics consultant to a significant other at home: No Do you presently have visiting nurse or other home services: No Alcohol intake: current Alcohol intake frequency: does not drink Alcohol type: wine Patient Tobacco Use Status: Never used Tobacco e-Cigarette/Vaping Use: Never Used Second Hand Smoke Exposure: No service: No Current occupational status: unemployed Cognitive needs: No Hearing needs: No Vision needs: Yes Female Reproductive History Menstrual Age of Menarche: 9 Assessment & Plan Assessment & Plan (1) Type 2 diabetes mellitus with hyperglycemia, without long-term current use of insulin: Code(s): E11.65 - Type 2 diabetes mellitus with hyperglycemia Plan: Learning objectives: The patient was provided with verbal and written education on the following topics as outlined below. The patient met all learning objectives and was able to verbalize understanding and provide teach back of education topics discussed . The patient was provided with the opportunity to ask questions and all questions were answered. Patient Assessment Assess patient education level/literacy/barriers Patient questions/concerns, previous appointment discussed insulin pump therapy. Patient has decided that she is not interested in pursuing pump therapy. What is Diabetes? Pathophysiology How the body produces and uses insulin Identify type of DM Risk factors Signs of Diabetes Brief overview of Diabetes Management Monitoring blood sugar Following a meal plan Regular exercise Maintaining a healthy weight Taking medication as needed Members of the care team (PCP, RN, MA, RD, CDE, field control inspector) Blood glucose monitoring When/how often to test Target blood sugar ranges Patient using Sera 2 glucose sensor Average glucose for the past 2 weeks 173 mg/dL Introduction to Nutrition Importance of healthy diet in managing DM Diet is personalized to individual preference Review patient?s regular diet/food preferences Who prepares meals/does food shopping/ Dining out?/ Barriers? How diet effects glucose Eating 3 balanced meals a day with small, healthy snacks between meals Review food groups Carbohydrates: What is a carbohydrate/Which food/food groups are considered carbohydrates Effect of carbohydrates on blood glucose Portion sizes Reading food labels Basic carb counting (if applicable per nursing assessment) Plate method Meal planning Recommendations: Follow plate method, consistent carbs and read nutritional labels. Smart Goal: Patient will keep meals to 30-45 g of carbohydrate per meal Educational Materials: The patient was provided with the following written educational materials: Planning Healthy Meals Handout Patient Response to instructions: Comprehension of Instructions: Fair Readiness to make changes: Contemplation How confident they feel about making changes:faird Patient Instructions: Incluir actividad diaria regular. ADA recomienda 30 minutos de ejercicio 5 d?as a la semana. P?rdida de peso, hable con el PCP o el cardi?logo antes de comenzar un nuevo plan. Mida el nivel de az?car en la [place] seg?n las indicaciones; Ayuno y comida m?s doreen de 2hpp. Observe las tendencias en los resultados. Utilice los resultados y eval?e c?mo los alimentos, la actividad f?jcarlos y los medicamentos afectan los resultados de az?car en la [place]. Lleve el gluc?metro o CGM a la pr?xima visita. Conocer los medicamentos para la diabetes, acosta acci?n, los efectos secundarios, la eficacia, la toxicidad, la dosis prescrita, el momento y la frecuencia de administraci?n apropiados, el efecto de las dosis olvidadas y retrasadas y las instrucciones de almacenamiento, viaje y seguridad. Coding Level of Care Code Est Pt Level 1 (12176) Diagnoses Type 2 diabetes mellitus with hyperglycemia, without long-term current use of insulin E11.65
== END 2023-06-16 13:07 | disposition home or self-care (01) ==
PROVIDERS: PCP Nurse Practitioner Family; Referring Provider Nurse Practitioner Family; Visit Provider Registered Nurse Diabetes Educator
DX: E11.65 Type 2 diabetes mellitus with hyperglycemia (principal)

== ENCOUNTER → 2023-06-16 12:14 | Outpatient (BNVA) | payer OTHER, SELFPAY | PROVIDERS: Visit Provider Registered Nurse Diabetes Educator | DX: E11.65 Type 2 diabetes mellitus with hyperglycemia (principal) | CPT/HCPCS: 99211 ==

== ENCOUNTER 2023-07-12 09:55 | Outpatient (AMB) | payer OTHER, SELFPAY ==
[2023-07-12 10:04] VITALS: BP 128/60; PULSE 74; O2SAT 99; BMI 35.1
--- NOTE | 2023-07-12 10:04 | A.OFFVIS_ITS ---
Intake Vital Signs 07/12/23 10:04 Height 5 ft 9 in Weight 238 lb BMI 35.1 BP 128/60 Blood Pressure Location Lt brachial Position Sitting Pulse 74 Pulse Source Pulse Oximeter Pulse Oximetry (%) 99 Oxygen Delivery Method Room Air Intake Visit Reasons: Obstructive sleep apnea Intake Note: pt is here as a new patient for sleep apnea. she states she is here for asthma also. Sleeping she gets out of breath, wheezy in throat area.She needs a refill on albuterol. Systems Integration Manager Required: Yes Systems Integration Manager Name: nena Allergies No Known Allergies Allergy (Verified 07/12/23 10:34) Medication List - Last Reconciled 07/12/23 by Daniel Ortega MD albuterol sulfate 2.5 mg (3 mL) inhalation Q4-6H PRN albuterol sulfate 90 mcg/actuation (Ventolin HFA) 1 puff PO QID PRN bisacodyl (Dulcolax (bisacodyl)) 10 mg (2 x 5 mg) PO BEDTIME blood sugar diagnostic (FreeStyle Precision Emanuel Strips) As directed once daily blood sugar diagnostic (FreeStyle Precision Emanuel Strips) 1 strip miscellaneous QID cholecalciferol (vitamin D3) 50 mcg PO DAILY citalopram 40 mg PO DAILY 90 days diclofenac sodium 1% (Voltaren Arthritis Pain) 4 grams topical QID PRN docusate sodium (Colace) 100 mg PO BID dulaglutide (Trulicity) 1.5 mg (0.5 mL) subcut QWEEK duloxetine 60 mg PO DAILY ezetimibe (Zetia) 10 mg PO DAILY flash glucose scanning reader (FreeStyle Sera 2 [place]) As directed flash glucose sensor (FreeStyle Sera 2 Sensor kit) As directed change every 14 days hydrochlorothiazide 25 mg PO DAILY hydroxyzine HCl 25 mg PO BID PRN ibuprofen 600 mg PO Q6H PRN insulin degludec (Tresiba FlexTouch U-200 insulin) 56 units (0.28 mL) subcut BEDTIME 30 days insulin lispro (Humalog KwikPen (U-100) Insulin) 18 units breakfast, 14 units lunch and 22 units dinner, +2units for bg >200 subcut 3x per day. 30 days levothyroxine 137 mcg PO DAILY lisinopril 10 mg PO DAILY 90 days metformin 500 mg PO BID mirtazapine 30 mg PO BEDTIME miscellaneous medical supply 1 ea miscellaneous DAILY pen needle, diabetic As directed pen needle, diabetic (BD Ultra-Fine Ramya Pen Needle) As directed four times a day perphenazine 4 mg PO BID polyethylene glycol 3350 (Miralax) 17 grams PO DAILY rosuvastatin 40 mg PO DAILY sumatriptan succinate take 1 tab at onset of headache; if no relief may repeat 1 tab after at least 2 hrs; max = 4 tabs/24 hr PO tizanidine 2 mg PO BEDTIME PRN trazodone 200 mg PO BEDTIME PRN Do you need a note to return to daycare/school/sports/work: No HPI Obstructive sleep apnea HPI Details 52 YEARS OLD FEMALE, BEING SEEN FOR THE 1ST TIME FOR PULMONARY EVALUATION. SHE GIVES HISTORY OF GETTING COLD-LIKE SYMPTOMS WHICH LAST FOR A FEW WEEKS, ON A YEARLY BASIS, USUALLY IN THE SUMM,ER MONTHS SINCE AGE 20. THIS YEAR IT STARTED ABOUT 1 AND HALF WEEK AGO WITH NASAL, CONGESTION AND COUGH. SHE DENIES FEVER CHILLS OR ANY EXPECTORATION. THE SYMPTOMS ARE WORSE AT NIGHT, SHE USES ALBUTEROL INHALER A FEW TIMES DURING THE DAY SHE IS NOT USING ANY DECONGESTANTS. THE SYMPTOMS ARE SOMEWHAT MILD. SHE THINKS SHE MAY HAVE BRONCHIAL ASTHMA BUT HAS NEVER BEEN CHECKED FOR THAT. UNDER NORMAL CIRCUMSTANCES SHE DOES GET SHORT OF BREATH ON WALKING FAST OR CLIMBING STAIRS. SHE HAS BEEN OVERWEIGHT THROUGHOUT HER ADULT LIFE, IS BEING TREATED FOR HYPERTENSION, HYPERLIPIDEMIA, DIABETES MELLITUS, HYPOTHYROIDISM, AND DEPRESSION. SHE HAS SYMPTOMS OF OBSTRUCTIVE SLEEP APNEA. SHE WAKES UP FREQUENTLY DURING THE NIGHT GASPING FOR AIR, SHE WAKES UP UN- REFRESHED AND REMAINS TIRED AND SLEEPY DURING THE DAYTIME. EPWORTH SLE=EPINESS SCALE = 14 SHE HAD A SLEEP STUDY AT HOME ON 01/03/2022, WHICH SHOWED ONLY MILD DEGREE OF SLEEP APNEA. CONSERVATIVE MEASURES INCLUDING WEIGHT REDUCTION AND POSITION THERAPY WERE SUGGESTED. SHE HAS NOT BEEN ABLE TO LOSE ANY WEIGHT, TRIES TO SLEEP ON THE SIDE BUT THEN FALLS ON TO HER BACK DURING THE NIGHT. SHE CLAIMS THAT HER SYMPTOMS HAVE GOTTEN WORSE DURING THE PAST 1 YEAR. SHE ALSO CLAIMS THAT HER HOME STUDY WAS NOT RELIABLE BECAUSE THERE WAS LOT OF CROWDING AND DISTURBANCE IN THE HOUSE. [facility] [place] Medical History (Updated 07/12/23 @ 12:50 by Daniel Ortega MD) Anxiety Bleeding hemorrhoids Cervical high risk HPV (human papillomavirus) test positive CKD (chronic kidney disease) COVID-19 Depression Diastolic dysfunction Essential hypertension Glaucoma Hemorrhoids HTN (hypertension) Hyperlipidemia LDL goal <100 Hypothyroidism Insomnia Obesity (BMI 30-39.9) Rheumatic heart disease Rheumatic mitral stenosis Sleep apnea Somnolence Type 2 diabetes mellitus with hyperglycemia, without long-term current use of insulin Surgical History H/O hemorrhoidectomy History of section History of hysteroscopy Hx of colonoscopy Hx of tubal ligation Family History Father Diabetes Mother Diabetes Stroke Maternal Aunt Stroke Hypertension Social History Household Members: Children Housing: Apartment Are you a primary child care centre director to a significant other at home: No Do you presently have visiting nurse or other home services: No Alcohol intake: current Alcohol intake frequency: does not drink Alcohol type: wine Patient Tobacco Use Status: Never used Tobacco e-Cigarette/Vaping Use: Never Used Second Hand Smoke Exposure: No service: No Current occupational status: unemployed Cognitive needs: No Hearing needs: No Vision needs: Yes Female Reproductive History Menstrual Age of Menarche: 9 Review of Systems Const All systems reviewed & are unremarkable except as noted in HPI and below Reports fatigue Eyes Reports no additional complaints ENT Reports nasal congestion (MILD OFF AND ON ) Card Denies irregular heart rhythm and Denies leg edema Resp Reports as per HPI GI Reports constipation Reports no additional complaints Musc Reports back pain and Reports myalgias Skin/Breast Reports system reviewed and no additional complaints, except as documented Neuro Reports no additional complaints Psych Reports anxiety and Reports depression Endo Reports fatigue and Reports other ( DIABETES MELLITUS, HYPOTHYROIDISM) Kody/Lymph Reports no additional complaints Aller/Immun Reports seasonal rhinorrhea Physical Exam Const General: comfortable, no acute distress, alert and awake Orientation/consciousness: patient oriented x3 HEENT Head: Yes normal to inspection General nose exam: No nasal polyps present, No nasal discharge present and Other nasal findings present (MILD NASAL CONGESTION ) Face and sinus: Yes sinuses nontender Mouth: oropharynx normal Throat: Yes posterior oropharynx normal Eyes General: appearance normal, both eyes and all related structures Neck Neck: Yes normal visual inspection, Yes no lymphadenopathy, Yes trachea midline, Yes no JVD and Yes other ( NECK SIZE 16 IN) Thyroid: Thyroid normal Chest Chest palpation & inspection: normal inspection of the chest, normal palpation of entire chest wall and no tenderness Resp Effort & Inspection: normal respiratory effort Auscultation: no crackles, no wheezes and other ( BREATH SOUNDS ARE DECREASED OVER THE BASILAR AREAS) Cardio Palpation: normal PMI Rate: regular rate Rhythm: regular rhythm Heart sounds: no gallops and no murmurs Peripheral pulses: Peripheral pulses 2+ throughout GI Palpation (GI): Soft to palpation, nontender, No hepatosplenomegaly present and no masses Auscultation: normal bowel sounds Back/Spine/Pelvis Thoracic/Lumbar Spine: thoracic and lumbar spine normal to inspection and thoraco-lumbar ROM limited Skin General skin exam: no rashes or lesions noted Neuro General: patient oriented x3 and no focal motor deficits Cranial nerves: Yes CN's II-XII intact bilaterally Extrem General: Yes normal to inspection, Yes no clubbing, cyanosis or edema and Yes no calf tenderness Psych Appearance: grossly normal and well kempt Speech and movement: Normal speech and movement present Assessment & Plan Assessment & Plan (1) Obesity (BMI 30-39.9): Comment: PATIENT IS GROSSLY OBESE, SHE IS ENCOUR.AGED TO LOSE WEIGHT, AT LEAST 10-15 LB IN THE NEXT FEW MONTHS. Code(s): E66.9 - Obesity, unspecified (2) CORNELIUS (obstructive sleep apnea): Comment: PATIENT HAS TYPICAL SYMPTOMS OF OBSTRUCTIVE SLEEP APNEA. HER LAST STUDY IN DECEMBER 29 SHOWED ONLY MILD OBSTRUCTIVE SLEEP APNEA WITH TOTAL SLEEP TIME AHI 5.7 SINCE THEN HER SYMPTOMS HAVE BECOME WORSE THE SHE HOLGUIN.S PUT ON SOME MORE WEIGHT. SHE DOES HAVE SIGNIFICANT DAYTIME SOMNOLENCE, ESS=14 ALSO SHE INDICATES THAT THE HOME-BASED SLEEP STUDY WAS NOT THAT RELIABLE. SHE WOULD LIKE TO REPEAT SLEEP STUDY IN THE SLEEP LAB. I THINK THAT IS REASONABLE AND WE WILL TRY TO SCHEDULE IT, AND THEN DECIDE IF SHE CAN BE HELPED BY USING CPAP. Code(s): G47.33 - Obstructive sleep apnea (adult) (pediatric) (3) Asthma: Comment: IT IS ONLY MILD AND FLARES UP WHENEVER SHE HAS NASAL CONGESTION OR UPPER RESPIRATORY .INFECTION USUALLY ABOUT ONCE A YEAR . ADVISED TO CONTINUE USING ALBUTEROL 2 PUFFS Q. 4-6 HOURS ONLY P.R.N. PATIENT IS SCHEDULED TO HAVE PULMONARY FUNCTION TEST, AFTER WHICH WILL DECIDE IF SHE NEEDS ANY ADDITIONAL MEDIC.ATION Code(s): J45.909 - Unspecified asthma, uncomplicated Orders: Orders PFT pulmonary function test Today G47.33 - Obstructive sleep apnea (adult) (pediatric), J45.909 - Unspecified asthma, uncomplicated, R06.83 - Snoring RT PSG in-lab sleep study Today E66.9 - Obesity, unspecified, G47.33 - Obstructive sleep apnea (adult) (pediatric), R06.83 - Snoring, R40.0 - Somnolence Coding Level of Care Code New Pt Level 4 (88140) Diagnoses Obesity (BMI 30-39.9) E66.9 CORNELIUS (obstructive sleep apnea) G47.33 Asthma J45.909
== END 2023-07-12 10:55 | disposition home or self-care (01) ==
PROVIDERS: PCP Nurse Practitioner Family; Visit Provider Internal Medicine
DX: E66.9 Obesity, unspecified (principal); G47.33 Obstructive sleep apnea (adult) (pediatric); J45.909 Unspecified asthma, uncomplicated
CPT/HCPCS: 99214

== ENCOUNTER → 2023-07-12 09:55 | Outpatient (BNVA) | payer OTHER, SELFPAY | PROVIDERS: PCP Nurse Practitioner Family; Visit Provider Internal Medicine | DX: J45.909 Unspecified asthma, uncomplicated (principal); E66.9 Obesity, unspecified; Z68.35 Body mass index [BMI] 35.0-35.9, adult; G47.33 Obstructive sleep apnea (adult) (pediatric) | CPT/HCPCS: 99212 ==

== ENCOUNTER 2023-07-28 10:04 | Outpatient (REF) | payer OTHER, SELFPAY ==
--- NOTE | 2023-07-28 10:48 | PFT_ITS ---
FLOWS: 1. FEV1 75% of predicted at 2.44 L. 2. FVC 72% of predicted at 2.91 L. 3. FEV1 to FVC ratio of 0.84. 4. No bronchodilator response. LUNG VOLUMES: 1. Total lung capacity 79% of predicted at 4.61 L. 2. Residual volume 72% of predicted at 1.53 L. 3. Slow vital capacity 83% of predicted at 3.07 L. 4. Expiratory reserve volume 41% of predicted at 0.49 L. 5. Diffusion capacity is mildly decreased, diffusion capacity corrects to normal after adjustment for alveolar ventilation. IMPRESSION: Moderate restrictive ventilatory defect with no bronchodilator response. Decreased expiratory reserve volume suggests extrathoracic restriction, likely secondary to abdominal obesity. MD NEISHA Gu/MODL / [id number]
== END 2023-07-28 10:05 | disposition home or self-care (01) ==
LOC: HO.RESP 10:04
PROVIDERS: PCP Nurse Practitioner Family; Visit Provider Internal Medicine
DX: J45.909 Unspecified asthma, uncomplicated (principal); R06.83 Snoring; G47.33 Obstructive sleep apnea (adult) (pediatric)
CPT/HCPCS: 94010; 94727; 94729

== ENCOUNTER → 2023-07-28 10:48 | Outpatient (BNV) | payer OTHER, SELFPAY | PROVIDERS: PCP Nurse Practitioner Family; Visit Provider Internal Medicine Pulmonary Disease | DX: J45.909 Unspecified asthma, uncomplicated (principal) | CPT/HCPCS: 94060; 94727; 94729 ==

== ENCOUNTER → 2023-08-01 22:11 | Outpatient (BNV) | payer OTHER, SELFPAY | PROVIDERS: PCP Nurse Practitioner Family; Visit Provider Psychiatry & Neurology Neurology | DX: G47.33 Obstructive sleep apnea (adult) (pediatric) (principal); R06.83 Snoring | CPT/HCPCS: 95810 ==

== ENCOUNTER → 2023-08-01 22:25 | Outpatient (REF) | payer OTHER, SELFPAY | LOC: HO.SL 22:25 | PROVIDERS: PCP Nurse Practitioner Family; Visit Provider Internal Medicine | DX: E66.9 Obesity, unspecified (principal); R06.83 Snoring; G47.33 Obstructive sleep apnea (adult) (pediatric); R40.0 Somnolence | CPT/HCPCS: 95810 ==

== ENCOUNTER 2023-08-23 10:13 | Outpatient (AMB) | payer OTHER, SELFPAY ==
--- NOTE | 2023-08-23 10:54 | A.OFFVIS_ITS ---
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: Yes Allergies No Known Allergies Allergy (Verified 08/23/23 11:26) Medication List - Last Reconciled 08/23/23 by Daniel Ortega MD albuterol sulfate 2.5 mg (3 mL) inhalation Q4-6H PRN albuterol sulfate 90 mcg/actuation (Ventolin HFA) 1 puff PO QID PRN bisacodyl (Dulcolax (bisacodyl)) 10 mg (2 x 5 mg) PO BEDTIME blood sugar diagnostic (FreeStyle Precision [place]manuel Strips) As directed once daily blood sugar diagnostic (FreeStyle Precision Emanuel Strips) 1 strip miscellaneous QID cholecalciferol (vitamin D3) 50 mcg PO DAILY citalopram 40 mg PO DAILY 90 days diclofenac sodium 1% (Voltaren Arthritis Pain) 4 grams topical QID PRN docusate sodium (Colace) 100 mg PO BID dulaglutide (Trulicity) 1.5 mg (0.5 mL) subcut QWEEK duloxetine 60 mg PO DAILY ezetimibe (Zetia) 10 mg PO DAILY flash glucose scanning reader (FreeStyle Sera 2 [place]) As directed flash glucose sensor (FreeStyle Sera 2 Sensor kit) As directed change every 14 days hydrochlorothiazide 25 mg PO DAILY hydroxyzine HCl 25 mg PO BID PRN ibuprofen 600 mg PO Q6H PRN insulin degludec (Tresiba FlexTouch U-200 insulin) 56 units (0.28 mL) subcut BEDTIME 30 days insulin lispro (Humalog KwikPen (U-100) Insulin) 18 units breakfast, 14 units lunch and 22 units dinner, +2units for bg >200 subcut 3x per day. 30 days levothyroxine 137 mcg PO DAILY lisinopril 10 mg PO DAILY 90 days metformin 500 mg PO BID mirtazapine 30 mg PO BEDTIME miscellaneous medical supply 1 ea miscellaneous DAILY pen needle, diabetic As directed pen needle, diabetic (BD Ultra-Fine Ramya Pen Needle) As directed four times a day perphenazine 4 mg PO BID polyethylene glycol 3350 (Miralax) 17 grams PO DAILY prednisone 40 mg (2 x 20 mg) PO DAILY 5 days rosuvastatin 40 mg PO DAILY sumatriptan succinate take 1 tab at onset of headache; if no relief may repeat 1 tab after at least 2 hrs; max = 4 tabs/24 hr PO tizanidine 2 mg PO BEDTIME PRN trazodone 200 mg PO BEDTIME PRN Do you need a note to return to daycare/school/sports/work: No HPI cornelius HPI Details This 53 years old female with gross obesity he is back here for follow- up after the polysomnogram study in the sleep lab. She has mild obstructive sleep apnea with total sleep time AHI 10, but she had clusters of obstructive sleep apnea in the REM sleep. She also had associated nocturnal hypoxemia. Clinically she continues to have difficulty in sleeping, wakes up unrefreshed in the morning, and remains tired and sleepy during the daytime. Weight remains same. She also has bronchial asthma mild and intermittent, and uses albuterol only once in a while. Complaining of pain across the right lower chest in the back, for about 2-3 weeks. No history of any acute infection or any injuries to the chest. The pain is more like a discomfort, it is not pleuritic in nature. [facility] Medical History (Updated 08/23/23 @ 11:36 by Daniel Ortega MD) Chest pain Somnolence Sleep apnea Cervical high risk HPV (human papillomavirus) test positive Bleeding hemorrhoids Essential hypertension COVID-19 CKD (chronic kidney disease) HTN (hypertension) Diastolic dysfunction Rheumatic mitral stenosis Glaucoma Insomnia Rheumatic heart disease Depression Anxiety Hemorrhoids Hypothyroidism Hyperlipidemia LDL goal <100 Obesity (BMI 30-39.9) Type 2 diabetes mellitus with hyperglycemia, without long-term current use of insulin Surgical History History of hysteroscopy Hx of colonoscopy Hx of tubal ligation H/O hemorrhoidectomy History of section Family History Father Diabetes Mother Diabetes Stroke Maternal Aunt Stroke Hypertension Social History Household Members: Children Housing: Apartment Are you a primary managed care director to a significant other at home: No Do you presently have visiting nurse or other home services: No Alcohol intake: current Alcohol intake frequency: does not drink Alcohol type: wine Patient Tobacco Use Status: Never used Tobacco e-Cigarette/Vaping Use: Never Used Second Hand Smoke Exposure: No service: No Current occupational status: unemployed Cognitive needs: No Hearing needs: No Vision needs: Yes Female Reproductive History Menstrual Age of Menarche: 9 Review of Systems Const All systems reviewed & are unremarkable except as noted in HPI and below Reports fatigue Eyes Reports no additional complaints ENT Reports nasal congestion (MILD OFF AND ON ) Card Denies irregular heart rhythm and Denies leg edema Resp Reports as per HPI GI Reports constipation Reports no additional complaints Musc Reports back pain and Reports myalgias Skin/Breast Reports system reviewed and no additional complaints, except as documented Neuro Reports no additional complaints Psych Reports anxiety and Reports depression Endo Reports fatigue and Reports other ( DIABETES MELLITUS, HYPOTHYROIDISM) Kody/Lymph Reports no additional complaints Aller/Immun Reports seasonal rhinorrhea Physical Exam Vital Signs: Last Vital Signs Pulse 69 08/23/23 11:00 BP 140/70 H 08/23/23 11:00 Pulse Ox 98 08/23/23 11:00 Oxygen Delivery Method Room Air 08/23/23 11:00 BMI result Body Mass Index 36.3 Const General: comfortable, no acute distress, alert and awake Orientation/consciousness: patient oriented x3 HEENT Head: Yes normal to inspection General nose exam: No nasal polyps present, No nasal discharge present and Other nasal findings present (MILD NASAL CONGESTION ) Face and sinus: Yes sinuses nontender Mouth: oropharynx normal Throat: Yes posterior oropharynx normal Eyes General: appearance normal, both eyes and all related structures Neck Neck: Yes normal visual inspection, Yes no lymphadenopathy, Yes trachea midline, Yes no JVD and Yes other ( NECK SIZE 16 IN) Thyroid: Thyroid normal Chest Chest palpation & inspection: normal inspection of the chest, normal palpation of entire chest wall and tenderness (There is some tenderness on deep pressure over the right side of the chest,) Resp Effort & Inspection: normal respiratory effort Auscultation: no crackles, no wheezes, No rub present and other ( BREATH SOUNDS ARE DECREASED OVER THE BASILAR AREAS) Cardio Palpation: normal PMI Rate: regular rate Rhythm: regular rhythm Heart sounds: no gallops and no murmurs Peripheral pulses: Peripheral pulses 2+ throughout GI Palpation (GI): Soft to palpation, nontender, No hepatosplenomegaly present and no masses Auscultation: normal bowel sounds Back/Spine/Pelvis Thoracic/Lumbar Spine: thoracic and lumbar spine normal to inspection and thoraco-lumbar ROM limited Skin General skin exam: no rashes or lesions noted Neuro General: patient oriented x3 and no focal motor deficits Cranial nerves: Yes CN's II-XII intact bilaterally Extrem General: Yes normal to inspection, Yes no clubbing, cyanosis or edema and Yes no calf tenderness Psych Appearance: grossly normal and well kempt Speech and movement: Normal speech and movement present Results Reviewed Results Reviewed: The results of sleep study are reviewed with the patient. Total sleep time AHI 10.4. Her O2 sat ramesh 71% and O2 sat below 88% for 19 minute Assessment & Plan Assessment & Plan (1) Obesity (BMI 30-39.9): Comment: PATIENT IS GROSSLY OBESE, SHE IS ENCOURAGED TO LOSE WEIGHT, AT LEAST 10-15 LB IN THE NEXT FEW MONTHS. Code(s): E66.9 - Obesity, unspecified (2) CORNELIUS (obstructive sleep apnea): Comment: PATIENT HAS TYPICAL SYMPTOMS OF OBSTRUCTIVE SLEEP APNEA. Her current study on 08/01/2023, shows obstructive sleep apnea with total sleep time AHI 10.4, and significant clusters of sleep apnea during REM sleep. REM AHI is actually 97. Also presence of nocturnal hypoxemia. So because she is symptomatic and she has significant degree of sleep apnea with hypoxemia, the best approach is to start. Her on CPAP therapy Explained about the use. Of CPAP ORDERED AUTO PAP MODE WITH PRESSURE SETTING 6-16 CM, USING FULLFACE MASK, . AND HUMIDIFICATION PATIENT WOULD BE RECHECKED IN ABOUT 6 WEEKS TO GO OVER HER COMPLIANCE. Code(s): G47.33 - Obstructive sleep apnea (adult) (pediatric) (3) Asthma: Comment: IT IS ONLY MILD AND FLARES UP WHENEVER SHE HAS NASAL CONGESTION OR UPPER RESPIRATORY .INFECTION USUALLY ABOUT ONCE A YEAR . ADVISED TO CONTINUE USING ALBUTEROL 2 PUFFS Q. 4-6 HOURS ONLY P.R.N. * PULMONARY FUNCTION TEST HAS NOT BEEN DONE YET. Code(s): J45.909 - Unspecified asthma, uncomplicated (4) Chest pain: Comment: HAS DISCOMFORT OVER THE RIGHT THORACIC AREA, POSTERIORLY, HIS SEEMS TO BE MUSCULAR PAIN/ MAY BE SECONDARY TO INTERCOSTAL MUSCULAR STRAIN. ADVISED TO USE WARM PACKS 3 TIMES A DAY, AND TYLENOL 2 TABLETS Q.6 HOURS P.R.N.. Code(s): R07.9 - Chest pain, unspecified Coding Level of Care Code Est Pt Level 3 (29158) Diagnoses Obesity (BMI 30-39.9) E66.9 CORNELIUS (obstructive sleep apnea) G47.33 Asthma J45.909 Chest pain R07.9
[2023-08-23 11:00] VITALS: BP 140/70; PULSE 69; O2SAT 98; BMI 36.3
== END 2023-08-23 11:24 | disposition home or self-care (01) ==
PROVIDERS: PCP Nurse Practitioner Family; Visit Provider Internal Medicine
DX: E66.9 Obesity, unspecified (principal); G47.33 Obstructive sleep apnea (adult) (pediatric); J45.909 Unspecified asthma, uncomplicated; R07.9 Chest pain, unspecified
CPT/HCPCS: 99213

== ENCOUNTER → 2023-08-23 10:13 | Outpatient (BNVA) | payer OTHER, SELFPAY | PROVIDERS: PCP Nurse Practitioner Family; Visit Provider Internal Medicine | DX: G47.33 Obstructive sleep apnea (adult) (pediatric) (principal); J45.909 Unspecified asthma, uncomplicated; R07.9 Chest pain, unspecified; E66.9 Obesity, unspecified; Z68.36 Body mass index [BMI] 36.0-36.9, adult | CPT/HCPCS: 99212 ==

== ENCOUNTER 2023-09-26 10:48 | Outpatient (REF) | payer OTHER, SELFPAY ==
[2023-09-26 14:40] LABS: IDNOW Serial# 08D9AD1C
[2023-09-26 14:41] LABS: COVID-19 Test Negative (Negative)
[2023-09-26 14:52] LABS: IDNOW Serial# BCCEAD1C; Influenza A Negative (Negative); Influenza B2 Negative (Negative)
== END 2023-09-26 10:49 | disposition home or self-care (01) ==
LOC: HO.LAB 10:48
PROVIDERS: PCP Nurse Practitioner Family; Visit Provider Nurse Practitioner Family
DX: J45.909 Unspecified asthma, uncomplicated (principal); E11.65 Type 2 diabetes mellitus with hyperglycemia; E78.5 Hyperlipidemia, unspecified; E03.9 Hypothyroidism, unspecified; E55.9 Vitamin D deficiency, unspecified
CPT/HCPCS: 36415; 80061; 82306; 84439; 84443; 87502; 87635

== ENCOUNTER 2023-09-26 12:59 | Outpatient (AMB) | payer OTHER, SELFPAY ==
--- NOTE | 2023-09-26 13:02 | A.OFFPC_ITS ---
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: No Allergies No Known Allergies Allergy (Verified 09/26/23 13:27) Medication List - Last Reconciled 09/26/23 by CAMILLA Plunkett albuterol sulfate 2.5 mg (3 mL) inhalation Q4-6H PRN albuterol sulfate 90 mcg/actuation (Ventolin HFA) 1 puff PO QID PRN bisacodyl (Dulcolax (bisacodyl)) 10 mg (2 x 5 mg) PO BEDTIME blood sugar diagnostic (FreeStyle Precision Emanuel Strips) As directed once daily blood sugar diagnostic (FreeStyle Precision Emanuel Strips) 1 strip miscellaneous QID cholecalciferol (vitamin D3) 50 mcg PO DAILY citalopram 40 mg PO DAILY 90 days diclofenac sodium 1% (Voltaren Arthritis Pain) 4 grams topical QID PRN docusate sodium (Colace) 100 mg PO BID dulaglutide (Trulicity) 1.5 mg (0.5 mL) subcut QWEEK duloxetine 60 mg PO DAILY ezetimibe (Zetia) 10 mg PO DAILY flash glucose scanning reader (FreeStyle Sera 2 [place]) As directed flash glucose sensor (FreeStyle Sera 2 Sensor kit) As directed change every 14 days hydrochlorothiazide 25 mg PO DAILY hydroxyzine HCl 25 mg PO BID PRN ibuprofen 600 mg PO Q6H PRN insulin degludec (Tresiba FlexTouch U-200 insulin) 56 units (0.28 mL) subcut BEDTIME 30 days insulin lispro (Humalog KwikPen (U-100) Insulin) 18 units breakfast, 14 units lunch and 22 units dinner, +2units for bg >200 subcut 3x per day. 30 days levothyroxine 137 mcg PO DAILY lisinopril 10 mg PO DAILY 90 days metformin 500 mg PO BID mirtazapine 30 mg PO BEDTIME miscellaneous medical supply 1 ea miscellaneous DAILY pen needle, diabetic As directed pen needle, diabetic (BD Ultra-Fine Ramya Pen Needle) As directed four times a day perphenazine 4 mg PO BID polyethylene glycol 3350 (Miralax) 17 grams PO DAILY prednisone 40 mg (2 x 20 mg) PO DAILY 5 days rosuvastatin 40 mg PO DAILY sumatriptan succinate take 1 tab at onset of headache; if no relief may repeat 1 tab after at least 2 hrs; max = 4 tabs/24 hr PO tizanidine 2 mg PO BEDTIME PRN trazodone 200 mg PO BEDTIME PRN Tobacco use date assessed: 09/26/23 HPI F/U on DM, HTN, HLD HPI Details Patient is a 53-ye ar-old female who presents today to follow-up on her c hronic conditions. ? Medical history significant for de pression, lumbar d isc disease with r adiculopathy, hype rtension, CKD, rhe umatic mitral sten osis, diastolic dy sfunction, hyperte nsion, diabetes ty pe 2 with insulin use, hypothyroidis m, hyperlipidemia, obesity, CORNELIUS-on C PAP-followed by [facility]. Recent blood wor k results reviewed with the patient. Patient reports that she sometimes forgets to take h er cholesterol med ications and levot hyroxine. Patient reports dry cough for the past 3 we eks with intermitt ent wheezing sensa tion and shortness of breath, report s using albuterol inhaler with no mu ch improvement. R eports being aroun d sick people with URI. Reports chi lls 3 days ago. R eports negative CO VID test 3 weeks a go. Patient is a Setswana-speaking a nd her daughter wa s helping with int erpretation. PFS Medical History Chest pain Somnolence Sleep apnea Cervical high risk HPV (human papillomavirus) test positive Bleeding hemorrhoids Essential hypertension COVID-19 CKD (chronic kidney disease) HTN (hypertension) Diastolic dysfunction Rheumatic mitral stenosis Glaucoma Insomnia Rheumatic heart disease Depression Anxiety Hemorrhoids Hypothyroidism Hyperlipidemia LDL goal <100 Obesity (BMI 30-39.9) Type 2 diabetes mellitus with hyperglycemia, without long-term current use of insulin Surgical History History of hysteroscopy Hx of colonoscopy Hx of tubal ligation H/O hemorrhoidectomy History of section Family History Father Diabetes Mother Diabetes Stroke Maternal Aunt Stroke Hypertension Social History Household Members: Children Housing: Apartment Are you a primary rn complex care to a significant other at home: No Do you presently have visiting nurse or other home services: No Alcohol intake: current Alcohol intake frequency: does not drink Alcohol type: wine Patient Tobacco Use Status: Never used Tobacco e-Cigarette/Vaping Use: Never Used Second Hand Smoke Exposure: No service: No Current occupational status: unemployed Cognitive needs: No Hearing needs: No Vision needs: Yes Female Reproductive History Menstrual Age of Menarche: 9 Questionnaire Thrive Questionnaire Date Thrive assessed: 12/27/22 AUDIT C Alcohol Use Questionnaire (AUDIT-C) 1. How often do you have a drink containing alcohol?: Monthly or less 2. How many drinks containing alcohol do you have on a typical day when you are drinking?: 1 or 2 (0) 3. How often do you have six or more drinks on one occasion?: Never Total Score: 1 Score Reviewed/Action Taken: No REHAN-7 AMB Questionnaire REHAN-7 Date REHAN - 7 assessed: 12/27/22 Source: Developed by Drs. Luis Elias, Vivaine Christie, Peng Irwin and colleagues, with an educational lindsey from [employer]. Review of Systems Const Denies body aches, Denies chills, Reports fatigue, Denies fever(s) and Denies headache(s) Eyes Denies change in vision ENT Denies dizziness, Denies otalgia, Denies headache(s), Denies nasal discharge, Denies sinus pain and Denies sore throat Card Denies chest pain, Denies edema, Denies lightheadedness and Reports dyspnea Resp Denies chest congestion, Reports cough, Reports dyspnea and Reports wheezing GI Denies abdominal pain Denies dysuria Musc Denies myalgias Skin/Breast Denies lesions and Denies rash Neuro Denies dizziness and Denies headache(s) Endo Reports fatigue Aller/Immun Reports wheezing Physical exam (Primary Care) Vital Signs: Last Vital Signs Pulse 80 09/26/23 13:03 BP 130/72 09/26/23 13:03 Pulse Ox 97 09/26/23 13:03 Oxygen Delivery Method Room Air 09/26/23 13:03 BMI result Body Mass Index 36.6 Tobacco/Smoking Status: Tobacco use Status Tobacco use date assessed 09/26/23 09/26/23 13:03 Patient Tobacco Use Status Never used Tobacco 09/26/23 13:03 e-Cigarette/Vaping Use Never Used 09/26/23 13:03 Thrive Assessment: Date of Thrive Assessment Date Thrive assessed 12/27/22 09/26/23 13:03 Const General: cooperative and no acute distress Orientation/consciousness: patient oriented x3 HENMT Head: Yes normocephalic and Yes atraumatic Face and sinus: Yes sinuses nontender Mouth: oropharynx normal and moist mucous membranes Throat: Yes posterior oropharynx normal Eyes General: appearance normal, both eyes and all related structures Neck Neck: Yes normal visual inspection, Yes full ROM and Yes no lymphadenopathy Thyroid: Thyroid normal Resp Effort & Inspection: normal respiratory effort, able to speak in complete sentences and Actively coughing Quality: dry Auscultation: clear to auscultation bilaterally, no crackles, no rales, no rhonchi and no wheezes Cardio Rate: regular rate Rhythm: regular rhythm Heart sounds: S1 normal heart sound present and S2 normal heart sound present GI Auscultation: normal bowel sounds Skin General skin exam: no rashes or lesions noted Neuro General: patient oriented x3 Gait exam (Neuro): Normal gait present Extrem General: Yes full ROM and No edema Results AMB Hemoglobin A1c AMB Hemoglobin A1c 7.8 % Last Edit by CLARISSA Araujo on 09/26/23 13:28 Assessment and Plan Assessment & Plan (1) Depression: Code(s): F32.9 - Major depressive disorder, single episode, unspecified Qualifiers: Depression Type: major depressive disorder Major depression recurrence: recurrent Active/Remission status: currently active Major depression episode severity: moderate Qualified Code(s): F33.1 - Major depressive disorder, recurrent, moderate Plan: Citalopram 40 mg daily Duloxetine 60 mg daily Continue to follow-up with psychiatry Dr. Galvan as scheduled (2) Essential hypertension: Code(s): I10 - Essential (primary) hypertension Plan: Hydrochlorothiazide 25 mg daily Lisinopril 10 mg daily Low-sodium diet Goal BP equal or less than 140/90 (3) CKD (chronic kidney disease): Comment: Stage 3 - Foll'd by Dr. Martin Brito- [facility] Code(s): N18.9 - Chronic kidney disease, unspecified Qualifiers: Chronic kidney disease stage: stage 3 (moderate) Chronic kidney disease stage 3 subtype: stage 3b (GFR 30-44) Qualified Code(s): N18.32 - Chronic kidney disease, stage 3b Plan: Continue to monitor Continue to follow-up with nephrology (4) Diastolic dysfunction: Code(s): I51.89 - Other ill-defined heart diseases Plan: Continue to follow-up with cardiology Dr. Draper as scheduled (5) Type 2 diabetes mellitus with hyperglycemia, without long-term current use of insulin: Code(s): E11.65 - Type 2 diabetes mellitus with hyperglycemia Plan: A1c 7.8 today, goal less than 7 Continue to follow-up with endocrinology Dr. Olivo as scheduled Low-carbohydrate diet Trulicity 1.5 mg weekly and Tresiba 56 units at bedtime Lispro insulin Continue metformin Diabetic eye exam 12/2022 (6) Hypothyroidism: Code(s): E03.9 - Hypothyroidism, unspecified Qualifiers: Hypothyroidism type: acquired Qualified Code(s): E03.9 - Hypothyroidism, unspecified Plan: Continue to follow-up with endocrinology Levothyroxine 137 mcg daily - reinforced compliance TSH 12.48, free T4 0.77 08/2023 (7) Hyperlipidemia LDL goal <100: Code(s): E78.5 - Hyperlipidemia, unspecified Plan: LDL 120 08/2023, goal less than 100 Zetia 10 mg daily Rosuvastatin 40 mg daily Reinforced compliance with cholesterol medications Low-cholesterol diet (8) Asthma: Comment: IT IS ONLY MILD AND FLARES UP WHENEVER SHE HAS NASAL CONGESTION OR UPPER RESPIRATORY .INFECTION USUALLY ABOUT ONCE A YEAR . ADVISED TO CONTINUE USING ALBUTEROL 2 PUFFS Q. 4-6 HOURS ONLY P.R.N. * PULMONARY FUNCTION TEST HAS NOT BEEN DONE YET. Code(s): J45.909 - Unspecified asthma, uncomplicated Plan: Asthma exacerbation Refills sent for albuterol nebulizer treatment and Ventolin inhaler Start prednisone and Z-Philippe Signs and symptoms reviewed when to notify provider or go to the emergency department Continue to follow-up with [facility] pulmonology Plan Follow-up in 3 months or sooner as needed Orders: Orders COVID-19 ID NOW ([facility]) Today J45.909 - Unspecified asthma, uncomplicated Influenza A B2 ID NOW ([facility]) Today J45.909 - Unspecified asthma, uncomplicated TSH reflex Free T4 3 Months E03.9 - Hypothyroidism, unspecified Lipid Panel 3 Months E78.5 - Hyperlipidemia, unspecified Comprehensive [place]. Panel Fast 3 Months E11.65 - Type 2 diabetes mellitus with hyperglycemia Vitamin D 25-OH Total 3 Months R79.89 - Other specified abnormal findings of blood chemistry Medications: New azithromycin For 250 mg dose pack: take 500 mg today (day 1), then 250 mg for 4 days (days 2-5) PO 6 tabs 0RF J45.909 - Unspecified asthma, uncomplicated Refilled albuterol sulfate 2.5 mg (3 mL) inhalation Q4-6H PRN 75 mL 0RF shortness of breath or wheezing albuterol sulfate 90 mcg/actuation (Ventolin HFA) 1 puff PO QID PRN 18 ea 2RF for wheezing J20.9 - Acute bronchitis, unspecified, J40 - Bronchitis, not specified as acute or chronic, J45.901 - Unspecified asthma with (acute) exacerbation cholecalciferol (vitamin D3) 50 mcg PO DAILY 90 tabs 0RF R79.89 - Other specified abnormal findings of blood chemistry prednisone 40 mg (2 x 20 mg) PO DAILY 5 days 10 tabs 0RF J45.909 - Unspecified asthma, uncomplicated Coding Level of Care Code Est Pt Level 4 (87059) Diagnoses Moderate episode of recurrent major depressive disorder F33.1 Depression Type: major depressive disorder Major depression recurrence: recurrent Active/Remission status: currently active Major depression episode severity: moderate Essential hypertension I10 Stage 3b chronic kidney disease N18.32 Chronic kidney disease stage: stage 3 (moderate) Chronic kidney disease stage 3 subtype: stage 3b (GFR 30-44) Diastolic dysfunction I51.89 Type 2 diabetes mellitus with hyperglycemia, without long-term current use of insulin E11.65 Acquired hypothyroidism E03.9 Hypothyroidism type: acquired Hyperlipidemia LDL goal <100 E78.5 Asthma J45.909
[2023-09-26 13:03] VITALS: BP 130/72; PULSE 80; O2SAT 97; BMI 36.6
== END 2023-09-26 13:47 | disposition home or self-care (01) ==
PROVIDERS: PCP Nurse Practitioner Family; Visit Provider Nurse Practitioner Family
DX: I12.9 Hypertensive chronic kidney disease with stage 1 through stage 4 chronic kidney disease, or unspecified chronic kidney disease (principal); N18.32 Chronic kidney disease, stage 3b; F33.1 Major depressive disorder, recurrent, moderate; E11.65 Type 2 diabetes mellitus with hyperglycemia; E03.9 Hypothyroidism, unspecified; E78.5 Hyperlipidemia, unspecified; J45.909 Unspecified asthma, uncomplicated
CPT/HCPCS: 83036; 99214

== ENCOUNTER 2023-10-26 10:57 | Outpatient (AMB) | payer OTHER, SELFPAY ==
[2023-10-26 11:11] VITALS: BP 134/64; PULSE 78; O2SAT 95; BMI 36.8
--- NOTE | 2023-10-26 11:11 | A.OFFVIS_ITS ---
Intake Vital Signs 10/26/23 11:11 Height 5 ft 9 in Weight 249 lb BMI 36.8 BP 134/64 Blood Pressure Location Lt brachial Position Sitting Pulse 78 Pulse Source Pulse Oximeter Pulse Oximetry (%) 95 Oxygen Delivery Method Room Air Intake Visit Reasons: suzie Intake Note: pt is here for follow up and states she is feeling good with cpap. 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 She is extremely happy with the CPAP, claimed that even her snoring is gone and sleeps good. She wakes up refreshed. She has no issue with the fullface mask and the CPAP machine. Her breathing is under good control with the use of Ventolin/ or albuterol in the nebulizer as needed,. PFSH Medical History Chest pain Somnolence Sleep apnea Cervical high risk HPV (human papillomavirus) test positive Bleeding hemorrhoids Essential hypertension COVID-19 CKD (chronic kidney disease) HTN (hypertension) Diastolic dysfunction Rheumatic mitral stenosis Glaucoma Insomnia Rheumatic heart disease Depression Anxiety Hemorrhoids Hypothyroidism Hyperlipidemia LDL goal <100 Obesity (BMI 30-39.9) Type 2 diabetes mellitus with hyperglycemia, without long-term current use of insulin Surgical History History of hysteroscopy Hx of colonoscopy Hx of tubal ligation H/O hemorrhoidectomy History of section Family History Father Diabetes Mother Diabetes Stroke Maternal Aunt Stroke Hypertension Social History Household Members: Children Housing: Apartment Are you a primary healthcare social worker to a significant other at home: No Do you presently have visiting nurse or other home services: No Alcohol intake: current Alcohol intake frequency: does not drink Alcohol type: wine Patient Tobacco Use Status: Never used Tobacco e-Cigarette/Vaping Use: Never Used Second Hand Smoke Exposure: No service: No Current occupational status: unemployed Cognitive needs: No Hearing needs: No Vision needs: Yes Female Reproductive History Menstrual Age of Menarche: 9 Review of Systems Const All systems reviewed & are unremarkable except as noted in HPI and below Reports fatigue Eyes Reports no additional complaints ENT Reports nasal congestion (MILD OFF AND ON ) Card Denies irregular heart rhythm and Denies leg edema Resp Reports as per HPI GI Reports constipation Reports no additional complaints Musc Reports back pain and Reports myalgias Skin/Breast Reports system reviewed and no additional complaints, except as documented Neuro Reports no additional complaints Psych Reports anxiety and Reports depression Endo Reports fatigue and Reports other ( DIABETES MELLITUS, HYPOTHYROIDISM) Kody/Lymph Reports no additional complaints Aller/Immun Reports seasonal rhinorrhea Physical Exam Vital Signs: Last Vital Signs Pulse 78 10/26/23 11:11 BP 134/64 10/26/23 11:11 Pulse Ox 95 10/26/23 11:11 Oxygen Delivery Method Room Air 10/26/23 11:11 BMI result Body Mass Index 36.8 Const General: comfortable, no acute distress, alert and awake Orientation/consciousness: patient oriented x3 HEENT Head: Yes normal to inspection General nose exam: No nasal polyps present, No nasal discharge present and Other nasal findings present (MILD NASAL CONGESTION ) Face and sinus: Yes sinuses nontender Mouth: oropharynx normal Throat: Yes posterior oropharynx normal Eyes General: appearance normal, both eyes and all related structures Neck Neck: Yes normal visual inspection, Yes no lymphadenopathy, Yes trachea midline, Yes no JVD and Yes other ( NECK SIZE 16 IN) Thyroid: Thyroid normal Chest Chest palpation & inspection: normal inspection of the chest, normal palpation of entire chest wall and tenderness (There is some tenderness on deep pressure over the right side of the chest,) Resp Effort & Inspection: normal respiratory effort Auscultation: no crackles, no wheezes, No rub present and other ( BREATH SOUNDS ARE DECREASED OVER THE BASILAR AREAS) Cardio Palpation: normal PMI Rate: regular rate Rhythm: regular rhythm Heart sounds: no gallops and no murmurs Peripheral pulses: Peripheral pulses 2+ throughout GI Palpation (GI): Soft to palpation, nontender, No hepatosplenomegaly present and no masses Auscultation: normal bowel sounds Back/Spine/Pelvis Thoracic/Lumbar Spine: thoracic and lumbar spine normal to inspection and thoraco-lumbar ROM limited Skin General skin exam: no rashes or lesions noted Neuro General: patient oriented x3 and no focal motor deficits Cranial nerves: Yes CN's II-XII intact bilaterally Extrem General: Yes normal to inspection, Yes no clubbing, cyanosis or edema and Yes no calf tenderness Psych Appearance: grossly normal and well kempt Speech and movement: Normal speech and movement present Results Reviewed Results Reviewed: Compliance report for the last 30 nights is reviewed. She has used 28/30 nights, 93% Average use per night 6 hours 26 minutes. Pressure used mostly 13-14 cm. No significant air leak. Residual AHI 0.7 Assessment & Plan Assessment & Plan (1) Obesity (BMI 30-39.9): Comment: PATIENT IS GROSSLY OBESE, SHE IS ENCOURAGED TO LOSE WEIGHT, AT LEAST 10-15 LB IN THE NEXT FEW MONTHS. Code(s): E66.9 - Obesity, unspecified Plan: as above (2) SUZIE (obstructive sleep apnea): Comment: PATIENT HAS TYPICAL SYMPTOMS OF OBSTRUCTIVE SLEEP APNEA. Her current study on 08/01/2023, shows obstructive sleep apnea with total sleep time AHI 10.4, and significant clusters of sleep apnea during REM sleep. REM AHI is actually 97. She was started on CPAP therapy and she is using it very regularly. She is very happy claiming that she does not have any snoring and then sleeps very good. Code(s): G47.33 - Obstructive sleep apnea (adult) (pediatric) Plan: She is commended for her good compliance and encouraged to keep on using CPAP regularly every night. (3) Asthma: Comment: IT IS ONLY MILD AND FLARES UP WHENEVER SHE HAS NASAL CONGESTION OR UPPER RESPIRATORY .INFECTION USUALLY ABOUT ONCE A YEAR . ADVISED TO CONTINUE USING ALBUTEROL 2 PUFFS Q. 4-6 HOURS ONLY P.R.N. * PULMONARY FUNCTION TEST IS C/W MILD RESTRICTIVE PATTERN, AND NO SIGNIFICANT OBSTRUCTIVE DISORDER. SHE COULD STILL HAVE A MILD BRONCHIAL ASTHMA. Code(s): J45.909 - Unspecified asthma, uncomplicated Plan: ABOVE Coding Level of Care Code Est Pt Level 3 (85759) Diagnoses Obesity (BMI 30-39.9) E66.9 SUZIE (obstructive sleep apnea) G47.33 Asthma J45.909
== END 2023-10-26 11:25 | disposition home or self-care (01) ==
PROVIDERS: PCP Nurse Practitioner Family; Visit Provider Internal Medicine
DX: E66.9 Obesity, unspecified (principal); G47.33 Obstructive sleep apnea (adult) (pediatric); J45.909 Unspecified asthma, uncomplicated
CPT/HCPCS: 99213

== ENCOUNTER → 2023-10-26 10:57 | Outpatient (BNVA) | payer OTHER, SELFPAY | PROVIDERS: PCP Nurse Practitioner Family; Visit Provider Internal Medicine | DX: G47.33 Obstructive sleep apnea (adult) (pediatric) (principal); J45.909 Unspecified asthma, uncomplicated; E66.9 Obesity, unspecified; Z68.36 Body mass index [BMI] 36.0-36.9, adult | CPT/HCPCS: 99212 ==

== ENCOUNTER 2023-12-18 07:07 | Outpatient (REF) | payer OTHER, SELFPAY ==
[2023-12-18 08:24] LABS: Free T4 (Free Thyroxine) 1.17 ng/dL (0.71-1.85); Thyroid Stimulating Hormone 0.12 uIU/mL (0.32-4.0)
== END 2023-12-18 07:08 | disposition home or self-care (01) ==
LOC: HO.LAB 07:07
PROVIDERS: PCP Physician Assistant; Visit Provider Internal Medicine Endocrinology, Diabetes & Metabolism
DX: E11.65 Type 2 diabetes mellitus with hyperglycemia (principal)
CPT/HCPCS: 36415; 84439; 84443

== ENCOUNTER 2023-12-19 13:38 | Outpatient (AMB) | payer OTHER, SELFPAY ==
[2023-12-19 13:43] VITALS: BP 148/68; PULSE 72; BMI 36.0
--- NOTE | 2023-12-19 13:43 | A.OFFVIS_ITS ---
Intake Vital Signs 12/19/23 13:43 Height 5 ft 9 in Weight 243 lb 9.773 oz BMI 36.0 BP 148/68 H Blood Pressure Location Lt brachial Position Sitting Pulse 72 Pulse Source Pulse Oximeter Intake Visit Reasons: Type 2 DM and hypothyroidism-confirmed Intake Note: Patient present today to follow up on Type 2 Diabetes Mellitus and Hypothyroidism. Last Diabetic Eye exam: 01/24/2023 Last Podiatry Visit: None Random Glucose: 211mg/dl HgA1C: 8.1% Custom Leather Products Maker Required: Yes Custom Leather Products Maker Name: Marcia medical staff Information Interpreted: non-clinical & clinical Accompanied by: Self / Same As Patient Allergies No Known Allergies Allergy (Verified 10/26/23 11:13) Medication List - Last Reconciled 12/19/23 by Luis Olivo MD albuterol sulfate 90 mcg/actuation (Ventolin HFA) 1 puff PO QID PRN albuterol sulfate 2.5 mg (3 mL) inhalation Q4-6H PRN bisacodyl (Dulcolax (bisacodyl)) 10 mg (2 x 5 mg) PO BEDTIME blood sugar diagnostic (FreeStyle Precision Emanuel Strips) As directed once daily blood sugar diagnostic (FreeStyle Precision Emanuel Strips) 1 strip miscellaneous QID cholecalciferol (vitamin D3) 50 mcg PO DAILY citalopram 40 mg PO DAILY 90 days diclofenac sodium 1% (Voltaren Arthritis Pain) 4 grams topical QID PRN docusate sodium (Colace) 100 mg PO BID dulaglutide (Trulicity) 1.5 mg (0.5 mL) subcut QWEEK duloxetine 60 mg PO DAILY ezetimibe (Zetia) 10 mg PO DAILY flash glucose scanning reader (FreeStyle Sera 2 [place]) As directed flash glucose sensor (FreeStyle Sera 2 Sensor kit) As directed change every 14 days hydrochlorothiazide 25 mg PO DAILY hydroxyzine HCl 25 mg PO BID PRN ibuprofen 600 mg PO Q6H PRN insulin degludec (Tresiba FlexTouch U-200 insulin) 56 units (0.28 mL) subcut BEDTIME 30 days insulin lispro (Humalog KwikPen (U-100) Insulin) 18 units breakfast, 14 units lunch and 22 units dinner, +2units for bg >200 subcut 3x per day. 30 days levothyroxine 137 mcg PO DAILY lisinopril 10 mg PO DAILY 90 days mirtazapine 30 mg PO BEDTIME miscellaneous medical supply 1 ea miscellaneous DAILY pen needle, diabetic As directed pen needle, diabetic (BD Ultra-Fine Ramya Pen Needle) As directed four times a day perphenazine 4 mg PO BID polyethylene glycol 3350 (Miralax) 17 grams PO DAILY prednisone 40 mg (2 x 20 mg) PO DAILY 5 days rosuvastatin 40 mg PO DAILY sumatriptan succinate take 1 tab at onset of headache; if no relief may repeat 1 tab after at least 2 hrs; max = 4 tabs/24 hr PO tizanidine 2 mg PO BEDTIME PRN trazodone 200 mg PO BEDTIME PRN HPI HPI Comments History of Present Illness Details Patient is 53 yo female with DM2 and hypothyroidism here for continued management. Past Medical History: DM2, HLD, HTN, hypothryoidism, rheumatic heart disease, anxiety and depression. 1) Diabetes Diabetes Medications: 52 units of Tresiba once a day. 18 units of Humalog for breakfast 14 units with lunch and 22 units dinner 3 times a day. + 2 units for bg over 200mg/dl, not taking metformin er 500 two pills twice a day Is taking Trulicity 4.5mg. Intolerant of Invokana. Intolerant of metformin due to gi issues. Symptoms: Denies numbness tingling or cramping in lower extremities CGM: In the last 14 days C GM is active 42% Average blood glucose 135 glucose management indicator 6.5%. Glucose in target range of 70-180, 91%. Glucose high , 8%. . No low glucose events. Hypoglycemia: rare Hyperglycemia: + polyuria, + nocturia Exercise: 1 hour of walking most days of the week when weather permits, but currently is too cold Eye exam: has appt on 11/24/2022 2). Hypothyroidism : On December 28 patient's levothyroxine was increased to 175mcg due to elevated TSH. She was to do labs in 6 weeks time but these were not done. She has been on levothyroxine 137 since 1 wk ago Patient denies dysphagia, dysphonia, cold intolerance. She takes it in the am on empty stomach at 06:00. She eats breakfast and takes meds 2 hours later. Denies forgetting but knows to take 2 the next day if forgets. Laboratory Tests 12/22/21 12/22/21 02/01/22 11:00 11:02 07:40 Creatinine 1.13 Estimated GFR 51 Hgb A1c (Clinic) Triglycerides 213 Cholesterol 229 LDL Cholesterol, C alc 141 HDL Cholesterol 46 TSH 20.33 H Free T4 0.66 L Microalb/Creat Rat io TNP 03/24/22 10:11 Creatinine Estimated GFR Hgb A1c (Clinic) 9.6 H Triglycerides Cholesterol LDL Cholesterol, C alc HDL Cholesterol TSH Free T4 Microalb/Creat Rat io Lost 4 lbs in 1 wk . Cutting back carbs [facility] Medical History Chest pain Somnolence Sleep apnea Cervical high risk HPV (human papillomavirus) test positive Bleeding hemorrhoids Essential hypertension COVID-19 CKD (chronic kidney disease) HTN (hypertension) Diastolic dysfunction Rheumatic mitral stenosis Glaucoma Insomnia Rheumatic heart disease Depression Anxiety Hemorrhoids Hypothyroidism Hyperlipidemia LDL goal <100 Obesity (BMI 30-39.9) Type 2 diabetes mellitus with hyperglycemia, without long-term current use of insulin Surgical History History of hysteroscopy Hx of colonoscopy Hx of tubal ligation H/O hemorrhoidectomy History of section Family History Father Diabetes Mother Diabetes Stroke Maternal Aunt Stroke Hypertension Social History Household Members: Children Housing: Apartment Are you a primary care connector to a significant other at home: No Do you presently have visiting nurse or other home services: No Alcohol intake: current Alcohol intake frequency: does not drink Alcohol type: wine Patient Tobacco Use Status: Never used Tobacco e-Cigarette/Vaping Use: Never Used Second Hand Smoke Exposure: No service: No Current occupational status: unemployed Cognitive needs: No Hearing needs: No Vision needs: Yes Female Reproductive History Menstrual Age of Menarche: 9 Physical Exam Vital Signs: Last Vital Signs Pulse 72 12/19/23 13:43 BP 148/68 H 12/19/23 13:43 BMI result Body Mass Index 36.0 Absence of Cushingoid features. Absence of acromegalic features. Neck exam reveals nl size thyroid about 15 gms. No thyroid nodules palpable. No carotid bruits present. Lungs CTA. Heart S1 S2, Reg R/R. No M/R/ G. Skin exam reveals absence of vitiligo or acanthosis nigricans. Abdominal exam reveals Soft NT/ND with NA BS. No organomegaly present. Neck Other: . Extrem Other: Visual exam of foot performed. No ulcerations or open lesions. No onchomycosis, no callouses.Pulses 2 + distally Sensation intact to monofilament exam. Vibratory sensation sensed is decreased t with 128 Hz tuning fork Assessment & Plan Assessment & Plan (1) Type 2 diabetes mellitus with hyperglycemia, without long-term current use of insulin: Code(s): E11.65 - Type 2 diabetes mellitus with hyperglycemia Plan: This is a 53-year-old female with a history of type 2 diabetes being treated with metformin Trulicity and basal-bolus insulin with improved good glycemic control and known microvascular complications namely CKD and neuropathy Plan is to continue the current therapy . At this point, patient returned to the care of her primary care provider and returned back to endocrinology should HbA1c deteriorate (2) Hypothyroidism: Code(s): E03.9 - Hypothyroidism, unspecified Qualifiers: Hypothyroidism type: acquired Qualified Code(s): E03.9 - Hypothyroidism, unspecified Plan: Currently on 137 mcg levothyroxine. Appears to be clinically euthyroid but TSH is suppressed. Probably has decreased requirement due to weight loss Plan is to decrease levothyroxine 125 mcg Will recheck TSH and free T4 in 6 weeks and adjust levothyroxine accordingly Orders: Orders Thyroid Stimulating Hormone 6 Weeks E03.9 - Hypothyroidism, unspecified Free T4 (Free Thyroxine) 6 Weeks E03.9 - Hypothyroidism, unspecified Medications: New levothyroxine 125 mcg PO DAILY 30 tabs 4RF Discontinued levothyroxine Discontinued Reason: Doctor's Order 137 mcg PO DAILY 30 tabs 5RF Coding Level of Care Code Est Pt Level 4 (14617) Diagnoses Type 2 diabetes mellitus with hyperglycemia, without long-term current use of insulin E11.65 Acquired hypothyroidism E03.9 Hypothyroidism type: acquired
[2023-12-19 13:58] LABS: Glucose, Whole Blood 211 mg/dL (60-115)
== END 2023-12-19 14:11 | disposition home or self-care (01) ==
PROVIDERS: PCP Nurse Practitioner Family; Visit Provider Internal Medicine Endocrinology, Diabetes & Metabolism
DX: E11.65 Type 2 diabetes mellitus with hyperglycemia (principal); E03.9 Hypothyroidism, unspecified
CPT/HCPCS: 99214

== ENCOUNTER → 2023-12-19 13:38 | Outpatient (BNVA) | payer OTHER, SELFPAY | PROVIDERS: PCP Nurse Practitioner Family; Visit Provider Internal Medicine Endocrinology, Diabetes & Metabolism | DX: E11.65 Type 2 diabetes mellitus with hyperglycemia (principal); E11.22 Type 2 diabetes mellitus with diabetic chronic kidney disease; N18.9 Chronic kidney disease, unspecified; E11.40 Type 2 diabetes mellitus with diabetic neuropathy, unspecified; E03.9 Hypothyroidism, unspecified; Z79.4 Long term (current) use of insulin; Z79.899 Other long term (current) drug therapy | CPT/HCPCS: 82947; 83036; 99212 ==

== ENCOUNTER 2023-12-20 13:07 | Outpatient (AMB) | payer OTHER, SELFPAY ==
--- NOTE | 2023-12-20 14:02 | MHC.AMDMED ---
Intake Intake Visit Reasons: dm/CONFIRMED Bobbin Cleaner Hand Required: Yes Bobbin Cleaner Hand Language: Gas Appliance Servicer Helper Name: Steve [facility] Information Interpreted: non-clinical & clinical Accompanied by: Self / Same As Patient Allergies No Known Allergies Allergy (Verified 10/26/23 11:13) HPI Comprehensive Diabetes Asmnt Most Recent Diabetes Results: No Data to Display PFSH Medical History Chest pain Somnolence Sleep apnea Cervical high risk HPV (human papillomavirus) test positive Bleeding hemorrhoids Essential hypertension COVID-19 CKD (chronic kidney disease) HTN (hypertension) Diastolic dysfunction Rheumatic mitral stenosis Glaucoma Insomnia Rheumatic heart disease Depression Anxiety Hemorrhoids Hypothyroidism Hyperlipidemia LDL goal <100 Obesity (BMI 30-39.9) Type 2 diabetes mellitus with hyperglycemia, without long-term current use of insulin Surgical History History of hysteroscopy Hx of colonoscopy Hx of tubal ligation H/O hemorrhoidectomy History of section Family History Father Diabetes Mother Diabetes Stroke Maternal Aunt Stroke Hypertension Social History Household Members: Children Housing: Apartment Are you a primary childcare teacher to a significant other at home: No Do you presently have visiting nurse or other home services: No Alcohol intake: current Alcohol intake frequency: does not drink Alcohol type: wine Patient Tobacco Use Status: Never used Tobacco e-Cigarette/Vaping Use: Never Used Second Hand Smoke Exposure: No service: No Current occupational status: unemployed Cognitive needs: No Hearing needs: No Vision needs: Yes Female Reproductive History Menstrual Age of Menarche: 9 Assessment & Plan Assessment & Plan (1) Type 2 diabetes mellitus with hyperglycemia, without long-term current use of insulin: Code(s): E11.65 - Type 2 diabetes mellitus with hyperglycemia Plan: Personal Continuous Glucose Monitor: Patients CGM information reviewed Reviewed patient's sensor data: Hypoglycemia: ? 1% Hyperglycemia:? 8% Time in Range:? 91% Average glucose for the last 2 weeks? 135 mg/dL Patient has significantly reduced amount of carbohydrate intake over the past month Last A1c 8.1% on 12/19/2023, however for the past 2 weeks average glucose has been 135 mg/dL She has stopped taking Tresiba 56 units And is now taking Humalog 10 units for breakfast, at lunchtime she has not been taking mealtime insulin because she is only eating salads, and at supper using 15 units Recommended to patient if she does eat carbohydrates for lunch to take Humalog 8 units Patient has also increased physical activity to 30-45 minutes 5-6 days a week Patient has had a few episodes postprandial hypoglycemia, reviewed with patient how to treat hypoglycemia with rule of 15s Polish handout given Patient also received target goal handout in Polish Reviewed how to interpret trend arrows Reminded patient that to check finger sticks if symptoms do not match sensor reading. Discussed lag time between finger stick and sensor data.? Patient able to insert sensor independently at home without issue.? Instructed patient to follow-up with public health educator in 1 month, if hypoglycemia continues to contact public health educator for further adjustment in insulin Patient Instructions: Humalo unidades de desayuno, 8 unidades de almuerzo si come carbohidratos y 15 unidades de terrell, +2 unidades para glicemia >200 subcutada 3 veces al d?a Coding Level of Care Code Est Pt Level 1 (52444) Diagnoses Type 2 diabetes mellitus with hyperglycemia, without long-term current use of insulin E11.65
== END 2023-12-20 14:09 | disposition home or self-care (01) ==
PROVIDERS: PCP Nurse Practitioner Family; Visit Provider Registered Nurse Diabetes Educator
DX: E11.65 Type 2 diabetes mellitus with hyperglycemia (principal)

== ENCOUNTER → 2023-12-20 13:07 | Outpatient (BNVA) | payer OTHER, SELFPAY | PROVIDERS: PCP Nurse Practitioner Family; Visit Provider Registered Nurse Diabetes Educator | DX: E11.65 Type 2 diabetes mellitus with hyperglycemia (principal); Z79.4 Long term (current) use of insulin | CPT/HCPCS: 99211 ==

== ENCOUNTER 2023-12-27 12:52 | Outpatient (AMB) | payer OTHER, SELFPAY ==
--- NOTE | 2023-12-27 13:01 | A.OFFPC_ITS ---
Vital Signs 12/27/23 13:02 Height 5 ft 9 in Weight 229 lb 8 oz BMI 33.9 BP 132/72 Blood Pressure Location Lt brachial Position Sitting Pulse 70 Pulse Source Pulse Oximeter Pulse Oximetry (%) 96 Oxygen Delivery Method Room Air Intake Visit Reasons: F/U on DM, HLD, HTN C++ Quant Developer Required: Yes C++ Quant Developer Language: Tajik Accompanied by: Self / Same As Patient Allergies No Known Allergies Allergy (Verified 12/27/23 13:13) Medication List - Last Reconciled 12/27/23 by Bismark Benitez PA-C albuterol sulfate 90 mcg/actuation (Ventolin HFA) 1 puff PO QID PRN albuterol sulfate 2.5 mg (3 mL) inhalation Q4-6H PRN bisacodyl (Dulcolax (bisacodyl)) 10 mg (2 x 5 mg) PO BEDTIME blood sugar diagnostic (FreeStyle Precision Emanuel Strips) As directed once daily blood sugar diagnostic (FreeStyle Precision Emanuel Strips) 1 strip miscellaneous QID cholecalciferol (vitamin D3) 50 mcg PO DAILY citalopram 40 mg PO DAILY 90 days diclofenac sodium 1% (Voltaren Arthritis Pain) 4 grams topical QID PRN docusate sodium (Colace) 100 mg PO BID dulaglutide (Trulicity) 1.5 mg (0.5 mL) subcut QWEEK duloxetine 60 mg PO DAILY ezetimibe (Zetia) 10 mg PO DAILY flash glucose scanning reader (FreeStyle Sera 2 [place]) As directed flash glucose sensor (FreeStyle Sera 2 Sensor kit) As directed change every 14 days hydrochlorothiazide 25 mg PO DAILY hydroxyzine HCl 25 mg PO BID PRN ibuprofen 600 mg PO Q6H PRN insulin degludec (Tresiba FlexTouch U-200 insulin) 56 units (0.28 mL) subcut BEDTIME 30 days insulin lispro (Humalog KwikPen (U-100) Insulin) 18 units breakfast, 14 units lunch and 22 units dinner, +2units for bg >200 subcut 3x per day. 30 days levothyroxine 125 mcg PO DAILY lisinopril 10 mg PO DAILY 90 days mirtazapine 30 mg PO BEDTIME miscellaneous medical supply 1 ea miscellaneous DAILY pen needle, diabetic As directed pen needle, diabetic (BD Ultra-Fine Ramya Pen Needle) As directed four times a day perphenazine 4 mg PO BID polyethylene glycol 3350 (Miralax) 17 grams PO DAILY prednisone 40 mg (2 x 20 mg) PO DAILY 5 days rosuvastatin 40 mg PO DAILY sumatriptan succinate take 1 tab at onset of headache; if no relief may repeat 1 tab after at least 2 hrs; max = 4 tabs/24 hr PO tizanidine 2 mg PO BEDTIME PRN trazodone 200 mg PO BEDTIME PRN Tobacco use date assessed: 12/27/23 Dental Screening Dental Screen Date: 12/27/23 Did you have a dental visit in the last 12 months?: Yes Did you have a dental problem in the last 6 months where you did not have access to dental care?: No Was dental information given to patient?: Patient has dentist HPI F/U on DM, HLD, HTN HPI Details Patient is a 53-year-old here today a follow up visit. Has multiple medical problems including diabetes, hypertension, obstructive sleep apnea, obesity and generalized anxiety disorder CORNELIUS: dfollowed by pulmonology . Continues to use CPAP machine on nightly basis with good effect on her sleep. .. DM: She is followed by Endocrine, has lost a significant amount of weight since last office visit due to better eating habits. .. Mitral valve stenosis: followed by a shoe repairer helper , no overt signs of Congestive heart failure. .. REHAN: Sees a psychiatrist who manages her mental health medications. She feels stable from a mental health point of view. Laboratory Tests 09/09/18 05/16/23 12/19/23 15:56 11:11 14:06 Hgb A1c (Clinic) 8.1 H Urine Microalbumin 8.0 U Benzodiazepines Scrn POSITIVE H Urine Cocaine Scre en POSITIVE H PFSH Medical History Chest pain Somnolence Sleep apnea Cervical high risk HPV (human papillomavirus) test positive Bleeding hemorrhoids Essential hypertension COVID-19 CKD (chronic kidney disease) HTN (hypertension) Diastolic dysfunction Rheumatic mitral stenosis Glaucoma Insomnia Rheumatic heart disease Depression Anxiety Hemorrhoids Hypothyroidism Hyperlipidemia LDL goal <100 Obesity (BMI 30-39.9) Type 2 diabetes mellitus with hyperglycemia, without long-term current use of insulin Surgical History History of hysteroscopy Hx of colonoscopy Hx of tubal ligation H/O hemorrhoidectomy History of section Family History Father Diabetes Mother Diabetes Stroke Maternal Aunt Stroke Hypertension Social History Household Members: Children Housing: Apartment Are you a primary healthcare or medical to a significant other at home: No Do you presently have visiting nurse or other home services: No Alcohol intake: current Alcohol intake frequency: does not drink Alcohol type: wine Patient Tobacco Use Status: Never used Tobacco e-Cigarette/Vaping Use: Never Used Second Hand Smoke Exposure: No service: No Current occupational status: unemployed Cognitive needs: No Hearing needs: No Vision needs: Yes Female Reproductive History Menstrual Age of Menarche: 9 Questionnaire PHQ-9 Over the last 2 weeks, how often have you been bothered by any of the following problems? 1. Little interest or pleasure in doing things: not at all 2. Feeling down, depressed, or hopeless: not at all 3. Trouble falling or staying asleep, or sleeping too much: not at all 4. Feeling tired or having little energy: not at all 5. Poor appetite or overeating: not at all 6. Feeling bad about yourself - or that you are a failure or have let yourself or your family down: not at all 7. Trouble concentrating on things, such as reading the newspaper or watching television: not at all 8. Moving or speaking so slowly that other people could have noticed. Or the opposite - being so fidgety or restless that you have been moving around a lot more than usual: not at all 9. Thoughts that you would be better off or of hurting yourself in some way: not at all Total score: 0 Depression Screening Interpretation: Negative Depression Screening Done: Yes 57750 - PHQ-9 Billing: Yes Source: Developed by Drs. Luis Elias, Viviane Christie, Peng Irwin and colleagues, with an educational lindsey from [employer]. Thrive Questionnaire Date Thrive assessed: 12/27/23 I am a: Patient What is your living situation today?: I have a steady place to live Within the past 12 months, did the food you bought not last and you didn't have the money to get more?: Never true Within the past 12 months, did you worry whether your food would run out before you got money to buy more?: Never true Do you have trouble paying for medicines?: No Do you have trouble getting transportation to medical appointments?: No Do you have trouble paying your heating and electricity bill?: No Do you have trouble taking care of your child, family member or friend?: No Do you have trouble with day-to-day activities such as bathing, preparing meals, shopping, managing finances, etc.?: No Are you currently unemployed and looking for a job?: No Are you interested in more education?: No Please select the resources that you would like help with: None Currently or been in a relationship where the following occur: no concerns reported THRIVE Score: 0 AUDIT C Alcohol Use Questionnaire (AUDIT-C) 1. How often do you have a drink containing alcohol?: Never 3. How often do you have six or more drinks on one occasion?: Never Total Score: 0 REHAN-7 AMB Questionnaire REHAN-7 Date REHAN - 7 assessed: 12/27/23 Feeling nervous, anxious, or on edge: 0 = Not at all Not being able to stop or control worryin = Not at all Worrying too much about different things: 0 = Not at all Trouble relaxin = Not at all Being so restless that it is hard to sit still: 0 = Not at all Becoming easily annoyed or irritable: 0 = Not at all Feeling afraid as if something awful might happen: 0 = Not at all Total REHAN-7 score (0-4 normal; 5-9 mild; 10-14 moderate; 15-21 severe): 0 Source: Developed by Drs. Luis Elias, Viviane Christie, Peng Irwin and colleagues, with an educational lindsey from [employer]. REHAN-7 Assessment Billing REHAN-7 Assessment Tool: REHAN-7 Assessment 05855 Review of Systems Const Denies headache(s) Eyes Denies loss of vision ENT Denies vertigo, Denies dizziness, Denies headache(s) and Denies sore throat Card Denies chest pain, Denies leg edema and Denies lightheadedness Resp Denies cough, Denies hemoptysis and Denies wheezing GI Denies abdominal pain, Denies melena, Denies constipation, Denies diarrhea and Denies vomiting Denies urinary frequency, Denies dysuria and Denies urinary urgency Musc Denies arthralgias, Denies joint swelling, Denies numbness and Denies tingling Neuro Denies Abnormal speech present, Denies behavioral changes, Denies vertigo, Denies dizziness, Denies headache(s), Denies loss of vision, Denies memory loss, Denies numbness and Denies tingling Psych Denies anxiety, Denies behavioral changes, Denies depression, Denies memory loss and Denies panic attacks Kody/Lymph Denies easy bleeding and Denies easy bruising Aller/Immun Denies wheezing Physical exam (Primary Care) Vital Signs: Last Vital Signs Pulse 70 12/27/23 13:02 BP 132/72 12/27/23 13:02 Pulse Ox 96 12/27/23 13:02 Oxygen Delivery Method Room Air 12/27/23 13:02 BMI result Body Mass Index 33.9 BMI Assessment/Plan discussion: High Tobacco/Smoking Status: Tobacco use Status Tobacco use date assessed 12/27/23 12/27/23 13:13 Patient Tobacco Use Status Never used Tobacco 12/27/23 13:01 e-Cigarette/Vaping Use Never Used 12/27/23 13:01 PHQ-9: PHQ-9 Score PHQ-9: Total score 0 12/27/23 13:25 Depression Screening Interpretation: Negative Thrive Assessment: Date of Thrive Assessment Date Thrive assessed 12/27/23 12/27/23 13:25 Currently or been in a relationship where the following occur: no concerns reported Const Other: Obese General: healthy appearing, no acute distress, alert and awake Nutritional Appearance: well nourished Orientation/consciousness: oriented to person, oriented to place and oriented to time HENMT Ears: TM's normal bilaterally General nose exam: Normal nasal mucous membranes and turbinates present Eyes Conjunctivae: conjunctivae normal Sclerae: sclerae normal Pupils: Equal, round and reactive pupils present Neck Neck: Yes no lymphadenopathy and Yes no JVD Thyroid: Thyroid normal Carotids: no bruits Resp Effort & Inspection: normal respiratory effort and not tachypneic Auscultation: no crackles, no rales, no rhonchi and no wheezes Cardio Rate: regular rate Rhythm: regular rhythm Heart sounds: no murmurs and normal S1 and S2 GI Palpation (GI): Soft to palpation, nontender, no hepatomegaly and no splenomegaly Auscultation: normal bowel sounds Skin General skin exam: no rashes or lesions noted and dry skin Neuro General: oriented to person, oriented to place and oriented to time Cranial nerves: Yes Equal, round and reactive pupils present Speech: No Abnormal speech present Gait exam (Neuro): Normal gait present Motor exam (neuro): no tremor noted Extrem Right upper extremity: full ROM Left upper extremity: full ROM Right lower extremity: full ROM; no edema Left lower extremity: full ROM; no edema Psych Mental Status: mental status grossly normal Speech and movement: Normal speech and movement present Affect: normal affect Attitude: cooperative Thought process: Normal thought process present Assessment and Plan Assessment & Plan (1) Type 2 diabetes mellitus with hyperglycemia, without long-term current use of insulin: Code(s): E11.65 - Type 2 diabetes mellitus with hyperglycemia Plan: Patient followed by [facility]. She reports most of her care will be transferred back to PCP as her diabetes has been better controlled. Has been working on diabetic diet and has lost weight bear goal A1c is to be below 7.0 (2) CKD (chronic kidney disease): Comment: Stage 3 - Foll'd by Dr. Martin Brito- [facility] Code(s): N18.9 - Chronic kidney disease, unspecified Qualifiers: Chronic kidney disease stage: stage 3 (moderate) Chronic kidney disease stage 3 subtype: stage 3b (GFR 30-44) Qualified Code(s): N18.32 - Chronic kidney disease, stage 3b Plan: Patient followed by Nephrology. Will continue to avoid nephrotoxins. (3) HTN (hypertension): Code(s): I10 - Essential (primary) hypertension Qualifiers: Hypertension type: primary hypertension Qualified Code(s): I10 - Essential (primary) hypertension Plan: Patient's blood pressure acceptable today in office. Will continue her current dose of antihypertensive medication with goal blood pressure to remain below 140/90 (4) Hyperlipidemia LDL goal <100: Code(s): E78.5 - Hyperlipidemia, unspecified Plan: Will recheck lipid panel to ensure appropriate LDL below 100 per (5) Hypothyroidism: Code(s): E03.9 - Hypothyroidism, unspecified Qualifiers: Hypothyroidism type: acquired Qualified Code(s): E03.9 - Hypothyroidism, unspecified Plan: Patient was followed by Endocrinology, most recent TSH has been stable. Continues on levothyroxine 125 mcg. (6) CORNELIUS (obstructive sleep apnea): Comment: PATIENT HAS TYPICAL SYMPTOMS OF OBSTRUCTIVE SLEEP APNEA. Her current study on 08/01/2023, shows obstructive sleep apnea with total sleep time AHI 10.4, and significant clusters of sleep apnea during REM sleep. REM AHI is actually 97. She was started on CPAP therapy and she is using it very regularly. She is very happy claiming that she does not have any snoring and then sleeps very good. Code(s): G47.33 - Obstructive sleep apnea (adult) (pediatric) Plan: Patient followed by pulmonology (7) Depression: Code(s): F32.9 - Major depressive disorder, single episode, unspecified Qualifiers: Active/Remission status: currently active Depression Type: major depressive disorder Major depression episode severity: moderate Major depression recurrence: recurrent Qualified Code(s): F33.1 - Major depressive disorder, recurrent, moderate Plan: Patient does follow a psychiatrist is stable her current medication for her mental health. Coding Level of Care Code Est Pt Level 4 (94437) Diagnoses Type 2 diabetes mellitus with hyperglycemia, without long-term current use of insulin E11.65 Stage 3b chronic kidney disease N18.32 Chronic kidney disease stage: stage 3 (moderate) Chronic kidney disease stage 3 subtype: stage 3b (GFR 30-44) Primary hypertension I10 Hypertension type: primary hypertension Hyperlipidemia LDL goal <100 E78.5 Acquired hypothyroidism E03.9 Hypothyroidism type: acquired CORNELIUS (obstructive sleep apnea) G47.33 Moderate episode of recurrent major depressive disorder F33.1 Active/Remission status: currently active Depression Type: major depressive disorder Major depression episode severity: moderate Major depression recurrence: recurrent Additional Codes REHAN-7 Assessment Billing - REHAN-7 Assessment Tool: REHAN-7 Assessment 43964 ([id number])
[2023-12-27 13:02] VITALS: BP 132/72; PULSE 70; O2SAT 96; BMI 33.9
== END 2023-12-27 13:38 | disposition home or self-care (01) ==
PROVIDERS: PCP Physician Assistant; Visit Provider Physician Assistant
DX: E11.65 Type 2 diabetes mellitus with hyperglycemia (principal); I12.9 Hypertensive chronic kidney disease with stage 1 through stage 4 chronic kidney disease, or unspecified chronic kidney disease; N18.32 Chronic kidney disease, stage 3b; E78.5 Hyperlipidemia, unspecified; E03.9 Hypothyroidism, unspecified; G47.33 Obstructive sleep apnea (adult) (pediatric)
CPT/HCPCS: 99214

== ENCOUNTER 2024-01-22 10:40 | Outpatient (REF) | payer OTHER, SELFPAY ==
[2024-01-22 12:56] LABS: Alanine Aminotransferase 33 U/L (0-31); Albumin Level 4.4 g/dL (3.5-5.0); Alkaline Phosphatase 74 U/L (39-117); Anion Gap 15 (12-20); Aspartate Amino Transferase 25 U/L (5-31); Bilirubin Total 0.5 mg/dL (0.0-1.0); Blood Urea Nitrogen 17 mg/dL (9-16); Calcium 9.8 mg/dL (8.4-10.2); Carbon Dioxide 26 mmol/L (22-29); Chloride 105 mmol/L (96-108); Cholesterol 140 mg/dL (<200); Estimated Glomerular Filt Rate > 60; Glucose Fasting 97 mg/dL (60-99); HDL Cholesterol 41 mg/dL (>40); LDL Cholesterol Calculated 75 mg/dL (<100); Potassium 4.8 mmol/L (3.3-5.1); Sodium 141 mmol/L (135-145); Total Protein 8.3 g/dL (6.5-8.0); Triglycerides 123 mg/dL (<150)
[2024-01-22 13:23] LABS: Free T4 (Free Thyroxine) 1.51 ng/dL (0.71-1.85); Thyroid Stimulating Hormone < 0.01 uIU/mL (0.32-4.0); Vitamin D 25-OH Total 23.3 ng/mL (>30)
== END 2024-01-22 10:41 | disposition home or self-care (01) ==
LOC: HO.LAB 10:40
PROVIDERS: Absent Provider Internal Medicine Endocrinology, Diabetes & Metabolism; PCP Nurse Practitioner Family; Referring Provider Nurse Practitioner Family; Visit Provider Registered Nurse Diabetes Educator
DX: E11.65 Type 2 diabetes mellitus with hyperglycemia (principal); R79.89 Other specified abnormal findings of blood chemistry; E03.9 Hypothyroidism, unspecified; E78.5 Hyperlipidemia, unspecified
CPT/HCPCS: 36415; 80053; 80061; 82306; 84439; 84443; 99211

== ENCOUNTER 2024-01-22 10:40 | Outpatient (AMB) | payer OTHER, SELFPAY ==
--- NOTE | 2024-01-22 11:05 | MHC.AMDMED ---
Intake Intake Visit Reasons: DM-confirmed Digital Business Analyst Required: Yes Digital Business Analyst Language: Chemical Processing Laborer Name: Yohana [facility] [place] Information Interpreted: non-clinical & clinical Accompanied by: Self / Same As Patient Allergies No Known Allergies Allergy (Verified 12/27/23 13:13) HPI Comprehensive Diabetes Asmnt Most Recent Diabetes Results: Cholesterol 140 mg/dL (<200) 01/22/24 HDL Cholesterol 41 mg/dL (>40) 01/22/24 Triglycerides 123 mg/dL (<150) 01/22/24 Creatinine 0.83 mg/dL (0.5-1.4) 01/22/24 Blood Urea Nitrogen 17 mg/dL (9-16) H 01/22/24 Sodium 141 mmol/L (135-145) 01/22/24 Potassium 4.8 mmol/L (3.3-5.1) 01/22/24 Chloride 105 mmol/L (96-108) 01/22/24 Carbon Dioxide 26 mmol/L (22-29) 01/22/24 Calcium 9.8 mg/dL (8.4-10.2) 01/22/24 AST 25 U/L (5-31) 01/22/24 ALT 33 U/L (0-31) H 01/22/24 Total Protein 8.3 g/dL (6.5-8.0) H 01/22/24 Albumin 4.4 g/dL (3.5-5.0) 01/22/24 [facility] Medical History Chest pain Somnolence Sleep apnea Cervical high risk HPV (human papillomavirus) test positive Bleeding hemorrhoids Essential hypertension COVID-19 CKD (chronic kidney disease) HTN (hypertension) Diastolic dysfunction Rheumatic mitral stenosis Glaucoma Insomnia Rheumatic heart disease Depression Anxiety Hemorrhoids Hypothyroidism Hyperlipidemia LDL goal <100 Obesity (BMI 30-39.9) Type 2 diabetes mellitus with hyperglycemia, without long-term current use of insulin Surgical History History of hysteroscopy Hx of colonoscopy Hx of tubal ligation H/O hemorrhoidectomy History of section Family History Father Diabetes Mother Diabetes Stroke Maternal Aunt Stroke Hypertension Social History Household Members: Children Housing: Apartment Are you a primary animal care technician to a significant other at home: No Do you presently have visiting nurse or other home services: No Alcohol intake: current Alcohol intake frequency: does not drink Alcohol type: wine Patient Tobacco Use Status: Never used Tobacco e-Cigarette/Vaping Use: Never Used Second Hand Smoke Exposure: No service: No Current occupational status: unemployed Cognitive needs: No Hearing needs: No Vision needs: Yes Female Reproductive History Menstrual Age of Menarche: 9 Assessment & Plan Assessment & Plan (1) Type 2 diabetes mellitus with hyperglycemia, without long-term current use of insulin: Code(s): E11.65 - Type 2 diabetes mellitus with hyperglycemia Plan: Personal Continuous Glucose Monitor: Patients CGM information reviewed Reviewed patient's sensor data: Hypoglycemia: ? 2% Hyperglycemia:? 4% Time in Range:?94% Average glucose for the last 2 weeks 114? mg/dL Patient is having postprandial hypoglycemia, see reduction to Humalog doses in patient instructions Patient reports she treats hypoglycemia with orange juice She also carries gummy candies in her purse Patient reports that she exercises for approximately 30-45 minutes a day, she has been doing it every day Reviewed how to interpret trend arrows Reminded patient that to check finger sticks if symptoms do not match sensor reading. Discussed lag time between finger stick and sensor data.? Patient able to insert sensor independently at home without issue.? Patient will follow-up with Diabetes Education nurse in 1 month Patient Instructions: Humalo unidades de desayuno, 3 unidades de almuerzo si come carbohidratos y 10 unidades de terrell, +2 unidades para glicemia >200 subcutada 3 veces al d?a Coding Level of Care Code Est Pt Level 1 (46026) Diagnoses Type 2 diabetes mellitus with hyperglycemia, without long-term current use of insulin E11.65
== END 2024-01-22 11:07 | disposition home or self-care (01) ==
PROVIDERS: PCP Nurse Practitioner Family; Visit Provider Registered Nurse Diabetes Educator
DX: E11.65 Type 2 diabetes mellitus with hyperglycemia (principal)

== ENCOUNTER 2024-01-29 10:57 | Outpatient (AMB) | payer OTHER, SELFPAY ==
--- NOTE | 2024-01-29 10:59 | A.OFFPC_ITS ---
Vital Signs 01/29/24 11:06 Height 5 ft 9 in Weight 214 lb 8 oz BMI 31.7 BP 124/72 Blood Pressure Location Lt brachial Position Sitting Respiration 16 Pulse 63 Pulse Source Pulse Oximeter Pulse Oximetry (%) 97 Oxygen Delivery Method Room Air Intake Visit Reasons: Trans. from [facility].-Medication F/U Operator Prefinish Required: Yes Operator Prefinish Language: Chilean Accompanied by: Self / Same As Patient Allergies No Known Allergies Allergy (Verified 01/29/24 11:49) Medication List - Last Reconciled 01/29/24 by Bismark Benitez PA-C albuterol sulfate 90 mcg/actuation (Ventolin HFA) 1 puff PO QID PRN albuterol sulfate 2.5 mg (3 mL) inhalation Q4-6H PRN bisacodyl (Dulcolax (bisacodyl)) 10 mg (2 x 5 mg) PO BEDTIME blood sugar diagnostic (FreeStyle Precision Emanuel Strips) As directed once daily blood sugar diagnostic (FreeStyle Precision Emanuel Strips) 1 strip miscellaneous QID cholecalciferol (vitamin D3) 50 mcg PO DAILY citalopram 40 mg PO DAILY 90 days diclofenac sodium 1% (Voltaren Arthritis Pain) 4 grams topical QID PRN docusate sodium (Colace) 100 mg PO BID duloxetine 60 mg PO DAILY ezetimibe (Zetia) 10 mg PO DAILY flash glucose scanning reader (FreeStyle Sera 2 [place]) As directed flash glucose sensor (FreeStyle Sera 2 Sensor kit) As directed change every 14 days hydrochlorothiazide 25 mg PO DAILY hydroxyzine HCl 25 mg PO BID PRN ibuprofen 600 mg PO Q6H PRN insulin degludec (Tresiba FlexTouch U-200 insulin) 56 units (0.28 mL) subcut BEDTIME 30 days insulin lispro (Humalog KwikPen (U-100) Insulin) 18 units breakfast, 14 units lunch and 22 units dinner, +2units for bg >200 subcut 3x per day. 30 days levothyroxine 75 mcg PO DAILY 30 days levothyroxine 112 mcg PO DAILY lisinopril 10 mg PO DAILY 90 days mirtazapine 30 mg PO BEDTIME miscellaneous medical supply 1 ea miscellaneous DAILY pen needle, diabetic As directed pen needle, diabetic (BD Ultra-Fine Ramya Pen Needle) As directed four times a day perphenazine 4 mg PO BID polyethylene glycol 3350 (Miralax) 17 grams PO DAILY prednisone 40 mg (2 x 20 mg) PO DAILY 5 days rosuvastatin 40 mg PO DAILY sumatriptan succinate take 1 tab at onset of headache; if no relief may repeat 1 tab after at least 2 hrs; max = 4 tabs/24 hr PO tirzepatide (Mounjaro) 2.5 mg (0.5 mL) subcut QWEEK 4 weeks tizanidine 2 mg PO BEDTIME PRN trazodone 200 mg PO BEDTIME PRN Tobacco use date assessed: 12/27/23 [facility] HPI Details Patient is a 53-year-old here today a follow up visit. This is the 2nd time I am meeting this 53-year-old female Has multiple medical problems including diabetes, hypertension, obstructive sleep apnea, obesity and generalized anxiety disorder CORNELIUS: followed by pulmonology . Continues to use CPAP machine on nightly basis with good effect on her sleep. .. DM: She is followed by Endocrine, has lost a significant amount of weight since last office visit due to better eating habits. She continues on a strict diabetic diet. Has lost even more weight since last office visit . Trulicity has been a problem for her to get at the pharmacy and Endocrinology doing prior authorization for alternative. .. Hypothyroidism: Noted TSH to be very low and most recent labs. Her levothyroxine dose has been reduced to 112 mcg. Endocrinology will be rechecking TSH. .. Mitral valve stenosis: followed by a production finisher , no overt signs of Congestive heart failure. .. REHAN: Sees a psychiatrist who manages her mental health medications. She feels stable from a mental health point of view. Laboratory Tests 01/22/24 11:26 Creatinine 0.83 25-OH Vitamin D To carlos manuel 23.3 L TSH < 0.01 L [facility] Medical History Chest pain Somnolence Sleep apnea Cervical high risk HPV (human papillomavirus) test positive Bleeding hemorrhoids Essential hypertension COVID-19 CKD (chronic kidney disease) HTN (hypertension) Diastolic dysfunction Rheumatic mitral stenosis Glaucoma Insomnia Rheumatic heart disease Depression Anxiety Hemorrhoids Hypothyroidism Hyperlipidemia LDL goal <100 Obesity (BMI 30-39.9) Type 2 diabetes mellitus with hyperglycemia, without long-term current use of insulin Surgical History History of hysteroscopy Hx of colonoscopy Hx of tubal ligation H/O hemorrhoidectomy History of section Family History Father Diabetes Mother Diabetes Stroke Maternal Aunt Stroke Hypertension Social History Household Members: Children Housing: Apartment Are you a primary reproductive healthcare assistant to a significant other at home: No Do you presently have visiting nurse or other home services: No Alcohol intake: current Alcohol intake frequency: does not drink Alcohol type: wine Patient Tobacco Use Status: Never used Tobacco e-Cigarette/Vaping Use: Never Used Second Hand Smoke Exposure: No service: No Current occupational status: unemployed Cognitive needs: No Hearing needs: No Vision needs: Yes Female Reproductive History Menstrual Age of Menarche: 9 Questionnaire Thrive Questionnaire Date Thrive assessed: 12/27/23 REHAN-7 AMB Questionnaire REHAN-7 Date REHAN - 7 assessed: 12/27/23 Source: Developed by Drs. Luis Elias, Viviane Christie, Peng Irwin and colleagues, with an educational lindsey from [employer]. ACT Questionnaire In the past 4 weeks, how much of the time did your asthma keep you from getting as much done at work, school or at home?: None of the time During the past 4 weeks, how often have you had shortness of breath?: Not at all During the past 4 weeks, how often did your asthma symptoms wake you up at night or earlier than usual in the morning?: Not at all During the past 4 weeks, how often have you had to use your rescue inhaler or nebulizer medication?: Not at all How would you rate your asthma control during the past 4 weeks?: Completely controlled ACT Interpretation: Negative Score: 25 Review of Systems Const Denies headache(s) Eyes Denies loss of vision ENT Denies vertigo, Denies dizziness, Denies headache(s) and Denies sore throat Card Denies chest pain, Denies leg edema and Denies lightheadedness Resp Denies cough, Denies hemoptysis and Denies wheezing GI Denies abdominal pain, Denies melena, Denies constipation, Denies diarrhea and Denies vomiting Denies urinary frequency, Denies dysuria and Denies urinary urgency Musc Denies arthralgias, Denies joint swelling, Denies numbness and Denies tingling Neuro Denies Abnormal speech present, Denies behavioral changes, Denies vertigo, Denies dizziness, Denies headache(s), Denies loss of vision, Denies memory loss, Denies numbness and Denies tingling Psych Denies anxiety, Denies behavioral changes, Denies depression, Denies memory loss and Denies panic attacks Kody/Lymph Denies easy bleeding and Denies easy bruising Aller/Immun Denies wheezing Physical exam (Primary Care) Vital Signs: Last Vital Signs Pulse 63 01/29/24 11:06 Resp 16 01/29/24 11:06 BP 124/72 01/29/24 11:06 Pulse Ox 97 01/29/24 11:06 Oxygen Delivery Method Room Air 01/29/24 11:06 BMI result Body Mass Index 31.7 BMI Assessment/Plan discussion: High Tobacco/Smoking Status: Tobacco use Status Tobacco use date assessed 12/27/23 01/29/24 10:59 Patient Tobacco Use Status Never used Tobacco 01/29/24 10:59 e-Cigarette/Vaping Use Never Used 01/29/24 10:59 Thrive Assessment: Date of Thrive Assessment Date Thrive assessed 12/27/23 01/29/24 10:59 Const Other: OBESE General: healthy appearing, no acute distress, alert and awake Nutritional Appearance: well nourished Orientation/consciousness: oriented to person, oriented to place and oriented to time HENTN Ears: TM's normal bilaterally General nose exam: Normal nasal mucous membranes and turbinates present Eyes Conjunctivae: conjunctivae normal Sclerae: sclerae normal Pupils: Equal, round and reactive pupils present Neck Neck: Yes no lymphadenopathy and Yes no JVD Thyroid: Thyroid normal Carotids: no bruits Resp Effort & Inspection: normal respiratory effort and not tachypneic Auscultation: no crackles, no rales, no rhonchi and no wheezes Cardio Rate: regular rate Rhythm: regular rhythm Heart sounds: no murmurs and normal S1 and S2 GI Palpation (GI): Soft to palpation, nontender, no hepatomegaly and no splenomegaly Auscultation: normal bowel sounds Skin General skin exam: no rashes or lesions noted and dry skin Neuro General: oriented to person, oriented to place and oriented to time Cranial nerves: Yes Equal, round and reactive pupils present Speech: No Abnormal speech present Gait exam (Neuro): Normal gait present Motor exam (neuro): no tremor noted Extrem Right upper extremity: full ROM Left upper extremity: full ROM Right lower extremity: full ROM; no edema Left lower extremity: full ROM; no edema Psych Mental Status: mental status grossly normal Speech and movement: Normal speech and movement present Affect: normal affect Attitude: cooperative Thought process: Normal thought process present Assessment and Plan Assessment & Plan (1) Type 2 diabetes mellitus with hyperglycemia, without long-term current use of insulin: Code(s): E11.65 - Type 2 diabetes mellitus with hyperglycemia Plan: Patient followed by [facility]. She reports most of her care will be transferred back to PCP as her diabetes has been better controlled. Has been working on diabetic diet and has lost weight bear goal A1c is to be below 7.0 She reports Trulicity has been on back order an alternative has yet be approved. She is noticed significant weight loss since being on a strict diet. (2) CKD (chronic kidney disease): Comment: Stage 3 - Foll'd by Dr. Martin Brito- [facility] Code(s): N18.9 - Chronic kidney disease, unspecified Qualifiers: Chronic kidney disease stage: stage 3 (moderate) Chronic kidney disease stage 3 subtype: stage 3b (GFR 30-44) Qualified Code(s): N18.32 - Chronic kidney disease, stage 3b Plan: Most recent renal function normal.. Patient followed by Nephrology. Will continue to avoid nephrotoxins. (3) HTN (hypertension): Code(s): I10 - Essential (primary) hypertension Qualifiers: Hypertension type: primary hypertension Qualified Code(s): I10 - Essential (primary) hypertension Plan: Patient's blood pressure acceptable today in office. Will continue her current dose of antihypertensive medication with goal blood pressure to remain below 140/90 (4) Hyperlipidemia LDL goal <100: Code(s): E78.5 - Hyperlipidemia, unspecified Plan: Will recheck lipid panel to ensure appropriate LDL below 100 . (5) Hypothyroidism: Code(s): E03.9 - Hypothyroidism, unspecified Qualifiers: Hypothyroidism type: acquired Qualified Code(s): E03.9 - Hypothyroidism, unspecified Plan: Patient was followed by Endocrinology, most recent TSH has been stable. Most recent TSH low. Her levothyroxine was reduced to 112 mcg. TSH will be rechecked by her director emergency. (6) Asthma: Comment: IT IS ONLY MILD AND FLARES UP WHENEVER SHE HAS NASAL CONGESTION OR UPPER RESPIRATORY .INFECTION USUALLY ABOUT ONCE A YEAR . ADVISED TO CONTINUE USING ALBUTEROL 2 PUFFS Q. 4-6 HOURS ONLY P.R.N. * PULMONARY FUNCTION TEST IS C/W MILD RESTRICTIVE PATTERN, AND NO SIGNIFICANT OBSTRUCTIVE DISORDER. SHE COULD STILL HAVE A MILD BRONCHIAL ASTHMA. Code(s): J45.909 - Unspecified asthma, uncomplicated Qualifiers: Asthma complication type: unspecified Asthma persistence: intermittent Asthma severity: mild Qualified Code(s): J45.20 - Mild intermittent asthma, uncomplicated Plan: Patient reports her asthma is fairly well controlled. She would like refill on her albuterol inhaler as in the spring her asthma does tend to exacerbate. Medications: Changed From albuterol sulfate 90 mcg/actuation (Ventolin HFA) 1 puff PO QID PRN 18 ea 2RF for wheezing J20.9 - Acute bronchitis, unspecified, J40 - Bronchitis, not s pecified as acute or chronic To albuterol sulfate 90 mcg/actuation (Ventolin HFA) 1 puff PO QID 30 days PRN 18 ea 3RF for wheezing J20.9 - Acute bronchitis, unspecified, J40 - Bronchitis, not specified as acute or chronic Refilled albuterol sulfate 2.5 mg (3 mL) inhalation Q4-6H PRN 75 mL 3RF shortness of breath or wheezing Coding Level of Care Code Est Pt Level 4 (16996) Diagnoses Type 2 diabetes mellitus with hyperglycemia, without long-term current use of insulin E11.65 Stage 3b chronic kidney disease N18.32 Chronic kidney disease stage: stage 3 (moderate) Chronic kidney disease stage 3 subtype: stage 3b (GFR 30-44) Primary hypertension I10 Hypertension type: primary hypertension Hyperlipidemia LDL goal <100 E78.5 Acquired hypothyroidism E03.9 Hypothyroidism type: acquired Mild intermittent asthma, unspecified whether complicated J45.20 Asthma complication type: unspecified Asthma persistence: intermittent Asthma severity: mild
[2024-01-29 11:06] VITALS: BP 124/72; PULSE 63; RESP 16; O2SAT 97; BMI 31.7
== END 2024-01-29 11:59 | disposition home or self-care (01) ==
PROVIDERS: PCP Nurse Practitioner Family; Visit Provider Physician Assistant
DX: E11.65 Type 2 diabetes mellitus with hyperglycemia (principal); I12.9 Hypertensive chronic kidney disease with stage 1 through stage 4 chronic kidney disease, or unspecified chronic kidney disease; N18.32 Chronic kidney disease, stage 3b; E78.5 Hyperlipidemia, unspecified; E03.9 Hypothyroidism, unspecified; J45.20 Mild intermittent asthma, uncomplicated
CPT/HCPCS: 99214

== ENCOUNTER 2024-02-20 08:59 | Outpatient (AMB) | payer OTHER, SELFPAY ==
--- NOTE | 2024-02-20 09:25 | MHC.AMDMED ---
Intake Intake Visit Reasons: 30 min/CONFIRMED Customer Business Manager Required: Yes Customer Business Manager Language: Cardiothoracic Icu Rn Name: [facility] Information Interpreted: non-clinical & clinical Accompanied by: Self / Same As Patient Allergies No Known Allergies Allergy (Verified 01/29/24 11:49) HPI Comprehensive Diabetes Asmnt Most Recent Diabetes Results: Hemoglobin A1c 8.3 % 05/25/20 Microalb/Creat Ratio 9.3 ug/mg cr 05/16/23 Cholesterol 140 mg/dL (<200) 01/22/24 HDL Cholesterol 41 mg/dL (>40) 01/22/24 Triglycerides 123 mg/dL (<150) 01/22/24 Creatinine 0.83 mg/dL (0.5-1.4) 01/22/24 Blood Urea Nitrogen 17 mg/dL (9-16) H 01/22/24 Sodium 141 mmol/L (135-145) 01/22/24 Potassium 4.8 mmol/L (3.3-5.1) 01/22/24 Chloride 105 mmol/L (96-108) 01/22/24 Carbon Dioxide 26 mmol/L (22-29) 01/22/24 Calcium 9.8 mg/dL (8.4-10.2) 01/22/24 AST 25 U/L (5-31) 01/22/24 ALT 33 U/L (0-31) H 01/22/24 Total Protein 8.3 g/dL (6.5-8.0) H 01/22/24 Albumin 4.4 g/dL (3.5-5.0) 01/22/24 PFSH Medical History Chest pain Somnolence Sleep apnea Cervical high risk HPV (human papillomavirus) test positive Bleeding hemorrhoids Essential hypertension COVID-19 CKD (chronic kidney disease) HTN (hypertension) Diastolic dysfunction Rheumatic mitral stenosis Glaucoma Insomnia Rheumatic heart disease Depression Anxiety Hemorrhoids Hypothyroidism Hyperlipidemia LDL goal <100 Obesity (BMI 30-39.9) Type 2 diabetes mellitus with hyperglycemia, without long-term current use of insulin Surgical History History of hysteroscopy Hx of colonoscopy Hx of tubal ligation H/O hemorrhoidectomy History of section Family History Father Diabetes Mother Diabetes Stroke Maternal Aunt Stroke Hypertension Social History Household Members: Children Housing: Apartment Are you a primary customer care professional to a significant other at home: No Do you presently have visiting nurse or other home services: No Alcohol intake: current Alcohol intake frequency: does not drink Alcohol type: wine Patient Tobacco Use Status: Never used Tobacco e-Cigarette/Vaping Use: Never Used Second Hand Smoke Exposure: No service: No Current occupational status: unemployed Cognitive needs: No Hearing needs: No Vision needs: Yes Female Reproductive History Menstrual Age of Menarche: 9 Assessment & Plan Assessment & Plan (1) Type 2 diabetes mellitus with hyperglycemia, without long-term current use of insulin: Code(s): E11.65 - Type 2 diabetes mellitus with hyperglycemia Plan: Personal Continuous Glucose Monitor: Patients CGM information reviewed Reviewed patient's sensor data: Hypoglycemia: ? 2% Hyperglycemia:? 3% Time in Range:? 95% Average glucose for the last 2 weeks?117 mg/dL Patient has lost approximately 40 lb since September 2023 She is no longer taking Tresiba 56 units daily She continues to take Humalog 5 units before breakfast, 10 units before supper, however she has some having some postprandial hypoglycemia in the evenings Recommended to patient she reduce Humalog 10 units to 5 units before supper Reviewed with patient how to treat hypoglycemia with rule of 15s, patient reports she treats hypoglycemia with 4 oz of orange juice, or skittles Reviewed how to interpret trend arrows Reminded patient that to check finger sticks if symptoms do not match sensor reading. Discussed lag time between finger stick and sensor data.? Patient able to insert sensor independently at home without issue.? Medications: Discontinued tirzepatide (Mounjaro) Discontinued Reason: Doctor's Order 2.5 mg (0.5 mL) subcut QWEEK 4 weeks 2 mL 4RF Patient Instructions: Redo reduce Humalog 10 units before supper to Humalog 5 units, Follow-up with Diabetes Education nurse 1 month Coding Level of Care Code Est Pt Level 1 (10841) Diagnoses Type 2 diabetes mellitus with hyperglycemia, without long-term current use of insulin E11.65
== END 2024-02-20 09:30 | disposition home or self-care (01) ==
PROVIDERS: PCP Nurse Practitioner Family; Visit Provider Registered Nurse Diabetes Educator
DX: E11.65 Type 2 diabetes mellitus with hyperglycemia (principal)

== ENCOUNTER → 2024-02-20 08:59 | Outpatient (BNVA) | payer OTHER, SELFPAY | PROVIDERS: PCP Nurse Practitioner Family; Visit Provider Registered Nurse Diabetes Educator | DX: E11.65 Type 2 diabetes mellitus with hyperglycemia (principal) | CPT/HCPCS: 99211 ==

== ENCOUNTER 2024-02-21 09:58 | Outpatient (AMB) | payer OTHER, SELFPAY ==
[2024-02-21 10:31] VITALS: BP 114/70; PULSE 66; O2SAT 99; BMI 30.4
--- NOTE | 2024-02-21 10:31 | MHC.OFFVIS ---
Intake Vital Signs 02/21/24 10:31 Height 5 ft 9 in Weight 206 lb 2.115 oz BMI 30.4 BP 114/70 Blood Pressure Location Lt brachial Position Sitting Pulse 66 Pulse Source Pulse Oximeter Pulse Oximetry (%) 99 Oxygen Delivery Method Room Air Intake Visit Reasons: cornelius Intake Note: pt is here for follow up of CORNELIUS and asthma, she has lost over 30 lbs on her diet but has been having a lot of flare up of asthma which is causing her short of breath climbing stairs. She is asking for some type of test to check her lungs because they have been hurting her. pt states she is using the cpap, loosing weight has helped. she states albuterol is not helping with pump. Entry Level Software Engineer Required: Yes Entry Level Software Engineer Name: [id number] Allergies No Known Allergies Allergy (Verified 02/21/24 10:55) Medication List - Last Reconciled 02/21/24 by Daniel Ortega MD albuterol sulfate 90 mcg/actuation (Ventolin HFA) 1 puff PO QID PRN 30 days albuterol sulfate 2.5 mg (3 mL) inhalation Q4-6H PRN bisacodyl (Dulcolax (bisacodyl)) 10 mg (2 x 5 mg) PO BEDTIME blood sugar diagnostic (FreeStyle Precision Emanuel Strips) As directed once daily blood sugar diagnostic (FreeStyle Precision Emanuel Strips) 1 strip miscellaneous QID cholecalciferol (vitamin D3) 50 mcg PO DAILY citalopram 40 mg PO DAILY 90 days diclofenac sodium 1% (Voltaren Arthritis Pain) 4 grams topical QID PRN docusate sodium (Colace) 100 mg PO BID duloxetine 60 mg PO DAILY ezetimibe (Zetia) 10 mg PO DAILY flash glucose scanning reader (FreeStyle Sera 2 [place]) As directed flash glucose sensor (FreeStyle Sera 2 Sensor kit) As directed change every 14 days hydrochlorothiazide 25 mg PO DAILY hydroxyzine HCl 25 mg PO BID PRN ibuprofen 600 mg PO Q6H PRN insulin degludec (Tresiba FlexTouch U-200 insulin) 56 units (0.28 mL) subcut BEDTIME 30 days insulin lispro (Humalog KwikPen (U-100) Insulin) 18 units breakfast, 14 units lunch and 22 units dinner, +2units for bg >200 subcut 3x per day. 30 days levothyroxine 75 mcg PO DAILY 30 days levothyroxine 112 mcg PO DAILY lisinopril 10 mg PO DAILY 90 days mirtazapine 30 mg PO BEDTIME miscellaneous medical supply 1 ea miscellaneous DAILY pen needle, diabetic As directed pen needle, diabetic (BD Ultra-Fine Ramya Pen Needle) As directed four times a day perphenazine 4 mg PO BID polyethylene glycol 3350 (Miralax) 17 grams PO DAILY rosuvastatin 40 mg PO DAILY sumatriptan succinate take 1 tab at onset of headache; if no relief may repeat 1 tab after at least 2 hrs; max = 4 tabs/24 hr PO tirzepatide (Mounjaro) 5 mg (0.5 mL) subcut QWEEK tizanidine 2 mg PO BEDTIME PRN trazodone 200 mg PO BEDTIME PRN Do you need a note to return to daycare/school/sports/work: No HPI cornelius HPI Details This 53 years old female is here today for follow-up of bronchial asthma and CORNELIUS. She has lost significant amount of weight. Since last visit 4 months ago Her main complaint is nasal congestion with frequent bouts of cough and wheezing, more so when she uses the CPAP at night. So she has not been able to keep the CPAP mask on for more than 1 or 2 hours. Respiratory symptoms are every day, mostly when she is in the house. She has discomfort over the right lower chest , and thinks it is from the lungs. She is using albuterol by the nebulizer a few times every day, and also uses albuterol inhaler if needed when she goes outdoors. [facility] Medical History Chest pain Somnolence Sleep apnea Cervical high risk HPV (human papillomavirus) test positive Bleeding hemorrhoids Essential hypertension COVID-19 CKD (chronic kidney disease) HTN (hypertension) Diastolic dysfunction Rheumatic mitral stenosis Glaucoma Insomnia Rheumatic heart disease Depression Anxiety Hemorrhoids Hypothyroidism Hyperlipidemia LDL goal <100 Obesity (BMI 30-39.9) Type 2 diabetes mellitus with hyperglycemia, without long-term current use of insulin Surgical History History of hysteroscopy Hx of colonoscopy Hx of tubal ligation H/O hemorrhoidectomy History of section Family History Father Diabetes Mother Diabetes Stroke Maternal Aunt Stroke Hypertension Social History Household Members: Children Housing: Apartment Are you a primary district manager primary care sales to a significant other at home: No Do you presently have visiting nurse or other home services: No Alcohol intake: current Alcohol intake frequency: does not drink Alcohol type: wine Patient Tobacco Use Status: Never used Tobacco e-Cigarette/Vaping Use: Never Used Second Hand Smoke Exposure: No service: No Current occupational status: unemployed Cognitive needs: No Hearing needs: No Vision needs: Yes Female Reproductive History Menstrual Age of Menarche: 9 Review of Systems Const All systems reviewed & are unremarkable except as noted in HPI and below Reports fatigue Eyes Reports no additional complaints ENT Reports nasal congestion (MILD OFF AND ON ) Card Denies irregular heart rhythm and Denies leg edema Resp Reports as per HPI GI Reports constipation Reports no additional complaints Musc Reports back pain and Reports myalgias Skin/Breast Reports system reviewed and no additional complaints, except as documented Neuro Reports no additional complaints Psych Reports anxiety and Reports depression Endo Reports fatigue and Reports other ( DIABETES MELLITUS, HYPOTHYROIDISM) Kody/Lymph Reports no additional complaints Aller/Immun Reports seasonal rhinorrhea Physical Exam Vital Signs: Last Vital Signs Pulse 66 02/21/24 10:31 BP 114/70 02/21/24 10:31 Pulse Ox 99 02/21/24 10:31 Oxygen Delivery Method Room Air 02/21/24 10:31 BMI result Body Mass Index 30.4 Const General: comfortable, no acute distress, alert and awake Orientation/consciousness: patient oriented x3 HEENT Head: Yes normal to inspection General nose exam: No nasal polyps present, No nasal discharge present and Other nasal findings present (MILD NASAL CONGESTION ) Face and sinus: Yes sinuses nontender Mouth: oropharynx normal Throat: Yes posterior oropharynx normal Eyes General: appearance normal, both eyes and all related structures Neck Neck: Yes normal visual inspection, Yes no lymphadenopathy, Yes trachea midline, Yes no JVD and Yes other ( NECK SIZE 16 IN) Thyroid: Thyroid normal Chest Chest palpation & inspection: normal inspection of the chest, normal palpation of entire chest wall and tenderness (There is some muscular tenderness over Rt thoracic area on the back ) Resp Effort & Inspection: normal respiratory effort Auscultation: no crackles, no wheezes, No rub present and other ( BREATH SOUNDS ARE DECREASED OVER THE BASILAR AREAS) Cardio Palpation: normal PMI Rate: regular rate Rhythm: regular rhythm Heart sounds: no gallops and no murmurs Peripheral pulses: Peripheral pulses 2+ throughout GI Palpation (GI): Soft to palpation, nontender, No hepatosplenomegaly present and no masses Auscultation: normal bowel sounds Back/Spine/Pelvis Thoracic/Lumbar Spine: thoracic and lumbar spine normal to inspection and thoraco-lumbar ROM limited Skin General skin exam: no rashes or lesions noted Neuro General: patient oriented x3 and no focal motor deficits Cranial nerves: Yes CN's II-XII intact bilaterally Extrem General: Yes normal to inspection, Yes no clubbing, cyanosis or edema and Yes no calf tenderness Psych Appearance: grossly normal and well kempt Speech and movement: Normal speech and movement present Results Reviewed Results Reviewed: Compliance report for the CPAP is reviewed. She has used / nights but only for about 1 hour and 30 minutes. Pressure used is mostly 7-8 cm, No significant air leak, residual AHI 3.0 Assessment & Plan Assessment & Plan (1) Chest pain: Comment: HAS DISCOMFORT OVER THE RIGHT THORACIC AREA, POSTERIORLY, THIS SEEMS TO BE MUSCULAR PAIN/ MAY BE SECONDARY TO INTERCOSTAL MUSCULAR STRAIN. Code(s): R07.9 - Chest pain, unspecified Plan: ADVISED TO USE WARM PACKS 3 TIMES A DAY, AND TYLENOL 2 TABLETS Q.6 HOURS P.R.N.. (2) Asthma: Comment: IT IS ONLY MILD AND FLARES UP WHENEVER SHE HAS NASAL CONGESTION OR UPPER RESPIRATORY INFECTION USUALLY ABOUT ONCE OR TWICE A YEAR . ADVISED TO CONTINUE USING ALBUTEROL 2 PUFFS Q. 4-6 HOURS ONLY P.R.N. * PULMONARY FUNCTION TEST IN JUL 2023 WAS C/W MILD RESTRICTIVE PATTERN, AND NO SIGNIFICANT OBSTRUCTIVE DISORDER. BR . ASTHMA ,STILL CANNOT BE R/O Code(s): J45.909 - Unspecified asthma, uncomplicated Qualifiers: Asthma complication type: unspecified Asthma persistence: intermittent Asthma severity: mild Qualified Code(s): J45.20 - Mild intermittent asthma, uncomplicated Plan: I will add a long-acting BD, with ICS ( Advair 250-51 inhalation b.i.d.) Continue using albuterol with the nebulizer Q 4-6 hours but only if she having cough or wheezing. (3) CORNELIUS (obstructive sleep apnea): Comment: PATIENT HAS TYPICAL SYMPTOMS OF OBSTRUCTIVE SLEEP APNEA. Her current study on 08/01/2023, shows obstructive sleep apnea with total sleep time AHI 10.4, and significant clusters of sleep apnea during REM sleep. REM AHI is actually 97. She was started on CPAP therapy and she is using it very regularly. Code(s): G47.33 - Obstructive sleep apnea (adult) (pediatric) Plan: She has lost significant weight. But would still continue using the CPAP, advised to use it for at least 4 hours every night Medications: New fluticasone propion-salmeterol 250-50 mcg/dose (Advair Diskus) 1 inh inhalation BID 30 days 60 ea 4RF ASTHMA Coding Level of Care Code Est Pt Level 3 (65676) Diagnoses Chest pain R07.9 Mild intermittent asthma, unspecified whether complicated J45.20 Asthma complication type: unspecified Asthma persistence: intermittent Asthma severity: mild CORNELIUS (obstructive sleep apnea) G47.33
== END 2024-02-21 10:56 | disposition home or self-care (01) ==
PROVIDERS: PCP Nurse Practitioner Family; Visit Provider Internal Medicine
DX: R07.9 Chest pain, unspecified (principal); J45.20 Mild intermittent asthma, uncomplicated; G47.33 Obstructive sleep apnea (adult) (pediatric)
CPT/HCPCS: 99213

== ENCOUNTER → 2024-02-21 09:58 | Outpatient (BNVA) | payer OTHER, SELFPAY | PROVIDERS: PCP Nurse Practitioner Family; Visit Provider Internal Medicine | DX: J45.20 Mild intermittent asthma, uncomplicated (principal); G47.33 Obstructive sleep apnea (adult) (pediatric); R07.9 Chest pain, unspecified | CPT/HCPCS: 99212 ==

== ENCOUNTER 2024-02-22 07:54 | Outpatient (REF) | payer OTHER, SELFPAY ==
[2024-02-22 09:39] VITALS: PULSE 107; RESP 16; O2SAT 98
--- NOTE | 2024-02-22 11:01 | PFT_ITS ---
Flows: FEV1: 92 % of predicted at 2.88 L FVC: 85 % of predicted at 3.38 L FEV1/FVC: 85 % Bronchodilator response: Absent Volumes: Total lung capacity: 79 % of predicted at 4.81 L Residual volume: 71 % of predicted at 1.33 L Slow vital capacity: 82 % of predicted at 3.48 L Expiratory reserve volume: 109 % of predicted at 1.30 L Diffusion capacity: Normal Impression: Mild restrictive ventilatory defect with no bronchodilator response. MTDD
== END 2024-02-22 07:55 | disposition home or self-care (01) ==
LOC: HO.RESP 07:54
PROVIDERS: PCP Nurse Practitioner Family; Visit Provider Internal Medicine
DX: J45.20 Mild intermittent asthma, uncomplicated (principal)
CPT/HCPCS: 94010; 94640; 94727; 94729

== ENCOUNTER → 2024-02-22 11:01 | Outpatient (BNV) | payer OTHER, SELFPAY | PROVIDERS: PCP Nurse Practitioner Family; Visit Provider Internal Medicine Pulmonary Disease | DX: J45.20 Mild intermittent asthma, uncomplicated (principal) | CPT/HCPCS: 94060; 94727; 94729 ==

== ENCOUNTER 2024-04-03 09:45 | Outpatient (AMB) | payer OTHER, SELFPAY ==
--- NOTE | 2024-04-03 10:14 | A.OFFVIS_ITS ---
Intake Intake Visit Reasons: DM/CONFIRMED Canvas Marker Required: Yes Canvas Marker Language: Work Order Sorting Clerk Name: [facility] [place] Information Interpreted: non-clinical & clinical Allergies No Known Allergies Allergy (Verified 02/21/24 10:55) HPI Comprehensive Diabetes Asmnt Most Recent Diabetes Results: Hemoglobin A1c 8.3 % 05/25/20 Microalb/Creat Ratio 9.3 ug/mg cr 05/16/23 Cholesterol 140 mg/dL (<200) 01/22/24 HDL Cholesterol 41 mg/dL (>40) 01/22/24 Triglycerides 123 mg/dL (<150) 01/22/24 Creatinine 0.83 mg/dL (0.5-1.4) 01/22/24 Blood Urea Nitrogen 17 mg/dL (9-16) H 01/22/24 Sodium 141 mmol/L (135-145) 01/22/24 Potassium 4.8 mmol/L (3.3-5.1) 01/22/24 Chloride 105 mmol/L (96-108) 01/22/24 Carbon Dioxide 26 mmol/L (22-29) 01/22/24 Calcium 9.8 mg/dL (8.4-10.2) 01/22/24 AST 25 U/L (5-31) 01/22/24 ALT 33 U/L (0-31) H 01/22/24 Total Protein 8.3 g/dL (6.5-8.0) H 01/22/24 Albumin 4.4 g/dL (3.5-5.0) 01/22/24 PFSH Medical History Chest pain Somnolence Sleep apnea Cervical high risk HPV (human papillomavirus) test positive Bleeding hemorrhoids Essential hypertension COVID-19 CKD (chronic kidney disease) HTN (hypertension) Diastolic dysfunction Rheumatic mitral stenosis Glaucoma Insomnia Rheumatic heart disease Depression Anxiety Hemorrhoids Hypothyroidism Hyperlipidemia LDL goal <100 Obesity (BMI 30-39.9) Type 2 diabetes mellitus with hyperglycemia, without long-term current use of insulin Surgical History History of hysteroscopy Hx of colonoscopy Hx of tubal ligation H/O hemorrhoidectomy History of section Family History Father Diabetes Mother Diabetes Stroke Maternal Aunt Stroke Hypertension Social History Household Members: Children Housing: Apartment Are you a primary acute care nurse practitioner to a significant other at home: No Do you presently have visiting nurse or other home services: No Alcohol intake: current Alcohol intake frequency: does not drink Alcohol type: wine Patient Tobacco Use Status: Never used Tobacco e-Cigarette/Vaping Use: Never Used Second Hand Smoke Exposure: No service: No Current occupational status: unemployed Cognitive needs: No Hearing needs: No Vision needs: Yes Female Reproductive History Menstrual Age of Menarche: 9 Assessment & Plan Assessment & Plan (1) Type 2 diabetes mellitus with hyperglycemia, without long-term current use of insulin: Code(s): E11.65 - Type 2 diabetes mellitus with hyperglycemia Plan: Personal Continuous Glucose Monitor: Patients CGM information reviewed Reviewed patient's sensor data: Hypoglycemia: ? 1% Hyperglycemia:? 4% Time in Range:? 95% Average glucose for the last 2 weeks? 125 mg/dL Patient continues to have afternoon episodes of hypoglycemia, patient reports that she exercises 2 times a day, in the morning in the afternoon Instructed patient it is important to have, glucose to treat hypoglycemia with her when she is exercising, in addition she can try small complex snack before exercise to keep glucose from dropping too low. In addition recommended patient hold Humalog 5 units in the morning, to see if this helps alleviate hypoglycemia in the afternoon Patient is no longer taking Tresiba, only taking Humalog 5-10 units before meals Recommended to patient if she has supper with large portion of carbohydrates, over 45 g to take Humalog 10 units, for smaller meal at suppertime take Humalog 5 units Patient also is having difficulty picking up Mounjaro 5 mg, instructed patient to contact other pharmacies in the area to see if they take her insurance and have the medication. If she is able to locate medication at different pharmacy ask [facility] to either transfer prescription or contact clinic so that we can transfer prescription. Patient glucose levels are well controlled, but because of difficulty getting GIP-GLP 1 will follow-up in 1 month Reviewed how to interpret trend arrows Reminded patient that to check finger sticks if symptoms do not match sensor reading. Discussed lag time between finger stick and sensor data.? Patient able to insert sensor independently at home without issue.? Patient Instructions: Follow-up with certified breastfeeding educator in 1 month Coding Level of Care Code Est Pt Level 1 (76725) Diagnoses Type 2 diabetes mellitus with hyperglycemia, without long-term current use of insulin E11.65
== END 2024-04-03 10:18 | disposition home or self-care (01) ==
PROVIDERS: PCP Nurse Practitioner Family; Visit Provider Registered Nurse Diabetes Educator
DX: E11.65 Type 2 diabetes mellitus with hyperglycemia (principal)

== ENCOUNTER → 2024-04-03 09:45 | Outpatient (BNVA) | payer OTHER, SELFPAY | PROVIDERS: PCP Nurse Practitioner Family; Visit Provider Registered Nurse Diabetes Educator | DX: E11.65 Type 2 diabetes mellitus with hyperglycemia (principal) | CPT/HCPCS: 99211 ==

== ENCOUNTER 2024-04-15 10:54 | Outpatient (AMB) | payer OTHER, SELFPAY ==
--- NOTE | 2024-04-15 10:56 | A.OFFVIS_ITS ---
Vital Signs 04/15/24 11:00 Height 5 ft 9 in Weight 189 lb 9.561 oz BMI 28.0 BP 110/70 Blood Pressure Location Lt brachial Position Sitting Pulse 70 Pulse Source Pulse Oximeter Intake Visit Reasons: DM Intake Note: Patient present today to follow up on Type 2 Diabetes Mellitus. Last seen by Dr. Olivo on 12/20/2023. Patient receives DME supplies through: [employer] Last Diabetic Eye exam: approx 6 months ago Last Podiatry Visit: Does not see a Nail Tech Random Glucose: 149 mg/dl HgA1C: 6.4% Screwmaker Automatic Required: Yes Screwmaker Automatic Language: Environmental Scientist Name: TUCKER Rankin Accompanied by: Self / Same As Patient Allergies No Known Allergies Allergy (Verified 04/15/24 11:01) Medication List - Last Reconciled 04/15/24 by Gita Nguyen PA-C albuterol sulfate 90 mcg/actuation (Ventolin HFA) 1 puff PO QID PRN 30 days albuterol sulfate 2.5 mg (3 mL) inhalation Q4-6H PRN bisacodyl (Dulcolax (bisacodyl)) 10 mg (2 x 5 mg) PO BEDTIME blood sugar diagnostic (FreeStyle Precision Emanuel Strips) As directed once daily blood sugar diagnostic (FreeStyle Precision Emanuel Strips) 1 strip miscellaneous QID cholecalciferol (vitamin D3) 50 mcg PO DAILY citalopram 40 mg PO DAILY 90 days diclofenac sodium 1% (Voltaren Arthritis Pain) 4 grams topical QID PRN docusate sodium (Colace) 100 mg PO BID duloxetine 60 mg PO DAILY ezetimibe (Zetia) 10 mg PO DAILY flash glucose scanning reader (FreeStyle Sera 2 [place]) As directed flash glucose sensor (FreeStyle Sera 2 Sensor kit) As directed change every 14 days fluticasone propion-salmeterol 250-50 mcg/dose (Advair Diskus) 1 inh inhalation BID 30 days hydrochlorothiazide 25 mg PO DAILY hydroxyzine HCl 25 mg PO BID PRN ibuprofen 600 mg PO Q6H PRN insulin lispro (Humalog KwikPen (U-100) Insulin) 5 units breakfast, +2units for bg >200 subcut 3x per day. levothyroxine 112 mcg PO DAILY lisinopril 10 mg PO DAILY 90 days mirtazapine 30 mg PO BEDTIME miscellaneous medical supply 1 ea miscellaneous DAILY pen needle, diabetic As directed pen needle, diabetic (BD Ultra-Fine Ramya Pen Needle) As directed four times a day perphenazine 4 mg PO BID polyethylene glycol 3350 (Miralax) 17 grams PO DAILY rosuvastatin 40 mg PO DAILY sumatriptan succinate take 1 tab at onset of headache; if no relief may repeat 1 tab after at least 2 hrs; max = 4 tabs/24 hr PO tirzepatide (Mounjaro) 7.5 mg (0.5 mL) subcut QWEEK tizanidine 2 mg PO BEDTIME PRN trazodone 200 mg PO BEDTIME PRN HPI HPI DM: Details: Patient is a 53-year-old female with a significant past medical history of hypertension, CKD, CORNELIUS, type 2 diabetes, hyperlipidemia, hypothyroidism and obesity presenting today for diabetic follow-up. DM: Patients CGM information reviewed Reviewed patient's sensor data: Hypoglycemia: ? 2% Hyperglycemia:? 4% Time in Range:? 94% Average glucose for the last 2 weeks? 122 mg/dL A1c in office today is 6.4 Today she tells me that she has been off of the Tresiba for the last few months. She is only taking Humalog 5 units with breakfast in the morning. She states that otherwise she has not needed to use it. She continues on mounjaro 5 mg q week. She states that she runs into issues with getting this filled. She would like to go up on the dosage as she tolerates that well and wants to continue losing weight. She monitors her blood sugars very closely. She is following a very strict diabetic diet and exercising twice a day. She has lost 56 lb in the past year. Hypothyroidism: Last TSH was very low and her levothyroxine was reduced from 137 mcg to 112 mcg. She is due to have her TSH recheck today. CV: Blood pressure today in the office is 110/70. She is currently on lisinopril 10 mg, hydrochlorothiazide 25 mg daily. Her last cholesterol was WNL. She is on Crestor 40 mg. No myalgias. [facility] Medical History (Updated 04/15/24 @ 11:55 by Gita Nguyen PA-C) Type 2 diabetes mellitus with complication, with long-term current use of insulin Chest pain Somnolence Sleep apnea Cervical high risk HPV (human papillomavirus) test positive Bleeding hemorrhoids Essential hypertension COVID-19 CKD (chronic kidney disease) HTN (hypertension) Diastolic dysfunction Rheumatic mitral stenosis Glaucoma Insomnia Rheumatic heart disease Depression Anxiety Hemorrhoids Hypothyroidism Hyperlipidemia LDL goal <100 Obesity (BMI 30-39.9) Type 2 diabetes mellitus with hyperglycemia, without long-term current use of insulin Surgical History History of hysteroscopy Hx of colonoscopy Hx of tubal ligation H/O hemorrhoidectomy History of section Family History Father Diabetes Mother Diabetes Stroke Maternal Aunt Stroke Hypertension Social History Household Members: Children Housing: Apartment Are you a primary healthcare facility administrator to a significant other at home: No Do you presently have visiting nurse or other home services: No Alcohol intake: current Alcohol intake frequency: does not drink Alcohol type: wine Patient Tobacco Use Status: Never used Tobacco e-Cigarette/Vaping Use: Never Used Second Hand Smoke Exposure: No service: No Current occupational status: unemployed Cognitive needs: No Hearing needs: No Vision needs: Yes Female Reproductive History Menstrual Age of Menarche: 9 Physical Exam Vital Signs: Last Vital Signs Pulse 70 04/15/24 11:00 BP 110/70 04/15/24 11:00 BMI result Body Mass Index 28.0 Const Orientation/consciousness: patient oriented x3 Neck Thyroid: Thyroid normal Lymphatic: no lymphadenopathy noted Resp Auscultation: clear to auscultation bilaterally Cardio Rate: regular rate Rhythm: regular rhythm Heart sounds: S1 normal heart sound present and S2 normal heart sound present Skin General skin exam: no rashes or lesions noted Neuro General: patient oriented x3, gait normal and no focal motor deficits Extrem Other: Sensation to light touch and vibration intact. DP pulses 2+ bilaterally General: Yes normal to inspection and Yes normal exam except as noted Results AMB Hemoglobin A1c AMB Hemoglobin A1c 6.4 % Last Edit by CLARISSA Garcias on 04/15/24 11:21 Results Reviewed Results Reviewed: Laboratory Last Values Glucose (Clinic) 149 mg/dL (60-115) H 04/15/24 11:11 Laboratory Tests 12/19/23 01/22/24 14:06 11:26 Sodium 141 Potassium 4.8 Chloride 105 Carbon Dioxide 26 Anion Gap 15 BUN 17 H Creatinine 0.83 Estimated GFR > 60 Fasting Glucose 97 Hgb A1c (Clinic) 8.1 H Calcium 9.8 AST 25 ALT 33 H Alkaline Phosphatase 74 Triglycerides 123 Cholesterol 140 LDL Cholesterol, Calc 75 HDL Cholesterol 41 Assessment & Plan Assessment & Plan (1) Type 2 diabetes mellitus with complication, with long-term current use of insulin: Code(s): E11.8 - Type 2 diabetes mellitus with unspecified complications; Z79.4 - extermination inspector (current) use of insulin Category: Medical Plan: Currently well controlled. Will increase mounjaro. Updated medication list to reflect that she is no longer on Tresiba and has significantly reduced her dosage of Humalog. I have encouraged her to continue with her diet, exercise and weight loss goals. Congratulated her on the weight loss. Continue with diabetic Education. (2) CKD (chronic kidney disease): Comment: Stage 3 - Foll'd by Dr. Martin Brito- [facility] Code(s): N18.9 - Chronic kidney disease, unspecified Category: Medical Qualifiers: Chronic kidney disease stage: stage 3 (moderate) Chronic kidney disease stage 3 subtype: stage 3b (GFR 30-44) Qualified Code(s): N18.32 - Chronic kidney disease, stage 3b Plan: Kidney function reviewed. Will monitor (3) Hyperlipidemia LDL goal <100: Code(s): E78.5 - Hyperlipidemia, unspecified Category: Medical Plan: Last lipids at goal. Continue Crestor. (4) Essential hypertension: Code(s): I10 - Essential (primary) hypertension Category: Medical Plan: Well controlled. Continue current regimen. (5) Hypothyroidism: Code(s): E03.9 - Hypothyroidism, unspecified Category: Medical Qualifiers: Hypothyroidism type: acquired Qualified Code(s): E03.9 - Hypothyroidism, unspecified Plan: Will complete TSH today. Currently on levothyroxine 112 mcg. She has follow-up arranged in May with Dr. Olivo. Advised to follow-up in the fall with myself or sooner if needed. Labs prior to appointment in the fall. Patient understands and agrees with the plan. Orders: Orders Comprehensive [address]. Panel Fast 3 Months Gita Nguyen PA-C E03.9 - Hypot hyroidism, unspecified, E11.8 - Type 2 diabetes mellitus with unspecified complications, E78.5 - Hyperlipidemia, unspecified, N18.32 - Chronic kidney disease, stage 3b, Z79.4 - detention (current) use of insulin AMB Hemoglobin A1c Today Gita Nguyen PA-C E11.65 - Type 2 diabetes mellitus with hyperglycemia Hemoglobin A1c 3 Months Gita Nguyen PA-C E03.9 - Hypothyroidism, unspecified, E11.8 - Type 2 diabetes mellitus with unspecified complications, E78.5 - Hyperlipidemia, unspecified, N18.32 - Chronic kidney disease, stage 3b, Z79.4 - extermination inspector (current) use of insulin Lipid Panel 3 Months Gita Nguyen PA-C E03.9 - Hypothyroidism, unspecified, E11.8 - Type 2 diabetes mellitus with unspecified complications, E78.5 - Hyperlipidemia, unspecified, N18.32 - Chronic kidney disease, stage 3b, Z79.4 - extermination inspector (current) use of insulin Microalbumin, Random (w Creat) 3 Months Gita Nguyen PA-C E03.9 - Hypothyroidism, unspecified, E11.8 - Type 2 diabetes mellitus with unspecified complications, E78.5 - Hyperlipidemia, unspecified, N18.32 - Chronic kidney disease, stage 3b, Z79.4 - detention (current) use of insulin Medications: New tirzepatide (Mounjaro) 7.5 mg (0.5 mL) subcut QWEEK 2 mL 3RF Gita Nguyen PA-C Changed From insulin lispro (Humalog KwikPen (U-100) Insulin) 18 units breakfast, 14 units lunch and 22 units dinner, +2units for bg >200 subcut 3x per day. 30 days 30 mL 6RF E11.65 - Type 2 diabetes mellitus with hyperglycemia To insulin lispro (Humalog KwikPen (U-100) Insulin) 5 units breakfast, +2units for bg >200 subcut 3x per day. E11.65 - Type 2 diabetes mellitus with hyperglycemia Luis Olivo MD Coding Level of Care Code Est Pt Level 4 (96433) Complex EM visit Add On G2211 Diagnoses Type 2 diabetes mellitus with complication, with long-term current use of insulin E11.8; Z79.4 Stage 3b chronic kidney disease N18.32 Chronic kidney disease stage: stage 3 (moderate) Chronic kidney disease stage 3 subtype: stage 3b (GFR 30-44) Hyperlipidemia LDL goal <100 E78.5 Essential hypertension I10 Acquired hypothyroidism E03.9 Hypothyroidism type: acquired
[2024-04-15 11:00] VITALS: BP 110/70; PULSE 70; BMI 28.0
[2024-04-15 11:15] LABS: Glucose, Whole Blood 149 mg/dL (60-115)
== END 2024-04-15 11:44 | disposition home or self-care (01) ==
PROVIDERS: PCP Nurse Practitioner Family; Visit Provider Physician Assistant
DX: E11.8 Type 2 diabetes mellitus with unspecified complications (principal); Z79.4 Long term (current) use of insulin; N18.32 Chronic kidney disease, stage 3b; E78.5 Hyperlipidemia, unspecified; I10 Essential (primary) hypertension; E03.9 Hypothyroidism, unspecified; E11.65 Type 2 diabetes mellitus with hyperglycemia
CPT/HCPCS: 99214; G2211

== ENCOUNTER 2024-04-15 10:54 | Outpatient (REF) | payer OTHER, SELFPAY ==
[2024-04-15 14:34] LABS: Thyroid Stimulating Hormone 2.44 uIU/mL (0.32-4.0)
== END 2024-04-15 10:55 | disposition home or self-care (01) ==
LOC: HO.LAB 10:54
PROVIDERS: Absent Provider Internal Medicine Endocrinology, Diabetes & Metabolism; PCP Nurse Practitioner Family; Visit Provider Physician Assistant
DX: E11.22 Type 2 diabetes mellitus with diabetic chronic kidney disease (principal); E11.65 Type 2 diabetes mellitus with hyperglycemia; I12.9 Hypertensive chronic kidney disease with stage 1 through stage 4 chronic kidney disease, or unspecified chronic kidney disease; N18.32 Chronic kidney disease, stage 3b; E03.9 Hypothyroidism, unspecified; E78.5 Hyperlipidemia, unspecified; E66.9 Obesity, unspecified; Z79.4 Long term (current) use of insulin
CPT/HCPCS: 36415; 82947; 83036; 84439; 84443; 99212

== ENCOUNTER 2024-04-23 09:35 | Outpatient (AMB) | payer OTHER, SELFPAY ==
[2024-04-23 09:57] VITALS: BP 122/68; PULSE 58; O2SAT 98; BMI 27.6
--- NOTE | 2024-04-23 09:57 | MHC.OFFVIS ---
Vital Signs 04/23/24 09:57 Height 5 ft 9 in Weight 187 lb BMI 27.6 BP 122/68 Blood Pressure Location Rt brachial Position Sitting Pulse 58 Pulse Source Pulse Oximeter Pulse Oximetry (%) 98 Oxygen Delivery Method Room Air Intake Visit Reasons: Obstructive sleep apnea Intake Note: pt is here for follow up and states she is doing okay with usage sometimes, Mailing Machine Helper Required: Yes Mailing Machine Helper Name: Tachira Allergies No Known Allergies Allergy (Verified 04/23/24 10:20) Medication List - Last Reconciled 04/23/24 by Daniel Ortega MD albuterol sulfate 90 mcg/actuation (Ventolin HFA) 1 puff PO QID PRN 30 days albuterol sulfate 2.5 mg (3 mL) inhalation Q4-6H PRN bisacodyl (Dulcolax (bisacodyl)) 10 mg (2 x 5 mg) PO BEDTIME blood sugar diagnostic (FreeStyle Precision Emanuel Strips) As directed once daily blood sugar diagnostic (FreeStyle Precision Emanuel Strips) 1 strip miscellaneous QID cholecalciferol (vitamin D3) 50 mcg PO DAILY citalopram 40 mg PO DAILY 90 days diclofenac sodium 1% (Voltaren Arthritis Pain) 4 grams topical QID PRN docusate sodium (Colace) 100 mg PO BID duloxetine 60 mg PO DAILY ezetimibe (Zetia) 10 mg PO DAILY flash glucose scanning reader (PetsDx Veterinary ImagingStyle Sera 2 [place]) As directed flash glucose sensor (FreeStyle Sera 2 Sensor kit) As directed change every 14 days fluticasone propion-salmeterol 250-50 mcg/dose (Advair Diskus) 1 inh inhalation BID 30 days hydrochlorothiazide 25 mg PO DAILY hydroxyzine HCl 25 mg PO BID PRN ibuprofen 600 mg PO Q6H PRN insulin lispro (Humalog KwikPen (U-100) Insulin) 5 units breakfast, +2units for bg >200 subcut 3x per day. levothyroxine 112 mcg PO DAILY lisinopril 10 mg PO DAILY 90 days mirtazapine 30 mg PO BEDTIME miscellaneous medical supply 1 ea miscellaneous DAILY pen needle, diabetic As directed pen needle, diabetic (BD Ultra-Fine Ramya Pen Needle) As directed four times a day perphenazine 4 mg PO BID polyethylene glycol 3350 (Miralax) 17 grams PO DAILY rosuvastatin 40 mg PO DAILY sumatriptan succinate take 1 tab at onset of headache; if no relief may repeat 1 tab after at least 2 hrs; max = 4 tabs/24 hr PO tirzepatide (Mounjaro) 7.5 mg (0.5 mL) subcut QWEEK tizanidine 2 mg PO BEDTIME PRN trazodone 200 mg PO BEDTIME PRN Do you need a note to return to daycare/school/sports/work: No HPI HPI Obstructive sleep apnea: Details: 53 YEARS OLD VERY PLEASANT, SLOVENIAN-SPEAKING FEMALE. COMES FOR 4 MONTHS FOLLOW-UP. SHE CLAIMS THAT SHE IS USING CPAP MOST OF THE TIMES AND SLEEPS WELL. HOWEVER THE COMPLIANCE REPORT WAS SHOWN TO HER AND SHE WAS MADE AWARE THAT SHE HAS USED ONLY 17 OF 30 NIGHTS, AND MOST OF THE NIGHTS SHE HAS USED LESS THAN 4 HOURS. BREATHING HAS REMAINED STABLE AND USING ADVAIR 250-50 TWICE A DAY HAS BEEN HELPFUL. SHE DENIES ANY ACUTE ATTACKS OF COUGH OR WHEEZING. SHE IS NONSMOKER. [facility] Medical History Type 2 diabetes mellitus with complication, with long-term current use of insulin Chest pain Somnolence Sleep apnea Cervical high risk HPV (human papillomavirus) test positive Bleeding hemorrhoids Essential hypertension COVID-19 CKD (chronic kidney disease) HTN (hypertension) Diastolic dysfunction Rheumatic mitral stenosis Glaucoma Insomnia Rheumatic heart disease Depression Anxiety Hemorrhoids Hypothyroidism Hyperlipidemia LDL goal <100 Obesity (BMI 30-39.9) Type 2 diabetes mellitus with hyperglycemia, without long-term current use of insulin Surgical History History of hysteroscopy Hx of colonoscopy Hx of tubal ligation H/O hemorrhoidectomy History of section Family History Father Diabetes Mother Diabetes Stroke Maternal Aunt Stroke Hypertension Social History Household Members: Children Housing: Apartment Are you a primary customer care voice consultant to a significant other at home: No Do you presently have visiting nurse or other home services: No Alcohol intake: current Alcohol intake frequency: does not drink Alcohol type: wine Patient Tobacco Use Status: Never used Tobacco e-Cigarette/Vaping Use: Never Used Second Hand Smoke Exposure: No service: No Current occupational status: unemployed Cognitive needs: No Hearing needs: No Vision needs: Yes Female Reproductive History Menstrual Age of Menarche: 9 Review of Systems Const All systems reviewed & are unremarkable except as noted in HPI and below Reports fatigue Eyes Reports no additional complaints ENT Reports nasal congestion (MILD OFF AND ON ) Card Denies irregular heart rhythm and Denies leg edema Resp Reports as per HPI GI Reports constipation Reports no additional complaints Musc Reports back pain and Reports myalgias Skin/Breast Reports system reviewed and no additional complaints, except as documented Neuro Reports no additional complaints Psych Reports anxiety and Reports depression Endo Reports fatigue and Reports other ( DIABETES MELLITUS, HYPOTHYROIDISM) Kody/Lymph Reports no additional complaints Aller/Immun Reports seasonal rhinorrhea Physical Exam Vital Signs: Last Vital Signs Pulse 58 04/23/24 09:57 BP 122/68 04/23/24 09:57 Pulse Ox 98 04/23/24 09:57 Oxygen Delivery Method Room Air 04/23/24 09:57 BMI result Body Mass Index 27.6 Const General: comfortable, no acute distress, alert and awake Orientation/consciousness: patient oriented x3 HEENT Head: Yes normal to inspection General nose exam: No nasal polyps present, No nasal discharge present and Other nasal findings present (MILD NASAL CONGESTION ) Face and sinus: Yes sinuses nontender Mouth: oropharynx normal Throat: Yes posterior oropharynx normal Eyes General: appearance normal, both eyes and all related structures Neck Neck: Yes normal visual inspection, Yes no lymphadenopathy, Yes trachea midline, Yes no JVD and Yes other ( NECK SIZE 16 IN) Thyroid: Thyroid normal Chest Chest palpation & inspection: normal inspection of the chest, normal palpation of entire chest wall and tenderness (There is some muscular tenderness over Rt thoracic area on the back ) Resp Effort & Inspection: normal respiratory effort Auscultation: no crackles, no wheezes, No rub present and other ( BREATH SOUNDS ARE DECREASED OVER THE BASILAR AREAS) Cardio Palpation: normal PMI Rate: regular rate Rhythm: regular rhythm Heart sounds: no gallops and no murmurs Peripheral pulses: Peripheral pulses 2+ throughout GI Palpation (GI): Soft to palpation, nontender, No hepatosplenomegaly present and no masses Auscultation: normal bowel sounds Back/Spine/Pelvis Thoracic/Lumbar Spine: thoracic and lumbar spine normal to inspection and thoraco-lumbar ROM limited Skin General skin exam: no rashes or lesions noted Neuro General: patient oriented x3 and no focal motor deficits Cranial nerves: Yes CN's II-XII intact bilaterally Extrem General: Yes normal to inspection, Yes no clubbing, cyanosis or edema and Yes no calf tenderness Psych Appearance: grossly normal and well kempt Speech and movement: Normal speech and movement present Results Reviewed Results Reviewed: COMPLIANCE REPORT SHOWS THAT SHE USED CPAP 17/30 NIGHTS, 57% OF THE NIGHTS. AVERAGE USE PER NIGHT 2 HOURS 5 MINUTES. WHEN SHE DOES USE IT THE RESIDUAL AHI IS 1.9 Assessment & Plan Assessment & Plan (1) Asthma: Comment: SHE HAS MILD ASTHMA WHICH FLARES UP WHENEVER SHE HAS NASAL CONGESTION OR UPPER RESPIRATORY INFECTION USUALLY ABOUT ONCE OR TWICE A YEAR . SHE HAS DONE MUCH BETTER SINCE SHE IS USING ADVAIR 250-51 INHALATION B.I.D. REGULARLY. Code(s): J45.909 - Unspecified asthma, uncomplicated Category: Medical Qualifiers: Asthma severity: mild Asthma persistence: intermittent Asthma complication type: unspecified Qualified Code(s): J45.20 - Mild intermittent asthma, uncomplicated Plan: TX: ADVAIR 250-50 ONE INH B.I.D. ALBUTEROL HFA 2 PUFFS Q 6 HOURS P.R.N. (2) CORNELIUS (obstructive sleep apnea): Comment: PATIENT HAS TYPICAL SYMPTOMS OF OBSTRUCTIVE SLEEP APNEA. SLEEP STUDY CONFIRMED PRESENCE OF OBSTRUCTIVE SLEEP APNEA, AND SHE HAS BEEN. ON CPAP THERAPY INITIALLY SHE WAS VERY COMPLIANT BUT NOW IN THE LAST 6 MONTHS OR COMPLIANCE HAS BEEN POOR. Code(s): G47.33 - Obstructive sleep apnea (adult) (pediatric) Category: Medical Plan: SHE IS ADVISED TO USE THE CPAP REGULARLY EVERY NIGHT AND TRY TO USE IT MORE THAN 4 HOURS PER NIGHT Coding Level of Care Code Est Pt Level 3 (04746) Diagnoses Mild intermittent asthma, unspecified whether complicated J45.20 Asthma severity: mild Asthma persistence: intermittent Asthma complication type: unspecified CORNELIUS (obstructive sleep apnea) G47.33
== END 2024-04-23 10:20 | disposition home or self-care (01) ==
PROVIDERS: PCP Nurse Practitioner Family; Visit Provider Internal Medicine
DX: J45.20 Mild intermittent asthma, uncomplicated (principal); G47.33 Obstructive sleep apnea (adult) (pediatric)
CPT/HCPCS: 99213

== ENCOUNTER → 2024-04-23 09:35 | Outpatient (BNVA) | payer OTHER, SELFPAY | PROVIDERS: PCP Nurse Practitioner Family; Visit Provider Internal Medicine | DX: G47.33 Obstructive sleep apnea (adult) (pediatric) (principal); J45.20 Mild intermittent asthma, uncomplicated | CPT/HCPCS: 99212 ==

== ENCOUNTER 2024-05-02 09:46 | Outpatient (AMB) | payer OTHER, SELFPAY ==
--- NOTE | 2024-05-02 10:06 | MHC.AMDMED ---
Intake Intake Visit Reasons: DM/CONFIRMED Income Tax Investigator Required: Yes Income Tax Investigator Language: Automation Lead Name: Maral [facility] Information Interpreted: non-clinical & clinical Accompanied by: Self / Same As Patient Allergies No Known Allergies Allergy (Verified 04/23/24 10:20) [facility] Comprehensive Diabetes Asmnt Most Recent Diabetes Results: Hemoglobin A1c 8.3 % 05/25/20 Microalb/Creat Ratio 9.3 ug/mg cr 05/16/23 Cholesterol 140 mg/dL (<200) 01/22/24 HDL Cholesterol 41 mg/dL (>40) 01/22/24 Triglycerides 123 mg/dL (<150) 01/22/24 Creatinine 0.83 mg/dL (0.5-1.4) 01/22/24 Blood Urea Nitrogen 17 mg/dL (9-16) H 01/22/24 Sodium 141 mmol/L (135-145) 01/22/24 Potassium 4.8 mmol/L (3.3-5.1) 01/22/24 Chloride 105 mmol/L (96-108) 01/22/24 Carbon Dioxide 26 mmol/L (22-29) 01/22/24 Calcium 9.8 mg/dL (8.4-10.2) 01/22/24 AST 25 U/L (5-31) 01/22/24 ALT 33 U/L (0-31) H 01/22/24 Total Protein 8.3 g/dL (6.5-8.0) H 01/22/24 Albumin 4.4 g/dL (3.5-5.0) 01/22/24 PFSH Medical History Type 2 diabetes mellitus with complication, with long-term current use of insulin Chest pain Somnolence Sleep apnea Cervical high risk HPV (human papillomavirus) test positive Bleeding hemorrhoids Essential hypertension COVID-19 CKD (chronic kidney disease) HTN (hypertension) Diastolic dysfunction Rheumatic mitral stenosis Glaucoma Insomnia Rheumatic heart disease Depression Anxiety Hemorrhoids Hypothyroidism Hyperlipidemia LDL goal <100 Obesity (BMI 30-39.9) Type 2 diabetes mellitus with hyperglycemia, without long-term current use of insulin Surgical History History of hysteroscopy Hx of colonoscopy Hx of tubal ligation H/O hemorrhoidectomy History of section Family History Father Diabetes Mother Diabetes Stroke Maternal Aunt Stroke Hypertension Social History Household Members: Children Housing: Apartment Are you a primary housekeeper caregiver to a significant other at home: No Do you presently have visiting nurse or other home services: No Alcohol intake: current Alcohol intake frequency: does not drink Alcohol type: wine Patient Tobacco Use Status: Never used Tobacco e-Cigarette/Vaping Use: Never Used Second Hand Smoke Exposure: No service: No Current occupational status: unemployed Cognitive needs: No Hearing needs: No Vision needs: Yes Female Reproductive History Menstrual Age of Menarche: 9 Assessment & Plan Assessment & Plan (1) Type 2 diabetes mellitus with complication, with long-term current use of insulin: Code(s): E11.8 - Type 2 diabetes mellitus with unspecified complications; Z79.4 - retirement (current) use of insulin Plan: Personal Continuous Glucose Monitor: Patients CGM information reviewed Reviewed patient's sensor data: Hypoglycemia: ? 4% Hyperglycemia:? 94% Time in Range:? 2% Average glucose for the last 2 weeks 122? mg/dL Last A1c on 04/15/2024 6.4% Patient continues to have sporadic low blood sugars throughout the day. She is still taking Humalog units in the a.m., recommended to patient she hold Humalog to see if hypoglycemia resolves Treat any episode of hypoglycemia with rule of 15s If hypoglycemic continues after patient stops insulin, she is instructed to contact provider or educator senior clinical. At this time patient's glucose control is excellent, she will follow-up with educator senior clinical as needed Reviewed how to interpret trend arrows Reminded patient that to check finger sticks if symptoms do not match sensor reading. Discussed lag time between finger stick and sensor data.? Patient able to insert sensor independently at home without issue.? Portions of this note were created using voice recognition software, please excuse any words or phrases that may have been misinterpreted. Patient Instructions: Patient will follow-up as needed Coding Level of Care Code Est Pt Level 1 (78731) Diagnoses Type 2 diabetes mellitus with complication, with long-term current use of insulin E11.8; Z79.4
== END 2024-05-02 10:18 | disposition home or self-care (01) ==
PROVIDERS: PCP Nurse Practitioner Family; Visit Provider Registered Nurse Diabetes Educator
DX: E11.8 Type 2 diabetes mellitus with unspecified complications (principal); Z79.4 Long term (current) use of insulin

== ENCOUNTER → 2024-05-02 09:46 | Outpatient (BNVA) | payer OTHER, SELFPAY | PROVIDERS: PCP Nurse Practitioner Family; Visit Provider Registered Nurse Diabetes Educator | DX: E11.8 Type 2 diabetes mellitus with unspecified complications (principal); Z79.4 Long term (current) use of insulin | CPT/HCPCS: 99211 ==

== ENCOUNTER 2024-06-18 10:45 | Outpatient (AMB) | payer OTHER, SELFPAY ==
[2024-06-18 10:47] VITALS: BP 134/86; PULSE 61; BMI 25.9
--- NOTE | 2024-06-18 10:47 | MHC.OFFVIS ---
Vital Signs 06/18/24 10:47 Height 5 ft 9 in Weight 175 lb 7.807 oz BMI 25.9 BP 134/86 Blood Pressure Location Lt brachial Position Sitting Pulse 61 Pulse Source Pulse Oximeter Intake Visit Reasons: f/u hypothyroidism-confirmed Intake Note: Patient present today for Hypothyroidism follow up visit. Machine Chain Maker Required: Yes Machine Chain Maker Language: Bag End Sewer Services: Machine Chain Maker Present Machine Chain Maker Name: Maral Information Interpreted: non-clinical & clinical Accompanied by: Self / Same As Patient Allergies No Known Allergies Allergy (Verified 06/18/24 10:52) Medication List - Last Reconciled 06/18/24 by Luis Olivo MD albuterol sulfate 90 mcg/actuation (Ventolin HFA) 1 puff PO QID PRN 30 days albuterol sulfate 2.5 mg (3 mL) inhalation Q4-6H PRN bisacodyl (Dulcolax (bisacodyl)) 10 mg (2 x 5 mg) PO BEDTIME blood sugar diagnostic (FreeStyle Precision Emanuel Strips) As directed once daily blood sugar diagnostic (FreeStyle Precision Emanuel Strips) 1 strip miscellaneous QID cholecalciferol (vitamin D3) 50 mcg PO DAILY citalopram 40 mg PO DAILY 90 days diclofenac sodium 1% (Voltaren Arthritis Pain) 4 grams topical QID PRN docusate sodium (Colace) 100 mg PO BID duloxetine 60 mg PO DAILY ezetimibe (Zetia) 10 mg PO DAILY flash glucose scanning reader (FreeStyle Sera 2 [place]) As directed flash glucose sensor (FreeStyle Sera 2 Sensor kit) As directed change every 14 days fluticasone propion-salmeterol 250-50 mcg/dose (Advair Diskus) 1 inh inhalation BID 30 days hydrochlorothiazide 25 mg PO DAILY hydroxyzine HCl 25 mg PO BID PRN ibuprofen 600 mg PO Q6H PRN insulin lispro (Humalog KwikPen (U-100) Insulin) 5 units breakfast, +2units for bg >200 subcut 3x per day. levothyroxine 112 mcg PO DAILY lisinopril 10 mg PO DAILY 90 days mirtazapine 30 mg PO BEDTIME miscellaneous medical supply 1 ea miscellaneous DAILY pen needle, diabetic As directed pen needle, diabetic (BD Ultra-Fine Ramya Pen Needle) As directed four times a day perphenazine 4 mg PO BID polyethylene glycol 3350 (Miralax) 17 grams PO DAILY rosuvastatin 40 mg PO DAILY sumatriptan succinate take 1 tab at onset of headache; if no relief may repeat 1 tab after at least 2 hrs; max = 4 tabs/24 hr PO tirzepatide (Mounjaro) 7.5 mg (0.5 mL) subcut QWEEK tizanidine 2 mg PO BEDTIME PRN trazodone 200 mg PO BEDTIME PRN HPI Comments Details: Patient is 53 yo female with DM2 and hypothyroidism here for continued management. Today's visit focused on the hypothyroidism Past Medical History: DM2, HLD, HTN, hypothryoidism, rheumatic heart disease, anxiety and depression. 2). Hypothyroidism : On December 28 patient's levothyroxine was increased to 175mcg due to elevated TSH. She was to do labs in 6 weeks time but these were not done. She has been on levothyroxine 112 Patient denies dysphagia, dysphonia, cold intolerance. She takes it in the am on empty stomach at 06:00. She eats breakfast and takes meds 2 hours later. Denies forgetting but knows to take 2 the next day if forgets. Laboratory Tests 12/22/21 12/22/21 02/01/22 11:00 11:02 07:40 Creatinine 1.13 Estimated GFR 51 Hgb A1c (Clinic) Triglycerides 213 Cholesterol 229 LDL Cholesterol, Calc 141 HDL Cholesterol 46 TSH 20.33 H Free T4 0.66 L Microalb/Creat Ratio TNP 03/24/22 10:11 Creatinine Estimated GFR Hgb A1c (Clinic) 9.6 H Triglycerides Cholesterol LDL Cholesterol, Calc HDL Cholesterol TSH Free T4 Microalb/Creat Ratio [facility] Medical History Type 2 diabetes mellitus with complication, with long-term current use of insulin Chest pain Somnolence Sleep apnea Cervical high risk HPV (human papillomavirus) test positive Bleeding hemorrhoids Essential hypertension COVID-19 CKD (chronic kidney disease) HTN (hypertension) Diastolic dysfunction Rheumatic mitral stenosis Glaucoma Insomnia Rheumatic heart disease Depression Anxiety Hemorrhoids Hypothyroidism Hyperlipidemia LDL goal <100 Obesity (BMI 30-39.9) Type 2 diabetes mellitus with hyperglycemia, without long-term current use of insulin Surgical History History of hysteroscopy Hx of colonoscopy Hx of tubal ligation H/O hemorrhoidectomy History of section Family History Father Diabetes Mother Diabetes Stroke Maternal Aunt Stroke Hypertension Social History Household Members: Children Housing: Apartment Are you a primary plant care worker to a significant other at home: No Do you presently have visiting nurse or other home services: No Alcohol intake: current Alcohol intake frequency: does not drink Alcohol type: wine Patient Tobacco Use Status: Never used Tobacco e-Cigarette/Vaping Use: Never Used Second Hand Smoke Exposure: No service: No Current occupational status: unemployed Cognitive needs: No Hearing needs: No Vision needs: Yes Female Reproductive History Menstrual Age of Menarche: 9 Physical Exam Vital Signs: Last Vital Signs Pulse 61 06/18/24 10:47 BP 134/86 06/18/24 10:47 BMI result Body Mass Index 25.9 Absence of Cushingoid features. Absence of acromegalic features. Neck exam reveals nl size thyroid about 15 gms. No thyroid nodules palpable. No carotid bruits present. Lungs CTA. Heart S1 S2, Reg R/R. No M/R/ G. Skin exam reveals absence of vitiligo or acanthosis nigricans. Abdominal exam reveals Soft NT/ND with NA BS. No organomegaly present. Const Other: Thyroid gland is normal size weighs about 15 g There are no thyroid nodules palpated Neck Other: . Extrem Other: Visual exam of foot performed. No ulcerations or open lesions. No onchomycosis, no callouses.Pulses 2 + distally Sensation intact to monofilament exam. Vibratory sensation sensed is decreased t with 128 Hz tuning fork Assessment & Plan Assessment & Plan (1) Hypothyroidism: Code(s): E03.9 - Hypothyroidism, unspecified Category: Medical Qualifiers: Hypothyroidism type: acquired Qualified Code(s): E03.9 - Hypothyroidism, unspecified Plan: Currently on 112 mcg levothyroxine. Appears to be clinically and biochemically euthyroid Plan is to continue the present management. At this point, in terms of the hypothyroidism, the patient returned to the care of her primary care provider and returned back to endocrinology as needed Medications: Refilled levothyroxine 112 mcg PO DAILY 30 tabs 5RF Coding Level of Care Code Est Pt Level 3 (47469) Diagnoses Acquired hypothyroidism E03.9 Hypothyroidism type: acquired
== END 2024-06-18 11:10 | disposition home or self-care (01) ==
PROVIDERS: PCP Nurse Practitioner Family; Visit Provider Internal Medicine Endocrinology, Diabetes & Metabolism
DX: E03.9 Hypothyroidism, unspecified (principal)
CPT/HCPCS: 99213

== ENCOUNTER → 2024-06-18 10:45 | Outpatient (BNVA) | payer OTHER, SELFPAY | PROVIDERS: PCP Nurse Practitioner Family; Visit Provider Internal Medicine Endocrinology, Diabetes & Metabolism | DX: E03.9 Hypothyroidism, unspecified (principal); Z79.899 Other long term (current) drug therapy | CPT/HCPCS: 99212 ==

== ENCOUNTER 2024-06-20 08:37 | Outpatient (REF) | payer OTHER, SELFPAY | END 2024-06-20 08:38 | disposition home or self-care (01) | LOC: HO.MAMMO 08:37 | PROVIDERS: PCP Physician Assistant; Visit Provider Physician Assistant | DX: Z12.31 Encounter for screening mammogram for malignant neoplasm of breast (principal) | CPT/HCPCS: 77063; 77067 ==

== ENCOUNTER → 2024-06-20 10:15 | Outpatient (BNV) | payer OTHER, SELFPAY | PROVIDERS: PCP Physician Assistant; Visit Provider Radiology Diagnostic Radiology | DX: Z12.31 Encounter for screening mammogram for malignant neoplasm of breast (principal) | CPT/HCPCS: 77063; 77067 ==

== ENCOUNTER 2024-07-15 09:44 | Outpatient (AMB) | payer OTHER, SELFPAY ==
[2024-07-15 10:04] VITALS: BP 137/69; PULSE 57; BMI 25.4
--- NOTE | 2024-07-15 10:04 | MHC.OFFVIS ---
Vital Signs 07/15/24 10:04 Height 5 ft 9 in Weight 172 lb BMI 25.4 BP 137/69 Blood Pressure Location Rt brachial Position Sitting Pulse 57 Intake Visit Reasons: bleeding hemorrhoids Intake Note: This patient presents for bleeding hemorrhoids, Hx hemorrhoidectomy 08/12/2022. Pt c/o; reports rectal bleeding 07/12/2024, reports about 3 days ago she had a bowel movement and she noticed she had rectal bleeding and some pain. Pre Billing Clinician Required: Yes Pre Billing Clinician Language: High Scaler Services: Pre Billing Clinician Present Pre Billing Clinician Name: Khushi Information Interpreted: non-clinical & clinical Accompanied by: Self / Same As Patient Allergies No Known Allergies Allergy (Verified 07/15/24 10:08) Medication List - Last Reconciled 07/15/24 by Zhen Rodríguez MD albuterol sulfate 90 mcg/actuation (Ventolin HFA) 1 puff PO QID PRN 30 days albuterol sulfate 2.5 mg (3 mL) inhalation Q4-6H PRN bisacodyl (Dulcolax (bisacodyl)) 10 mg (2 x 5 mg) PO BEDTIME blood sugar diagnostic (FreeStyle Precision Emanuel Strips) As directed once daily blood sugar diagnostic (FreeStyle Precision Emanuel Strips) 1 strip miscellaneous QID cholecalciferol (vitamin D3) 50 mcg PO DAILY citalopram 40 mg PO DAILY 90 days diclofenac sodium 1% (Voltaren Arthritis Pain) 4 grams topical QID PRN docusate sodium (Colace) 100 mg PO BID duloxetine 60 mg PO DAILY ezetimibe (Zetia) 10 mg PO DAILY flash glucose scanning reader (Metheor TherapeuticsStyle Sera 2 [place]) As directed flash glucose sensor (FreeStyle Sera 2 Sensor kit) As directed change every 14 days fluticasone propion-salmeterol 250-50 mcg/dose (Advair Diskus) 1 inh inhalation BID 30 days hydrochlorothiazide 25 mg PO DAILY hydroxyzine HCl 25 mg PO BID PRN ibuprofen 600 mg PO Q6H PRN insulin lispro (Humalog KwikPen (U-100) Insulin) 5 units breakfast, +2units for bg >200 subcut 3x per day. levothyroxine 112 mcg PO DAILY lisinopril 10 mg PO DAILY 90 days mirtazapine 30 mg PO BEDTIME miscellaneous medical supply 1 ea miscellaneous DAILY pen needle, diabetic As directed pen needle, diabetic (BD Ultra-Fine Ramya Pen Needle) As directed four times a day perphenazine 4 mg PO BID polyethylene glycol 3350 (Miralax) 17 grams PO DAILY rosuvastatin 40 mg PO DAILY sumatriptan succinate take 1 tab at onset of headache; if no relief may repeat 1 tab after at least 2 hrs; max = 4 tabs/24 hr PO tirzepatide (Mounjaro) 7.5 mg (0.5 mL) subcut QWEEK tizanidine 2 mg PO BEDTIME PRN trazodone 200 mg PO BEDTIME PRN HPI HPI bleeding hemorrhoids: Details: She is here because of bleeding per rectum. She says that 5 days ago, she noticed blood with a bowel movement. She thought that this was quite a bit. She says this happened for about 2 days. She also says at some point, she would notice blood from her rectum when urinating She denied any pain. She says she has had no bleeding for the past 2 days anymore. She denies being constipated She has a history of hemorrhoidectomy in 2021 for bleeding hemorrhoids. [facility] Medical History Type 2 diabetes mellitus with complication, with long-term current use of insulin Chest pain Somnolence Sleep apnea Cervical high risk HPV (human papillomavirus) test positive Bleeding hemorrhoids Essential hypertension COVID-19 CKD (chronic kidney disease) HTN (hypertension) Diastolic dysfunction Rheumatic mitral stenosis Glaucoma Insomnia Rheumatic heart disease Depression Anxiety Hemorrhoids Hypothyroidism Hyperlipidemia LDL goal <100 Obesity (BMI 30-39.9) Type 2 diabetes mellitus with hyperglycemia, without long-term current use of insulin Surgical History History of hysteroscopy Hx of colonoscopy Hx of tubal ligation H/O hemorrhoidectomy History of section Family History Father Diabetes Mother Diabetes Stroke Maternal Aunt Stroke Hypertension Social History Household Members: Children Housing: Apartment Are you a primary human services care specialist to a significant other at home: No Do you presently have visiting nurse or other home services: No Alcohol intake: current Alcohol intake frequency: does not drink Alcohol type: wine Patient Tobacco Use Status: Never used Tobacco e-Cigarette/Vaping Use: Never Used Second Hand Smoke Exposure: No service: No Current occupational status: unemployed Cognitive needs: No Hearing needs: No Vision needs: Yes Female Reproductive History Menstrual Age of Menarche: 9 Review of Systems Const Denies chills and Denies fever(s) Card Denies chest pain, Denies dyspnea and Denies dyspnea on exertion Resp Denies cough, Denies dyspnea and Denies dyspnea on exertion GI Reports hematochezia and Denies change in bowel habits Denies hematuria Musc Denies back pain and Denies limited range of motion Neuro Denies focal weakness and Denies convulsions Psych Denies depression and Denies mood swings Physical Exam Vital Signs: Last Vital Signs Pulse 57 07/15/24 10:04 BP 137/69 07/15/24 10:04 BMI result Body Mass Index 25.4 Const General: comfortable and no acute distress Orientation/consciousness: patient oriented x3 Neck Neck: Yes no lymphadenopathy Resp Auscultation: clear to auscultation bilaterally Cardio Rhythm: regular rhythm GI Other: Rectal exam shows small external hemorrhoids Palpation (GI): Soft to palpation, nontender and no guarding Neuro General: patient oriented x3 Office Procedures Anoscopy She was in woody-knife position. The anoscope was gently inserted. A full examination of the anal canal was done. She had small internal hemorrhoids. There was no bleeding. There was no fissure. There was no ulceration. There was no blood. There was no induration on digital exam. She had good sphincter tone [id number] Assessment & Plan Assessment & Plan (1) Bleeding hemorrhoids: Code(s): K64.9 - Unspecified hemorrhoids Category: Medical Plan: She noticed blood per rectum for about 2 days last week. This is likely from her internal hemorrhoids. I told her that these were non bulky. I would not recommend proceeding with hemorrhoidectomy at this time. I did tell her that if she has recurrent or severe problems down the line, she can come back to the office to be re-evaluated She is comfortable with the plan. Coding Level of Care Code Est Pt Level 3 (60262) Diagnoses Bleeding hemorrhoids K64.9 CPT Codes Details - CPT: 83652-[place] ([id number])
== END 2024-07-15 10:27 | disposition home or self-care (01) ==
PROVIDERS: PCP Physician Assistant; Visit Provider Surgery
DX: K64.9 Unspecified hemorrhoids (principal)
CPT/HCPCS: 46600; 99213

== ENCOUNTER → 2024-07-15 09:44 | Outpatient (BNVA) | payer OTHER, SELFPAY | PROVIDERS: PCP Physician Assistant; Visit Provider Surgery | DX: K64.9 Unspecified hemorrhoids (principal) | CPT/HCPCS: 46600; 99212 ==

== ENCOUNTER 2024-07-17 09:42 | Outpatient (REF) | payer OTHER, SELFPAY ==
[2024-07-17 11:28] LABS: Estimated Average Glucose 117 mg/dL; Hemoglobin A1c % 5.7 % (<6.0)
[2024-07-17 12:35] LABS: Alanine Aminotransferase 20 U/L (0-31); Albumin Level 4.3 g/dL (3.5-5.0); Alkaline Phosphatase 98 U/L (39-117); Anion Gap 11 (12-20); Aspartate Amino Transferase 19 U/L (5-31); Bilirubin Total 0.7 mg/dL (0.0-1.0); Blood Urea Nitrogen 19 mg/dL (9-16); Calcium 10.2 mg/dL (8.4-10.2); Carbon Dioxide 28 mmol/L (22-29); Chloride 109 mmol/L (96-108); Cholesterol 232 mg/dL (<200); Estimated Glomerular Filt Rate > 60; Glucose Fasting 90 mg/dL (60-99); HDL Cholesterol 56 mg/dL (>40); LDL Cholesterol Calculated 159 mg/dL (<100); Potassium 5.2 mmol/L (3.3-5.1); Sodium 143 mmol/L (135-145); Total Protein 7.9 g/dL (6.5-8.0); Triglycerides 85 mg/dL (<150)
[2024-07-17 12:49] LABS: Creatinine Urine 221.62 mg/dL; Microalbum/Creatinine Ratio Ur 3.6 ug/mg cr (<30)
== END 2024-07-17 09:43 | disposition home or self-care (01) ==
LOC: HO.LAB 09:42
PROVIDERS: PCP Physician Assistant; Visit Provider Physician Assistant
DX: N18.32 Chronic kidney disease, stage 3b (principal); E78.5 Hyperlipidemia, unspecified; E11.8 Type 2 diabetes mellitus with unspecified complications; Z79.4 Long term (current) use of insulin; E03.9 Hypothyroidism, unspecified
CPT/HCPCS: 36415; 80053; 80061; 82043; 82570; 83036

== ENCOUNTER 2024-07-30 10:14 | Outpatient (AMB) | payer OTHER, SELFPAY ==
[2024-07-30 10:55] VITALS: BP 110/66; PULSE 68; O2SAT 98; BMI 24.2
--- NOTE | 2024-07-30 10:55 | MHC.PC.OV ---
Vital Signs 07/30/24 10:55 Height 5 ft 9 in Weight 164 lb 2 oz BMI 24.2 BP 110/66 Blood Pressure Location Lt brachial Position Sitting Pulse 68 Pulse Source Pulse Oximeter Pulse Oximetry (%) 98 Oxygen Delivery Method Room Air Intake Visit Reasons: ANNUAL Classified Advertising Clerk Required: No Accompanied by: Daughter Allergies No Known Allergies Allergy (Verified 07/30/24 11:12) Medication List - Last Reconciled 07/30/24 by Bismark Benitez PA-C albuterol sulfate 2.5 mg (3 mL) inhalation Q4-6H PRN 90 days albuterol sulfate 90 mcg/actuation (Ventolin HFA) 1 puff PO QID PRN 90 days bisacodyl (Dulcolax (bisacodyl)) 10 mg (2 x 5 mg) PO BEDTIME blood sugar diagnostic (FreeStyle Precision Emanuel Strips) As directed once daily blood sugar diagnostic (FreeStyle Precision Emanuel Strips) 1 strip miscellaneous QID cholecalciferol (vitamin D3) 50 mcg PO DAILY citalopram 40 mg PO DAILY 90 days diclofenac sodium 1% (Voltaren Arthritis Pain) 4 grams topical QID PRN docusate sodium (Colace) 100 mg PO BID duloxetine 60 mg PO DAILY ezetimibe (Zetia) 10 mg PO DAILY flash glucose scanning reader ([employer] Great [employer]Style Sera 2 [place]) As directed flash glucose sensor (FreeStyle Sera 2 Sensor kit) As directed change every 14 days fluticasone propion-salmeterol 250-50 mcg/dose (Advair Diskus) 1 inh inhalation BID 90 days hydrochlorothiazide 25 mg PO DAILY hydroxyzine HCl 25 mg PO BID PRN ibuprofen 600 mg PO Q6H PRN insulin lispro (Humalog KwikPen (U-100) Insulin) 5 units breakfast, +2units for bg >200 subcut 3x per day. levothyroxine 112 mcg PO DAILY lisinopril 10 mg PO DAILY 90 days mirtazapine 30 mg PO BEDTIME miscellaneous medical supply 1 ea miscellaneous DAILY pen needle, diabetic As directed pen needle, diabetic (BD Ultra-Fine Ramya Pen Needle) As directed four times a day perphenazine 4 mg PO BID rosuvastatin 40 mg PO DAILY sumatriptan succinate take 1 tab at onset of headache; if no relief may repeat 1 tab after at least 2 hrs; max = 4 tabs/24 hr PO tirzepatide (Mounjaro) 7.5 mg (0.5 mL) subcut QWEEK tizanidine 2 mg PO BEDTIME PRN trazodone 200 mg PO BEDTIME PRN Tobacco use date assessed: 12/27/23 Dental Screening Dental Screen Date: 12/27/23 HPI ANNUAL HPI Details Patient is a 53-year-old here today in annual physical. Patient has a past medical history including diabetes, hypertension, obstructive sleep apnea, obesity and generalized anxiety disorder, Cocnerns--> report having a burning sensation in her anterior lateral aspect of her left hip. She reports she has felt a sensation over last 2 weeks. She feels that there is a vein that is inflamed in the area. She denies any falls or trauma to the problem area. CORNELIUS: followed by pulmonology . Continues to use CPAP machine on nightly basis with good effect on her sleep. .. DM: She is followed by Endocrine, has lost a significant amount of weight since last office visit due to better eating habits. Her insulin dose has been changed to p.r.n. use. She continues on a strict diabetic diet. Has lost even more weight since last office visit . Patient continues on Mounjaro .. Hypothyroidism: Most recent TSH stable. Continues on levothyroxine 112 mcg. .. Mitral valve stenosis: followed by a quality control assessor , no overt signs of Congestive heart failure. .. REHAN: Sees a psychiatrist who manages her mental health medications. She feels stable from a mental health point of view. Colorectal cancer screening: Done in April of 2023, 2 polyps found, repeat 10 years Vaccines: Up-to-date with COVID vaccine, pneumonia vaccine and tetanus vaccine. Considering flu vaccine this Fall [facility] Medical History (Updated 07/30/24 @ 11:38 by Bismark Benitez PA-C) DVT (deep venous thrombosis) Type 2 diabetes mellitus with complication, with long-term current use of insulin Chest pain Somnolence Sleep apnea Cervical high risk HPV (human papillomavirus) test positive Bleeding hemorrhoids Essential hypertension COVID-19 CKD (chronic kidney disease) HTN (hypertension) Diastolic dysfunction Rheumatic mitral stenosis Glaucoma Insomnia Rheumatic heart disease Depression Anxiety Hemorrhoids Hypothyroidism Hyperlipidemia LDL goal <100 Obesity (BMI 30-39.9) Type 2 diabetes mellitus with hyperglycemia, without long-term current use of insulin Surgical History History of hysteroscopy Hx of colonoscopy Hx of tubal ligation H/O hemorrhoidectomy History of section Family History Father Diabetes Mother Diabetes Stroke Maternal Aunt Stroke Hypertension Social History Household Members: Children Housing: Apartment Are you a primary tree care foreman to a significant other at home: No Do you presently have visiting nurse or other home services: No Alcohol intake: current Alcohol intake frequency: does not drink Alcohol type: wine Patient Tobacco Use Status: Never used Tobacco e-Cigarette/Vaping Use: Never Used Second Hand Smoke Exposure: No service: No Current occupational status: unemployed Cognitive needs: No Hearing needs: No Vision needs: Yes Female Reproductive History Menstrual Age of Menarche: 9 Questionnaire PHQ-9 Over the last 2 weeks, how often have you been bothered by any of the following problems? 5. Poor appetite or overeating: not at all 8. Moving or speaking so slowly that other people could have noticed. Or the opposite - being so fidgety or restless that you have been moving around a lot more than usual: not at all 9. Thoughts that you would be better off or of hurting yourself in some way: not at all Source: Developed by Drs. Luis Elias, Viviane Christie, Peng Irwin and colleagues, with an educational lindsey from [employer]. Thrive Questionnaire Date Thrive assessed: 07/30/24 I am a: Patient What is your living situation today?: I have a steady place to live Within the past 12 months, did the food you bought not last and you didn't have the money to get more?: Sometimes True Within the past 12 months, did you worry whether your food would run out before you got money to buy more?: Sometimes True Do you have trouble paying for medicines?: No Do you have trouble getting transportation to medical appointments?: No Do you have trouble paying your heating and electricity bill?: Yes Do you have trouble taking care of your child, family member or friend?: No Do you have trouble with day-to-day activities such as bathing, preparing meals, shopping, managing finances, etc.?: No Are you currently unemployed and looking for a job?: Yes Are you interested in more education?: No Please select the resources that you would like help with: Food THRIVE Score: 3 REHAN-7 AMB Questionnaire REHAN-7 Date REHAN - 7 assessed: 12/27/23 Source: Developed by Drs. Luis Elias, Viviane Christie, Peng Irwin and colleagues, with an educational lindsey from [employer]. Review of Systems Const Denies body aches, Denies chills, Denies excessive sweating, Denies fatigue, Denies fever(s) and Denies headache(s) Eyes Denies blurry vision ENT Denies dysphagia, Denies vertigo, Denies dizziness, Denies headache(s), Denies hearing loss and Denies tinnitus Card Denies chest pain, Denies chest pain with activity, Denies syncope, Denies irregular heart rhythm and Denies dyspnea Resp Denies chest congestion, Denies cough, Denies hemoptysis, Denies dyspnea and Denies wheezing GI Denies abdominal pain, Denies melena, Denies hematochezia, Denies coffee ground emesis, Denies dysphagia, Denies diarrhea, Denies nausea and Denies vomiting Denies urinary frequency, Denies dysuria, Denies urinary hesitancy and Denies urinary urgency Musc Denies arthralgias, Denies limited range of motion, Denies muscle cramps and Denies muscle weakness Skin/Breast Denies rash and Denies skin ulcer Neuro Denies Abnormal speech present, Denies confusion, Denies vertigo, Denies dizziness, Denies syncope, Denies headache(s), Denies memory loss and Denies seizure-like activity Psych Denies anxiety, Denies confusion, Denies depression, Denies memory loss, Denies panic attacks and Denies paranoia Endo Denies excessive sweating, Denies fatigue, Denies flushing, Denies polydipsia and Denies polyuria Aller/Immun Denies wheezing Physical exam (Primary Care) Vital Signs: Last Vital Signs Pulse 68 07/30/24 10:55 BP 110/66 07/30/24 10:55 Pulse Ox 98 07/30/24 10:55 Oxygen Delivery Method Room Air 07/30/24 10:55 BMI result Body Mass Index 24.2 Tobacco/Smoking Status: Tobacco use Status Tobacco use date assessed 12/27/23 07/30/24 10:57 Patient Tobacco Use Status Never used Tobacco 07/30/24 10:57 e-Cigarette/Vaping Use Never Used 07/30/24 10:57 Thrive Assessment: Date of Thrive Assessment Date Thrive assessed 07/30/24 07/30/24 10:57 Const General: cooperative, comfortable, no acute distress, alert and awake; No confusion Orientation/consciousness: oriented to person, oriented to place, patient oriented x3 and No confusion HENMT Head: Yes normocephalic Ears: external ears normal and TM's normal bilaterally Face and sinus: No sinus tenderness Mouth: Normal oral and palatal mucosa present and tongue normal Teeth and gingiva: dentition normal and gingiva normal Throat: Yes posterior oropharynx normal, Yes tonsils normal and Yes uvula midline Eyes Conjunctivae: conjunctivae normal Sclerae: sclerae normal Pupils: Equal, round and reactive pupils present EOM: EOMs intact bilaterally Direct Ophthalmoscopy: No no photophobia Neck Neck: Yes no lymphadenopathy, No tender and Yes no JVD Thyroid: Thyroid normal Carotids: no bruits Chest Chest palpation & inspection: no tenderness Resp Effort & Inspection: normal respiratory effort, no audible wheezes, not labored and no stridor Auscultation: no crackles, no rales, no rhonchi and no wheezes Cardio Jugular venous distension: no JVD Rate: regular rate, not bradycardic and not tachycardic Rhythm: regular rhythm Bruits: no carotid bruits Peripheral pulses: Peripheral pulses 2+ throughout GI Inspection: Yes normal to inspection, No abdominal wall ecchymosis and No visible herniation Palpation (GI): Soft to palpation, nontender, no guarding, not rigid and No hepatosplenomegaly present Auscultation: normoactive bowel sounds General: Yes no CVA tenderness Back/Spine/Pelvis Back: no CVA tenderness and No back tenderness Cervical Spine: cervical ROM normal Thoracic/Lumbar Spine: thoracic and lumbar spine normal to inspection, straight leg raise negative bilaterally, No thoraco-lumbar ROM limited and No lumbar spinal tenderness Skin Lesions: no lesions Rashes: no rashes Wounds: no wounds Neuro General: oriented to person, oriented to place, patient oriented x3, CN's II-XI intact bilaterally and No confusion Cranial nerves: Yes Equal, round and reactive pupils present and Yes Normal accommodation reflex present Cognition (Neuro): normal cognition Speech: No Abnormal speech present Gait exam (Neuro): Normal gait present Motor exam (neuro): 5/5 motor strength present throughout Extrem Right upper extremity: full ROM; no cyanosis Left upper extremity: full ROM; no cyanosis Right lower extremity: no edema Left lower extremity: no edema Psych Appearance: grossly normal Mental Status: mental status grossly normal Affect: normal affect Attitude: cooperative Thought process: Normal thought process present Assessment and Plan Assessment & Plan (1) Annual physical exam: Code(s): Z00.00 - Encounter for general adult medical examination without abnormal findings (2) Type 2 diabetes mellitus with hyperglycemia, without long-term current use of insulin: Code(s): E11.65 - Type 2 diabetes mellitus with hyperglycemia Plan: Patient followed by [facility]. Most recent A1c of 5.7. Her insulin dose has been reduced to only p.r.n. use. Has been continuing her strict diet and has lost more weight. She is noticed significant weight loss since being on a strict diet. (3) CKD (chronic kidney disease): Comment: Stage 3 - Foll'd by Dr. Martin Brito- [facility] Code(s): N18.9 - Chronic kidney disease, unspecified Qualifiers: Chronic kidney disease stage: stage 3 (moderate) Chronic kidney disease stage 3 subtype: stage 3b (GFR 30-44) Qualified Code(s): N18.32 - Chronic kidney disease, stage 3b Plan: Most recent renal function normal.. Patient followed by Nephrology. Will continue to avoid nephrotoxins. (4) HTN (hypertension): Code(s): I10 - Essential (primary) hypertension Qualifiers: Hypertension type: primary hypertension Qualified Code(s): I10 - Essential (primary) hypertension Plan: Patient's blood pressure acceptable today in office. Will continue her current dose of antihypertensive medication with goal blood pressure to remain below 140/90 (5) Hyperlipidemia LDL goal <100: Code(s): E78.5 - Hyperlipidemia, unspecified Plan: Most recent lipid panel showing elevated total cholesterol and LDL. She will do repeat fasting testing,. Will recheck lipid panel to ensure appropriate LDL below 100 . (6) Hypothyroidism: Code(s): E03.9 - Hypothyroidism, unspecified Qualifiers: Hypothyroidism type: acquired Qualified Code(s): E03.9 - Hypothyroidism, unspecified Plan: Patient was followed by Endocrinology, most recent TSH has been stable. Most recent TSH low. Her levothyroxine was reduced to 112 mcg. TSH will be rechecked by her solar electric/photovoltaic installer. (7) Asthma: Comment: SHE HAS MILD ASTHMA WHICH FLARES UP WHENEVER SHE HAS NASAL CONGESTION OR UPPER RESPIRATORY INFECTION USUALLY ABOUT ONCE OR TWICE A YEAR . SHE HAS DONE MUCH BETTER SINCE SHE IS USING ADVAIR 250-51 INHALATION B.I.D. REGULARLY. Code(s): J45.909 - Unspecified asthma, uncomplicated Qualifiers: Asthma severity: mild Asthma persistence: intermittent Asthma complication type: unspecified Qualified Code(s): J45.20 - Mild intermittent asthma, uncomplicated Plan: Patient reports her asthma is fairly well controlled. She would like refill on her albuterol inhaler as in the spring her asthma does tend to exacerbate. (8) Venous insufficiency: Code(s): I87.2 - Venous insufficiency (chronic) (peripheral) Plan: Patient reports a burning sensation over her left lateral hip in the area vein. She denies any notable skin changes or edema. Will send for an ultrasound of the left lower extremity evaluate for venous insufficiency. If ultrasound unrevealing will consider physical therapy for possible inguinal ligament issue. (9) Left inguinal pain: Code(s): R10.32 - Left lower quadrant pain Plan: As above Orders: Orders Vitamin D 25-OH Total Today R79.89 - Other specified abnormal findings of blood chemistry US venous duplex LE LT Today I87.2 - Venous insufficiency (chronic) (peripheral) Comprehensive [place]. 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 TSH reflex Free T4 Today E03.9 - Hypothyroidism, unspecified Lipid Panel Today E78.5 - Hyperlipidemia, unspecified Coding Level of Care Code Est Pt Prev Care 40-64y(21791) Diagnoses Annual physical exam Z00.00 Type 2 diabetes mellitus with hyperglycemia, without long-term current use of insulin E11.65 Stage 3b chronic kidney disease N18.32 Chronic kidney disease stage: stage 3 (moderate) Chronic kidney disease stage 3 subtype: stage 3b (GFR 30-44) Primary hypertension I10 Hypertension type: primary hypertension Hyperlipidemia LDL goal <100 E78.5 Acquired hypothyroidism E03.9 Hypothyroidism type: acquired Mild intermittent asthma, unspecified whether complicated J45.20 Asthma severity: mild Asthma persistence: intermittent Asthma complication type: unspecified Venous insufficiency I87.2 Left inguinal pain R10.32
== END 2024-07-30 11:44 | disposition home or self-care (01) ==
PROVIDERS: PCP Nurse Practitioner Family; Visit Provider Physician Assistant
DX: Z00.00 Encounter for general adult medical examination without abnormal findings (principal); I12.9 Hypertensive chronic kidney disease with stage 1 through stage 4 chronic kidney disease, or unspecified chronic kidney disease; E11.65 Type 2 diabetes mellitus with hyperglycemia; N18.32 Chronic kidney disease, stage 3b; E78.5 Hyperlipidemia, unspecified; E03.9 Hypothyroidism, unspecified; J45.20 Mild intermittent asthma, uncomplicated; I87.2 Venous insufficiency (chronic) (peripheral); R10.32 Left lower quadrant pain
CPT/HCPCS: 99396

== ENCOUNTER 2024-07-30 11:56 | Outpatient (REF) | payer OTHER, SELFPAY ==
[2024-07-30 12:49] LABS: Alanine Aminotransferase 24 U/L (0-31); Albumin Level 4.5 g/dL (3.5-5.0); Alkaline Phosphatase 103 U/L (39-117); Anion Gap 15 (12-20); Aspartate Amino Transferase 27 U/L (5-31); Bilirubin Total 0.5 mg/dL (0.0-1.0); Blood Urea Nitrogen 28 mg/dL (9-16); Calcium 10.4 mg/dL (8.4-10.2); Carbon Dioxide 28 mmol/L (22-29); Chloride 103 mmol/L (96-108); Cholesterol 137 mg/dL (<200); Estimated Glomerular Filt Rate 58; Glucose Fasting 103 mg/dL (60-99); HDL Cholesterol 51 mg/dL (>40); LDL Cholesterol Calculated 71 mg/dL (<100); Potassium 4.5 mmol/L (3.3-5.1); Sodium 141 mmol/L (135-145); Total Protein 8.1 g/dL (6.5-8.0); Triglycerides 77 mg/dL (<150)
[2024-07-30 13:06] LABS: TSH reflex Free T4 0.35 uIU/mL (0.32-4.0); Vitamin D 25-OH Total 28.9 ng/mL (>30)
== END 2024-07-30 11:57 | disposition home or self-care (01) ==
LOC: HO.LAB 11:56
PROVIDERS: Absent Provider Physician Assistant; PCP Physician Assistant; Visit Provider Physician Assistant
DX: E11.8 Type 2 diabetes mellitus with unspecified complications (principal); Z79.4 Long term (current) use of insulin; E03.9 Hypothyroidism, unspecified; R79.89 Other specified abnormal findings of blood chemistry; E78.5 Hyperlipidemia, unspecified
CPT/HCPCS: 36415; 80053; 80061; 82306; 84443

== ENCOUNTER 2024-08-02 10:07 | Outpatient (AMB) | payer OTHER, SELFPAY ==
--- NOTE | 2024-08-02 10:08 | A.OFFVIS_ITS ---
Vital Signs 08/02/24 10:09 Height 5 ft 9 in Weight 166 lb 0.129 oz BMI 24.5 BP 110/72 Blood Pressure Location Lt brachial Position Sitting Pulse 60 Pulse Source Pulse Oximeter Intake Visit Reasons: DM/CONFIRMED Intake Note: Patient presents today for D2MT follow up visit. Last Diabetic Eye exam: 12/2023 Last Podiatry Visit:Doesn't have one Random Glucose: 105 mg/dl HgA1c: 5.7% 07/17/24 Director Of Customer Service Required: Yes Director Of Customer Service Language: Talent Development Director Services: Director Of Customer Service Present Information Interpreted: non-clinical & clinical Accompanied by: Self / Same As Patient Allergies No Known Allergies Allergy (Verified 08/02/24 10:13) Medication List - Last Reconciled 08/02/24 by Gita Nguyen PA-C albuterol sulfate 2.5 mg (3 mL) inhalation Q4-6H PRN 90 days albuterol sulfate 90 mcg/actuation (Ventolin HFA) 1 puff PO QID PRN 90 days bisacodyl (Dulcolax (bisacodyl)) 10 mg (2 x 5 mg) PO BEDTIME blood sugar diagnostic (FreeStyle Precision Emanuel Strips) As directed once daily blood sugar diagnostic (FreeStyle Precision Emanuel Strips) 1 strip miscellaneous QID cholecalciferol (vitamin D3) 50 mcg PO DAILY citalopram 40 mg PO DAILY 90 days diclofenac sodium 1% (Voltaren Arthritis Pain) 4 grams topical QID PRN docusate sodium (Colace) 100 mg PO BID duloxetine 60 mg PO DAILY ezetimibe (Zetia) 10 mg PO DAILY flash glucose scanning reader ([employer]Style Sera 2 [place]) As directed flash glucose sensor (FreeStyle Sera 2 Sensor kit) As directed change every 14 days fluticasone propion-salmeterol 250-50 mcg/dose (Advair Diskus) 1 inh inhalation BID 90 days hydrochlorothiazide 25 mg PO DAILY hydroxyzine HCl 25 mg PO BID PRN ibuprofen 600 mg PO Q6H PRN insulin lispro (Humalog KwikPen (U-100) Insulin) 5 units breakfast, +2units for bg >200 subcut 3x per day. levothyroxine 112 mcg PO DAILY lisinopril 10 mg PO DAILY 90 days mirtazapine 30 mg PO BEDTIME miscellaneous medical supply 1 ea miscellaneous DAILY pen needle, diabetic As directed pen needle, diabetic (BD Ultra-Fine Ramya Pen Needle) As directed four times a day perphenazine 4 mg PO BID rosuvastatin 40 mg PO DAILY sumatriptan succinate take 1 tab at onset of headache; if no relief may repeat 1 tab after at least 2 hrs; max = 4 tabs/24 hr PO tizanidine 2 mg PO BEDTIME PRN trazodone 200 mg PO BEDTIME PRN HPI HPI DM/CONFIRMED: Details: historical interpreter: #[id number] Patient is a 53-year-old female with a significant past medical history of hypertension, CKD, CORNELIUS, type 2 diabetes, hyperlipidemia, hypothyroidism and obesity presenting today for diabetic follow-up. DM: Patients CGM information reviewed Reviewed patient's sensor data: Hypoglycemia: ? 3% Hyperglycemia:? 0% Time in Range:? 97% -she is mostly hypoglycemic overnight and does not think that this is true because she will check her blood sugars and they are normal. She thinks she could be lying on the sensor. She does not have any symptoms of this. She states that she would correct blood sugars with orange juice if needed. A1c in office today is 5.7. She has not needed to use any insulin in the last few months. She is currently on Mounjaro 7.5 mg but has not noticed any increased weight loss with this. She monitors her blood sugars very closely. She is following a very strict diabetic diet and exercising twice a day. She has lost 56 lb in the past year CV: Blood pressure today in the office is 110/72. She is currently on lisinopril 10 mg, hydrochlorothiazide 25 mg daily. Her last cholesterol was WNL. She is on Crestor 40 mg. No myalgias. [facility] Medical History (Updated 07/30/24 @ 11:38 by Bismark Benitez PA-C) DVT (deep venous thrombosis) Type 2 diabetes mellitus with complication, with long-term current use of insulin Chest pain Somnolence Sleep apnea Cervical high risk HPV (human papillomavirus) test positive Bleeding hemorrhoids Essential hypertension COVID-19 CKD (chronic kidney disease) HTN (hypertension) Diastolic dysfunction Rheumatic mitral stenosis Glaucoma Insomnia Rheumatic heart disease Depression Anxiety Hemorrhoids Hypothyroidism Hyperlipidemia LDL goal <100 Obesity (BMI 30-39.9) Type 2 diabetes mellitus with hyperglycemia, without long-term current use of insulin Surgical History History of hysteroscopy Hx of colonoscopy Hx of tubal ligation H/O hemorrhoidectomy History of section Family History Father Diabetes Mother Diabetes Stroke Maternal Aunt Stroke Hypertension Social History Household Members: Children Housing: Apartment Are you a primary adult live in caregiver to a significant other at home: No Do you presently have visiting nurse or other home services: No Alcohol intake: current Alcohol intake frequency: does not drink Alcohol type: wine Patient Tobacco Use Status: Never used Tobacco e-Cigarette/Vaping Use: Never Used Second Hand Smoke Exposure: No service: No Current occupational status: unemployed Cognitive needs: No Hearing needs: No Vision needs: Yes Female Reproductive History Menstrual Age of Menarche: 9 Physical Exam Vital Signs: Last Vital Signs Pulse 60 08/02/24 10:09 BP 110/72 08/02/24 10:09 BMI result Body Mass Index 24.5 Const Orientation/consciousness: patient oriented x3 Neck Neck: Yes no lymphadenopathy Thyroid: Thyroid normal Carotids: no bruits Resp Auscultation: clear to auscultation bilaterally Cardio Rate: regular rate Rhythm: regular rhythm Heart sounds: S1 normal heart sound present and S2 normal heart sound present Peripheral pulses: dorsalis pedis present Neuro General: patient oriented x3, gait normal and no focal motor deficits Extrem Other: Monofilament sensation intact bilaterally. Vibratory sensation intact bilaterally. Skin intact. General: Yes normal to inspection Results Reviewed Results Reviewed: Laboratory Last Values Glucose (Clinic) 105 mg/dL (60-115) 08/02/24 10:16 Laboratory Tests 07/17/24 07/30/24 10:00 12:01 Sodium 141 Potassium 4.5 Chloride 103 Carbon Dioxide 28 Anion Gap 15 BUN 28 H Creatinine 1.00 Estimated GFR 58 Fasting Glucose 103 H Hemoglobin A1c % 5.7 AST 27 ALT 24 Triglycerides 77 Cholesterol 137 LDL Cholesterol, Calc 71 HDL Cholesterol 51 Assessment & Plan Assessment & Plan (1) Type 2 diabetes mellitus with complication, with long-term current use of insulin: Code(s): E11.8 - Type 2 diabetes mellitus with unspecified complications; 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 continue current treatment (3) CKD (chronic kidney disease): Comment: Stage 3 - Foll'd by Dr. Martin Brito- [facility] Code(s): N18.9 - Chronic kidney disease, unspecified Category: Medical Qualifiers: Chronic kidney disease stage: stage 3 (moderate) Chronic kidney disease stage 3 subtype: stage 3b (GFR 30-44) Qualified Code(s): N18.32 - Chronic kidney disease, stage 3b Plan: stable Orders: Orders Hemoglobin A1c 3 Months E11.8 - Type 2 diabetes mellitus with unspecified complications, I10 - Essential (primary) hypertension, N18.32 - Chronic kidney disease, stage 3b, Z79.4 - retirement (current) use of insulin Comprehensive [place]. Panel Fast 3 Months E11.8 - Type 2 diabetes mellitus with unspecified complications, I10 - Essential (primary) hypertension, N18.32 - Chronic kidney disease, stage 3b, Z79.4 - retirement (current) use of insulin Microalbumin, Random (w Creat) 3 Months E11.8 - Type 2 diabetes mellitus with unspecified complications, I10 - Essential (primary) hypertension, N18.32 - Chronic kidney disease, stage 3b, Z79.4 - retirement (current) use of insulin Medications: New tirzepatide (Mounjaro) 5 mg (0.5 mL) subcut QWEEK 2 mL 5RF Coding Level of Care Code Est Pt Level 4 (13706) Complex EM visit Add On G2211 Diagnoses Type 2 diabetes mellitus with complication, with long-term current use of insulin E11.8; Z79.4 Primary hypertension I10 Hypertension type: primary hypertension Stage 3b chronic kidney disease N18.32 Chronic kidney disease stage: stage 3 (moderate) Chronic kidney disease stage 3 subtype: stage 3b (GFR 30-44)
[2024-08-02 10:09] VITALS: BP 110/72; PULSE 60; BMI 24.5
[2024-08-02 10:20] LABS: Glucose, Whole Blood 105 mg/dL (60-115)
== END 2024-08-02 10:56 | disposition home or self-care (01) ==
PROVIDERS: PCP Nurse Practitioner Family; Visit Provider Physician Assistant
DX: E11.8 Type 2 diabetes mellitus with unspecified complications (principal); Z79.4 Long term (current) use of insulin; I10 Essential (primary) hypertension; N18.32 Chronic kidney disease, stage 3b
CPT/HCPCS: 99214; G2211

== ENCOUNTER → 2024-08-02 10:07 | Outpatient (BNVA) | payer OTHER, SELFPAY | PROVIDERS: PCP Nurse Practitioner Family; Visit Provider Physician Assistant | DX: I12.9 Hypertensive chronic kidney disease with stage 1 through stage 4 chronic kidney disease, or unspecified chronic kidney disease (principal); E11.22 Type 2 diabetes mellitus with diabetic chronic kidney disease; N18.32 Chronic kidney disease, stage 3b; Z79.4 Long term (current) use of insulin | CPT/HCPCS: 82947; 99212 ==

== ENCOUNTER 2024-08-26 09:47 | Outpatient (AMB) | payer OTHER, SELFPAY ==
[2024-08-26 09:48] VITALS: BP 114/68; PULSE 60; O2SAT 98; BMI 24.7
--- NOTE | 2024-08-26 09:48 | A.OFFVIS_ITS ---
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 [employer] offered & declined Accompanied by: Self / Same As Patient Allergies No Known Allergies Allergy (Verified 08/26/24 10:06) Medication List - Last Reconciled 08/26/24 by Daniel Ortega MD albuterol sulfate 2.5 mg (3 mL) inhalation Q4-6H PRN 90 days albuterol sulfate 90 mcg/actuation (Ventolin HFA) 1 puff PO QID PRN 90 days bisacodyl (Dulcolax (bisacodyl)) 10 mg (2 x 5 mg) PO BEDTIME blood sugar diagnostic (FreeStyle Precision Emanuel Strips) As directed once daily blood sugar diagnostic (FreeStyle Precision Emanuel Strips) 1 strip miscellaneous QID cholecalciferol (vitamin D3) 50 mcg PO DAILY citalopram 40 mg PO DAILY 90 days diclofenac sodium 1% (Voltaren Arthritis Pain) 4 grams topical QID PRN docusate sodium (Colace) 100 mg PO BID duloxetine 60 mg PO DAILY ezetimibe (Zetia) 10 mg PO DAILY flash glucose scanning reader (FreeStyle Sera 2 [place]) As directed flash glucose sensor (FreeStyle Sera 2 Sensor kit) As directed change every 14 days fluticasone propion-salmeterol 250-50 mcg/dose (Advair Diskus) 1 inh inhalation BID 90 days hydrochlorothiazide 25 mg PO DAILY hydroxyzine HCl 25 mg PO BID PRN ibuprofen 600 mg PO Q6H PRN insulin lispro (Humalog KwikPen (U-100) Insulin) 5 units breakfast, +2units for bg >200 subcut 3x per day. levothyroxine 112 mcg PO DAILY lisinopril 10 mg PO DAILY 90 days mirtazapine 30 mg PO BEDTIME miscellaneous medical supply 1 ea miscellaneous DAILY pen needle, diabetic As directed pen needle, diabetic (BD Ultra-Fine Ramya Pen Needle) As directed four times a day perphenazine 4 mg PO BID rosuvastatin 40 mg PO DAILY sumatriptan succinate take 1 tab at onset of headache; if no relief may repeat 1 tab after at least 2 hrs; max = 4 tabs/24 hr PO tirzepatide (Mounjaro) 5 mg (0.5 mL) subcut QWEEK tizanidine 2 mg PO BEDTIME PRN trazodone 200 mg PO BEDTIME PRN Do you need a note to return to daycare/school/sports/work: No HPI HPI Obstructive sleep apnea: Details: This 54 years old very pleasant, Nepali-speaking female comes for her routine follow-up after 4 months. Her breathing has been very stable, without any exacerbations. She continues to use Advair twice a day and hardly needs to use the rescue inhaler. She has had no respiratory infection or any acute exacerbation in the last 4 months. As far as CPAP is concerned she claims that she puts it on every night, except for the last week when she was somewhat sick. However the compliance report again indicates that she is not using it regularly and when she does use she keeps it on only for an hour or so. Surprisingly she claims that she sleeps well. [facility] Medical History DVT (deep venous thrombosis) Type 2 diabetes mellitus with complication, with long-term current use of insulin Chest pain Somnolence Sleep apnea Cervical high risk HPV (human papillomavirus) test positive Bleeding hemorrhoids Essential hypertension COVID-19 CKD (chronic kidney disease) HTN (hypertension) Diastolic dysfunction Rheumatic mitral stenosis Glaucoma Insomnia Rheumatic heart disease Depression Anxiety Hemorrhoids Hypothyroidism Hyperlipidemia LDL goal <100 Obesity (BMI 30-39.9) Type 2 diabetes mellitus with hyperglycemia, without long-term current use of insulin Surgical History History of hysteroscopy Hx of colonoscopy Hx of tubal ligation H/O hemorrhoidectomy History of section Family History Father Diabetes Mother Diabetes Stroke Maternal Aunt Stroke Hypertension Social History Household Members: Children Housing: Apartment Are you a primary director of home care hospice to a significant other at home: No Do you presently have visiting nurse or other home services: No Alcohol intake: current Alcohol intake frequency: does not drink Alcohol type: wine Patient Tobacco Use Status: Never used Tobacco e-Cigarette/Vaping Use: Never Used Second Hand Smoke Exposure: No service: No Current occupational status: unemployed Cognitive needs: No Hearing needs: No Vision needs: Yes Female Reproductive History Menstrual Age of Menarche: 9 Review of Systems Const All systems reviewed & are unremarkable except as noted in HPI and below Reports fatigue Eyes Reports no additional complaints ENT Reports nasal congestion (MILD OFF AND ON ) Card Denies irregular heart rhythm and Denies leg edema Resp Reports as per HPI GI Reports constipation Reports no additional complaints Musc Reports back pain and Reports myalgias Skin/Breast Reports system reviewed and no additional complaints, except as documented Neuro Reports no additional complaints Psych Reports anxiety and Reports depression Endo Reports fatigue and Reports other ( DIABETES MELLITUS, HYPOTHYROIDISM) Kody/Lymph Reports no additional complaints Aller/Immun Reports seasonal rhinorrhea Physical Exam Vital Signs: Last Vital Signs Pulse 60 08/26/24 09:48 BP 114/68 08/26/24 09:48 Pulse Ox 98 08/26/24 09:48 Oxygen Delivery Method Room Air 08/26/24 09:48 BMI result Body Mass Index 24.7 Const General: comfortable, no acute distress, alert and awake Orientation/consciousness: patient oriented x3 HEENT Head: Yes normal to inspection General nose exam: No nasal polyps present, No nasal discharge present and Other nasal findings present (MILD NASAL CONGESTION ) Face and sinus: Yes sinuses nontender Mouth: oropharynx normal Throat: Yes posterior oropharynx normal Eyes General: appearance normal, both eyes and all related structures Neck Neck: Yes normal visual inspection, Yes no lymphadenopathy, Yes trachea midline, Yes no JVD and Yes other ( NECK SIZE 16 IN) Thyroid: Thyroid normal Chest Chest palpation & inspection: normal inspection of the chest, normal palpation of entire chest wall and tenderness (There is some muscular tenderness over Rt thoracic area on the back ) Resp Effort & Inspection: normal respiratory effort Auscultation: no crackles, no wheezes, No rub present and other ( BREATH SOUNDS ARE DECREASED OVER THE BASILAR AREAS) Cardio Palpation: normal PMI Rate: regular rate Rhythm: regular rhythm Heart sounds: no gallops and no murmurs Peripheral pulses: Peripheral pulses 2+ throughout GI Palpation (GI): Soft to palpation, nontender, No hepatosplenomegaly present and no masses Auscultation: normal bowel sounds Back/Spine/Pelvis Thoracic/Lumbar Spine: thoracic and lumbar spine normal to inspection and thoraco-lumbar ROM limited Skin General skin exam: no rashes or lesions noted Neuro General: patient oriented x3 and no focal motor deficits Cranial nerves: Yes CN's II-XII intact bilaterally Extrem General: Yes normal to inspection, Yes no clubbing, cyanosis or edema and Yes no calf tenderness Psych Appearance: grossly normal and well kempt Speech and movement: Normal speech and movement present Results Reviewed Results Reviewed: Compliance report for the last 30 nights is reviewed. She has used 14/30 nights, 47% of the nights. Average use it per night 1 hours 20 minutes . Assessment & Plan Assessment & Plan (1) Asthma: Comment: SHE HAS MILD ASTHMA WHICH FLARES UP WHENEVER SHE HAS NASAL CONGESTION OR UPPER RESPIRATORY INFECTION USUALLY ABOUT ONCE OR TWICE A YEAR . SHE HAS DONE MUCH BETTER SINCE SHE IS USING ADVAIR 250-50 1 INHALATION B.I.D. REGULARLY. Code(s): J45.909 - Unspecified asthma, uncomplicated Category: Medical Qualifiers: Asthma severity: mild Asthma persistence: intermittent Asthma complication type: unspecified Qualified Code(s): J45.20 - Mild intermittent asthma, uncomplicated Plan: Advised to continue using Advair 250-51 inhalation b.i.d. and use albuterol HFA 2 puffs Q 4-6 hours only p.r.n. (2) CORNELIUS (obstructive sleep apnea): Comment: Patient does have history of obstructive sleep apnea. Initially she was very compliant in using CPAP. Lately she is relatively noncompliant, but claims that she sleeps well. * she has lost significant amount of weight and I think she may need to be retested if she still has sleep apnea are not. Code(s): G47.33 - Obstructive sleep apnea (adult) (pediatric) Category: Medical Plan: I reviewed the findings of compliance report and, advised that she needs to use the CPAP every night. She is also educated that she needs to keep the CPAP on at least for 4 hours every night.. If she remains noncompliant or uses suboptimally, by next visit, we will consider stopping CPAP therapy and arrange for a repeat home-based sleep study. Coding Level of Care Code Est Pt Level 3 (78912) Diagnoses Mild intermittent asthma, unspecified whether complicated J45.20 Asthma severity: mild Asthma persistence: intermittent Asthma complication type: unspecified CORNELIUS (obstructive sleep apnea) G47.33
== END 2024-08-26 10:07 | disposition home or self-care (01) ==
PROVIDERS: PCP Nurse Practitioner Family; Visit Provider Internal Medicine
DX: J45.20 Mild intermittent asthma, uncomplicated (principal); G47.33 Obstructive sleep apnea (adult) (pediatric)
CPT/HCPCS: 99213

== ENCOUNTER → 2024-08-26 09:47 | Outpatient (BNVA) | payer OTHER, SELFPAY | PROVIDERS: PCP Nurse Practitioner Family; Visit Provider Internal Medicine | DX: J45.20 Mild intermittent asthma, uncomplicated (principal); G47.33 Obstructive sleep apnea (adult) (pediatric); Z99.89 Dependence on other enabling machines and devices; Z91.199 Patient's noncompliance with other medical treatment and regimen due to unspecified reason | CPT/HCPCS: 99212 ==

== ENCOUNTER 2024-11-01 09:05 | Outpatient (AMB) | payer OTHER, SELFPAY ==
--- NOTE | 2024-11-01 09:06 | MHC.OFFVIS ---
Vital Signs 11/01/24 09:07 Height 5 ft 9 in Weight 163 lb 2.273 oz BMI 24.1 BP 108/74 Blood Pressure Location Rt brachial Position Sitting Pulse 85 Pulse Source Pulse Oximeter Intake Visit Reasons: dm-confirmed Intake Note: Patient presents here today for D2MT follow up visit. 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 DM: Patients CGM information reviewed Reviewed patient's sensor data: Hypoglycemia: ? 1% -Not less than 60 Hyperglycemia:? 2% Time in Range:? 97% Usage 77%, GMI 6.1%, average glucose 117, variability 22.5% -she is mostly hypoglycemic overnight and does not think that this is true because she will check her blood sugars and they are normal. She thinks she could be lying on the sensor. She does not have any symptoms of this. She states that she would correct blood sugars with orange juice if needed. Her last A1c was 5.7 and today is 6.3. She has not needed to use any insulin in the last few months. At our last visit I have reduced her Mounjaro to 5 mg weekly. She monitors her blood sugars very closely. She is following a very strict diabetic diet and exercising twice a day. She has lost 56 lb in the past year CV: Blood pressure today in the office is 108/74. She is currently on lisinopril 10 mg, hydrochlorothiazide 25 mg daily. Her last cholesterol was WNL. She is on Crestor 40 mg. No myalgias. [facility] Medical History DVT (deep venous thrombosis) Type 2 diabetes mellitus with complication, with long-term current use of insulin Chest pain Somnolence Sleep apnea Cervical high risk HPV (human papillomavirus) test positive Bleeding hemorrhoids Essential hypertension COVID-19 CKD (chronic kidney disease) HTN (hypertension) Diastolic dysfunction Rheumatic mitral stenosis Glaucoma Insomnia Rheumatic heart disease Depression Anxiety Hemorrhoids Hypothyroidism Hyperlipidemia LDL goal <100 Obesity (BMI 30-39.9) Type 2 diabetes mellitus with hyperglycemia, without long-term current use of insulin Surgical History History of hysteroscopy Hx of colonoscopy Hx of tubal ligation H/O hemorrhoidectomy History of section Family History Father Diabetes Mother Diabetes Stroke Maternal Aunt Stroke Hypertension Social History Household Members: Children Housing: Apartment Are you a primary attending ambulatory care to a significant other at home: No Do you presently have visiting nurse or other home services: No Alcohol intake: current Alcohol intake frequency: does not drink Alcohol type: wine Patient Tobacco Use Status: Never used Tobacco e-Cigarette/Vaping Use: Never Used Second Hand Smoke Exposure: No service: No Current occupational status: unemployed Cognitive needs: No Hearing needs: No Vision needs: Yes Female Reproductive History Menstrual Age of Menarche: 9 Physical Exam Vital Signs: Last Vital Signs Pulse 85 11/01/24 09:07 BP 108/74 11/01/24 09:07 BMI result Body Mass Index 24.1 Const Orientation/consciousness: patient oriented x3 Neck Neck: Yes no lymphadenopathy Thyroid: Thyroid normal Carotids: no bruits Resp Auscultation: clear to auscultation bilaterally Cardio Rate: regular rate Rhythm: regular rhythm Heart sounds: S1 normal heart sound present and S2 normal heart sound present Peripheral pulses: dorsalis pedis present Neuro General: patient oriented x3, gait normal and no focal motor deficits Extrem Other: Monofilament sensation intact bilaterally. Vibratory sensation intact bilaterally. Skin intact. General: Yes normal to inspection Results AMB Hemoglobin A1c AMB Hemoglobin A1c 6.3 % Last Edit by CLARISSA Coffman on 11/01/24 09:28 Results Reviewed Results Reviewed: Laboratory Last Values Glucose (Clinic) 122 mg/dL (60-115) H 11/01/24 09:13 Laboratory Tests 07/17/24 07/30/24 08/02/24 10:00 12:01 10:16 Sodium 141 Potassium 4.5 Chloride 103 Carbon Dioxide 28 Anion Gap 15 BUN 28 H Creatinine 1.00 Estimated GFR 58 Glucose (Clinic) 105 Hemoglobin A1c % 5.7 Triglycerides 77 Cholesterol 137 LDL Cholesterol, Calc 71 HDL Cholesterol 51 Urine Creatinine 221.62 Urine Microalbumin 8.0 Microalb/Creat Ratio 3.6 Assessment & Plan Assessment & Plan (1) Type 2 diabetes mellitus with complication, with long-term current use of insulin: Code(s): E11.8 - Type 2 diabetes mellitus with unspecified complications; 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 We will continue to hold insulin and use only if needed. Follow up in 3 months. Sooner if needed. (2) HTN (hypertension): Code(s): I10 - Essential (primary) hypertension Category: Medical Qualifiers: Hypertension type: primary hypertension Qualified Code(s): I10 - Essential (primary) hypertension Plan: WNL. Continue current regimen (3) Hyperlipidemia LDL goal <100: Code(s): E78.5 - Hyperlipidemia, unspecified Category: Medical Plan: At goal. Continue Crestor. Tolerates well. Orders: Orders AMB Hemoglobin A1c Today E11.8 - Type 2 diabetes mellitus with unspecified complications, Z79.4 - prison (current) use of insulin Medications: Refilled tirzepatide (Mounjaro) 5 mg (0.5 mL) subcut QWEEK 2 mL 11RF Coding Level of Care Code Est Pt Level 4 (30935) Diagnoses Type 2 diabetes mellitus with complication, with long-term current use of insulin E11.8; Z79.4 Primary hypertension I10 Hypertension type: primary hypertension Hyperlipidemia LDL goal <100 E78.5
[2024-11-01 09:07] VITALS: BP 108/74; PULSE 85; BMI 24.1
[2024-11-01 09:17] LABS: Glucose, Whole Blood 122 mg/dL (60-115)
== END 2024-11-01 09:34 | disposition home or self-care (01) ==
PROVIDERS: PCP Nurse Practitioner Family; Visit Provider Physician Assistant
DX: E11.8 Type 2 diabetes mellitus with unspecified complications (principal); Z79.4 Long term (current) use of insulin; I10 Essential (primary) hypertension; E78.5 Hyperlipidemia, unspecified

== ENCOUNTER → 2024-11-01 09:05 | Outpatient (BNVA) | payer OTHER, SELFPAY | PROVIDERS: PCP Nurse Practitioner Family; Visit Provider Physician Assistant | DX: E11.8 Type 2 diabetes mellitus with unspecified complications (principal); E78.5 Hyperlipidemia, unspecified; I10 Essential (primary) hypertension; Z79.4 Long term (current) use of insulin | CPT/HCPCS: 82947; 83036; 99212 ==

== ENCOUNTER 2024-12-23 09:11 | Outpatient (AMB) | payer OTHER, SELFPAY ==
[2024-12-23 09:18] VITALS: BP 120/70; PULSE 61; O2SAT 100; BMI 24.1
--- NOTE | 2024-12-23 09:18 | MHC.OFFVIS ---
Vital Signs 12/23/24 09:18 Height 5 ft 9 in Weight 163 lb 2.273 oz BMI 24.1 BP 120/70 Blood Pressure Location Lt brachial Position Sitting Pulse 61 Pulse Source Pulse Oximeter Pulse Oximetry (%) 100 Oxygen Delivery Method Room Air Intake Visit Reasons: Obstructive sleep apnea Intake Note: pt is here for follow up and states she is not using the machine due to no mask that fits, never received mask from last visit, would like to try nasal mask. Blood Bank Calendar Control Clerk Required: Yes Blood Bank Calendar Control Clerk Services: Blood Bank Calendar Control Clerk Present Blood Bank Calendar Control Clerk Name: Vandana Allergies No Known Allergies Allergy (Verified 12/23/24 09:36) Medication List - Last Reconciled 12/23/24 by Daniel Ortega MD albuterol sulfate 2.5 mg (3 mL) inhalation Q4-6H PRN 90 days albuterol sulfate 90 mcg/actuation (Ventolin HFA) 1 puff PO QID PRN 90 days bisacodyl (Dulcolax (bisacodyl)) 10 mg (2 x 5 mg) PO BEDTIME blood sugar diagnostic (FreeStyle Precision Emanuel Strips) As directed once daily blood sugar diagnostic (FreeStyle Precision Emanuel Strips) 1 strip miscellaneous QID cholecalciferol (vitamin D3) 50 mcg PO DAILY citalopram 40 mg PO DAILY 90 days diclofenac sodium 1% (Voltaren Arthritis Pain) 4 grams topical QID PRN docusate sodium (Colace) 100 mg PO BID duloxetine 60 mg PO DAILY ezetimibe (Zetia) 10 mg PO DAILY flash glucose scanning reader (Primaeva MedicalStyle Sera 2 [place]) As directed flash glucose sensor (FreeStyle Sera 2 Sensor kit) As directed change every 14 days fluticasone propion-salmeterol 250-50 mcg/dose (Advair Diskus) 1 inh inhalation BID 90 days hydrochlorothiazide 25 mg PO DAILY hydroxyzine HCl 25 mg PO BID PRN ibuprofen 600 mg PO Q6H PRN insulin lispro (Humalog KwikPen (U-100) Insulin) 5 units breakfast, +2units for bg >200 subcut 3x per day. levothyroxine 112 mcg PO DAILY lisinopril 10 mg PO DAILY 90 days mirtazapine 30 mg PO BEDTIME miscellaneous medical supply 1 ea miscellaneous DAILY pen needle, diabetic As directed pen needle, diabetic (BD Ultra-Fine Ramya Pen Needle) As directed four times a day perphenazine 4 mg PO BID rosuvastatin 40 mg PO DAILY sumatriptan succinate take 1 tab at onset of headache; if no relief may repeat 1 tab after at least 2 hrs; max = 4 tabs/24 hr PO tirzepatide (Mounjaro) 5 mg (0.5 mL) subcut QWEEK tizanidine 2 mg PO BEDTIME PRN trazodone 200 mg PO BEDTIME PRN Do you need a note to return to daycare/school/sports/work: No HPI HPI Obstructive sleep apnea: Details: This 54 years old [place]-speaking female is here for her follow-up after 4 months. Bronchial asthma has remained well controlled and she has had no acute attacks of cough or wheezing. She continues to use Advair twice a day and hardly needs to use albuterol. Luckily she has had no respiratory infection in the last 4 months. As far as CPAP is concerned her compliance remains very poor. She has actually lost significant amount of weight since she is being treated with Mounjaro injections. She claims that the fullface mask does not fit her well , and that is why she does not use it regularly. She would like to try using the nasal interface, At any rate she claims that she is sleeping well every night. [facility] Medical History DVT (deep venous thrombosis) Type 2 diabetes mellitus with complication, with long-term current use of insulin Chest pain Somnolence Sleep apnea Cervical high risk HPV (human papillomavirus) test positive Bleeding hemorrhoids Essential hypertension COVID-19 CKD (chronic kidney disease) HTN (hypertension) Diastolic dysfunction Rheumatic mitral stenosis Glaucoma Insomnia Rheumatic heart disease Depression Anxiety Hemorrhoids Hypothyroidism Hyperlipidemia LDL goal <100 Obesity (BMI 30-39.9) Type 2 diabetes mellitus with hyperglycemia, without long-term current use of insulin Surgical History History of hysteroscopy Hx of colonoscopy Hx of tubal ligation H/O hemorrhoidectomy History of section Family History Father Diabetes Mother Diabetes Stroke Maternal Aunt Stroke Hypertension Social History Household Members: Children Housing: Apartment Are you a primary career services representative to a significant other at home: No Do you presently have visiting nurse or other home services: No Alcohol intake: current Alcohol intake frequency: does not drink Alcohol type: wine Patient Tobacco Use Status: Never used Tobacco e-Cigarette/Vaping Use: Never Used Second Hand Smoke Exposure: No service: No Current occupational status: unemployed Cognitive needs: No Hearing needs: No Vision needs: Yes Female Reproductive History Menstrual Age of Menarche: 9 Review of Systems Const All systems reviewed & are unremarkable except as noted in HPI and below Reports fatigue Eyes Reports no additional complaints ENT Reports nasal congestion (MILD OFF AND ON ) Card Denies irregular heart rhythm and Denies leg edema Resp Reports as per HPI GI Reports constipation Reports no additional complaints Musc Reports back pain and Reports myalgias Skin/Breast Reports system reviewed and no additional complaints, except as documented Neuro Reports no additional complaints Psych Reports anxiety and Reports depression Endo Reports fatigue and Reports other ( DIABETES MELLITUS, HYPOTHYROIDISM) Kody/Lymph Reports no additional complaints Aller/Immun Reports seasonal rhinorrhea Physical Exam Vital Signs: Last Vital Signs Pulse 61 12/23/24 09:18 BP 120/70 12/23/24 09:18 Pulse Ox 100 12/23/24 09:18 Oxygen Delivery Method Room Air 12/23/24 09:18 BMI result Body Mass Index 24.1 Const General: comfortable, no acute distress, alert and awake Orientation/consciousness: patient oriented x3 HEENT Head: Yes normal to inspection General nose exam: No nasal polyps present, No nasal discharge present and Other nasal findings present (MILD NASAL CONGESTION ) Face and sinus: Yes sinuses nontender Mouth: oropharynx normal Throat: Yes posterior oropharynx normal Eyes General: appearance normal, both eyes and all related structures Neck Neck: Yes normal visual inspection, Yes no lymphadenopathy, Yes trachea midline, Yes no JVD and Yes other ( NECK SIZE 16 IN) Thyroid: Thyroid normal and no nodules Chest Chest palpation & inspection: normal inspection of the chest, normal palpation of entire chest wall and no tenderness Resp Effort & Inspection: normal respiratory effort Auscultation: no crackles, no wheezes and No rub present Cardio Palpation: normal PMI Rate: regular rate Rhythm: regular rhythm Heart sounds: no gallops and no murmurs Peripheral pulses: Peripheral pulses 2+ throughout GI Palpation (GI): Soft to palpation, nontender, No hepatosplenomegaly present and no masses Auscultation: normal bowel sounds Back/Spine/Pelvis Thoracic/Lumbar Spine: thoracic and lumbar spine normal to inspection and thoraco-lumbar ROM limited Skin General skin exam: no rashes or lesions noted Neuro General: patient oriented x3 and no focal motor deficits Cranial nerves: Yes CN's II-XII intact bilaterally Extrem General: Yes normal to inspection, Yes no clubbing, cyanosis or edema and Yes no calf tenderness Psych Appearance: grossly normal and well kempt Speech and movement: Normal speech and movement present Results Reviewed Results Reviewed: Compliance report for the last 30 nights is reviewed and patient actually has used only for 1 night. And on that night also she used only for 2 hours 23 minutes. So she has not use the CPAP almost all the time Assessment & Plan Assessment & Plan (1) Asthma: Comment: SHE HAS MILD ASTHMA WHICH FLARES UP WHENEVER SHE HAS NASAL CONGESTION OR UPPER RESPIRATORY INFECTION USUALLY ABOUT ONCE OR TWICE A YEAR . SHE HAS DONE MUCH BETTER SINCE SHE IS USING ADVAIR 250-50 1 INHALATION B.I.D. REGULARLY. With this therapy her bronchial asthma remains well controlled. Code(s): J45.909 - Unspecified asthma, uncomplicated Category: Medical Qualifiers: Asthma severity: mild Asthma persistence: intermittent Asthma complication type: unspecified Qualified Code(s): J45.20 - Mild intermittent asthma, uncomplicated Plan: I advised her that she may cut down the use of Advair 250-50 to only once a day, and then increased to twice a day if she starts having any persistent cough or wheezing Patient does have albuterol HFA tome but she hardly needs to use it. (2) CORNELIUS (obstructive sleep apnea): Comment: Patient does have history of obstructive sleep apnea. Initially she was very compliant in using CPAP. Lately she is relatively noncompliant, but claims that she sleeps well. Patient actually claims that she has lost lot of weight almost like 100 lb since she was started on Mounjaro treatment. She has lost some fat and muscle bulk from her cheeks, and the facial mask does not fit her well. Thus it has become difficult for her to use the CPAP. Code(s): G47.33 - Obstructive sleep apnea (adult) (pediatric) Category: Medical Plan: Patient is being referred to DME supplier, to have a nasal mask or nasal pillows fitted. Thin she should try to use the CPAP every night. If it does not work then I think we should do a home-based sleep study once again to see if she still has any residual sleep apnea. Coding Level of Care Code Est Pt Level 3 (10591) Diagnoses Mild intermittent asthma, unspecified whether complicated J45.20 Asthma severity: mild Asthma persistence: intermittent Asthma complication type: unspecified CORNELIUS (obstructive sleep apnea) G47.33
--- OUTSIDE RECORDS SUMMARY | 2024-12-23 13:29 | XMS_ITS | Clinical Summary ---
Author Organization [facility] Address [address] [place] [address] Phone Care Team Providers Care Information Systems Security Developer Name Role Phone Aleyda Paul MD Primary Care Provider [phone] Allergies No known active allergies Medications citalopram (CeleXA) 40 MG tablet 07/24/2021 Active Trulicity 4.5 MG/0.5ML solution pen-injector 08/04/2021 Active DULoxetine (CYMBALTA) [address] capsule 09/15/2021 Activ e ezetimibe (ZETIA) 10 MG tablet 07/24/2021 Active gabapentin (NEURONTIN) 400 MG capsule 09/15/2021 Active hydroCHLOROthia zide 25 MG tablet 08/24/2021 Active HumaLOG KWIKPEN 100 UNIT/ML solution pen-injector 09/02/2021 Active levothyroxine (SYNTHROID, LEVOTHROID) 150 MCG tablet 08/24/2021 Active lisinopril 10 MG tablet 08/05/2021 Active mirtazapine (REMERON) 30 MG tablet 09/02/2021 Active perphenazine 4 MG tablet 09/03/2021 Active traZODone (DESYREL) 100 MG tablet 09/03/2021 Active rosuvastatin (CRESTOR) 40 MG tablet 12/29/2021 Active ergocalciferol 1.25 MG (57269 UT) capsule Take 1 capsule (50,000 Units total) by mouth every 30 (thirty) days 4 capsule 2 02/03/2022 Active Active Problems Problem Noted Date Diagnosed Date Chronic kidney disease 09/16/2021 Essential (primary) hypertension 09/16/2021 Type 2 diabetes mellitus without complication Hypothyroidism 09/16/2021 Asthma 09/16/2021 Family History Medical History Relation Comments Diabetes Father Diabetes Mother Stroke Mother Stroke Mother's Sister Relation Status Comments Father Mother Mother's Sister Social History Tobacco Use Types Packs/Day Years Used Date Smoking Tobacco: Never Smokeless Tobacco: Never Tobacco Cessation:Counseling Given: Not Answered Alcohol Use Standard Drinks/Week Comments Yes 0 (1 standard drink = 0.6 oz pur e alcohol) holidays a glass of wine Comments Unknown Sex and Gender Information Value Date Recorded Sex Assigned at Not on file Legal Sex Female 11:32 AM EDT Gender Identity Not on file Sexual Orientation Not on file Last Filed Vital Signs Vital Sign Reading Time Taken Comments Blood Pressure 128/60 07/17/2023 2:16 PM EDT Pulse 85 07/17/2023 2:16 PM EDT Temperature - - Respiratory Rate - - Oxygen Saturation 95% 07/17/2023 2:16 PM EDT Inhaled Oxygen Concentration - - Weight 110 kg (242 lb 9.6 oz) 07/17/2023 2:16 PM EDT Height 175.3 cm (5' 9 ) 09/16/2021 2:42 PM EDT Body Mass Index 35.83 09/16/2021 2:42 PM EDT Plan of Treatment Health Maintenance Due Date Last Done Comments Breast Cancer Screening 1970 Pneumococcal Vaccine: Pediat rics (0 to 5 Years) and At-Risk Patients (6 to 64 Years) (1 of 2 - PCV) 1976 Hepatitis B Vaccine (1 of 3 - 19+ 3-dose series) 08/14 Colorectal Cancer Screening: Annual FOBT 2019 Colorectal Cancer Screening: Colonoscopy 2019 Colorectal Cancer Screening: Sigmoidoscopy 2019 Diabetes: Hemoglobin A1C 09/16/2021 Diabetes: Ophthalmology Exam 09/16/2021 Diabetes: Pedal Pulse Checked 09/16/2021 Diabetes: Sensory Foot Exam 09/16/2021 Diabetes: Visual Foot Exam 09/16/2021 Influenza Vaccine (#1) [address] [place] [address] MEDICAID [facility] MEDICAID Care Teams Information Systems Security Developer Relationship Specialty Start Date End Date Aleyda Paul MD [address] [place], [place] PCP - General Internal Medicine 07/12/21
== END 2024-12-23 09:40 | disposition home or self-care (01) ==
PROVIDERS: PCP Nurse Practitioner Family; Visit Provider Internal Medicine
DX: J45.20 Mild intermittent asthma, uncomplicated (principal); G47.33 Obstructive sleep apnea (adult) (pediatric)
CPT/HCPCS: 99213

== ENCOUNTER → 2024-12-23 09:11 | Outpatient (BNVA) | payer OTHER, SELFPAY | PROVIDERS: PCP Nurse Practitioner Family; Visit Provider Internal Medicine | DX: G47.33 Obstructive sleep apnea (adult) (pediatric) (principal); J45.20 Mild intermittent asthma, uncomplicated; Z91.199 Patient's noncompliance with other medical treatment and regimen due to unspecified reason | CPT/HCPCS: 99212 ==

== ENCOUNTER 2025-01-15 09:10 | Outpatient (REF) | payer OTHER, SELFPAY ==
--- OUTSIDE RECORDS SUMMARY | 2025-01-15 09:23 | XMS_ITS | Clinical Summary ---
Author Organization [facility] Address [address] [place] [address] Phone Care Team Providers Care Faro Dealer Name Role Phone Aleyda Paul MD Primary Care Provider [phone] Allergies No known active allergies Medications citalopram [...] MG tablet 12/29/2021 Active ergocalciferol 1.25 MG (82203 UT) capsule Take 1 capsule (50,000 Units [...] Exam 09/16/2021 Influenza Vaccine (#1) [address] [place] [address] MEDICAID [facility] MEDICAID Care Teams Faro Dealer Relationship Specialty Start Date End Date Aleyda Paul MD [address] [place], [place] PCP - General Internal Medicine 07/12/21
[2025-01-15 09:56] LABS: Estimated Average Glucose 140 mg/dL; Hemoglobin A1C 198.5145 umol/L; Hemoglobin A1c % 6.5 % (<6.0)
[2025-01-15 10:24] LABS: Albumin Level 4.7 g/dL (3.5-5.0); Alkaline Phosphatase 79 U/L (39-117); Anion Gap 13 (12-20); Aspartate Amino Transferase 33 U/L (5-31); Bilirubin Total 0.6 mg/dL (0.0-1.0); Blood Urea Nitrogen 28 mg/dL (9-16); Calcium 9.9 mg/dL (8.4-10.2); Carbon Dioxide 26 mmol/L (22-29); Chloride 107 mmol/L (96-108); Estimated Glomerular Filt Rate > 60; Glucose Fasting 113 mg/dL (60-99); Potassium 4.9 mmol/L (3.3-5.1); Sodium 141 mmol/L (135-145); Total Protein 8.7 g/dL (6.5-8.0)
[2025-01-15 10:36] LABS: TSH reflex Free T4 6.17 uIU/mL (0.32-4.0)
[2025-01-15 10:57] LABS: Creatinine Urine 118.42 mg/dL; Microalbum/Creatinine Ratio Ur 6.7 ug/mg cr (<30)
[2025-01-15 11:22] LABS: Alanine Aminotransferase 46 U/L (0-31)
[2025-01-15 11:30] LABS: Free T4 (Free Thyroxine) 1.29 ng/dL (0.71-1.85)
== END 2025-01-15 09:11 | disposition home or self-care (01) ==
LOC: HO.LAB 09:10
PROVIDERS: Nurse Practitioner Family; PCP Physician Assistant; Visit Provider Physician Assistant
DX: E11.8 Type 2 diabetes mellitus with unspecified complications (principal); N18.32 Chronic kidney disease, stage 3b; I10 Essential (primary) hypertension; E03.9 Hypothyroidism, unspecified; Z79.4 Long term (current) use of insulin
CPT/HCPCS: 36415; 80053; 82043; 82570; 83036; 84439; 84443

== ENCOUNTER 2025-01-27 10:43 | Outpatient (AMB) | payer OTHER, SELFPAY ==
--- NOTE | 2025-01-27 10:54 | A.OFFPC_ITS ---
Vital Signs 01/27/25 11:00 Height 5 ft 9 in Weight 156 lb 6 oz BMI 23.1 BP 112/74 Blood Pressure Location Lt brachial Position Sitting Pulse 63 Pulse Source Pulse Oximeter Temp 97.3 F Temp Source Temporal Artery Scan Pulse Oximetry (%) 98 Oxygen Delivery Method Room Air Intake Visit Reasons: f/u DMII/ hypothyoid/ HLD Cruise Counselor Required: Yes Cruise Counselor Language: Shoe Salesperson Name: used tablet-ID #[id number] Accompanied by: Self / Same As Patient Allergies No Known Allergies Allergy (Verified 01/27/25 11:10) Medication List - Last Reconciled 01/27/25 by Bismark Benitez PA-C albuterol sulfate 2.5 mg (3 mL) inhalation Q4-6H PRN 90 days albuterol sulfate 90 mcg/actuation (Ventolin HFA) 1 puff PO QID PRN 90 days bisacodyl (Dulcolax (bisacodyl)) 10 mg (2 x 5 mg) PO BEDTIME blood sugar diagnostic (FreeStyle Precision Emanuel Strips) As directed once daily blood sugar diagnostic (FreeStyle Precision Emanuel Strips) 1 strip miscellaneous QID cholecalciferol (vitamin D3) 50 mcg PO DAILY citalopram 40 mg PO DAILY 90 days diclofenac sodium 1% (Voltaren Arthritis Pain) 4 grams topical QID PRN docusate sodium (Colace) 100 mg PO BID duloxetine 60 mg PO DAILY ezetimibe (Zetia) 10 mg PO DAILY flash glucose scanning reader (SealedStyle Sera 2 [place]) As directed flash glucose sensor (FreeStyle Sera 2 Sensor kit) As directed change every 14 days fluticasone propion-salmeterol 250-50 mcg/dose (Advair Diskus) 1 inh inhalation BID 90 days hydrochlorothiazide 25 mg PO DAILY hydroxyzine HCl 25 mg PO BID PRN ibuprofen 600 mg PO Q6H PRN insulin lispro (Humalog KwikPen (U-100) Insulin) 5 units breakfast, +2units for bg >200 subcut 3x per day. levothyroxine 112 mcg PO DAILY lisinopril 10 mg PO DAILY 90 days mirtazapine 30 mg PO BEDTIME miscellaneous medical supply 1 ea miscellaneous DAILY pen needle, diabetic As directed pen needle, diabetic (BD Ultra-Fine Ramya Pen Needle) As directed four times a day perphenazine 4 mg PO BID prednisone 10 mg PO DIRECTED 9 days rosuvastatin 40 mg PO DAILY sumatriptan succinate take 1 tab at onset of headache; if no relief may repeat 1 tab after at least 2 hrs; max = 4 tabs/24 hr PO 30 days tirzepatide (Mounjaro) 5 mg (0.5 mL) subcut QWEEK tizanidine 2 mg PO BEDTIME PRN trazodone 200 mg PO BEDTIME PRN Tobacco use date assessed: 01/27/25 Dental Screening Dental Screen Date: 01/27/25 Did you have a dental visit in the last 12 months?: Yes Did you have a dental problem in the last 6 months where you did not have access to dental care?: No Was dental information given to patient?: Patient has dentist HPI f/u DMII/ hypothyoid/ HLD HPI Details Patient is a 54-year-old here today for follow-up visit. Patient is B[place]an-speaking only, does use a exercise specialist on a tablet. Patient has a past medical history including diabetes, hypertension, obstructive sleep apnea, obesity and generalized anxiety disorder, CORNELIUS: followed by pulmonology . Continues to use CPAP machine on nightly basis with good effect on her sleep. .. DM: She is followed by Endocrine, has lost a significant amount of weight since last office visit due to better eating habits. Most recent A1c is 6.5 Her insulin dose has been changed to p.r.n. use. She continues on a strict diabetic diet. Has lost even more weight since last office visit . Patient continues on Mounjaro .. Hypothyroidism: Most recent TSH elevated. She continues on levothyroxine 112 mcg. PLAN : Will increase her levothyroxine dose and recheck TSH in 6 weeks .. Mitral valve stenosis: followed by a advanced practice nurse psychotherapist , no overt signs of Congestive heart failure. .. REHAN: Sees a psychiatrist who manages her mental health medications. She feels stable from a mental health point of view. Laboratory Tests 04/15/24 07/17/24 07/30/24 11:20 10:00 12:01 Creatinine 0.86 Fasting Glucose 90 Hgb A1c (Clinic) 6.4 H Hemoglobin A1c % 5.7 AST Cholesterol 232 H LDL Cholesterol, C alc 159 H TSH 0.35 Urine Microalbumin 8.0 11/01/24 01/15/25 01/15/25 09:16 09:28 09:29 Creatinine 0.84 Fasting Glucose 113 H Hgb A1c (Clinic) 6.3 H Hemoglobin A1c % 6.5 H AST 33 H Cholesterol LDL Cholesterol, C alc TSH 6.17 H Urine Microalbumin 8.0 PFSH Medical History (Updated 01/28/25 @ 07:40 by Bismark Benitez PA-C) DVT (deep venous thrombosis) Type 2 diabetes mellitus with complication, with long-term current use of insulin Somnolence Sleep apnea Cervical high risk HPV (human papillomavirus) test positive Essential hypertension COVID-19 CKD (chronic kidney disease) HTN (hypertension) Diastolic dysfunction Rheumatic mitral stenosis Glaucoma Insomnia Rheumatic heart disease Depression Anxiety Hemorrhoids Hypothyroidism Hyperlipidemia LDL goal <100 Obesity (BMI 30-39.9) Surgical History History of hysteroscopy Hx of colonoscopy Hx of tubal ligation H/O hemorrhoidectomy History of section Family History Father Diabetes Mother Diabetes Stroke Maternal Aunt Stroke Hypertension Social History Household Members: Children Housing: Apartment Are you a primary acute care occupational therapist to a significant other at home: No Do you presently have visiting nurse or other home services: No Alcohol intake: current Alcohol intake frequency: does not drink Alcohol type: wine Patient Tobacco Use Status: Never used Tobacco e-Cigarette/Vaping Use: Never Used Second Hand Smoke Exposure: No service: No Current occupational status: unemployed Cognitive needs: No Hearing needs: No Vision needs: Yes Female Reproductive History Menstrual Age of Menarche: 9 Questionnaire PHQ-9 Over the last 2 weeks, how often have you been bothered by any of the following problems? 1. Little interest or pleasure in doing things: not at all 2. Feeling down, depressed, or hopeless: not at all 3. Trouble falling or staying asleep, or sleeping too much: not at all 4. Feeling tired or having little energy: not at all 5. Poor appetite or overeating: not at all 6. Feeling bad about yourself - or that you are a failure or have let yourself or your family down: not at all 7. Trouble concentrating on things, such as reading the newspaper or watching television: not at all 8. Moving or speaking so slowly that other people could have noticed. Or the opposite - being so fidgety or restless that you have been moving around a lot more than usual: not at all 9. Thoughts that you would be better off or of hurting yourself in some way: not at all Total score: 0 Depression Screening Interpretation: Negative Depression Screening Done: Yes 19937 - PHQ-9 Billing: Yes Source: Developed by Drs. Luis Elias, Viviane Christie, Peng Irwin and colleagues, with an educational lindsey from [employer]. Thrive Questionnaire Date Thrive assessed: 01/27/25 I am a: Patient What is your living situation today?: I have a steady place to live Within the past 12 months, did the food you bought not last and you didn't have the money to get more?: Never true Within the past 12 months, did you worry whether your food would run out before you got money to buy more?: Never true Do you have trouble paying for medicines?: No Do you have trouble getting transportation to medical appointments?: No Do you have trouble paying your heating and electricity bill?: No Do you have trouble taking care of your child, family member or friend?: No Do you have trouble with day-to-day activities such as bathing, preparing meals, shopping, managing finances, etc.?: No Are you currently unemployed and looking for a job?: No Are you interested in more education?: No Please select the resources that you would like help with: None Currently or been in a relationship where the following occur: No concerns reported THRIVE Score: 0 AUDIT C Alcohol Use Questionnaire (AUDIT-C) 1. How often do you have a drink containing alcohol?: Never 3. How often do you have six or more drinks on one occasion?: Never Total Score: 0 REHAN-7 AMB Questionnaire REHAN-7 Date REHAN - 7 assessed: 01/27/25 Feeling nervous, anxious, or on edge: 0 = Not at all Not being able to stop or control worryin = Not at all Worrying too much about different things: 0 = Not at all Trouble relaxin = Not at all Being so restless that it is hard to sit still: 0 = Not at all Becoming easily annoyed or irritable: 0 = Not at all Feeling afraid as if something awful might happen: 0 = Not at all Total REHAN-7 score (0-4 normal; 5-9 mild; 10-14 moderate; 15-21 severe): 0 Source: Developed by Drs. Luis Elias, Viviane Christie, Peng Irwin and colleagues, with an educational lindsey from [employer]. REHAN-7 Assessment Billing REHAN-7 Assessment Tool: REHAN-7 Assessment 39291 Review of Systems Const Denies headache(s) Eyes Denies loss of vision ENT Denies vertigo, Denies dizziness, Denies headache(s) and Denies sore throat Card Denies chest pain, Denies leg edema and Denies lightheadedness Resp Denies cough, Denies hemoptysis and Denies wheezing GI Denies abdominal pain, Denies melena, Denies constipation, Denies diarrhea and Denies vomiting Denies urinary frequency, Denies dysuria and Denies urinary urgency Musc Denies arthralgias, Denies joint swelling, Denies numbness and Denies tingling Neuro Denies Abnormal speech present, Denies behavioral changes, Denies vertigo, Denies dizziness, Denies headache(s), Denies loss of vision, Denies memory loss, Denies numbness and Denies tingling Psych Denies anxiety, Denies behavioral changes, Denies depression, Denies memory loss and Denies panic attacks Kody/Lymph Denies easy bleeding and Denies easy bruising Aller/Immun Denies wheezing Physical exam (Primary Care) Vital Signs: Last Vital Signs Temp 97.3 F 01/27/25 11:00 Pulse 63 01/27/25 11:00 BP 112/74 01/27/25 11:00 Pulse Ox 98 01/27/25 11:00 Oxygen Delivery Method Room Air 01/27/25 11:00 BMI result Body Mass Index 23.1 Tobacco/Smoking Status: Tobacco use Status Tobacco use date assessed 01/27/25 01/27/25 11:09 Patient Tobacco Use Status Never used Tobacco 01/27/25 10:55 e-Cigarette/Vaping Use Never Used 03/03/25 10:55 PHQ-9: PHQ-9 Score PHQ-9: Total score 0 01/27/25 11:12 Depression Screening Interpretation: Negative Thrive Assessment: Date of Thrive Assessment Date Thrive assessed 01/27/25 01/27/25 10:55 Currently or been in a relationship where the following occur: No concerns reported Const General: healthy appearing, no acute distress, alert and awake Nutritional Appearance: well nourished Orientation/consciousness: oriented to person, oriented to place and oriented to time HENMT Ears: TM's normal bilaterally General nose exam: Normal nasal mucous membranes and turbinates present Eyes Conjunctivae: conjunctivae normal Sclerae: sclerae normal Pupils: Equal, round and reactive pupils present Neck Neck: Yes no lymphadenopathy and Yes no JVD Thyroid: Thyroid normal Carotids: no bruits Resp Effort & Inspection: normal respiratory effort and not tachypneic Auscultation: no crackles, no rales, no rhonchi and no wheezes Cardio Rate: regular rate Rhythm: regular rhythm Heart sounds: no murmurs and normal S1 and S2 GI Palpation (GI): Soft to palpation, nontender, no hepatomegaly and no splenomegaly Auscultation: normal bowel sounds Skin General skin exam: no rashes or lesions noted and dry skin Neuro General: oriented to person, oriented to place and oriented to time Cranial nerves: Yes Equal, round and reactive pupils present Speech: No Abnormal speech present Gait exam (Neuro): Normal gait present Motor exam (neuro): no tremor noted Extrem Right upper extremity: full ROM Left upper extremity: full ROM Right lower extremity: full ROM; no edema Left lower extremity: full ROM; no edema Psych Mental Status: mental status grossly normal Speech and movement: Normal speech and movement present Affect: normal affect Attitude: cooperative Thought process: Normal thought process present Office Procedures Flu Questionnaire Does the patient have a severe egg allergy?: No Does the patient have severe life threatening allergies?: No Does the patient have a fever or illness today?: No Has the patient ever had Guillain-[place] Syndrome?: No Has the patient ever had any past reaction to a flu shot?: No Immunizations Fluarix Triv [id number] (PF) 45 mcg (15 mcg x 3)/0.5 mL IM syringe Performing Provider: Bismark Benitez PA-C [place] [facility] [place] [facility] Administered by: AR Anderson on 01/27/25 11:06 Dose Route Admin Location Dispensed Lot Number Expiration Date NDC Museum Exhibit Designer 0.5 mL IM Left Deltoid 0.5 mL [id number] 05/26/25 [id number] [employer] VIS Given Date VIS Provided VIS Publication Date 01/27/25 Single Vaccine 21 Eligibility Eligibility Date Funding Source Not [facility] Eligible 01/27/25 Private Coding Level of Care Code Est Pt Level 4 (99537) Diagnoses Type 2 diabetes mellitus with complication, with long-term current use of insulin E11.8; Z79.4 Acquired hypothyroidism E03.9 Hypothyroidism type: acquired Hyperlipidemia LDL goal <100 E78.5 Additional Codes REHAN-7 Assessment Billing - REHAN-7 Assessment Tool: REHAN-7 Assessment 46830 ([id number]) PHQ-9 - 13698 - PHQ-9 Billing: Yes ([id number]) Assessment & Plan Assessment & Plan (1) Type 2 diabetes mellitus with complication, with long-term current use of insulin: Code(s): E11.8 - Type 2 diabetes mellitus with unspecified complications; Z79.4 - assisted (current) use of insulin Category: Medical Plan: Patient's type 2 diabetes well controlled with current diabetic regime. Goal A1c is to remain below 7.0 (2) Hypothyroidism: Code(s): E03.9 - Hypothyroidism, unspecified Category: Medical Qualifiers: Hypothyroidism type: acquired Qualified Code(s): E03.9 - Hypothyroidism, unspecified Plan: Most recent TSH elevated. Will increase her levothyroxine dose for better control over low functioning thyroid. Will recheck TSH in 6 weeks. (3) Hyperlipidemia LDL goal <100: Code(s): E78.5 - Hyperlipidemia, unspecified Category: Medical Plan: Most recent lipid panel showing good control over total cholesterol and LDL. Goal LDL is to be below 100 Orders: Orders Comprehensive [place]. 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
[2025-01-27 11:00] VITALS: BP 112/74; PULSE 63; TEMP 36.3; O2SAT 98; BMI 23.1
--- OUTSIDE RECORDS SUMMARY | 2025-01-27 12:37 | XMS_ITS | Clinical Summary ---
Author Organization [facility] Address [address] [place] [address] Phone Care Team Providers Care Cullet Washer Name Role Phone Aleyda Paul MD Primary Care Provider [phone] Allergies No known active allergies Medications citalopram [...] MG tablet 12/29/2021 Active ergocalciferol 1.25 MG (31772 UT) capsule Take 1 capsule (50,000 Units [...] Exam 09/16/2021 Influenza Vaccine (#1) [address] [place] [address] [address] [place] [address] MEDICAID [facility] MEDICAID Care Teams Cullet Washer Relationship Specialty Start Date End Date Aleyda Paul MD [address] [place], [place] PCP - General Internal Medicine 07/12/21
== END 2025-01-27 11:24 | disposition home or self-care (01) ==
PROVIDERS: PCP Nurse Practitioner Family; Visit Provider Physician Assistant
DX: E11.8 Type 2 diabetes mellitus with unspecified complications (principal); Z79.4 Long term (current) use of insulin; E03.9 Hypothyroidism, unspecified; E78.5 Hyperlipidemia, unspecified

== ENCOUNTER → 2025-01-27 10:43 | Outpatient (BNVA) | payer OTHER, SELFPAY | PROVIDERS: PCP Nurse Practitioner Family; Visit Provider Physician Assistant | DX: Z23 Encounter for immunization (principal); E11.8 Type 2 diabetes mellitus with unspecified complications; E03.9 Hypothyroidism, unspecified; E78.5 Hyperlipidemia, unspecified; Z79.4 Long term (current) use of insulin | CPT/HCPCS: 90471; 90656; 96127; 99212 ==

== ENCOUNTER → 2025-01-28 09:35 | Outpatient (BNVA) | payer OTHER, SELFPAY | PROVIDERS: PCP Physician Assistant; Visit Provider Surgery ==

== ENCOUNTER 2025-01-31 09:03 | Outpatient (AMB) | payer OTHER, SELFPAY ==
--- NOTE | 2025-01-31 09:06 | A.OFFVIS_ITS ---
Vital Signs 01/31/25 09:10 Height 5 ft 9 in Weight 154 lb 3.033 oz BMI 22.8 BP 104/70 Blood Pressure Location Lt brachial Position Sitting Pulse 63 Pulse Source Pulse Oximeter Pulse Oximetry (%) 97 Oxygen Delivery Method Room Air Intake Visit Reasons: dm Intake Note: Patient present today for Type 2 Diabetes Mellitus Last Diabetic eye exam: approx 9 month ago. Last Podiatry Visit: Does not see a Sales Clerk Supervisor Random Glucose: 101 mg/dl HgA1C: 6.5% 01/15/25 Disease Management Nurse Required: Yes Disease Management Nurse Language: Cofounder Services: Disease Management Nurse Present Information Interpreted: non-clinical & clinical Accompanied by: Self / Same As Patient Allergies No Known Allergies Allergy (Verified 01/31/25 09:11) Medication List - Last Reconciled 01/31/25 by Gita Nguyen PA-C albuterol sulfate 2.5 mg (3 mL) inhalation Q4-6H PRN 90 days albuterol sulfate 90 mcg/actuation (Ventolin HFA) 1 puff PO QID PRN 90 days bisacodyl (Dulcolax (bisacodyl)) 10 mg (2 x 5 mg) PO BEDTIME blood sugar diagnostic (FreeStyle Precision Emanuel Strips) As directed once daily blood sugar diagnostic (FreeStyle Precision Emanuel Strips) 1 strip miscellaneous QID cholecalciferol (vitamin D3) 50 mcg PO DAILY citalopram 40 mg PO DAILY 90 days diclofenac sodium 1% (Voltaren Arthritis Pain) 4 grams topical QID PRN docusate sodium (Colace) 100 mg PO BID duloxetine 60 mg PO DAILY ezetimibe (Zetia) 10 mg PO DAILY flash glucose scanning reader (FreeStyle Sera 2 [place]) As directed flash glucose sensor (FreeStyle Sera 2 Sensor kit) As directed change every 14 days fluticasone propion-salmeterol 250-50 mcg/dose (Advair Diskus) 1 inh inhalation BID 90 days hydrochlorothiazide 25 mg PO DAILY hydroxyzine HCl 25 mg PO BID PRN ibuprofen 600 mg PO Q6H PRN insulin lispro (Humalog KwikPen (U-100) Insulin) 5 units breakfast, +2units for bg >200 subcut 3x per day. levothyroxine 112 mcg PO DAILY lisinopril 10 mg PO DAILY 90 days mirtazapine 30 mg PO BEDTIME miscellaneous medical supply 1 ea miscellaneous DAILY pen needle, diabetic As directed pen needle, diabetic (BD Ultra-Fine Ramya Pen Needle) As directed four times a day perphenazine 4 mg PO BID prednisone 10 mg PO DIRECTED 9 days rosuvastatin 40 mg PO DAILY sumatriptan succinate take 1 tab at onset of headache; if no relief may repeat 1 tab after at least 2 hrs; max = 4 tabs/24 hr PO 30 days tirzepatide (Mounjaro) 5 mg (0.5 mL) subcut QWEEK tizanidine 2 mg PO BEDTIME PRN trazodone 200 mg PO BEDTIME PRN HPI HPI dm: 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 Her last A1c was 5.7 and today is 6.3. She has not needed to use any insulin in the last few months. At our last visit I have reduced her Mounjaro to 5 mg weekly. She monitors her blood sugars very closely. She is following a very strict diabetic diet and exercising twice a day. She has lost 56 lb in the past year CV: Blood pressure today in the office is 104/70. She is currently on lisinopril 10 mg, hydrochlorothiazide 25 mg daily. Her last cholesterol was WNL. She is on Crestor 40 mg. No myalgias. [facility] Medical History (Updated 01/31/25 @ 09:46 by Gita Nguyen PA-C) DVT (deep venous thrombosis) Type 2 diabetes mellitus with complication, with long-term current use of insulin Somnolence Sleep apnea Cervical high risk HPV (human papillomavirus) test positive Essential hypertension COVID-19 CKD (chronic kidney disease) HTN (hypertension) Diastolic dysfunction Rheumatic mitral stenosis Glaucoma Insomnia Rheumatic heart disease Depression Anxiety Hemorrhoids Hypothyroidism Hyperlipidemia LDL goal <100 Obesity (BMI 30-39.9) Surgical History History of hysteroscopy Hx of colonoscopy Hx of tubal ligation H/O hemorrhoidectomy History of section Family History Father Diabetes Mother Diabetes Stroke Maternal Aunt Stroke Hypertension Social History Household Members: Children Housing: Apartment Are you a primary chiropractic care to a significant other at home: No Do you presently have visiting nurse or other home services: No Alcohol intake: current Alcohol intake frequency: does not drink Alcohol type: wine Patient Tobacco Use Status: Never used Tobacco e-Cigarette/Vaping Use: Never Used Second Hand Smoke Exposure: No service: No Current occupational status: unemployed Cognitive needs: No Hearing needs: No Vision needs: Yes Female Reproductive History Menstrual Age of Menarche: 9 Physical Exam Vital Signs: Last Vital Signs Pulse 63 01/31/25 09:10 BP 104/70 01/31/25 09:10 Pulse Ox 97 01/31/25 09:10 Oxygen Delivery Method Room Air 01/31/25 09:10 BMI result Body Mass Index 22.8 Const Orientation/consciousness: patient oriented x3 Neck Neck: Yes no lymphadenopathy Thyroid: Thyroid normal Carotids: no bruits Resp Auscultation: clear to auscultation bilaterally Cardio Rate: regular rate Rhythm: regular rhythm Heart sounds: S1 normal heart sound present and S2 normal heart sound present Peripheral pulses: dorsalis pedis present Neuro General: patient oriented x3, gait normal and no focal motor deficits Extrem Other: Monofilament sensation intact bilaterally. Vibratory sensation intact bilaterally. Skin intact. General: Yes normal to inspection Results Reviewed Results Reviewed: Laboratory Last Values Glucose (Clinic) 101 mg/dL (60-115) 01/31/25 09:22 Laboratory Tests 01/15/25 01/15/25 09:28 09:29 Sodium 141 Potassium 4.9 Chloride 107 Carbon Dioxide 26 Anion Gap 13 BUN 28 H Creatinine 0.84 Estimated GFR > 60 Fasting Glucose 113 H Hemoglobin A1c % 6.5 H Calcium 9.9 Total Bilirubin 0.6 AST 33 H ALT 46 H Alkaline Phosphatase 79 TSH 6.17 H Urine Creatinine 118.42 Urine Microalbumin 8.0 Microalb/Creat Ratio 6.7 Assessment & Plan Assessment & Plan (1) Type 2 diabetes mellitus with complication, with long-term current use of insulin: Code(s): E11.8 - Type 2 diabetes mellitus with unspecified complications; Z79.4 - longterm (current) use of insulin Category: Medical Plan: continue current plan testing supplies ordered we are waiting on reader PA I downloaded the Reactivitye2 jasen for her on her phone today to use with her sensor (2) Essential hypertension: Code(s): I10 - Essential (primary) hypertension Category: Medical Plan: wnl continue current plan (3) Hypothyroidism: Code(s): E03.9 - Hypothyroidism, unspecified Category: Medical Qualifiers: Hypothyroidism type: acquired Qualified Code(s): E03.9 - Hypothyroidism, unspecified Plan: pcp recently increased dose to levothyoxine 112 mcg and she will be repeating lab in 6 weeks (4) Elevated LFTs: Code(s): R79.89 - Other specified abnormal findings of blood chemistry Category: Medical Plan: repeat labs 1 month u/s ordered liver labs ordered Plan 60 mins was spent today in face to face time discussing dm, reviewing the PA, downloading [place] 2 jasen and setting up her sensors, reviewing her recent labs and discussing elevated LFTs at length Orders: Orders Hepatitis C Antibody Today E03.9 - Hypothyroidism, unspecified, E11.8 - Type 2 diabetes mellitus with unspecified complications, I10 - Essential (primary) hypertension, R79.89 - Other specified abnormal findings of blood chemistry, Z79.4 - long term acute care registered nurse (current) use of insulin US abdomen comp w elastography Today E03.9 - Hypothyroidism, unspecified, E11.8 - Type 2 diabetes mellitus with unspecified complications, I10 - Essential (primary) hypertension, R79.89 - Other specified abnormal findings of blood chemistry, Z79.4 - longterm (current) use of insulin Liver Panel Today E03.9 - Hypothyroidism, unspecified, E11.8 - Type 2 diabetes mellitus with unspecified complications, I10 - Essential (primary) hypertension, R79.89 - Other specified abnormal findings of blood chemistry, Z79.4 - long term acute care registered nurse (current) use of insulin Gamma Glutamyl Transpeptidase Today E03.9 - Hypothyroidism, unspecified, E11.8 - Type 2 diabetes mellitus with unspecified complications, I10 - Essential (primary) hypertension, R79.89 - Other specified abnormal findings of blood chemistry, Z79.4 - long term acute care registered nurse (current) use of insulin Hepatitis B Surface Antigen Today E03.9 - Hypothyroidism, unspecified, E11.8 - Type 2 diabetes mellitus with unspecified complications, I10 - Essential (primary) hypertension, R79.89 - Other specified abnormal findings of blood chemistry, Z79.4 - long term acute care registered nurse (current) use of insulin Complete Blood Count Auto Diff Today R79.89 - Other specified abnormal findings of blood chemistry Medications: New blood-glucose meter (FreeStyle Lite Meter kit) Use daily As directed to check blood sugars 1 ea 0RF E11.65 - Type 2 diabetes mellitus with hyperglycemia lancets (FreeStyle Lancets) use daily as directed to check blood glucose 100 ea 3RF E11.65 - Type 2 diabetes mellitus with hyperglycemia blood sugar diagnostic (FreeStyle Lite Strips) Use daily As directed to check blood glucose 100 ea 3RF E11.9 - Type 2 diabetes mellitus without complications insulin lispro (Humalog KwikPen (U-100) Insulin) 5 units breakfast, +2units for bg >200 subcut 3x per day. 15 mL 2RF E11.65 - Type 2 diabetes mellitus with hyperglycemia Refilled tirzepatide (Mounjaro) 5 mg (0.5 mL) subcut QWEEK 2 mL 11RF Discontinued blood sugar diagnostic (FreeStyle Precision Emanuel Strips) Discontinued Reason: Duplicate As directed once daily 50 ea 11RF E03.9 - Hypothyroidism, unspecified, E11.65 - Type 2 diabetes mellitus with hyperglycemia blood sugar diagnostic (FreeStyle Precision Emanuel Strips) Testing blood glucose 4 times per day. Discontinued Reason: Doctor's Order 1 strip miscellaneous QID 125 strips 11RF E11.65 - Type 2 diabetes mellitus with hyperglycemia Patient Instructions: repeat liver labs 1 month liver ultrasound ordered Coding Level of Care Code Est Pt Level 5 (86132) Complex EM visit Add On G2211 Diagnoses Type 2 diabetes mellitus with complication, with long-term current use of insulin E11.8; Z79.4 Essential hypertension I10 Acquired hypothyroidism E03.9 Hypothyroidism type: acquired Elevated LFTs R79.89
[2025-01-31 09:10] VITALS: BP 104/70; PULSE 63; O2SAT 97; BMI 22.8
[2025-01-31 09:27] LABS: Glucose, Whole Blood 101 mg/dL (60-115)
--- OUTSIDE RECORDS SUMMARY | 2025-01-31 09:45 | XMS_ITS | Clinical Summary ---
Author Organization [facility] Address [address] [place] [address] Phone Care Team Providers Care Battery Tester And Repairer Name Role Phone Aleyda Paul MD Primary Care Provider [phone] Allergies No known active allergies Medications citalopram [...] MG tablet 12/29/2021 Active ergocalciferol 1.25 MG (57788 UT) capsule Take 1 capsule (50,000 Units [...] Exam 09/16/2021 Influenza Vaccine (#1) [address] [place] [address] MEDICAID [facility] MEDICAID Care Teams Battery Tester And Repairer Relationship Specialty Start Date End Date Aleyda Paul MD [address] [place], [place] PCP - General Internal Medicine 07/12/21
== END 2025-01-31 10:21 | disposition home or self-care (01) ==
PROVIDERS: PCP Nurse Practitioner Family; Visit Provider Physician Assistant
DX: E11.8 Type 2 diabetes mellitus with unspecified complications (principal); Z79.4 Long term (current) use of insulin; I10 Essential (primary) hypertension; E03.9 Hypothyroidism, unspecified; R79.89 Other specified abnormal findings of blood chemistry

== ENCOUNTER → 2025-01-31 09:03 | Outpatient (BNVA) | payer OTHER, SELFPAY | PROVIDERS: PCP Nurse Practitioner Family; Visit Provider Physician Assistant | DX: E11.8 Type 2 diabetes mellitus with unspecified complications (principal); Z79.4 Long term (current) use of insulin; E03.9 Hypothyroidism, unspecified; I10 Essential (primary) hypertension; R79.89 Other specified abnormal findings of blood chemistry | CPT/HCPCS: 82947; 99212 ==

== ENCOUNTER 2025-02-24 10:56 | Outpatient (AMB) | payer OTHER, SELFPAY ==
--- NOTE | 2025-02-24 09:35 | MHC.OFFVISWM ---
VS Expanded 02/24/25 09:42 Height 5 ft 9 in Weight 153 lb BMI 22.6 Intake Visit Reasons: TV Consult - Panniculectomy *SEE COMMENTS* Business Analyst Manager Name: Abdoul [id number] Kt Allergies No Known Allergies Allergy (Verified 01/31/25 09:11) Medication List - Last Reconciled 02/24/25 by ИРИНА Prince albuterol sulfate 2.5 mg (3 mL) inhalation Q4-6H PRN 90 days albuterol sulfate 90 mcg/actuation (Ventolin HFA) 1 puff PO QID PRN 90 days bisacodyl (Dulcolax (bisacodyl)) 10 mg (2 x 5 mg) PO BEDTIME blood sugar diagnostic (FreeStyle Lite Strips) Use daily As directed to check blood glucose blood-glucose meter (FreeStyle Lite Meter kit) Use daily As directed to check blood sugars cholecalciferol (vitamin D3) 50 mcg PO DAILY citalopram 40 mg PO DAILY 90 days diclofenac sodium 1% (Voltaren Arthritis Pain) 4 grams topical QID PRN docusate sodium (Colace) 100 mg PO BID duloxetine 60 mg PO DAILY ezetimibe (Zetia) 10 mg PO DAILY flash glucose scanning reader (Weaver ExpressStyle Sera 2 [place]) As directed flash glucose sensor (FreeStyle Sera 2 Sensor kit) As directed change every 14 days fluticasone propion-salmeterol 250-50 mcg/dose (Advair Diskus) 1 inh inhalation BID 90 days hydrochlorothiazide 25 mg PO DAILY hydroxyzine HCl 25 mg PO BID PRN ibuprofen 600 mg PO Q6H PRN insulin lispro (Humalog KwikPen (U-100) Insulin) 5 units breakfast, +2units for bg >200 subcut 3x per day. lancets (FreeStyle Lancets) use daily as directed to check blood glucose levothyroxine 112 mcg PO DAILY lisinopril 10 mg PO DAILY 90 days mirtazapine 30 mg PO BEDTIME miscellaneous medical supply 1 ea miscellaneous DAILY pen needle, diabetic (BD Ultra-Fine Ramya Pen Needle) As directed four times a day perphenazine 4 mg PO BID rosuvastatin 40 mg PO DAILY sumatriptan succinate take 1 tab at onset of headache; if no relief may repeat 1 tab after at least 2 hrs; max = 4 tabs/24 hr PO 30 days tirzepatide (Mounjaro) 5 mg (0.5 mL) subcut QWEEK tizanidine 2 mg PO BEDTIME PRN trazodone 200 mg PO BEDTIME PRN HPI Comments Details: Pt is a 54 year old female who has been very successful with non-surgical weight loss. Was previously 249lbs. Currently on Mounjaro. Follows with endocrinology for diabetes, currently well controlled. Her weight at the beginning of this month was 156.6lbs as documented by her PCP. Blood clot during at age 19. Cardiac history includes mitral stenosis. Last echo in 2022 showed 60-65% EF. Not on any blood thinners. Nonsmoker. Current meal plan: follows a strict diabetic diet Current exercise regimen: videos on [employer] & [employer], has a walking machine Pt reports problems of excess skin of abdomen. She is experiencing rashes in the skin fold, has tried topical creams OTC, cocoa butter. These rashes are painful. She has to clean the area frequently and notices an unpleasant odor if moisture collects in the area. It is difficult to perform activities of daily living including taking care of her home, with activities that could include cleaning, bending over, squatting. Has to wear a compressive waistband in her clothing to help hold excess skin in place to prevent discomfort. [facility] Medical History (Updated 02/24/25 @ 10:03 by ИРИНА Prince) DVT (deep venous thrombosis) Type 2 diabetes mellitus with complication, with long-term current use of insulin Somnolence Sleep apnea Cervical high risk HPV (human papillomavirus) test positive Essential hypertension COVID-19 CKD (chronic kidney disease) HTN (hypertension) Diastolic dysfunction Rheumatic mitral stenosis Glaucoma Insomnia Rheumatic heart disease Depression Anxiety Hemorrhoids Hypothyroidism Hyperlipidemia LDL goal <100 Obesity (BMI 30-39.9) Surgical History History of hysteroscopy Hx of colonoscopy Hx of tubal ligation H/O hemorrhoidectomy History of section Family History Father Diabetes Mother Diabetes Stroke Maternal Aunt Stroke Hypertension Social History Household Members: Children Housing: Apartment Are you a primary assurance services manager health care to a significant other at home: No Do you presently have visiting nurse or other home services: No Alcohol intake: current Alcohol intake frequency: does not drink Alcohol type: wine Patient Tobacco Use Status: Never used Tobacco e-Cigarette/Vaping Use: Never Used Second Hand Smoke Exposure: No service: No Current occupational status: unemployed Cognitive needs: No Hearing needs: No Vision needs: Yes Female Reproductive History Menstrual Age of Menarche: 9 Physical Exam Vital Signs: BMI result Body Mass Index 22.6 Telehealth Telehealth Telehealth Platform: Telephone Location of provider rendering services: other Location of patient: address on file Patient Identification confirmed using: Name, : Yes Telehealth method: voice only Patient verbally consented to treatment: Yes Patient verbally consented to billing insurance company: Yes Patient informed of any privacy concerns related to visit: Yes Minutes spent on Phone/Video with Pt.: 25 Assessment & Plan Assessment & Plan (1) Excess skin: Code(s): L98.7 - Excessive and redundant skin and subcutaneous tissue Category: Medical Plan Pt has done very well with weight loss. Has lost almost 100lbs with TBWL 38.5%. Pt's insurance requires weight stability for 1 month, with weight monitored by treating provider for 3 months. Clotrimazole ointment ordered for rashes of excess skin. RTC 6 weeks to monitor response to clotrimazole, in person visit for physical exam and possible photos. Medications: New clotrimazole 1% 1 appl topical BID 45 grams 3RF
[2025-02-24 09:42] VITALS: BMI 22.6
--- OUTSIDE RECORDS SUMMARY | 2025-02-24 12:24 | XMS_ITS | Clinical Summary ---
Author Organization [facility] Address [address] [place] [address] Phone Care Team Providers Care Process Architect Name Role Phone Aleyda Paul MD Primary Care Provider [phone] Allergies No known active allergies Medications citalopram [...] MG tablet 12/29/2021 Active ergocalciferol 1.25 MG (98223 UT) capsule Take 1 capsule (50,000 Units [...] Exam 09/16/2021 Influenza Vaccine (#1) [address] [place] [address] MEDICAID [facility] MEDICAID Care Teams Process Architect Relationship Specialty Start Date End Date Aleyda Paul MD [address] [place], [place] PCP - General Internal Medicine 07/12/21
== END 2025-02-24 10:56 | disposition home or self-care (01) ==
LOC: HO.HBS 10:56
PROVIDERS: PCP Nurse Practitioner Family; Visit Provider Physician Assistant Surgical
DX: L98.7 Excessive and redundant skin and subcutaneous tissue (principal)
CPT/HCPCS: 99214; G2211

== ENCOUNTER 2025-03-06 08:43 | Outpatient (REF) | payer OTHER, SELFPAY ==
--- NOTE | ~2025-03-06 | US_ITS ---
EXAMINATION: US ABDOMEN COMPLETE WITH LIVER ELASTOGRAPHY HISTORY: R79.89 - ELEVATED LIVER FUNCTION TESTS TECHNIQUE: Real-time grayscale ultrasound imaging of the abdomen was performed and images were reviewed. COMPARISON: There are no prior studies for comparison. FINDINGS: Liver: The right lobe of the liver measures 14.4 cm in size. The left lobe of the liver measures 9.1 cm in size. The liver demonstrates normal homogeneous echotexture. No focal mass or intrahepatic biliary ductal dilatation is identified. There is normal hepatopedal flow in the portal vein. Ultrasound elastography of the liver was performed with 10 separate measurements of the liver parenchyma with the patient in the supine position. Measurements were obtained approximately 2 cm below Yoana's capsule and perpendicular to the capsule. Images are of satisfactory quality. The median shear wave velocity is 1.52 m/s. The interquartile range/median (IQR/median) is 0.14. Gallbladder and biliary tree: The gallbladder is unremarkable, without evidence of calculi, wall thickening, or pericholecystic fluid. There is no sonographic Liao sign. The common bile duct is normal in caliber measuring 3 mm. Kidneys: The right kidney measures 10.3 cm in length. The left kidney measures 10.1 cm in length. The kidneys are unremarkable, without evidence of masses, hydronephrosis, or calculi. Pancreas: The pancreatic head, neck, and body are unremarkable. The pancreatic tail is obscured by bowel gas. Spleen: The spleen is normal in size and contour, measuring 10.0 cm in length. Abdominal aorta and inferior vena cava: The visualized portions of the abdominal aorta and inferior vena cava are normal in caliber. There is no free fluid in the abdomen. US/US abdomen comp w elastography IMPRESSION: Unremarkable abdominal ultrasound. The median shear wave velocity in the liver is 1.52 m/s, corresponding to a median liver stiffness of 7.06 kPa. The IQR/median value is 0.14. This is indicative of a quality data set. Findings are indicative of a low elastography value which rules out advanced chronic liver disease in asymptomatic patients. REFERENCE: Society of Radiologists in Ultrasound Liver Stiffness Thresholds (2020): LIVER STIFFNESS THRESHOLDS: *Shear wave velocity less than 1.3 m/s (Liver Stiffness equal or less than 5 kPa): High probability of being normal. *Shear wave velocity less than 1.7 m/s (Liver Stiffness less than 9 kPa): In the absence of other known clinical signs, rules out compensated advanced chronic liver disease. *Shear wave velocity between 1.7-2.1 m/s (Liver Stiffness 9-13 kPa): Suggestive of compensated advanced chronic liver disease but need further test for confirmation. *Shear wave velocity between 2.1-2.4 m/s (Liver Stiffness 13-17 kPa): Rules in compensated advanced chronic liver disease. *Shear wave velocity greater than 2.4 m/s (Liver Stiffness over 17 kPa): Suggestive of clinically significant portal hypertension. QUALITY OF DATA SET: *IQR/Median value equal or less than 0.15 implies a quality data set. *IQR/Median value over 0.15 implies a poor quality data set. SIGNIFICANT CHANGE FROM PRIOR EXAM: Significant change if liver stiffness measurement is 10% or greater from prior exam. OTHER CONSIDERATIONS: The stage of liver fibrosis may be overestimated in the setting of acute hepatitis, liver inflammation, elevated liver function tests, hepatic vascular congestion, obstructive cholestasis, non-fasting state, and infiltrative diseases such as amyloidosis and lymphoma. In some patients with NAFLD, the liver stiffness thresholds for compensated advanced chronic liver disease may be lower. In causes other than viral hepatitis and NAFLD, liver stiffness thresholds are not well established. Electronically signed by: Luis Fajardo MD 03/06/2025 10:09 AM EDT
--- OUTSIDE RECORDS SUMMARY | 2025-03-06 09:05 | XMS_ITS | Clinical Summary ---
Author Organization [facility] Address [address] [place] [address] Phone Care Team Providers Care Fashion Photographer Name Role Phone Aleyda Paul MD Primary Care Provider [phone] Allergies No known active allergies Medications citalopram [...] MG tablet 12/29/2021 Active ergocalciferol 1.25 MG (10532 UT) capsule Take 1 capsule (50,000 Units [...] Comments Breast Cancer Screening 1970 Pneumococcal Vaccine: Peds ( 0 to 5 Years) and At-Risk Patients (6 to 49 Years) (1 of 2 - PCV) 1976 Hepatitis B Vaccine (1 of 3 - 19+ 3-dose series) 08/14 Colorectal Cancer Screening: Annual FOBT 2019 Colorectal Cancer Screening: Colonoscopy 2019 Colorectal Cancer Screening: Sigmoidoscopy 2019 Diabetes: Hemoglobin A1C 09/16/2021 Diabetes: Ophthalmology Exam 09/16/2021 Diabetes: Pedal Pulse Checked 09/16/2021 Diabetes: Sensory Foot Exam 09/16/2021 Diabetes: Visual Foot Exam 09/16/2021 Influenza Vaccine (Season Ended) [address] [place] [address] Medicaid [facility] Medicaid Care Teams Fashion Photographer Relationship Specialty Start Date End Date Aleyda Paul MD [address] [place], [place] PCP - General Internal Medicine 07/12/21
[2025-03-06 10:11] LABS: MANUAL DIFF FLAG NO
[2025-03-06 10:24] LABS: Basophils Absolute Auto 0.1 X10*3/uL (0.0-0.2); Basophils Percent Auto 1.1 % (0-2); Eosinophils Absolute Auto 0.6 X10*3/uL (0.0-0.4); Eosinophils Percent Auto 8.6 % (0-4); Hematocrit 46.3 % (37.0-47.0); Hemoglobin 15.3 g/dl (12.0-16.0); Imm Gran Abs Auto 0.03 X10*3/uL (0.00-0.03); Imm Gran Pct Auto 0.4 % (0.0-0.4); Lymphocytes Percent Auto 40.2 % (20-40); Mean Corpuscular Hemoglobin 29.2 pg (27.0-33.0); Mean Corpuscular Volume 88.4 fL (80.0-98.0); Mean Platelet Volume 10.4 fL (9.4-12.3); Monocytes Absolute Auto 0.4 X10*3/uL (0.1-1.2); Neutrophils Absolute Auto 3.2 x10*3/uL (2.0-8.3); Neutrophils Percent Auto 43.7 % (45-73); Platelet Count 230 X10*3/uL (160-400); Red Blood Count 5.24 X10*6/uL (4.20-5.50); Red Cell Distribution Width 13.6 % (11.0-16.0); White Blood Count 7.4 X10*3/uL (4.8-10.8)
[2025-03-06 11:35] LABS: HBsAGNum1 0.26 S/CO (0.00-0.99); Hepatitis B Surface Antigen Negative (Negative); ~HepC Num1 0.18 S/CO (0.00-0.79); ~Hepatitis C Antibody Nonreactive (Nonreactive)
[2025-03-06 11:43] LABS: Alanine Aminotransferase 49 U/L (0-31); Albumin Level 4.3 g/dL (3.5-5.0); Alkaline Phosphatase 77 U/L (39-117); Aspartate Amino Transferase 31 U/L (5-31); Bilirubin Direct 0.2 mg/dL (0.0-0.5); Bilirubin Total 0.6 mg/dL (0.0-1.0); Gamma Glutamyl Transpeptidase 17 U/L (7-33); Total Protein 7.4 g/dL (6.5-8.0)
== END 2025-03-06 08:44 | disposition home or self-care (01) ==
LOC: HO.US 08:43
PROVIDERS: PCP Physician Assistant; Visit Provider Physician Assistant
DX: R79.89 Other specified abnormal findings of blood chemistry (principal); E11.8 Type 2 diabetes mellitus with unspecified complications; Z79.4 Long term (current) use of insulin; I10 Essential (primary) hypertension; E03.9 Hypothyroidism, unspecified
CPT/HCPCS: 36415; 76700; 76981; 80076; 82977; 85025; 86803; 87340

== ENCOUNTER → 2025-03-06 08:45 | Outpatient (BNV) | payer OTHER, SELFPAY | PROVIDERS: PCP Physician Assistant; Visit Provider Radiology Diagnostic Radiology | DX: R74.01 Elevation of levels of liver transaminase levels (principal) | CPT/HCPCS: 76700; 76981 ==

== ENCOUNTER 2025-04-01 12:04 | Outpatient (AMB) | payer OTHER, SELFPAY ==
--- NOTE | 2025-04-01 12:22 | A.OFFVIS_ITS ---
VS Expanded 04/01/25 12:36 BP 129/70 Blood Pressure Location Rt brachial Blood Pressure Position Sitting Pulse 69 Pulse Source Pulse Oximeter Temp 96.7 F L Temperature Source Temporal Artery Scan Pulse Oximetry 98 Oxygen Delivery Method Room Air Height 5 ft 9 in Weight 154 lb 3.2 oz BMI 22.8 Body Fat % 30.3 Body Fat Mass 46.8 Fat Free Mass 107.4 Visceral Fat Rating 6.0 Body Water % 49.4 Body Water Mass 76.0 Muscle Mass/Score 101.8 Basal Metabolic Rate/Score 1,437 Intake Visit Reasons: OV F/U Consult - Panniculectomy Route Salesman And Driver Required: Yes Route Salesman And Driver Name: Aydin- [id number] Kt Allergies No Known Allergies Allergy (Verified 04/01/25 12:31) Medication List - Last Reconciled 04/01/25 by ИРИНА Prince albuterol sulfate 2.5 mg (3 mL) inhalation Q4-6H PRN 90 days albuterol sulfate 90 mcg/actuation (Ventolin HFA) 1 puff PO QID PRN 90 days bisacodyl (Dulcolax (bisacodyl)) 10 mg (2 x 5 mg) PO BEDTIME blood sugar diagnostic (FreeStyle Lite Strips) Use daily As directed to check blood glucose blood-glucose meter (FreeStyle Lite Meter kit) Use daily As directed to check blood sugars cholecalciferol (vitamin D3) 50 mcg PO DAILY citalopram 40 mg PO DAILY 90 days clotrimazole 1% 1 appl topical BID diclofenac sodium 1% (Voltaren Arthritis Pain) 4 grams topical QID PRN docusate sodium (Colace) 100 mg PO BID duloxetine 60 mg PO DAILY ezetimibe (Zetia) 10 mg PO DAILY flash glucose scanning reader (FreeStyle Sera 2 [place]) As directed flash glucose sensor (FreeStyle Sera 2 Sensor kit) As directed change every 14 days fluticasone propion-salmeterol 250-50 mcg/dose (Advair Diskus) 1 inh inhalation BID 90 days hydrochlorothiazide 25 mg PO DAILY hydroxyzine HCl 25 mg PO BID PRN ibuprofen 600 mg PO Q6H PRN insulin lispro (Humalog KwikPen (U-100) Insulin) 5 units breakfast, +2units for bg >200 subcut 3x per day. lancets (FreeStyle Lancets) use daily as directed to check blood glucose levothyroxine 112 mcg PO DAILY lisinopril 10 mg PO DAILY 90 days mirtazapine 30 mg PO BEDTIME miscellaneous medical supply 1 ea miscellaneous DAILY pen needle, diabetic (BD Ultra-Fine Ramya Pen Needle) As directed four times a day perphenazine 4 mg PO BID rosuvastatin 40 mg PO DAILY semaglutide (Ozempic) 0.25 mg (0.368 mL) subcut QWEEK sumatriptan succinate take 1 tab at onset of headache; if no relief may repeat 1 tab after at least 2 hrs; max = 4 tabs/24 hr PO 30 days tizanidine 2 mg PO BEDTIME PRN trazodone 200 mg PO BEDTIME PRN HPI Comments Details: Pt is a 54 year old female who has been very successful with non-surgical weight loss. Was previously 249lbs. Currently on Mounjaro. Follows with endocrinology for diabetes, currently well controlled. Her weight at the beginning of January was 156.6lbs as documented by her PCP. Blood clot during at age 19. Cardiac history includes mitral stenosis. Last echo in 2022 showed 60-65% EF. Not on any blood thinners. Nonsmoker. Current meal plan: follows a strict diabetic diet Current exercise regimen: videos on Youtube, has a walking machine Pt reports problems of excess skin of abdomen. She is experiencing rashes in the skin fold, has tried topical creams OTC, cocoa butter and now clotrimazole oint ment prescribed by our office. These rashes are painful and itchy. She has to clean the area frequently and notices an unpleasant odor if moisture collects in the area. It is difficult to perform activities of daily living including taking care of her home, with activities that could include cleaning, bending over, squatting. Has to wear a compressive waistband/binder/girdle in her clothing to help hold excess skin in place to prevent discomfort. However this bothers her as it never fits quite right around her excess skin. [facility] Medical History DVT (deep venous thrombosis) Type 2 diabetes mellitus with complication, with long-term current use of insulin Somnolence Sleep apnea Cervical high risk HPV (human papillomavirus) test positive Essential hypertension COVID-19 CKD (chronic kidney disease) HTN (hypertension) Diastolic dysfunction Rheumatic mitral stenosis Glaucoma Insomnia Rheumatic heart disease Depression Anxiety Hemorrhoids Hypothyroidism Hyperlipidemia LDL goal <100 Obesity (BMI 30-39.9) Surgical History History of hysteroscopy Hx of colonoscopy Hx of tubal ligation H/O hemorrhoidectomy History of section Family History Father Diabetes Mother Diabetes Stroke Maternal Aunt Stroke Hypertension Social History Household Members: Children Housing: Apartment Are you a primary career portals teacher to a significant other at home: No Do you presently have visiting nurse or other home services: No Alcohol intake: current Alcohol intake frequency: does not drink Alcohol type: wine Patient Tobacco Use Status: Never used Tobacco e-Cigarette/Vaping Use: Never Used Second Hand Smoke Exposure: No service: No Current occupational status: unemployed Cognitive needs: No Hearing needs: No Vision needs: Yes Female Reproductive History Menstrual Age of Menarche: 9 Physical Exam Const General: cooperative, comfortable and no acute distress Orientation/consciousness: patient oriented x3 GI Other: soft, nontender, nondistended, incisions well healed, no hernia, no masses Grade II pannus, skin is noted to be irritated in the skin fold Neuro General: patient oriented x3 Assessment & Plan Assessment & Plan (1) Excess skin: Code(s): L98.7 - Excessive and redundant skin and subcutaneous tissue Category: Medical Plan Pt has done very well with weight loss. Has lost almost 100lbs with TBWL 38.5%. Pt's insurance requires weight stability for 1 month, with weight monitored by treating provider for 3 months. Clotrimazole ointment ordered for rashes of excess skin. Discussed expected postop course after panniculectomy. She is experiencing issues of excess skin of abdomen resulting in frequent painful, itchy, malodorous rashes which are only partially relieved by topical antifungals. In addition she is experiencing limitations/discomfort in activities of daily living, including caring for her home, cleaning, bending/squatting. She requires the use of special clothing at all times to try to prevent discomfort but her issues have not been completely relieved by conservative measures. RTC 6 weeks to continue to monitor response to clotrimazole and problems of excess skin. Photos taken today.
[2025-04-01 12:36] VITALS: BP 129/70; PULSE 69; TEMP 35.9; O2SAT 98; BMI 22.8
--- OUTSIDE RECORDS SUMMARY | 2025-04-01 13:36 | XMS_ITS | Clinical Summary ---
Author Organization [facility] Address [address] [place] [address] Phone Care Team Providers Care Perioperative Educator Name Role Phone Aleyda Paul MD Primary Care Provider [phone] Allergies No known active allergies Medications citalopram [...] MG tablet 12/29/2021 Active ergocalciferol 1.25 MG (70909 UT) capsule Take 1 capsule (50,000 Units [...] Last Done Comments Breast Cancer Screening 1970 Hepatitis B Vaccine (1 of 3 - 19+ 3-dose series) 08/14 Pneumococcal Vaccine: 50+ Years (1 of 2 - PCV) 989 Colorectal Cancer Screening: Annual FOBT 2019 Colorectal Cancer Screening: Colonoscopy 2019 Colorectal Cancer Screening: Sigmoidoscopy 2019 Diabetes: Hemoglobin A1C 09/16/2021 Diabetes: Ophthalmology Exam 09/16/2021 Diabetes: Pedal Pulse Checked 09/16/2021 Diabetes: Sensory Foot Exam 09/16/2021 Diabetes: Visual Foot Exam 09/16/2021 Influenza Vaccine (Season Ended) 2025 Insurance [facility] Medicaid [facility] Medicaid Care Teams Perioperative Educator Relationship Specialty Start Date End Date Aleyda Paul MD [address] [place], [place] PCP - General Internal Medicine 07/12/21
== END 2025-04-01 13:00 | disposition home or self-care (01) ==
LOC: HO.HBS 12:05
PROVIDERS: PCP Nurse Practitioner Family; Visit Provider Physician Assistant Surgical
DX: L98.7 Excessive and redundant skin and subcutaneous tissue (principal)
CPT/HCPCS: 99214; G2211

== ENCOUNTER → 2025-04-01 12:04 | Outpatient (BNVA) | payer OTHER, SELFPAY | PROVIDERS: PCP Nurse Practitioner Family; Visit Provider Physician Assistant Surgical | DX: L98.7 Excessive and redundant skin and subcutaneous tissue (principal) | CPT/HCPCS: 99212 ==

== ENCOUNTER 2025-04-23 09:26 | Outpatient (AMB) | payer OTHER, SELFPAY ==
--- NOTE | 2025-04-23 09:45 | A.OFFVIS_ITS ---
Vital Signs 04/23/25 09:46 Height 5 ft 9 in Weight 156 lb BMI 23.0 BP 102/52 L Blood Pressure Location Lt brachial Position Sitting Pulse 56 Pulse Source Pulse Oximeter Pulse Oximetry (%) 99 Oxygen Delivery Method Room Air Intake Visit Reasons: Obstructive sleep apnea Intake Note: pt is here for follow up and states she is feeling good, doing exercise and eating healthy, no much use of cpap, but pt has dropped almost 100 lbs. Corporate Real Estate Manager Required: Yes Corporate Real Estate Manager Services: Corporate Real Estate Manager Present Corporate Real Estate Manager Name: Mando Allergies No Known Allergies Allergy (Verified 04/23/25 10:21) Medication List - Last Reconciled 04/23/25 by Daniel Ortega MD albuterol sulfate 2.5 mg (3 mL) inhalation Q4-6H PRN 90 days albuterol sulfate 90 mcg/actuation (Ventolin HFA) 1 puff PO QID PRN 90 days bisacodyl (Dulcolax (bisacodyl)) 10 mg (2 x 5 mg) PO BEDTIME blood sugar diagnostic (FreeStyle Lite Strips) Use daily As directed to check blood glucose blood-glucose meter (FreeStyle Lite Meter kit) Use daily As directed to check blood sugars cholecalciferol (vitamin D3) 50 mcg PO DAILY citalopram 40 mg PO DAILY 90 days clotrimazole 1% 1 appl topical BID diclofenac sodium 1% (Voltaren Arthritis Pain) 4 grams topical QID PRN docusate sodium (Colace) 100 mg PO BID duloxetine 60 mg PO DAILY ezetimibe (Zetia) 10 mg PO DAILY flash glucose scanning reader (AIRVENDStyle Sera 2 [place]) As directed flash glucose sensor (FreeStyle Sera 2 Sensor kit) As directed change every 14 days fluticasone propion-salmeterol 250-50 mcg/dose (Advair Diskus) 1 inh inhalation BID 90 days hydrochlorothiazide 25 mg PO DAILY hydroxyzine HCl 25 mg PO BID PRN ibuprofen 600 mg PO Q6H PRN insulin lispro (Humalog KwikPen (U-100) Insulin) 5 units breakfast, +2units for bg >200 subcut 3x per day. lancets (FreeStyle Lancets) use daily as directed to check blood glucose levothyroxine 112 mcg PO DAILY lisinopril 10 mg PO DAILY 90 days mirtazapine 30 mg PO BEDTIME miscellaneous medical supply 1 ea miscellaneous DAILY pen needle, diabetic (BD Ultra-Fine Ramya Pen Needle) As directed four times a day perphenazine 4 mg PO BID rosuvastatin 40 mg PO DAILY semaglutide (Ozempic) 0.25 mg (0.368 mL) subcut QWEEK sumatriptan succinate take 1 tab at onset of headache; if no relief may repeat 1 tab after at least 2 hrs; max = 4 tabs/24 hr PO 30 days tizanidine 2 mg PO BEDTIME PRN trazodone 200 mg PO BEDTIME PRN Do you need a note to return to daycare/school/sports/work: No HPI HPI Obstructive sleep apnea: Details: THIS 54 YEARS OLD VERY PLEASANT FEMALE IS HERE FOR, ROUTINE 6 MONTHS FOLLOW-UP. SHE IS A CASE OF OBSTRUCTIVE SLEEP APNEA, AND HAS BEEN USING CPAP IN THE PAST. DURING THE PAST FEW MONTHS SHE IS USING ONLY ONCE OR TWICE A MONTH AT THE MOST, AND CLAIMS THAT SHE IS SLEEPING OKAY. SHE IS ALSO DIABETIC AND HAS BEEN ON SEMAGLUTIDE INJECTION PART OF HER DIABETES REGIMEN. IN THE LAST 6 MONTHS SHE HAS LOST LOT OF WEIGHT, ALMOST CLOSE TO 100 LB. SHE IS DOWN TO A BMI OF 23 KG. SHE ALSO HAS ASTHMA/COPD SYNDROME AND HAS INTERMITTENT COUGH OR WHEEZING. IT IS CONTROLLED WITH USE OF ADVAIR DISKUS 250-51 INHALATION B.I.D. AND SHE NEEDS TO USE ALBUTEROL ONLY ONCE IN A WHILE. [facility] Medical History DVT (deep venous thrombosis) Type 2 diabetes mellitus with complication, with long-term current use of insulin Somnolence Sleep apnea Cervical high risk HPV (human papillomavirus) test positive Essential hypertension COVID-19 CKD (chronic kidney disease) HTN (hypertension) Diastolic dysfunction Rheumatic mitral stenosis Glaucoma Insomnia Rheumatic heart disease Depression Anxiety Hemorrhoids Hypothyroidism Hyperlipidemia LDL goal <100 Obesity (BMI 30-39.9) Surgical History History of hysteroscopy Hx of colonoscopy Hx of tubal ligation H/O hemorrhoidectomy History of section Family History Father Diabetes Mother Diabetes Stroke Maternal Aunt Stroke Hypertension Social History Household Members: Children Housing: Apartment Are you a primary daytime caregiver to a significant other at home: No Do you presently have visiting nurse or other home services: No Alcohol intake: current Alcohol intake frequency: does not drink Alcohol type: wine Patient Tobacco Use Status: Never used Tobacco e-Cigarette/Vaping Use: Never Used Second Hand Smoke Exposure: No service: No Current occupational status: unemployed Cognitive needs: No Hearing needs: No Vision needs: Yes Female Reproductive History Menstrual Age of Menarche: 9 Review of Systems Const All systems reviewed & are unremarkable except as noted in HPI and below Reports fatigue Eyes Reports no additional complaints ENT Reports nasal congestion (MILD OFF AND ON ) Card Denies irregular heart rhythm and Denies leg edema Resp Reports as per HPI GI Reports constipation Reports no additional complaints Musc Reports back pain and Reports myalgias Skin/Breast Reports system reviewed and no additional complaints, except as documented Neuro Reports no additional complaints Psych Reports anxiety and Reports depression Endo Reports fatigue and Reports other ( DIABETES MELLITUS, HYPOTHYROIDISM) Kody/Lymph Reports no additional complaints Aller/Immun Reports seasonal rhinorrhea Physical Exam Vital Signs: Last Vital Signs Pulse 56 04/23/25 09:46 BP 102/52 L 04/23/25 09:46 Pulse Ox 99 04/23/25 09:46 Oxygen Delivery Method Room Air 04/23/25 09:46 BMI result Body Mass Index 23.0 Const General: comfortable, no acute distress, alert and awake Orientation/consciousness: patient oriented x3 HEENT Head: Yes normal to inspection General nose exam: No nasal polyps present, No nasal discharge present and Other nasal findings present (MILD NASAL CONGESTION ) Face and sinus: Yes sinuses nontender Mouth: oropharynx normal Throat: Yes posterior oropharynx normal Eyes General: appearance normal, both eyes and all related structures Neck Neck: Yes normal visual inspection, Yes no lymphadenopathy, Yes trachea midline, Yes no JVD and Yes other ( NECK SIZE 16 IN) Thyroid: Thyroid normal and no nodules Chest Chest palpation & inspection: normal inspection of the chest, normal palpation of entire chest wall and no tenderness Resp Effort & Inspection: normal respiratory effort Auscultation: no crackles, no wheezes and No rub present Cardio Palpation: normal PMI Rate: regular rate Rhythm: regular rhythm Heart sounds: no gallops and no murmurs Peripheral pulses: Peripheral pulses 2+ throughout GI Palpation (GI): Soft to palpation, nontender, No hepatosplenomegaly present and no masses Auscultation: normal bowel sounds Back/Spine/Pelvis Thoracic/Lumbar Spine: thoracic and lumbar spine normal to inspection and thoraco-lumbar ROM limited Skin General skin exam: no rashes or lesions noted Neuro General: patient oriented x3 and no focal motor deficits Cranial nerves: Yes CN's II-XII intact bilaterally Extrem General: Yes normal to inspection, Yes no clubbing, cyanosis or edema and Yes no calf tenderness Psych Appearance: grossly normal and well kempt Speech and movement: Normal speech and movement present Results Reviewed Results Reviewed: COMPLIANCE FOR THE LAST 30 NIGHTS REVIEWED AND IT IS EVIDENT THAT SHE HAS USED ONLY 2 NIGHTS OUT OF THE WHOLE MONTH AND THAT ALSO SHE USED ONLY FOR ABOUT 19 MINUTES EACH NIGHT. SO BASICALLY SHE IS A NONUSER. AND THE RESIDUAL AHI IS 3.6 Assessment & Plan Assessment & Plan (1) Asthma: Comment: SHE HAS MILD ASTHMA WHICH FLARES UP WHENEVER SHE HAS NASAL CONGESTION OR UPPER RESPIRATORY INFECTION USUALLY ABOUT ONCE OR TWICE A YEAR . SHE HAS DONE MUCH BETTER SINCE SHE IS USING ADVAIR 250-50 1 INHALATION B.I.D. REGULARLY. with this therapy her bronchial asthma remains well controlled. Code(s): J45.909 - Unspecified asthma, uncomplicated Category: Medical Qualifiers: Asthma severity: mild Asthma persistence: intermittent Asthma complication type: unspecified Qualified Code(s): J45.20 - Mild intermittent asthma, uncomplicated Plan: CONTINUE USING ADVAIR DISKUS 250-51 INHALATION B.I.D.,, AND USE ALBUTEROL P.R.N.. (2) CORNELIUS (obstructive sleep apnea): Comment: Patient does have history of obstructive sleep apnea. Initially she was very compliant in using CPAP. Lately she is relatively noncompliant, but claims that she sleeps well. Patient actually claims that she has lost lot of weight almost like 100 lb since she was started on Semaglutide treatment. Now without the CPAP she sleeps okay. It should be noted that her sleep apnea was partly contributed by mild Retrognathia of the lower jaw, and she may still has some residual sleep apnea. Code(s): G47.33 - Obstructive sleep apnea (adult) (pediatric) Category: Medical Plan: The patient is not going to use the CPAP regularly. I think we should do another sleep study, to check how much residual sleep apnea she has. And if it is minimal, then she can return her CPAP equipment. Orders: Orders RT home sleep study Today G47.33 - Obstructive sleep apnea (adult) (pediatric) Coding Level of Care Code Est Pt Level 3 (78628) Diagnoses Mild intermittent asthma, unspecified whether complicated J45.20 Asthma severity: mild Asthma persistence: intermittent Asthma complication type: unspecified CORNELIUS (obstructive sleep apnea) G47.33
[2025-04-23 09:46] VITALS: BP 102/52; PULSE 56; O2SAT 99; BMI 23.0
--- OUTSIDE RECORDS SUMMARY | 2025-04-23 10:07 | XMS_ITS | Clinical Summary ---
Author Organization [facility] Address [address] [place] [address] Phone Care Team Providers Care Paper Coating Supervisor Name Role Phone Aleyda Paul MD Primary Care Provider [phone] Allergies No known active allergies Medications citalopram [...] MG tablet 12/29/2021 Active ergocalciferol 1.25 MG (75842 UT) capsule Take 1 capsule (50,000 Units [...] 09/16/2021 Influenza Vaccine (Season Ended) 2025 Insurance [facility] Medicaid [facility] Medicaid Care Teams Paper Coating Supervisor Relationship Specialty Start Date End Date Aleyda Paul MD [address] [place], [place] PCP - General Internal Medicine 07/12/21
== END 2025-04-23 10:08 | disposition home or self-care (01) ==
LOC: HO.HPS 09:27
PROVIDERS: PCP Nurse Practitioner Family; Visit Provider Internal Medicine
DX: J45.20 Mild intermittent asthma, uncomplicated (principal); G47.33 Obstructive sleep apnea (adult) (pediatric)
CPT/HCPCS: 99213

== ENCOUNTER → 2025-04-23 09:26 | Outpatient (BNVA) | payer OTHER, SELFPAY | PROVIDERS: PCP Nurse Practitioner Family; Visit Provider Internal Medicine | DX: G47.33 Obstructive sleep apnea (adult) (pediatric) (principal); J45.20 Mild intermittent asthma, uncomplicated | CPT/HCPCS: 99212 ==

== ENCOUNTER 2025-05-09 09:09 | Outpatient (AMB) | payer OTHER, SELFPAY ==
[2025-05-09 09:19] VITALS: BP 112/64; PULSE 71; TEMP 36.6; O2SAT 98; BMI 23.0
--- NOTE | 2025-05-09 09:19 | A.OFFVIS_ITS ---
Vital Signs 05/09/25 09:19 Height 5 ft 9 in Weight 156 lb 1.396 oz BMI 23.0 BP 112/64 Blood Pressure Location Lt brachial Position Sitting Pulse 71 Pulse Source Pulse Oximeter Temp 98 F Pulse Oximetry (%) 98 Oxygen Delivery Method Room Air Intake Visit Reasons: DM Intake Note: Patient present today for Type 2 Diabetes Mellitus Last Diabetic eye exam: 2 years ago Last Podiatry Visit: Doesn't have one Random Glucose: 90 mg/dl HgA1C: 7.0% Ecclesiastical Worker Required: Yes Ecclesiastical Worker Language: Core Piler Services: Ecclesiastical Worker Present Information Interpreted: non-clinical & clinical Accompanied by: Self / Same As Patient Allergies No Known Allergies Allergy (Verified 05/09/25 09:26) Medication List - Last Reconciled 05/09/25 by Gita Nguyen PA-C albuterol sulfate 2.5 mg (3 mL) inhalation Q4-6H PRN 90 days albuterol sulfate 90 mcg/actuation (Ventolin HFA) 1 puff PO QID PRN 90 days bisacodyl (Dulcolax (bisacodyl)) 10 mg (2 x 5 mg) PO BEDTIME blood sugar diagnostic (FreeStyle Lite Strips) Use daily As directed to check blood glucose blood-glucose meter (FreeStyle Lite Meter kit) Use daily As directed to check blood sugars cholecalciferol (vitamin D3) 50 mcg PO DAILY citalopram 40 mg PO DAILY 90 days clotrimazole 1% 1 appl topical BID diclofenac sodium 1% (Voltaren Arthritis Pain) 4 grams topical QID PRN docusate sodium (Colace) 100 mg PO BID duloxetine 60 mg PO DAILY ezetimibe (Zetia) 10 mg PO DAILY flash glucose scanning reader (FreeStyle Sera 2 [place]) As directed flash glucose sensor (FreeStyle Sera 2 Sensor kit) As directed change every 14 days fluticasone propion-salmeterol 250-50 mcg/dose (Advair Diskus) 1 inh inhalation BID 90 days hydrochlorothiazide 25 mg PO DAILY hydroxyzine HCl 25 mg PO BID PRN ibuprofen 600 mg PO Q6H PRN insulin lispro (Humalog KwikPen (U-100) Insulin) 5 units breakfast, +2units for bg >200 subcut 3x per day. lancets (FreeStyle Lancets) use daily as directed to check blood glucose levothyroxine 112 mcg PO DAILY lisinopril 10 mg PO DAILY 90 days mirtazapine 30 mg PO BEDTIME miscellaneous medical supply 1 ea miscellaneous DAILY pen needle, diabetic (BD Ultra-Fine Ramya Pen Needle) As directed four times a day perphenazine 4 mg PO BID rosuvastatin 40 mg PO DAILY sumatriptan succinate take 1 tab at onset of headache; if no relief may repeat 1 tab after at least 2 hrs; max = 4 tabs/24 hr PO 30 days tizanidine 2 mg PO BEDTIME PRN trazodone 200 mg PO BEDTIME PRN HPI HPI DM: Details: public health: Janette Patient is a 54-year-old female with a significant past medical history of hypertension, CKD, CORNELIUS, type 2 diabetes, hyperlipidemia, hypothyroidism and obesity presenting today for diabetic follow-up. Her last A1c is 7. She had to stop mounjaro due to insurance issues and was started on ozempic. She has been using humalog 5 units 1-2 days a day. Started ozempic 0.25 mg weekly and tolerating very well. cgm: Usage 91%, average glucose 101, G mi 5.9%. Very hyperglycemic 0%, hypoglycemic 2%, in range 84%, hypoglycemic 12%, very hypoglycemic 2% CV: Blood pressure today in the office is 112/64. She is currently on lisinopril 10 mg, hydrochlorothiazide 25 mg daily. Her last cholesterol was WNL. She is on Crestor 40 mg. No myalgias. [facility] Medical History DVT (deep venous thrombosis) Type 2 diabetes mellitus with complication, with long-term current use of insulin Somnolence Sleep apnea Cervical high risk HPV (human papillomavirus) test positive Essential hypertension COVID-19 CKD (chronic kidney disease) HTN (hypertension) Diastolic dysfunction Rheumatic mitral stenosis Glaucoma Insomnia Rheumatic heart disease Depression Anxiety Hemorrhoids Hypothyroidism Hyperlipidemia LDL goal <100 Obesity (BMI 30-39.9) Surgical History History of hysteroscopy Hx of colonoscopy Hx of tubal ligation H/O hemorrhoidectomy History of section Family History Father Diabetes Mother Diabetes Stroke Maternal Aunt Stroke Hypertension Social History Household Members: Children Housing: Apartment Are you a primary medication care manager to a significant other at home: No Do you presently have visiting nurse or other home services: No Alcohol intake: current Alcohol intake frequency: does not drink Alcohol type: wine Patient Tobacco Use Status: Never used Tobacco e-Cigarette/Vaping Use: Never Used Second Hand Smoke Exposure: No service: No Current occupational status: unemployed Cognitive needs: No Hearing needs: No Vision needs: Yes Female Reproductive History Menstrual Age of Menarche: 9 Physical Exam Vital Signs: Last Vital Signs Temp 98 F 05/09/25 09:19 Pulse 71 05/09/25 09:19 BP 112/64 05/09/25 09:19 Pulse Ox 98 05/09/25 09:19 Oxygen Delivery Method Room Air 05/09/25 09:19 BMI result Body Mass Index 23.0 Const Orientation/consciousness: patient oriented x3 Neck Neck: Yes no lymphadenopathy Thyroid: Thyroid normal Carotids: no bruits Resp Auscultation: clear to auscultation bilaterally Cardio Rate: regular rate Rhythm: regular rhythm Heart sounds: S1 normal heart sound present and S2 normal heart sound present Peripheral pulses: dorsalis pedis present Neuro General: patient oriented x3, gait normal and no focal motor deficits Extrem Other: Monofilament sensation intact bilaterally. Vibratory sensation intact bilaterally. Skin intact. General: Yes normal to inspection Results AMB Hemoglobin A1c AMB Hemoglobin A1c 7.0 % Last Edit by CLARISSA Head on 05/09/25 09:38 Results Reviewed Results Reviewed: Laboratory Last Values Glucose (Clinic) 90 mg/dL (60-115) 05/09/25 09:28 Assessment & Plan Assessment & Plan (1) Type 2 diabetes mellitus with complication, with long-term current use of insulin: Code(s): E11.8 - Type 2 diabetes mellitus with unspecified complications; Z79.4 - shelter (current) use of insulin Category: Medical Plan: increase ozempic to 0.5 mg weekly hold insulin due to lows, call me if still going low. (2) Essential hypertension: Code(s): I10 - Essential (primary) hypertension Category: Medical Plan: wnl continue current plan (3) Hyperlipidemia LDL goal <100: Code(s): E78.5 - Hyperlipidemia, unspecified Category: Medical Plan: continue current plan labs ordered prior to next appointment Orders: Orders Microalbumin, Random (w Creat) Today E11.8 - Type 2 diabetes mellitus with unspecified complications, I10 - Essential (primary) hypertension, Z79.4 - shelter (current) use of insulin AMB Hemoglobin A1c Today E11.8 - Type 2 diabetes mellitus with unspecified complications, Z13.9 - Encounter for screening, unspecified, Z79.4 - shelter (current) use of insulin Comprehensive [place]. Panel Fast Today E11.8 - Type 2 diabetes mellitus with unspecified complications, I10 - Essential (primary) hypertension, Z79.4 - shelter (current) use of insulin Lipid Panel Today E11.8 - Type 2 diabetes mellitus with unspecified complications, I10 - Essential (primary) hypertension, Z79.4 - intermission coordinator (current) use of insulin Hemoglobin A1c Today E11.8 - Type 2 diabetes mellitus with unspecified complications, I10 - Essential (primary) hypertension, R73.01 - Impaired fasting glucose, Z79.4 - intermission coordinator (current) use of insulin Medications: New semaglutide (Ozempic) 0.5 mg (0.736 mL) subcut QWEEK 3 mL 4RF blood-glucose sensor (FreeStyle Sera 3 Sensor device) Apply every 14 days As directed to monitor blood glucose 2 ea 11RF E11.9 - Type 2 diabetes mellitus without complications, Z79.4 - shelter (current) use of insulin Discontinued flash glucose scanning reader (FreeStyle Sera 2 [place]) Discontinued Reason: Doctor's Order As directed 1 ea 0RF flash glucose sensor (FreeStyle Sera 2 Sensor kit) Discontinued Reason: Doctor's Order As directed change every 14 days 2 ea 5RF Coding Level of Care Code Est Pt Level 4 (98455) Complex EM visit Add On G2211 Diagnoses Type 2 diabetes mellitus with complication, with long-term current use of insulin E11.8; Z79.4 Essential hypertension I10 Hyperlipidemia LDL goal <100 E78.5
--- OUTSIDE RECORDS SUMMARY | 2025-05-09 09:31 | XMS_ITS | Clinical Summary ---
Author Organization [facility] Address [address] [place] [address] Phone Care Team Providers Care Switchboard And Control Room Operator Name Role Phone Aleyda Paul MD Primary Care Provider [phone] Allergies No known active allergies Medications citalopram [...] MG tablet 12/29/2021 Active ergocalciferol 1.25 MG (72544 UT) capsule Take 1 capsule (50,000 Units [...] 09/16/2021 Influenza Vaccine (Season Ended) 2025 Insurance [facility] Medicaid [facility] Medicaid Care Teams Switchboard And Control Room Operator Relationship Specialty Start Date End Date Aleyda Paul MD [address] [place], [place] PCP - General Internal Medicine 07/12/21
[2025-05-09 09:32] LABS: Glucose, Whole Blood 90 mg/dL (60-115)
== END 2025-05-09 09:50 | disposition home or self-care (01) ==
LOC: HO.ENCR 09:10
PROVIDERS: PCP Nurse Practitioner Family; Visit Provider Physician Assistant
DX: E11.8 Type 2 diabetes mellitus with unspecified complications (principal); Z79.4 Long term (current) use of insulin; I10 Essential (primary) hypertension; E78.5 Hyperlipidemia, unspecified; Z13.9 Encounter for screening, unspecified

== ENCOUNTER → 2025-05-09 09:09 | Outpatient (BNVA) | payer OTHER, SELFPAY | PROVIDERS: PCP Nurse Practitioner Family; Visit Provider Physician Assistant | DX: E11.22 Type 2 diabetes mellitus with diabetic chronic kidney disease (principal); I12.9 Hypertensive chronic kidney disease with stage 1 through stage 4 chronic kidney disease, or unspecified chronic kidney disease; N18.9 Chronic kidney disease, unspecified; G47.33 Obstructive sleep apnea (adult) (pediatric); E78.5 Hyperlipidemia, unspecified; E03.9 Hypothyroidism, unspecified; Z79.4 Long term (current) use of insulin | CPT/HCPCS: 82947; 83036; 99212 ==

== ENCOUNTER 2025-05-26 08:57 | Outpatient (AMB) | payer OTHER, SELFPAY ==
--- OUTSIDE RECORDS SUMMARY | 2025-05-26 09:11 | XMS_ITS | Clinical Summary ---
Author Organization [facility] Address [address] [place] [address] Phone Care Team Providers Care Front Office Representative Name Role Phone Aleyda Paul MD Primary Care Provider [phone] Allergies No known active allergies Medications citalopram [...] MG tablet 12/29/2021 Active ergocalciferol 1.25 MG (69338 UT) capsule Take 1 capsule (50,000 Units [...] 09/16/2021 Influenza Vaccine (Season Ended) 2025 Insurance [facility] Medicaid [facility] Medicaid Care Teams Front Office Representative Relationship Specialty Start Date End Date Aleyda Paul MD [address] [place], [place] PCP - General Internal Medicine 07/12/21
--- NOTE | 2025-05-26 09:39 | A.OFFVIS_ITS ---
VS Expanded 05/26/25 09:44 Height 5 ft 9 in Weight 153 lb BMI 22.6 Intake Visit Reasons: TV F/U Consult - Panniculectomy Labeling Specialist Required: Yes Labeling Specialist Name: Mckenna Du Information Interpreted: clinical only Allergies No Known Allergies Allergy (Verified 05/09/25 09:26) Medication List - Last Reconciled 05/26/25 by ИРИНА Prince albuterol sulfate 2.5 mg (3 mL) inhalation Q4-6H PRN 90 days albuterol sulfate 90 mcg/actuation (Ventolin HFA) 1 puff PO QID PRN 90 days bisacodyl (Dulcolax (bisacodyl)) 10 mg (2 x 5 mg) PO BEDTIME blood sugar diagnostic (FreeStyle Lite Strips) Use daily As directed to check blood glucose blood-glucose meter (FreeStyle Lite Meter kit) Use daily As directed to check blood sugars blood-glucose sensor (FreeStyle Sera 3 Sensor device) Apply every 14 days As directed to monitor blood glucose cholecalciferol (vitamin D3) 50 mcg PO DAILY citalopram 40 mg PO DAILY 90 days clotrimazole 1% 1 appl topical BID diclofenac sodium 1% (Voltaren Arthritis Pain) 4 grams topical QID PRN docusate sodium (Colace) 100 mg PO BID duloxetine 60 mg PO DAILY ezetimibe (Zetia) 10 mg PO DAILY fluticasone propion-salmeterol 250-50 mcg/dose (Advair Diskus) 1 inh inhalation BID 90 days hydrochlorothiazide 25 mg PO DAILY hydroxyzine HCl 25 mg PO BID PRN ibuprofen 600 mg PO Q6H PRN insulin lispro (Humalog KwikPen (U-100) Insulin) 5 units breakfast, +2units for bg >200 subcut 3x per day. lancets (FreeStyle Lancets) use daily as directed to check blood glucose levothyroxine 112 mcg PO DAILY lisinopril 10 mg PO DAILY 90 days mirtazapine 30 mg PO BEDTIME miscellaneous medical supply 1 ea miscellaneous DAILY pen needle, diabetic (BD Ultra-Fine Ramya Pen Needle) As directed four times a day perphenazine 4 mg PO BID rosuvastatin 40 mg PO DAILY semaglutide (Ozempic) 0.5 mg (0.736 mL) subcut QWEEK sumatriptan succinate take 1 tab at onset of headache; if no relief may repeat 1 tab after at least 2 hrs; max = 4 tabs/24 hr PO 30 days tizanidine 2 mg PO BEDTIME PRN trazodone 200 mg PO BEDTIME PRN HPI Comments Details: Pt is a 54 year old female who has been very successful with non-surgical weight loss. Was previously 249lbs. Was previously on Mounjaro, was changed to Ozempic. Follows with endocrinology for diabetes, currently well controlled. Her weight at the beginning of January was 156.6lbs as documented by her PCP. Weight at last visit 6w ago 154.2 with BMI 22.8. Weight today remains stable at 153lbs. Blood clot during at age 19. Cardiac history includes mitral stenosis. Last echo in 2022 showed 60-65% EF. Not on any blood thinners. Nonsmoker. Current meal plan: follows a strict diabetic diet Current exercise regimen: videos on [employer], has a walking machine Pt reports problems of excess skin of abdomen. She is experiencing rashes in the skin fold, has tried topical creams OTC, cocoa butter and now clotrimazole ointment prescribed by our office but these treatments have not resolved her skin issues. These rashes are painful and itchy. She has to clean the area frequently and notices an unpleasant odor if moisture collects in the area. It is difficult to perform activities of daily living including taking care of her home, with activities that include cleaning, bending over, squatting. Has to wear a compressive waistband/binder/girdle in her clothing to help hold excess skin in place to prevent discomfort. However this bothers her as it never fits quite right around her excess skin. [facility] Medical History DVT (deep venous thrombosis) Type 2 diabetes mellitus with complication, with long-term current use of insulin Somnolence Sleep apnea Cervical high risk HPV (human papillomavirus) test positive Essential hypertension COVID-19 CKD (chronic kidney disease) HTN (hypertension) Diastolic dysfunction Rheumatic mitral stenosis Glaucoma Insomnia Rheumatic heart disease Depression Anxiety Hemorrhoids Hypothyroidism Hyperlipidemia LDL goal <100 Obesity (BMI 30-39.9) Surgical History History of hysteroscopy Hx of colonoscopy Hx of tubal ligation H/O hemorrhoidectomy History of section Family History Father Diabetes Mother Diabetes Stroke Maternal Aunt Stroke Hypertension Social History Household Members: Children Housing: Apartment Are you a primary resident care coordinator to a significant other at home: No Do you presently have visiting nurse or other home services: No Alcohol intake: current Alcohol intake frequency: does not drink Alcohol type: wine Patient Tobacco Use Status: Never used Tobacco e-Cigarette/Vaping Use: Never Used Second Hand Smoke Exposure: No service: No Current occupational status: unemployed Cognitive needs: No Hearing needs: No Vision needs: Yes Female Reproductive History Menstrual Age of Menarche: 9 Telehealth Telehealth Telehealth Platform: Telephone Location of provider rendering services: other Location of patient: address on file Patient Identification confirmed using: Name, : Yes Telehealth method: voice only Patient verbally consented to treatment: Yes Patient verbally consented to billing insurance company: Yes Patient informed of any privacy concerns related to visit: Yes Minutes spent on Phone/Video with Pt.: 18 Assessment & Plan Assessment & Plan (1) Excess skin: Code(s): L98.7 - Excessive and redundant skin and subcutaneous tissue Category: Medical Plan Pt has done very well with weight loss. Has lost almost 100lbs with TBWL 38.5%. Pt's weight has remained stable for more than 3 months. Clotrimazole ointment ordered for rashes of excess skin. Discussed expected postop course after panniculectomy at last visit. She is experiencing issues of excess skin of abdomen resulting in frequent painful, itchy, malodorous rashes which are not fully resolved by prescription topical antifungals. In addition she is experiencing limitations/discomfort in activities of daily living, including caring for her home, cleaning, bending/squatting. She requires the use of special clothing at all times to try to prevent discomfort but her issues have not been completely relieved by conservative measures. Photos taken at last office visit. Will submit to insurance for approval today.
[2025-05-26 09:44] VITALS: BMI 22.6
== END 2025-05-26 09:54 | disposition home or self-care (01) ==
LOC: HO.HBS 08:57
PROVIDERS: PCP Nurse Practitioner Family; Visit Provider Physician Assistant Surgical
DX: L98.7 Excessive and redundant skin and subcutaneous tissue (principal)
CPT/HCPCS: 99214; G2211

== ENCOUNTER → 2025-05-26 08:57 | Outpatient (BNVA) | payer OTHER, SELFPAY | PROVIDERS: PCP Nurse Practitioner Family; Visit Provider Physician Assistant Surgical | DX: E11.8 Type 2 diabetes mellitus with unspecified complications (principal); Z79.4 Long term (current) use of insulin | CPT/HCPCS: 99211 ==

== ENCOUNTER 2025-05-26 12:55 | Outpatient (AMB) | payer OTHER, SELFPAY ==
--- OUTSIDE RECORDS SUMMARY | 2025-05-26 13:18 | XMS_ITS | Clinical Summary ---
Author Organization [facility] Address [address] [place] [address] Phone Care Team Providers Care Country Director Name Role Phone Aleyda Paul MD Primary Care Provider [phone] Allergies No known active allergies Medications citalopram [...] MG tablet 12/29/2021 Active ergocalciferol 1.25 MG (12936 UT) capsule Take 1 capsule (50,000 Units [...] 09/16/2021 Influenza Vaccine (Season Ended) 2025 Insurance [facility] Medicaid [facility] Medicaid Care Teams Country Director Relationship Specialty Start Date End Date Aleyda Paul MD [address] [place], [place] PCP - General Internal Medicine 07/12/21
--- NOTE | 2025-05-26 13:42 | MHC.AMDMED ---
Intake Intake Visit Reasons: Sera 3+ Allergies No Known Allergies Allergy (Verified 05/09/25 09:26) HPI Comprehensive Diabetes Asmnt Most Recent Diabetes Results: AST, (5-31) 31 U/L 03/06/25 ALT, (0-31) 49 U/L H 03/06/25 Total Protein, (6.5-8.0) 7.4 g/dL 03/06/25 Albumin, (3.5-5.0) 4.3 g/dL 03/06/25 PFSH Medical History DVT (deep venous thrombosis) Type 2 diabetes mellitus with complication, with long-term current use of insulin Somnolence Sleep apnea Cervical high risk HPV (human papillomavirus) test positive Essential hypertension COVID-19 CKD (chronic kidney disease) HTN (hypertension) Diastolic dysfunction Rheumatic mitral stenosis Glaucoma Insomnia Rheumatic heart disease Depression Anxiety Hemorrhoids Hypothyroidism Hyperlipidemia LDL goal <100 Obesity (BMI 30-39.9) Surgical History History of hysteroscopy Hx of colonoscopy Hx of tubal ligation H/O hemorrhoidectomy History of section Family History Father Diabetes Mother Diabetes Stroke Maternal Aunt Stroke Hypertension Social History Household Members: Children Housing: Apartment Are you a primary vision care associate to a significant other at home: No Do you presently have visiting nurse or other home services: No Alcohol intake: current Alcohol intake frequency: does not drink Alcohol type: wine Patient Tobacco Use Status: Never used Tobacco e-Cigarette/Vaping Use: Never Used Second Hand Smoke Exposure: No service: No Current occupational status: unemployed Cognitive needs: No Hearing needs: No Vision needs: Yes Female Reproductive History Menstrual Age of Menarche: 9 Assessment & Plan Assessment & Plan (1) Type 2 diabetes mellitus with complication, with long-term current use of insulin: Code(s): E11.8 - Type 2 diabetes mellitus with unspecified complications; Z79.4 - long term care phlebotomist (current) use of insulin Plan: Patient at visit to set up an insert Sera 3+ with soccer ball assembler Instructed patient sensors water proof you can shower, or swim do not submerge sensor in water for over 30 minutes Is sensor falls off cannot put back in you need to replace sensor, customer service number given to patient for sensor replacement Sensor placed on the back of right arm Patient left visit with sensor in warmup Reviewed how to interpret trend arrows Discussed lag time between finger stick and sensor data.? Instructed patient the importance of having blood glucometer for backup testing if needed Reviewed delay of CGM from fingersticks Reminded Pt that if symptoms do not match sensor still needs to check fingersticks. Portions of this note were created using voice recognition software, please excuse any words or phrases that may have been misinterpreted. Patient Instructions: Instrucciones para el paciente: CGM proporciona informaci?n sobre el control de la glucosa en [place] a [place] sony del d?a, incluidas la hiperglucemia y la hipoglucemia. Contin?e controlando la glucosa en [place] seg?n las instrucciones. Siga las pautas de nutrici?n proporcionadas. Informe cualquier molestia de inmediato al proveedor de atenci?n m?dica. Mantente kirit hidratado. Puede ba?arse, ducharse, nadar y hacer ejercicio mientras usa el sensor de glucosa. No sumerja el sensor de glucosa en agua lon m?s de 30 minutos. Retire el sensor para jaclyn resonancia magn?pinky o jaclyn tomograf?a computarizada. Evite la m?quina de jovana X en los aeropuertos: retire el sensor o solicite la varita Coding Level of Care Code Est Pt Level 1 (03895) Diagnoses Type 2 diabetes mellitus with complication, with long-term current use of insulin E11.8; Z79.4
== END 2025-05-26 14:00 | disposition home or self-care (01) ==
LOC: HO.ENCR 12:56
PROVIDERS: PCP Nurse Practitioner Family; Visit Provider Registered Nurse Diabetes Educator
DX: E11.8 Type 2 diabetes mellitus with unspecified complications (principal); Z79.4 Long term (current) use of insulin

== ENCOUNTER 2025-06-26 08:47 | Outpatient (REF) | payer OTHER, SELFPAY ==
--- OUTSIDE RECORDS SUMMARY | 2025-06-26 09:00 | XMS_ITS | Clinical Summary ---
Author Organization [facility] Address [address] [place] [address] Phone Care Team Providers Care Hat Lining Paster Name Role Phone Aleyda Paul MD Primary Care Provider [phone] Allergies No known active allergies Medications citalopram [...] MG tablet 12/29/2021 Active ergocalciferol 1.25 MG (17051 UT) capsule Take 1 capsule (50,000 Units [...] Visual Foot Exam 09/16/2021 Influenza Vaccine (#1) 2025 Insurance [facility] Medicaid [facility] Medicaid Care Teams Hat Lining Paster Relationship Specialty Start Date End Date Aleyda Paul MD [address] [place], [place] PCP - General Internal Medicine 07/12/21
== END 2025-06-26 08:48 | disposition home or self-care (01) ==
LOC: HO.MAMMO 08:47
PROVIDERS: PCP Physician Assistant; Visit Provider Physician Assistant
DX: Z12.31 Encounter for screening mammogram for malignant neoplasm of breast (principal)
CPT/HCPCS: 77063; 77067

== ENCOUNTER → 2025-06-26 10:30 | Outpatient (BNV) | payer OTHER, SELFPAY | PROVIDERS: PCP Physician Assistant; Visit Provider Internal Medicine | DX: Z12.31 Encounter for screening mammogram for malignant neoplasm of breast (principal) | CPT/HCPCS: 77063; 77067 ==

== ENCOUNTER 2025-07-03 11:23 | Outpatient (AMB) | payer OTHER, SELFPAY ==
--- NOTE | 2025-07-03 17:36 | A.OFFVIS_ITS ---
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* Electric Motor Mechanic Required: Yes Electric Motor Mechanic Services: Electric Motor Mechanic Present Information Interpreted: clinical only Allergies No Known Allergies Allergy (Verified 07/03/25 17:48) Medication List - Last Reconciled 07/03/25 by Dariel Delgado MD albuterol sulfate 2.5 mg (3 mL) inhalation Q4-6H PRN 90 days albuterol sulfate 90 mcg/actuation (Ventolin HFA) 1 puff PO QID PRN 90 days bisacodyl (Dulcolax (bisacodyl)) 10 mg (2 x 5 mg) PO BEDTIME blood sugar diagnostic (FreeStyle Lite Strips) Use daily As directed to check blood glucose blood-glucose meter (FreeStyle Lite Meter kit) Use daily As directed to check blood sugars blood-glucose sensor ([place]ticaStyle Sera 3 Sensor device) Apply every 14 days As directed to monitor blood glucose cephalexin 500 mg PO Q12H cholecalciferol (vitamin D3) 50 mcg PO DAILY citalopram 40 mg PO DAILY 90 days clotrimazole 1% 1 appl topical BID diclofenac sodium 1% (Voltaren Arthritis Pain) 4 grams topical QID PRN docusate sodium (Colace) 100 mg PO BID docusate sodium (Colace) 100 mg PO DAILY duloxetine 60 mg PO DAILY ezetimibe (Zetia) 10 mg PO DAILY fluticasone propion-salmeterol 250-50 mcg/dose (Advair Diskus) 1 inh inhalation BID 90 days hydrochlorothiazide 25 mg PO DAILY hydroxyzine HCl 25 mg PO BID PRN ibuprofen 600 mg PO Q6H PRN insulin lispro (Humalog KwikPen (U-100) Insulin) 5 units breakfast, +2units for bg >200 subcut 3x per day. lancets (FreeStyle Lancets) use daily as directed to check blood glucose levothyroxine 112 mcg PO DAILY lisinopril 10 mg PO DAILY 90 days mirtazapine 30 mg PO BEDTIME miscellaneous medical supply 1 ea miscellaneous DAILY ondansetron 4 mg PO Q12H pen needle, diabetic (BD Ultra-Fine Ramya Pen Needle) As directed four times a day perphenazine 4 mg PO BID rosuvastatin 40 mg PO DAILY semaglutide (Ozempic) 0.5 mg (0.736 mL) subcut QWEEK sumatriptan succinate take 1 tab at onset of headache; if no relief may repeat 1 tab after at least 2 hrs; max = 4 tabs/24 hr PO 30 days tizanidine 2 mg PO BEDTIME PRN trazodone 200 mg PO BEDTIME PRN HPI HPI TV Pre Op Panniculectomy 07/07/25 *ASSOCIATE PROFESSOR OF RADIOLOGY*: Details: Start time: 5.30pm, End time: 7pm I spent 35 minutes speaking with the patient on the phone plus an additional 55 minutes reviewing and updating extensive records for a total of 90 minutes HPI Comments Details: Has lost approximately 94lbs on Ozempic Has developed significant amount of excessive skin Wakes up: 4.30am, Sleeps: 6pm [facility] Medical History (Updated 07/03/25 @ 10:28 by Massiel Marte RN) Weight loss DVT (deep venous thrombosis) Type 2 diabetes mellitus with complication, with long-term current use of insulin Somnolence Sleep apnea Cervical high risk HPV (human papillomavirus) test positive Essential hypertension COVID-19 CKD (chronic kidney disease) HTN (hypertension) Diastolic dysfunction Rheumatic mitral stenosis Glaucoma Insomnia Rheumatic heart disease Depression Anxiety Hemorrhoids Hypothyroidism Hyperlipidemia LDL goal <100 Surgical History History of hysteroscopy Hx of colonoscopy Hx of tubal ligation H/O hemorrhoidectomy History of section Family History Father Diabetes Mother Diabetes Stroke Maternal Aunt Stroke Hypertension Social History Household Members: Children Housing: Apartment Are you a primary pharmacy customer care specialist to a significant other at home: No Do you presently have visiting nurse or other home services: No Alcohol intake: current Alcohol intake frequency: does not drink Alcohol type: wine Patient Tobacco Use Status: Never used Tobacco e-Cigarette/Vaping Use: Never Used Second Hand Smoke Exposure: No service: No Current occupational status: unemployed Cognitive needs: No Hearing needs: No Vision needs: Yes Female Reproductive History Menstrual Age of Menarche: 9 Telehealth Telehealth Telehealth Platform: Telephone Location of provider rendering services: practice address Location of patient: address on file Patient Identification confirmed using: Name, : Yes Telehealth method: voice only Patient verbally consented to treatment: Yes Patient verbally consented to billing insurance company: Yes Patient informed of any privacy concerns related to visit: Yes Minutes spent on Phone/Video with Pt.: 90 Assessment & Plan Assessment & Plan (1) Excess skin: Code(s): L98.7 - Excessive and redundant skin and subcutaneous tissue Category: Medical Plan: 1. Plan for panniculectomy. Risks of infection, bleeding, asymmetry, wound dehiscence and blood clots were discussed with the patient. 2. You will have a drain the abdomen that may stay 3-4 weeks before it may be removed 3. You will need to be doing sponge baths the first 1-2 weeks. No showers. You need to have help at home to get you up and limit your activities as much as possible for at least the 4-6 weeks after surgery 4. We will arrange for a visiting nurse to come at home to help you with dressing changes and send me pictures of the incision, belly button and drain bulb. We will send at your home supplies for the dressing changes. 5. Please buy tomorrow Monday the Celebrate Rebuild protein shakes and Celebrate bars from the hospital's coffee shop 6. Nutritional plan: As of tomorrow, please stop the food and do: Celebrate Rebuild shake with one scoop in 8oz almond milk at 5am-7am, Celebrate protein bar at 8am-10am, Celebrate Rebuild with one scoop in 8oz almond milk at 11am- 1pm, Celebrate bar at 2pm-4pm and another Celebrate Rebuild protein shake with one scoop in 8oz almond milk at 5pm-7pm. This will improve weight loss and healing after surgery. 7. Do not take the Ozempic, Ibuprofen or aspirin going forward. 8. Do blood work on Monday morning fasting overnight and picker / packer the antibiotic, stool softener and anti-nausea prescription from your pharmacy 9. Risks and complications were discussed the possibility of bleeding that may require transfusion, loss of the umbilicus, wound dehiscence or infection, dog ears , flap asymmetry. We also discussed the importance of strict avoidance of weight lifting. 10. Avoid aspirin, motrin, ibuprofen, Aleve, Advil, Naproxyn. Only Tylenol is OK 11. Continue all other medications until the day before surgery. At the day of surgery, please take only the Levothyroxine and the Lisinopril Orders: Orders Vitamin A Today E78.5 - Hyperlipidemia, unspecified, I10 - Essential (primary) hypertension Lipid Panel Today E78.5 - Hyperlipidemia, unspecified, I10 - Essential (primary) hypertension Type and Screen Today E78.5 - Hyperlipidemia, unspecified, I10 - Essential (primary) hypertension Partial Thromboplastin Time Today E78.5 - Hyperlipidemia, unspecified, I10 - Essential (primary) hypertension IRON PROFILE Today E78.5 - Hyperlipidemia, unspecified, I10 - Essential (primary) hypertension Comprehensive Met. Panel Today E78.5 - Hyperlipidemia, unspecified, I10 - Essential (primary) hypertension TSH reflex Free T4 Today E78.5 - Hyperlipidemia, unspecified, I10 - Essential (primary) hypertension Hemoglobin A1c Today E78.5 - Hyperlipidemia, unspecified, I10 - Essential (primary) hypertension Prothrombin Time INR Today E78.5 - Hyperlipidemia, unspecified, I10 - Essential (primary) hypertension Vitamin B1 Today E78.5 - Hyperlipidemia, unspecified, I10 - Essential (primary) hypertension Vitamin B12 Today E78.5 - Hyperlipidemia, unspecified, I10 - Essential (primary) hypertension C Reactive Protein Today E78.5 - Hyperlipidemia, unspecified, I10 - Essential (primary) hypertension Vitamin D 25-OH Total Today E78.5 - Hyperlipidemia, unspecified, I10 - Ess ential (primary) hypertension Complete Blood Count Auto Diff Today E78.5 - Hyperlipidemia, unspecified, I10 - Essential (primary) hypertension Ferritin Today E78.5 - Hyperlipidemia, unspecified, I10 - Essential (primary) hypertension Zinc Today E78.5 - Hyperlipidemia, unspecified, I10 - Essential (primary) hypertension Insulin Today E78.5 - Hyperlipidemia, unspecified, I10 - Essential (primary) hypertension ECG 12 lead EKG Today I10 - Essential (primary) hypertension Medications: New docusate sodium (Colace) 100 mg PO DAILY 90 caps 0RF K59.00 - Constipation, u nspecified ondansetron Take only if you have nausea 4 mg PO Q12H 20 tabs 0RF nausea and vomiting R11.0 - Nausea cephalexin 500 mg PO Q12H 60 caps 2RF M79.3 - Panniculitis, unspecified Refilled levothyroxine 112 mcg PO DAILY 90 tabs 1RF
[2025-07-03 17:47] VITALS: BMI 22.7
== END 2025-07-03 19:02 | disposition home or self-care (01) ==
LOC: HO.HBS 11:23
PROVIDERS: PCP Physician Assistant; Visit Provider Surgery
DX: L98.7 Excessive and redundant skin and subcutaneous tissue (principal)
CPT/HCPCS: 99499

== ENCOUNTER → 2025-07-04 09:30 | Outpatient (BNV) | payer OTHER, SELFPAY | PROVIDERS: PCP Physician Assistant; Visit Provider Internal Medicine | DX: R00.1 Bradycardia, unspecified (principal) | CPT/HCPCS: 93010 ==

== ENCOUNTER 2025-07-07 05:33 | Day surgery (SDC) | payer OTHER, SELFPAY ==
--- OUTSIDE RECORDS SUMMARY | 2025-07-03 06:43 | XMS_ITS | Clinical Summary ---
Author Organization [facility] Address [address] [place] [address] Phone Care Team Providers Care Pourer Name Role Phone Aleyda Paul MD Primary Care Provider [phone] Allergies No known active allergies Medications citalopram [...] MG tablet 12/29/2021 Active ergocalciferol 1.25 MG (06737 UT) capsule Take 1 capsule (50,000 Units [...] Exam 09/16/2021 Influenza Vaccine (#1) 2025 Insurance [facility] Medicaid [facility] Medicaid Care Teams Pourer Relationship Specialty Start Date End Date Aleyda Paul MD [address] [place], [place] PCP - General Internal Medicine 07/12/21
[2025-07-03 10:31] VITALS: BMI 22.6
--- NOTE | 2025-07-03 13:16 | HO.ANESPROP2 ---
Documented by User: Cierra Peña NP 07/04/25 09:22 HPI - Anesthesia Eval Consult details Narrative: 54yo F for Panniculectomy Hx moderate rheumatic mitral stenosis with mild to moderate mitral regurg. Last echo and cardiac eval 2022. Pt exercises 5 days a week including cardio, weights. Denies CP/SOB. Stable at 2024 PCP eval. Case reviewed with LM Anesthesia Pre-Procedure Meds Is the patient on any of the following meds?: GLP1/DPP4 PMFSH Active Problems Active Problems: All Active Problems Excess skin (Acute) Elevated LFTs (Acute) Left inguinal pain (Acute) Venous insufficiency (Acute) CORNELIUS (obstructive sleep apnea) (Acute) Snoring (Acute) Asthma (Acute) Low vitamin D level (Acute) Postmenopausal bleeding (Acute) Abnormal uterine bleeding (AUB) (Acute) Migraines (Acute) Screening for colon cancer (Acute) Screening for breast cancer (Acute) Pain of right calf (Acute) Pain of left calf (Acute) Lumbar back pain with radiculopathy affecting lower extremity (Acute) Lumbar disc disease with radiculopathy (Acute) Annual physical exam (Acute) Lumbar paraspinal muscle spasm (Acute) DVT (deep vein thrombosis) in (Acute) Atypical chest pain (Acute) Type 2 diabetes mellitus with complication, with long-term current use of insulin (Acute) Somnolence (Acute) Depression (Acute) Essential hypertension (Acute) CKD (chronic kidney disease) (Acute) Rheumatic mitral stenosis (Acute) Diastolic dysfunction (Acute) HTN (hypertension) (Acute) Hypothyroidism (Acute) Hyperlipidemia LDL goal <100 (Acute) Obesity (BMI 30-39.9) (Acute) Past Medical History Medical History Weight loss DVT (deep venous thrombosis) Type 2 diabetes mellitus with complication, with long-term current use of insulin Somnolence Sleep apnea Cervical high risk HPV (human papillomavirus) test positive Essential hypertension COVID-19 CKD (chronic kidney disease) HTN (hypertension) Diastolic dysfunction Rheumatic mitral stenosis Glaucoma Insomnia Rheumatic heart disease Depression Anxiety Hemorrhoids Hypothyroidism Hyperlipidemia LDL goal <100 Family History Family History Father Diabetes Mother Diabetes Stroke Maternal Aunt Stroke Hypertension Family history of problems with anesthesia: No Surgical History Surgical History History of hysteroscopy Hx of colonoscopy Hx of tubal ligation H/O hemorrhoidectomy History of section History of Problems with Anesthesia: No Social History Social History Household Members: Children Housing: Apartment Are you a primary ocular care technician to a significant other at home: No Do you presently have visiting nurse or other home services: No Alcohol intake: current Alcohol intake frequency: does not drink Alcohol type: wine Patient Tobacco Use Status: Never used Tobacco e-Cigarette/Vaping Use: Never Used Second Hand Smoke Exposure: No service: No Current occupational status: unemployed Cognitive needs: No Hearing needs: No Vision needs: Yes Meds Allergies Allergy/AdvReac Type Severity Reaction Status Date / Time No Known Allergies Allergy Verified 07/07/25 06:06 Home Medications ?Medication ?Instructions ?Recorded ?Confirmed ?Last Taken ?Type duloxetine 60 mg capsule,delayed 60 mg PO DAILY 10/26/20 07/03/25 Unknown History release mirtazapine 30 mg tablet 30 mg PO BEDTIME 10/26/20 07/03/25 Unknown History perphenazine 4 mg tablet 4 mg PO BID 12/09/20 07/03/25 Unknown History trazodone 100 mg tablet 200 mg PO BEDTIME PRN Insomnia 11/09/22 07/03/25 Unknown History hydroxyzine HCl 25 mg tablet 25 mg PO BID PRN anxiety 12/08/22 07/03/25 Unknown History Exam Height,Weight and Vital Signs: Height 5 ft 9 in Weight 69.4 kg Pertinent Lab Results Pertinent Lab Results: Lab Results 07/04/25 07/04/25 07/04/25 Range/Units 06:40 06:53 06:54 WBC 5.2 (4.8-10.8) X10*3/uL RBC 5.39 (4.20-5.50) X10*6/uL Hgb 15.3 (12.0-16.0) g/dl Hct 46.0 (37.0-47.0) % MCV 85.3 (80.0-98.0) fL MCH 28.4 (27.0-33.0) pg MCHC 33.3 (31.0-35.0) g/dl RDW 14.0 (11.0-16.0) % Plt Count 215 (160-400) X10*3/uL MPV 10.4 (9.4-12.3) fL Immature Gran % (Auto) 0.2 (0.0-0.4) % Neut % (Auto) 43.5 L (45-73) % Lymph % (Auto) 44.3 H (20-40) % Yell % (Auto) 5.2 (2-11) % Eos % (Auto) 5.8 H (0-4) % Baso % (Auto) 1.0 (0-2) % Lymph # (Auto) 2.3 (1.2-4.9) X10*3/uL Yell # (Auto) 0.3 (0.1-1.2) X10*3/uL Eos # (Auto) 0.3 (0.0-0.4) X10*3/uL Baso # (Auto) 0.1 (0.0-0.2) X10*3/uL Abs Immat Gran (auto) 0.01 (0.00-0.03) X10*3/uL Absolute Neuts (auto) 2.3 (2.0-8.3) x10*3/uL Absolute Nucleated RBC 0.000 (0.0-0.012) X10*3/uL Nucleated RBC % (auto) 0.0 (0.0-0.2) /100WBC PT 11.2 (10.9-12.4) SEC INR 1.0 (0.9-1.1) APTT 32.6 (26.7-34.1) SEC Sodium 144 (135-145) mmol/L Potassium 4.8 (3.3-5.1) mmol/L Chloride 107 (96-108) mmol/L Carbon Dioxide 30 H (22-29) mmol/L Anion Gap 12 (12-20) BUN 19 H (9-16) mg/dL Creatinine 0.88 (0.5-1.4) mg/dL Estim Creat Clear Calc 76.3 Estimated GFR > 60 Random Glucose 94 (60-115) mg/dL Estimat Average Glucose 143 mg/dL Hemoglobin A1c % 6.6 H (<6.0) % Insulin Level 7 (2-29) uU/mL Calcium 9.6 (8.4-10.2) mg/dL Iron 88 (30-160) mcg/dL TIBC 301 (228-428) mcg/dL % Saturation 29 (15-50) % Unsat Iron Binding 213 ug/dL Ferritin 187 (10-250) ng/mL Total Bilirubin 0.6 (0.0-1.0) mg/dL AST 28 (5-31) U/L ALT 28 (0-31) U/L Alkaline Phosphatase 77 (39-117) U/L C-Reactive Protein 0.13 (< or = 0.50) mg/dL Total Protein 7.8 (6.5-8.0) g/dL Albumin 4.7 (3.5-5.0) g/dL Triglycerides 63 (<150) mg/dL Cholesterol 161 (<200) mg/dL LDL Cholesterol, Calc 83 (<100) mg/dL HDL Cholesterol 66 (>40) mg/dL Vitamin B12 713 (200-900) pg/mL 25-OH Vitamin D Total 24.2 L (>30) ng/mL TSH 9.59 H (0.32-4.0) uIU/mL Urine Creatinine 184.86 mg/dL Urine Microalbumin 7.0 mg/L Microalb/Creat Ratio 3.7 (<30) ug/mg cr Blood Type B Positive Antibody Screen NEGATIVE Assessment and Plan Assessment Anesthesia Assessment: Chart Reviewed Final Anesthetic Review Family History of Problems with Anesthesia: No History of Problems with Anesthesia: No Documented by User: Catalina Zapata MD 07/07/25 08:33 [facility] Past Medical History Medical History Weight loss DVT (deep venous thrombosis) Type 2 diabetes mellitus with complication, with long-term current use of insulin Somnolence Sleep apnea Cervical high risk HPV (human papillomavirus) test positive Essential hypertension COVID-19 CKD (chronic kidney disease) HTN (hypertension) Diastolic dysfunction Rheumatic mitral stenosis Glaucoma Insomnia Rheumatic heart disease Depression Anxiety Hemorrhoids Hypothyroidism Hyperlipidemia LDL goal <100 Family History Family History Father Diabetes Mother Diabetes Stroke Maternal Aunt Stroke Hypertension Surgical History Surgical History History of hysteroscopy Hx of colonoscopy Hx of tubal ligation H/O hemorrhoidectomy History of section Social History Social History Household Members: Children Housing: Apartment Are you a primary ocular care technician to a significant other at home: No Do you presently have visiting nurse or other home services: No Alcohol intake: current Alcohol intake frequency: does not drink Alcohol type: wine Patient Tobacco Use Status: Never used Tobacco e-Cigarette/Vaping Use: Never Used Second Hand Smoke Exposure: No service: No Current occupational status: unemployed Cognitive needs: No Hearing needs: No Vision needs: Yes Meds Allergies Allergy/AdvReac Type Severity Reaction Status Date / Time No Known Allergies Allergy Verified 07/07/25 06:06 Home Medications ?Medication ?Instructions ?Recorded ?Confirmed ?Last Taken ?Type duloxetine 60 mg capsule,delayed 60 mg PO DAILY 10/26/20 07/03/25 Unknown History release mirtazapine 30 mg tablet 30 mg PO BEDTIME 10/26/20 07/03/25 Unknown History perphenazine 4 mg tablet 4 mg PO BID 12/09/20 07/03/25 Unknown History trazodone 100 mg tablet 200 mg PO BEDTIME PRN Insomnia 11/09/22 07/03/25 Unknown History hydroxyzine HCl 25 mg tablet 25 mg PO BID PRN anxiety 12/08/22 07/03/25 Unknown History Exam Airway Mallampati Class: III TM Dist: >3cm Neck ROM: Full Loose/Missing/Broken Teeth: No Heart: RRR Lungs: CTA Assessment and Plan Assessment Anesthesia Assessment: Anesthesia Plan Discussed Final Anesthetic Review NPO: Yes ASA Class: III Final Preanesthetic Review: Meds/Allgs Chart Reviewed, Consent Obtained/Reviewed and Anes Risks/Benef Reviewed Patient Risk: Intermediate Procedure Risk: Low Anesthetic Plan Anesthetic Plan: GA Disposition: Standard PACU
[2025-07-04 06:55] LABS: MANUAL DIFF FLAG NO
[2025-07-04 07:34] LABS: Hematocrit 46.0 % (37.0-47.0); Hemoglobin 15.3 g/dl (12.0-16.0); Imm Gran Abs Auto 0.01 X10*3/uL (0.00-0.03); Imm Gran Pct Auto 0.2 % (0.0-0.4); Lymphocytes Absolute Auto 2.3 X10*3/uL (1.2-4.9); Mean Corpuscular HGB Conc 33.3 g/dl (31.0-35.0); Mean Corpuscular Hemoglobin 28.4 pg (27.0-33.0); Mean Corpuscular Volume 85.3 fL (80.0-98.0); NRBC Abs Auto 0.000 X10*3/uL (0.0-0.012); NRBC Pct Auto 0.0 /100WBC (0.0-0.2); Platelet Count 215 X10*3/uL (160-400); Red Blood Count 5.39 X10*6/uL (4.20-5.50); White Blood Count 5.2 X10*3/uL (4.8-10.8)
[2025-07-04 07:40] LABS: INTERNATIONAL NORM RATIO 1.0 (0.9-1.1); Prothrombin Time 11.2 SEC (10.9-12.4)
[2025-07-04 07:43] LABS: Hemoglobin A1C 191.1065 umol/L; Partial Thromboplastin Time 32.6 SEC (26.7-34.1); Total Hemoglobin (HGBA1C) 3908.2784 umol/L
[2025-07-04 08:27] LABS: Alanine Aminotransferase 28 U/L (0-31); Albumin Level 4.7 g/dL (3.5-5.0); Alkaline Phosphatase 77 U/L (39-117); Anion Gap 12 (12-20); Aspartate Amino Transferase 28 U/L (5-31); Blood Urea Nitrogen 19 mg/dL (9-16); Calcium 9.6 mg/dL (8.4-10.2); Carbon Dioxide 30 mmol/L (22-29); Chloride 107 mmol/L (96-108); Cholesterol 161 mg/dL (<200); Creatinine Clr Calc Pharmacy 76.3; Estimated Glomerular Filt Rate > 60; HDL Cholesterol 66 mg/dL (>40); Iron 88 mcg/dL (30-160); Percent Iron Saturation 29 % (15-50); Potassium 4.8 mmol/L (3.3-5.1); Sodium 144 mmol/L (135-145); Total Iron Binding Capacity 301 mcg/dL (228-428); Total Protein 7.8 g/dL (6.5-8.0); Triglycerides 63 mg/dL (<150); Unsaturated Iron Binding 213 ug/dL
[2025-07-04 08:35] LABS: Vitamin B12 713 pg/mL (200-900)
[2025-07-04 08:37] LABS: Ferritin 187 ng/mL (10-250)
[2025-07-04 08:46] LABS: Microalbum/Creatinine Ratio Ur 3.7 ug/mg cr (<30)
--- NOTE | 2025-07-04 09:30 | ECG_ITS ---
Test Reason : preop htn Blood Pressure : */* mmHG Vent. Rate : 54 BPM Atrial Rate : 54 BPM P-R Int : 176 ms QRS Dur : 82 ms QT Int : 450 ms P-R-T Axes : -18 18 72 degrees QTcB Int : 426 ms Sinus bradycardia Otherwise normal ECG When compared with ECG of 20-Apr-2023 14:11, Vent. rate has decreased by 27 bpm Referred By: Dariel Delgado Electronically Signed By: CHELLY MORTON
[2025-07-04 10:53] LABS: Free T4 (Free Thyroxine) 0.97 ng/dL (0.71-1.85)
[2025-07-07] VITALS (15 sets, daily range): BP systolic 110–130; BP diastolic 51–62; PULSE 60–83; RESP 11–18; TEMP 36.6–37; O2SAT 96–100
[2025-07-07 06:27] LABS: Glucose, Whole Blood 90 mg/dL (60-115)
[2025-07-07] MEDS: Aprepitant 32 MG/4.4 ML VIAL IVPUSH (06:38)
[2025-07-07] MEDS: Lactated Ringers 1,000 ML 100 ML IVCONT (06:40)
--- NOTE | 2025-07-07 07:28 | MHC.SHP ---
Pre-Procedural Eval Section A - 24 Hr Update-Section A only Date of Service: 07/07/25 The patient is an INPATIENT: No The patient has been examined within 24 hours of the surgical procedure. The History & Physical has been completed within 30 days and I have reviewed it.: Yes Section B - Complete if H&P > 30 days Chief Complaint: Excessive and redundant skin and subcutaneous Relevant Family History (Specify if Yes): No Relevant Social History: None Present Medications: None Medical History: No relevant PMH History of Previous Operations: No relevant previous surgery Allergies: Allergies Allergy/AdvReac Type Severity Reaction Status Date / Time No Known Allergies Allergy Verified 07/07/25 06:06 Review of Systems Sugical H&P ROS: Negative: Constitution, Cardiovascular, Respiratory, Neurological, Psychiatric, Hem-Onc, Allergic/Immunologic, Gastrointestinal, Genitourinary, Musculoskeletal, Integumentary, Endocrine and Eyes/Ears/Nose/Throat Exam Surgical H&P Exam: Normal: HEENT, Normal: Heart, Normal: Lungs, Normal: Extremities, Normal: Abdomen, Normal: Skin and Normal: Neurological Plan Diagnosis/Plan: Unchanged I have reviewed the history and physical and performed a pertinent physical examination on my patient. No changes have occurred unless specified. Time Spent With Patient Time: Total time managing care of this patient today ____ minutes.
--- NOTE | 2025-07-07 07:29 | P.BOP_ITS ---
Brief Operative Note Date of Service: 07/07/25 Pre-op diagnosis: Excess skin Post-op diagnosis: same Procedure: PROCEDURE: Panniculectomy with umbilical transposition and bilateral subcutaneous fat flaps INDICATION: This a 54 year old female who was treated with GLP-1 agonists. She had an excellent result achieving a BMI of 22.7 kg/m2 with a total weight loss of 89lbs, or 36.6% of her TBWL. As a result, she has developed panniculitis whic h has not resolved despite continuous use of clotrimazole ointment as well as skin irritation. On exam she has extreme skin laxity due to massive weight loss, with the abdominal pannus completely hanging 4cm below the pubis. Panniculectomy was recommended. We discussed the two options for the panniculectomy of using a combined vertical and horizontal incisions or just a horizontal (bikini) incisio n. It was my recommendation to do only horizontal incision based on her body habitus and skin laxity. The patient agreed with this. Risks and complications were discussed with the patient including bleeding, infection, umbilical loss, flap necrosis, asymmetry, dehiscence, seroma, VTE. The patient understood the risks and was in agreement to proceed with surgery. PROCEDURE: The incisions were appropriately marked at the preop area with the patient standing and laying down. After induction of general anesthesia, pneumatic compression devices were placed. The patient was prepped and draped in the usual sterile manner and the incisions were marked again and confirmed. The skin was infiltrated with lidocaine and epinephrine. The #10 blade scalpel was used for the large incisions and the #15 blade scalpel for the umbilicus. Cautery was used to divide the subcutaneous tissues until the fascia was identified. Then I used the cautery to separate the pannus from the fascia. The inferior incision was made initially and I mobilized the flap for a several centimeters cephalad to the umbilicus. The umbilicus was incised circumferentially and detached from the surrounding tissues all the way to the fascia while its stalk was preserved. With the patient in reflex position I confirmed that the skin flaps were appropriate and would allow for the tissues to come together with reasonable tension. At that point a horizontal incision was made 4 cm above the umbilicus. #10 blade was used for the skin, cautery for the dermis and for the remaining tissues. A subcutaneous fat flap was raised from the upper skin flap in order to fill the space under the skin and support the closure of the two flaps. In addition the inferior flap was mobilized caudally for a few centimeters to create a space for the subcutaneous fat flap as well as relieve tension from the closure. A circumferential incision was made at the area where the umbilicus would be re-implanted. The umbilicus was appropriately oriented and was delivered through the defect and was secured in place with a [place]. No bleeding was noted anywhere. One CHRISTOPHER drain was placed from the left corner of the horizontal incision across the wound and was secured in place with a silk suture. The subcutaneous fat flap was secured under the inferior flap with several interrupted 3.0 Monocryl sutures. The two flaps were brought together and were attached at the midline of the horizontal incision with a #3.0 Monocryl suture. At that point the umbilicus was properly oriented and was re-approximated to the skin with 8 interrupted 3.0 Monocryl sutures. In a similar fashion the skin flaps were re-approximated with multiple 3.0 Monocryl sutures. The skin was closed in all incisions and umbilicus with 4.0 Monocryl sutures. Steri-strips, xeroform gauzes and gauzes were used to cover the incisions. An abdominal binder was also placed. The was awaken and was transferred to the recover room in a stable condition. I was present and performed the entire procedure. Ms. Arrington was the fire control assistant. Asif Delgado MD, PhD, FACS Surgeon: Dariel Delgado MD Surgeon: Dariel Delgado MD Anesthesia: local Was an Senior Clinical Data Analyst used for this Procedure?: No Estimated blood loss (mL): 10 IV fluids (mL): 1,000 Urine output (mL): 0 (No dickens to record output) Pathology: other (Abdominal pannus) Condition: stable Disposition: PACU
--- NOTE | 2025-07-07 11:03 | W.MHC.F2F ---
Service Date Service Date: 07/07/25 Encounter Date of encounter: 07/07/25 Reasons for Services Signs and symptoms assessed: s/p panniculectomy with drain placement, requires nursing care 3x/week for wound assessment, dressing changes and drain care Reason for senior care: wound care Homebound: Leaving the home is medically contraindicated at this time without the asist of a device and/or another person due th the listed conditions above and below. Reason homebound: unable to drive Certification: Based on the above findings, I certify that this patient is confined to the home and needs intermittent senior care care, physical therapy and/or speech therapy, or continues to need occupational therapy. The patient is under my care, and I have initiated the establishment of the plan of care. The patient will be followed by a physician who will periodically review the plan of care. Time Spent With Patient Time: Total time managing care of this patient today __30__ minutes.
[2025-07-07] MEDS: oxyCODONE HCl Immed Release 5 MG TABLET PO (14:21)
== END 2025-07-07 15:28 | disposition home or self-care (01) ==
PROVIDERS: Physician Assistant; PCP Physician Assistant; Visit Provider Surgery
PROC: 0JB80ZZ Excision of Abdomen Subcutaneous Tissue and Fascia, Open Approach (ICD-10-PCS; CPT 15830; principal; 2025-07-07 07:30)
DX: L98.7 Excessive and redundant skin and subcutaneous tissue (principal); E65 Localized adiposity; M79.3 Panniculitis, unspecified; R21 Rash and other nonspecific skin eruption; I12.9 Hypertensive chronic kidney disease with stage 1 through stage 4 chronic kidney disease, or unspecified chronic kidney disease; E11.22 Type 2 diabetes mellitus with diabetic chronic kidney disease; N18.30 Chronic kidney disease, stage 3 unspecified; I50.30 Unspecified diastolic (congestive) heart failure; I09.9 Rheumatic heart disease, unspecified; E78.5 Hyperlipidemia, unspecified; E03.9 Hypothyroidism, unspecified; Z86.718 Personal history of other venous thrombosis and embolism; F32.A Depression, unspecified; F41.9 Anxiety disorder, unspecified; G47.30 Sleep apnea, unspecified; Z79.4 Long term (current) use of insulin; Z79.51 Long term (current) use of inhaled steroids; Z79.1 Long term (current) use of non-steroidal anti-inflammatories (NSAID); Z79.85 Long-term (current) use of injectable non-insulin antidiabetic drugs; Z79.899 Other long term (current) drug therapy; Z98.890 Other specified postprocedural states; Z56.0 Unemployment, unspecified
CPT/HCPCS: 15830; 15847; 36415; 80053; 80061; 82043; 82306; 82570; 82607; 82728; 82947; 83036; 83525; 83540; 84425; 84439; 84443; 84590; 84630; 85025; 85610; 85730; 86140; 86850; 86900; 86901; 88304; 93005; C9145; J0131; J0690; J1100; J1171; J2003; J2004; J2250; J2371; J2598; J2704; J3010; J3374

== ENCOUNTER → 2025-07-07 05:33 | Outpatient (BNV) | payer OTHER, SELFPAY | PROVIDERS: PCP Physician Assistant; Visit Provider Surgery | DX: M79.3 Panniculitis, unspecified (principal); L98.7 Excessive and redundant skin and subcutaneous tissue; Z48.817 Encounter for surgical aftercare following surgery on the skin and subcutaneous tissue; Z48.03 Encounter for change or removal of drains | CPT/HCPCS: 15830; G0180 ==

== ENCOUNTER 2025-07-11 12:39 | Outpatient (AMB) | payer OTHER, SELFPAY ==
--- NOTE | 2025-07-11 13:19 | A.OFFVIS_ITS ---
VS Expanded 07/11/25 13:50 BP 126/67 Blood Pressure Location Rt brachial Blood Pressure Position Sitting Pulse 74 Pulse Source Pulse Oximeter Temp 97.0 F Temperature Source Temporal Artery Scan Pulse Oximetry 100 Oxygen Delivery Method Room Air Height 5 ft 7.5 in Weight 148 lb 12.8 oz BMI 23.0 Body Fat % 30.0 Body Fat Mass 44.6 Fat Free Mass 104.0 Visceral Fat Rating 6.0 Body Water % 49.7 Body Water Mass 73.8 Muscle Mass/Score 98.8 Basal Metabolic Rate/Score 1,393 Intake Visit Reasons: (OV) s/p Panniculectomy 07/07/25 Allergies No Known Allergies Allergy (Verified 07/11/25 13:51) HPI Comments Details: Patient is a pleasant 54-year-old female who returns to the office today in follow-up. She is 4 days post panniculectomy performed on 07/07/2025. She reports a proximally 70-100 mL serosanguineous fluid from the collection bulb. She is tolerating antibiotics. She is tolerating her meal plan: Celebrate rebuild, 1 scoop each, x 3, Celebrate bar x1 [facility] Medical History Weight loss DVT (deep venous thrombosis) Type 2 diabetes mellitus with complication, with long-term current use of insulin Somnolence Sleep apnea Cervical high risk HPV (human papillomavirus) test positive Essential hypertension COVID-19 CKD (chronic kidney disease) HTN (hypertension) Diastolic dysfunction Rheumatic mitral stenosis Glaucoma Insomnia Rheumatic heart disease Depression Anxiety Hemorrhoids Hypothyroidism Hyperlipidemia LDL goal <100 Surgical History History of hysteroscopy Hx of colonoscopy Hx of tubal ligation H/O hemorrhoidectomy History of section Family History Father Diabetes Mother Diabetes Stroke Maternal Aunt Stroke Hypertension Social History Household Members: Children Housing: Apartment Are you a primary patient care specialist to a significant other at home: No Do you presently have visiting nurse or other home services: No Alcohol intake: current Alcohol intake frequency: does not drink Alcohol type: wine Patient Tobacco Use Status: Never used Tobacco e-Cigarette/Vaping Use: Never Used Second Hand Smoke Exposure: No service: No Current occupational status: unemployed Cognitive needs: No Hearing needs: No Vision needs: Yes Female Reproductive History Menstrual Age of Menarche: 9 Physical Exam Skin Other: Ecchymosis noted of the umbilicus and transverse incision however no evidence of dehiscence and doing quite well. Assessment & Plan Assessment & Plan (1) S/P panniculectomy: Code(s): Z98.890 - Other specified postprocedural states Category: Surgical Plan: Overall doing very well. Appropriate for day postop appointment. Continue meal plan Continue antibiotics Continue dressing changes Return to clinic 1 week
[2025-07-11 13:50] VITALS: BP 126/67; PULSE 74; TEMP 36.1; O2SAT 100; BMI 23.0
== END 2025-07-11 13:51 | disposition home or self-care (01) ==
LOC: HO.HBS 12:40
PROVIDERS: PCP Physician Assistant; Visit Provider Physician Assistant Surgical
DX: Z98.890 Other specified postprocedural states (principal)
CPT/HCPCS: 99024

== ENCOUNTER → 2025-07-11 12:39 | Outpatient (BNVA) | payer OTHER, SELFPAY | PROVIDERS: PCP Physician Assistant; Visit Provider Physician Assistant Surgical | DX: Z98.890 Other specified postprocedural states (principal) | CPT/HCPCS: 99212 ==

== ENCOUNTER 2025-07-18 10:49 | Outpatient (AMB) | payer OTHER, SELFPAY ==
--- OUTSIDE RECORDS SUMMARY | 2025-07-18 10:52 | XMS_ITS | Clinical Summary ---
Author Organization [facility] Address [address] [place] [address] Phone Care Team Providers Care Cut Off Sawyer Log Name Role Phone Aleyda Paul MD Primary Care Provider [phone] Allergies No known active allergies Medications citalopram [...] MG tablet 12/29/2021 Active ergocalciferol 1.25 MG (89057 UT) capsule Take 1 capsule (50,000 Units [...] Exam 09/16/2021 Influenza Vaccine (#1) 2025 Insurance [facility] Medicaid [facility] Medicaid Care Teams Cut Off Sawyer Log Relationship Specialty Start Date End Date Aleyda Paul MD [address] [place], [place] PCP - General Internal Medicine 07/12/21
--- NOTE | 2025-07-18 10:59 | MHC.OFFVISWM ---
VS Expanded 07/18/25 11:27 BP 129/64 Blood Pressure Location Rt brachial Blood Pressure Position Sitting Pulse 64 Pulse Source Pulse Oximeter Temp 96.7 F L Temperature Source Temporal Artery Scan Pulse Oximetry 100 Oxygen Delivery Method Room Air Height 5 ft 7.5 in Weight 145 lb 3.2 oz BMI 22.4 Body Fat % 32.4 Body Fat Mass 47.0 Fat Free Mass 98.2 Visceral Fat Rating 0 Body Water % 48.0 Body Water Mass 69.6 Muscle Mass/Score 93.0 Basal Metabolic Rate/Score 1,327 Intake Visit Reasons: (OV) s/p Panniculectomy 07/07/25 Allergies No Known Allergies Allergy (Verified 07/11/25 13:51) HPI Comments Details: Patient is a pleasant 54-year-old female who returns to the office today in follow-up. She is post panniculectomy performed on 07/07/2025. She reports about 60-70 mL serosanguineous fluid from the collection bulb. She is tolerating antibiotics. She is tolerating her meal plan: Celebrate rebuild, 1 scoop each, x 3, Celebrate bar x1 [facility] Medical History Weight loss DVT (deep venous thrombosis) Type 2 diabetes mellitus with complication, with long-term current use of insulin Somnolence Sleep apnea Cervical high risk HPV (human papillomavirus) test positive Essential hypertension COVID-19 CKD (chronic kidney disease) HTN (hypertension) Diastolic dysfunction Rheumatic mitral stenosis Glaucoma Insomnia Rheumatic heart disease Depression Anxiety Hemorrhoids Hypothyroidism Hyperlipidemia LDL goal <100 Surgical History History of hysteroscopy Hx of colonoscopy Hx of tubal ligation H/O hemorrhoidectomy History of section Family History Father Diabetes Mother Diabetes Stroke Maternal Aunt Stroke Hypertension Social History Household Members: Children Housing: Apartment Are you a primary career developer to a significant other at home: No Do you presently have visiting nurse or other home services: No Alcohol intake: current Alcohol intake frequency: does not drink Alcohol type: wine Patient Tobacco Use Status: Never used Tobacco e-Cigarette/Vaping Use: Never Used Second Hand Smoke Exposure: No service: No Current occupational status: unemployed Cognitive needs: No Hearing needs: No Vision needs: Yes Female Reproductive History Menstrual Age of Menarche: 9 Physical Exam Skin Other: Transverse incision healing nicely. Steri-Strips were placed. Umbilicus with some ecchymosis however also healing nicely. No evidence of dehiscence. Assessment & Plan Assessment & Plan (1) S/P panniculectomy: Code(s): Z98.890 - Other specified postprocedural states Category: Surgical Plan: Continue monitoring drain output. Continue meal plan. Continue antibiotics. Return to clinic 1 week.
[2025-07-18 11:27] VITALS: BP 129/64; PULSE 64; TEMP 35.9; O2SAT 100; BMI 22.4
== END 2025-07-18 11:30 | disposition home or self-care (01) ==
LOC: HO.HBS 10:50
PROVIDERS: PCP Physician Assistant; Visit Provider Physician Assistant Surgical
DX: Z98.890 Other specified postprocedural states (principal)
CPT/HCPCS: 99024

== ENCOUNTER → 2025-07-18 10:49 | Outpatient (BNVA) | payer OTHER, SELFPAY | PROVIDERS: PCP Physician Assistant; Visit Provider Physician Assistant Surgical | DX: Z98.890 Other specified postprocedural states (principal) | CPT/HCPCS: 99212 ==

== ENCOUNTER 2025-07-21 07:01 | Outpatient (REF) | payer OTHER, SELFPAY ==
[2025-07-21 07:18] LABS: MANUAL DIFF FLAG NO
[2025-07-21 07:54] LABS: Hematocrit 36.1 % (37.0-47.0); Hemoglobin 11.9 g/dl (12.0-16.0); Imm Gran Abs Auto 0.02 X10*3/uL (0.00-0.03); Imm Gran Pct Auto 0.3 % (0.0-0.4); Lymphocytes Absolute Auto 2.2 X10*3/uL (1.2-4.9); Mean Corpuscular HGB Conc 33.0 g/dl (31.0-35.0); Mean Corpuscular Hemoglobin 28.7 pg (27.0-33.0); Mean Corpuscular Volume 87.0 fL (80.0-98.0); NRBC Abs Auto 0.000 X10*3/uL (0.0-0.012); NRBC Pct Auto 0.0 /100WBC (0.0-0.2); Platelet Count 316 X10*3/uL (160-400); Red Blood Count 4.15 X10*6/uL (4.20-5.50); White Blood Count 6.6 X10*3/uL (4.8-10.8)
[2025-07-21 08:23] LABS: Iron 52 mcg/dL (30-160); Percent Iron Saturation 20 % (15-50); Total Iron Binding Capacity 254 mcg/dL (228-428); Unsaturated Iron Binding 202 ug/dL
[2025-07-21 08:43] LABS: Ferritin 225 ng/mL (10-250)
== END 2025-07-21 07:02 | disposition home or self-care (01) ==
LOC: HO.LAB 07:01
PROVIDERS: PCP Physician Assistant; Visit Provider Surgery
DX: D64.9 Anemia, unspecified (principal)
CPT/HCPCS: 36415; 82728; 83540; 85025

== ENCOUNTER 2025-07-25 12:34 | Outpatient (AMB) | payer OTHER, SELFPAY ==
--- NOTE | 2025-07-25 12:58 | MHC.OFFVISWM ---
VS Expanded 07/25/25 13:16 BP 111/65 Blood Pressure Location Rt brachial Blood Pressure Position Sitting Pulse 69 Pulse Source Pulse Oximeter Temp 96.8 F Temperature Source Temporal Artery Scan Pulse Oximetry 97 Oxygen Delivery Method Room Air Height 5 ft 7.5 in Weight 146 lb BMI 22.5 Body Fat % 31.0 Body Fat Mass 45.2 Fat Free Mass 100.8 Visceral Fat Rating 6.0 Body Water % 48.9 Body Water Mass 71.4 Muscle Mass/Score 95.6 Basal Metabolic Rate/Score 1,355 Intake Visit Reasons: (OV) s/p Panniculectomy 07/07/25 Roping Machine Tender Required: Yes Roping Machine Tender Services: Roping Machine Tender Present Allergies No Known Allergies Allergy (Verified 07/25/25 13:18) HPI Comments Details: Patient is a pleasant 54-year-old female who returns to the office today in follow-up. She is status post panniculectomy on 07/07/2025. She continues to have approximately 60 mL of serosanguineous fluid from the collection bulb. She continues antibiotics and following meal plan as directed by Dr. Delgado. [facility] Medical History Weight loss DVT (deep venous thrombosis) Type 2 diabetes mellitus with complication, with long-term current use of insulin Somnolence Sleep apnea Cervical high risk HPV (human papillomavirus) test positive Essential hypertension COVID-19 CKD (chronic kidney disease) HTN (hypertension) Diastolic dysfunction Rheumatic mitral stenosis Glaucoma Insomnia Rheumatic heart disease Depression Anxiety Hemorrhoids Hypothyroidism Hyperlipidemia LDL goal <100 Surgical History History of hysteroscopy Hx of colonoscopy Hx of tubal ligation H/O hemorrhoidectomy History of section Family History Father Diabetes Mother Diabetes Stroke Maternal Aunt Stroke Hypertension Social History Household Members: Children Housing: Apartment Are you a primary summer child caregiver to a significant other at home: No Do you presently have visiting nurse or other home services: No Alcohol intake: current Alcohol intake frequency: does not drink Alcohol type: wine Patient Tobacco Use Status: Never used Tobacco e-Cigarette/Vaping Use: Never Used Second Hand Smoke Exposure: No service: No Current occupational status: unemployed Cognitive needs: No Hearing needs: No Vision needs: Yes Female Reproductive History Menstrual Age of Menarche: 9 Physical Exam Vital Signs: Last Vital Signs Temp 96.8 F 07/25/25 13:16 Pulse 69 07/25/25 13:16 BP 111/65 07/25/25 13:16 Pulse Ox 97 07/25/25 13:16 Oxygen Delivery Method Room Air 07/25/25 13:16 BMI result Body Mass Index 22.5 Skin Other: Healing transverse and umbilical incisions. No evidence of dehiscence. Approximately 40 mL of serosanguineous fluid in the collection bulb Assessment & Plan Assessment & Plan (1) S/P panniculectomy: Code(s): Z98.890 - Other specified postprocedural states Category: Surgical Plan: Overall doing well. Continue to monitor drain output Continue antibiotics Continue to follow meal plan as directed by Dr. Delgado Continue abdominal binder. Return to clinic 1 week
--- OUTSIDE RECORDS SUMMARY | 2025-07-25 13:00 | XMS_ITS | Clinical Summary ---
Author Organization [facility] Address [address] [place] [address] Phone Care Team Providers Care Facility Mechanic Name Role Phone Aleyda Paul MD Primary Care Provider [phone] Allergies No known active allergies Medications citalopram [...] MG tablet 12/29/2021 Active ergocalciferol 1.25 MG (04965 UT) capsule Take 1 capsule (50,000 Units [...] Exam 09/16/2021 Influenza Vaccine (#1) 2025 Insurance [facility] Medicaid [facility] Medicaid Care Teams Facility Mechanic Relationship Specialty Start Date End Date Aleyda Paul MD [address] [place], [place] PCP - General Internal Medicine 07/12/21
[2025-07-25 13:16] VITALS: BP 111/65; PULSE 69; TEMP 36; O2SAT 97; BMI 22.5
== END 2025-07-25 13:23 | disposition home or self-care (01) ==
LOC: HO.HBS 12:35
PROVIDERS: PCP Physician Assistant; Visit Provider Physician Assistant Surgical
DX: Z98.890 Other specified postprocedural states (principal)
CPT/HCPCS: 99024

== ENCOUNTER → 2025-07-25 12:34 | Outpatient (BNVA) | payer OTHER, SELFPAY | PROVIDERS: PCP Physician Assistant; Visit Provider Physician Assistant Surgical | DX: Z98.890 Other specified postprocedural states (principal) | CPT/HCPCS: 99212 ==

== ENCOUNTER 2025-08-01 13:33 | Outpatient (AMB) | payer OTHER, SELFPAY ==
--- NOTE | 2025-08-01 13:46 | MHC.OFFVISWM ---
VS Expanded 08/01/25 13:58 BP 112/57 L Blood Pressure Location Rt brachial Blood Pressure Position Sitting Pulse 69 Pulse Source Pulse Oximeter Temp 97.1 F Temperature Source Temporal Artery Scan Pulse Oximetry 98 Oxygen Delivery Method Room Air Height 5 ft 7.5 in Weight 145 lb 12.8 oz BMI 22.5 Body Fat % 28.1 Body Fat Mass 41.0 Fat Free Mass 104.8 Visceral Fat Rating 5.0 Body Water % 51.0 Body Water Mass 74.2 Muscle Mass/Score 99.4 Basal Metabolic Rate/Score 1,395 Intake Visit Reasons: (OV) s/p Panniculectomy 07/07/25 Allergies No Known Allergies Allergy (Verified 07/25/25 13:18) HPI Comments Details: Patient is a pleasant 54-year-old female who returns to the office today in follow-up. She is status post panniculectomy on 07/07/2025. She continues to have a fair amount of drainage from the collection bulb, approximately 40-50 mL of serosanguineous fluid on a daily basis. She has been walking around more than she should have at home and this was discussed with her. She continues to follow the meal plan and taking antibiotics as directed by Dr. Delgado. [facility] Medical History Weight loss DVT (deep venous thrombosis) Type 2 diabetes mellitus with complication, with long-term current use of insulin Somnolence Sleep apnea Cervical high risk HPV (human papillomavirus) test positive Essential hypertension COVID-19 CKD (chronic kidney disease) HTN (hypertension) Diastolic dysfunction Rheumatic mitral stenosis Glaucoma Insomnia Rheumatic heart disease Depression Anxiety Hemorrhoids Hypothyroidism Hyperlipidemia LDL goal <100 Surgical History History of hysteroscopy Hx of colonoscopy Hx of tubal ligation H/O hemorrhoidectomy History of section Family History Father Diabetes Mother Diabetes Stroke Maternal Aunt Stroke Hypertension Social History Household Members: Children Housing: Apartment Are you a primary medicare compliance auditor to a significant other at home: No Do you presently have visiting nurse or other home services: No Alcohol intake: current Alcohol intake frequency: does not drink Alcohol type: wine Patient Tobacco Use Status: Never used Tobacco e-Cigarette/Vaping Use: Never Used Second Hand Smoke Exposure: No service: No Current occupational status: unemployed Cognitive needs: No Hearing needs: No Vision needs: Yes Female Reproductive History Menstrual Age of Menarche: 9 Physical Exam Vital Signs: Last Vital Signs Temp 97.1 F 08/01/25 13:58 Pulse 69 08/01/25 13:58 BP 112/57 L 08/01/25 13:58 Pulse Ox 98 08/01/25 13:58 Oxygen Delivery Method Room Air 08/01/25 13:58 BMI result Body Mass Index 22.5 Skin Other: Transverse and umbilical incisions healing nicely. Approximately 25 mL in the collection bulb of serosanguineous fluid Assessment & Plan Assessment & Plan (1) S/P panniculectomy: Code(s): Z98.890 - Other specified postprocedural states Category: Surgical Plan: Patient told to walk much less at home. Continue following the meal plan, following drain output. Continue antibiotics. Return to clinic 1 week.
--- OUTSIDE RECORDS SUMMARY | 2025-08-01 13:55 | XMS_ITS | Clinical Summary ---
Author Organization [facility] Address [address] [place] [address] Phone Care Team Providers Care Desktop Support Engineer Name Role Phone Aleyda Paul MD Primary Care Provider [phone] Allergies No known active allergies Medications citalopram [...] MG tablet 12/29/2021 Active ergocalciferol 1.25 MG (10256 UT) capsule Take 1 capsule (50,000 Units [...] Exam 09/16/2021 Influenza Vaccine (#1) 2025 Insurance [facility] Medicaid [facility] Medicaid Care Teams Desktop Support Engineer Relationship Specialty Start Date End Date Aleyda Paul MD [address] [place], [place] PCP - General Internal Medicine 07/12/21
[2025-08-01 13:58] VITALS: BP 112/57; PULSE 69; TEMP 36.2; O2SAT 98; BMI 22.5
== END 2025-08-01 14:22 | disposition home or self-care (01) ==
LOC: HO.HBS 13:34
PROVIDERS: PCP Physician Assistant; Visit Provider Physician Assistant Surgical
DX: Z98.890 Other specified postprocedural states (principal)
CPT/HCPCS: 99024

== ENCOUNTER → 2025-08-01 13:33 | Outpatient (BNVA) | payer OTHER, SELFPAY | PROVIDERS: PCP Physician Assistant; Visit Provider Physician Assistant Surgical | DX: Z98.890 Other specified postprocedural states (principal) | CPT/HCPCS: 99212 ==

== ENCOUNTER 2025-08-04 09:09 | Outpatient (AMB) | payer OTHER, SELFPAY ==
--- NOTE | 2025-08-04 09:14 | MHC.PC.OV ---
Vital Signs 08/04/25 09:15 Height 5 ft 7.5 in Weight 151 lb 6 oz BMI 23.4 BP 120/80 Blood Pressure Location Rt brachial Position Sitting Pulse 62 Pulse Source Pulse Oximeter Temp 97.3 F Temp Source Temporal Artery Scan Pulse Oximetry (%) 98 Oxygen Delivery Method Room Air Intake Visit Reasons: Annual Exam Intake Note: Patient is here today for a physical. 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: Not Required per policy Accompanied by: Self / Same As Patient Allergies No Known Allergies Allergy (Verified 08/04/25 09:48) Medication List - Last Reconciled 08/04/25 by Bismark Benitez PA-C albuterol sulfate 2.5 mg (3 mL) inhalation Q4-6H PRN 90 days albuterol sulfate 90 mcg/actuation (Ventolin HFA) 1 puff PO QID PRN 90 days bisacodyl (Dulcolax (bisacodyl)) 10 mg (2 x 5 mg) PO BEDTIME blood sugar diagnostic (FreeStyle Lite Strips) Use daily As directed to check blood glucose blood-glucose meter (FreeStyle Lite Meter kit) Use daily As directed to check blood sugars blood-glucose sensor (FreeStyle Sera 3 Sensor device) Apply every 14 days As directed to monitor blood glucose cephalexin 500 mg PO Q12H cholecalciferol (vitamin D3) 125 mcg PO DAILY citalopram 40 mg PO DAILY 90 days diclofenac sodium 1% (Voltaren Arthritis Pain) 4 grams topical QID PRN docusate sodium (Colace) 100 mg PO DAILY duloxetine 60 mg PO DAILY ezetimibe (Zetia) 10 mg PO DAILY fluticasone propion-salmeterol 250-50 mcg/dose (Advair Diskus) 1 inh inhalation BID 90 days hydrochlorothiazide 25 mg PO DAILY hydroxyzine HCl 25 mg PO BID PRN ibuprofen 600 mg PO Q6H PRN insulin lispro (Humalog KwikPen (U-100) Insulin) 5 units breakfast, +2units for bg >200 subcut 3x per day. iron,carbonyl-vitamin C 65 mg iron- 125 mg (Vitron-C) 1 tab PO DAILY lancets (FreeStyle Lancets) use daily as directed to check blood glucose levothyroxine 112 mcg PO DAILY lisinopril 10 mg PO DAILY 90 days mirtazapine 30 mg PO BEDTIME miscellaneous medical supply 1 ea miscellaneous DAILY ondansetron 4 mg PO Q12H pen needle, diabetic (BD Ultra-Fine Ramya Pen Needle) As directed four times a day perphenazine 4 mg PO BID rosuvastatin 40 mg PO DAILY semaglutide (Ozempic) 0.5 mg (0.736 mL) subcut QWEEK sumatriptan succinate take 1 tab at onset of headache; if no relief may repeat 1 tab after at least 2 hrs; max = 4 tabs/24 hr PO 30 days tizanidine 2 mg PO BEDTIME PRN trazodone 200 mg PO BEDTIME PRN Tobacco use date assessed: 08/04/25 Dental Screening Dental Screen Date: 01/27/25 [facility] Annual Exam HPI Details Patient is a 54-year-old here today for a routine annual physical Patient is Peruvian-speaking only, 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 Patient has a past medical history including diabetes, hypertension, obstructive sleep apnea, obesity and generalized anxiety disorder, Recently underwent a panniculectomy with her bariatric surgery group is currently recovering, appears to be somewhat moderate pain upon movement. CORNELIUS: followed by pulmonology . Continues to use CPAP machine on nightly basis with good effect on her sleep. .. DM: She is followed by Endocrine, has lost a significant amount of weight since last office visit due to better eating habits. Most recent A1c is 6.5 Her insulin dose has been changed to p.r.n. use. She continues on a strict diabetic diet. Has lost even more weight since last office visit . Patient continues on Mounjaro .. Hypothyroidism: Most recent TSH elevated. She continues on levothyroxine 112 mcg. PLAN : Will increase her levothyroxine dose and recheck TSH in 6 weeks .. Mitral valve stenosis: followed by a aviation boatswain's mate , no overt signs of Congestive heart failure. .. REHAN: Sees a psychiatrist who manages her mental health medications. She feels stable from a mental health point of view. Colorectal cancer screening: Done in April of 2023, 2 polyps found, repeat 10 years .. 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 Considering flu vaccine this Fall Laboratory Tests 07/04/25 07/04/25 07/21/25 06:53 06:54 07:16 RBC 5.39 4.15 L D Hgb 11.9 L D Iron 52 25-OH Vitamin D To carlos manuel 24.2 L TSH 9.59 H Urine Microalbumin 7.0 PFSH Medical History Weight loss DVT (deep venous thrombosis) Type 2 diabetes mellitus with complication, with long-term current use of insulin Somnolence Sleep apnea Cervical high risk HPV (human papillomavirus) test positive Essential hypertension COVID-19 CKD (chronic kidney disease) HTN (hypertension) Diastolic dysfunction Rheumatic mitral stenosis Glaucoma Insomnia Rheumatic heart disease Depression Anxiety Hemorrhoids Hypothyroidism Hyperlipidemia LDL goal <100 Surgical History History of abdominoplasty History of hysteroscopy Hx of colonoscopy Hx of tubal ligation H/O hemorrhoidectomy History of section Family History Father Diabetes Mother Diabetes Stroke Maternal Aunt Stroke Hypertension Social History Household Members: Children Housing: Apartment Are you a primary eye care professional to a significant other at home: No Do you presently have visiting nurse or other home services: No Alcohol intake: current Alcohol intake frequency: does not drink Alcohol type: wine Patient Tobacco Use Status: Never used Tobacco e-Cigarette/Vaping Use: Never Used Second Hand Smoke Exposure: No service: No Current occupational status: unemployed Cognitive needs: No Hearing needs: No Vision needs: Yes Female Reproductive History Menstrual Age of Menarche: 9 Questionnaire PHQ-9 Over the last 2 weeks, how often have you been bothered by any of the following problems? 1. Little interest or pleasure in doing things: several days 2. Feeling down, depressed, or hopeless: several days 3. Trouble falling or staying asleep, or sleeping too much: several days 4. Feeling tired or having little energy: several days 5. Poor appetite or overeating: several days 6. Feeling bad about yourself - or that you are a failure or have let yourself or your family down: not at all 7. Trouble concentrating on things, such as reading the newspaper or watching television: several days 8. Moving or speaking so slowly that other people could have noticed. Or the opposite - being so fidgety or restless that you have been moving around a lot more than usual: several days 9. Thoughts that you would be better off or of hurting yourself in some way: several days Total score: 8 Depression Screening Interpretation: Positive Depression Screening Follow-up: Existing condition and In treatment Depression Screening Done: Yes 86041 - PHQ-9 Billing: Yes Source: Developed by Drs. Luis Elias, Viviane Christie, Peng Irwin and colleagues, with an educational lindsey from [employer]. Thrive Questionnaire Date Thrive assessed: 01/27/25 I am a: Patient What is your living situation today?: I have a steady place to live Within the past 12 months, did the food you bought not last and you didn't have the money to get more?: Sometimes True Within the past 12 months, did you worry whether your food would run out before you got money to buy more?: Sometimes True Do you have trouble paying for medicines?: I choose not to answer this question Do you have trouble getting transportation to medical appointments?: No Do you have trouble paying your heating and electricity bill?: No Do you have trouble taking care of your child, family member or friend?: No Do you have trouble with day-to-day activities such as bathing, preparing meals, shopping, managing finances, etc.?: No Are you currently unemployed and looking for a job?: No Are you interested in more education?: No Please select the resources that you would like help with: Food Currently or been in a relationship where the following occur: I choose not to answer THRIVE Score: 2 AUDIT C Alcohol Use Questionnaire (AUDIT-C) 1. How often do you have a drink containing alcohol?: Never Total Score: 0 REHAN-7 AMB Questionnaire REHAN-7 Date REHAN - 7 assessed: 01/27/25 Feeling nervous, anxious, or on edge: 1 = Several days Not being able to stop or control worryin = Several days Worrying too much about different things: 0 = Not at all Trouble relaxin = Several days Being so restless that it is hard to sit still: 0 = Not at all Becoming easily annoyed or irritable: 0 = Not at all Feeling afraid as if something awful might happen: 0 = Not at all Total REHAN-7 score (0-4 normal; 5-9 mild; 10-14 moderate; 15-21 severe): 3 Source: Developed by Drs. Luis Elias, Viviane Christie, Peng Irwin and colleagues, with an educational lindsey from [employer]. REHAN-7 Assessment Billing REHAN-7 Assessment Tool: REHAN-7 Assessment 24662 Review of Systems Const Denies body aches, Denies chills, Denies excessive sweating, Denies fatigue, Denies fever(s) and Denies headache(s) Eyes Denies blurry vision ENT Denies dysphagia, Denies vertigo, Denies dizziness, Denies headache(s), Denies hearing loss and Denies tinnitus Card Denies chest pain, Denies chest pain with activity, Denies syncope, Denies irregular heart rhythm and Denies dyspnea Resp Denies chest congestion, Denies cough, Denies hemoptysis, Denies dyspnea and Denies wheezing GI Denies abdominal pain, Denies melena, Denies hematochezia, Denies coffee ground emesis, Denies dysphagia, Denies diarrhea, Denies nausea and Denies vomiting Denies urinary frequency, Denies dysuria, Denies urinary hesitancy and Denies urinary urgency Musc Denies arthralgias, Denies limited range of motion, Denies muscle cramps and Denies muscle weakness Skin/Breast Denies rash and Denies skin ulcer Neuro Denies Abnormal speech present, Denies confusion, Denies vertigo, Denies dizziness, Denies syncope, Denies headache(s), Denies memory loss and Denies seizure-like activity Psych Denies anxiety, Denies confusion, Denies depression, Denies memory loss, Denies panic attacks and Denies paranoia Endo Denies excessive sweating, Denies fatigue, Denies flushing, Denies polydipsia and Denies polyuria Aller/Immun Denies wheezing Physical exam (Primary Care) Vital Signs: Last Vital Signs Temp 97.3 F 08/04/25 09:15 Pulse 62 08/04/25 09:15 BP 120/80 08/04/25 09:15 Pulse Ox 98 08/04/25 09:15 Oxygen Delivery Method Room Air 08/04/25 09:15 BMI result Body Mass Index 23.4 Tobacco/Smoking Status: Tobacco use Status Tobacco use date assessed 08/04/25 08/04/25 09:19 Patient Tobacco Use Status Never used Tobacco 08/04/25 09:19 e-Cigarette/Vaping Use Never Used 08/04/25 09:19 PHQ-9: PHQ-9 Score PHQ-9: Total score 8 08/04/25 09:51 Depression Screening Interpretation: Positive Depression Screening Follow-up: Existing condition and In treatment Thrive Assessment: Date of Thrive Assessment Date Thrive assessed 01/27/25 08/04/25 09:19 Currently or been in a relationship where the following occur: I choose not to answer Const General: cooperative, comfortable, no acute distress, alert and awake; No confusion Orientation/consciousness: oriented to person, oriented to place, patient oriented x3 and No confusion HENMT Head: Yes normocephalic Ears: external ears normal and TM's normal bilaterally Face and sinus: No sinus tenderness Mouth: Normal oral and palatal mucosa present and tongue normal Teeth and gingiva: dentition normal and gingiva normal Throat: Yes posterior oropharynx normal, Yes tonsils normal and Yes uvula midline Eyes Conjunctivae: conjunctivae normal Sclerae: sclerae normal Pupils: Equal, round and reactive pupils present EOM: EOMs intact bilaterally Direct Ophthalmoscopy: No no photophobia Neck Neck: Yes no lymphadenopathy, No tender and Yes no JVD Thyroid: Thyroid normal Carotids: no bruits Chest Chest palpation & inspection: no tenderness Resp Effort & Inspection: normal respiratory effort, no audible wheezes, not labored and no stridor Auscultation: no crackles, no rales, no rhonchi and no wheezes Cardio Jugular venous distension: no JVD Rate: regular rate, not bradycardic and not tachycardic Rhythm: regular rhythm Bruits: no carotid bruits Peripheral pulses: Peripheral pulses 2+ throughout GI Inspection: Yes normal to inspection, No abdominal wall ecchymosis and No visible herniation Palpation (GI): Soft to palpation, nontender, no guarding, not rigid and No hepatosplenomegaly present Auscultation: normoactive bowel sounds General: Yes no CVA tenderness Back/Spine/Pelvis Back: no CVA tenderness and No back tenderness Cervical Spine: cervical ROM normal Thoracic/Lumbar Spine: thoracic and lumbar spine normal to inspection, straight leg raise negative bilaterally, No thoraco-lumbar ROM limited and No lumbar spinal tenderness Skin Lesions: no lesions Rashes: no rashes Wounds: no wounds Neuro General: oriented to person, oriented to place, patient oriented x3, CN's II-XI intact bilaterally and No confusion Cranial nerves: Yes Equal, round and reactive pupils present and Yes Normal accommodation reflex present Cognition (Neuro): normal cognition Speech: No Abnormal speech present Gait exam (Neuro): Normal gait present Motor exam (neuro): 5/5 motor strength present throughout Extrem Right upper extremity: full ROM; no cyanosis Left upper extremity: full ROM; no cyanosis Right lower extremity: no edema Left lower extremity: no edema Psych Appearance: grossly normal Mental Status: mental status grossly normal Affect: normal affect Attitude: cooperative Thought process: Normal thought process present Coding Level of Care Code Est Pt Prev Care 40-64y(52320) Diagnoses Annual physical exam Z00.00 Type 2 diabetes mellitus with complication, with long-term current use of insulin E11.8; Z79.4 Acquired hypothyroidism E03.9 Hypothyroidism type: acquired Hyperlipidemia LDL goal <100 E78.5 Rheumatic mitral stenosis I05.0 Additional Codes PHQ-9 - 21244 - PHQ-9 Billing: Yes ([id number]) REHAN-7 Assessment Billing - REHAN-7 Assessment Tool: REHAN-7 Assessment [id number] ([id number]) Assessment & Plan Assessment & Plan (1) Annual physical exam: Code(s): Z00.00 - Encounter for general adult medical examination without abnormal findings Category: Medical Plan: As per HPI (2) Type 2 diabetes mellitus with complication, with long-term current use of insulin: Comment: follows /[facility] Endocrinology-has CGM-only uses lispro insulin prn Code(s): E11.8 - Type 2 diabetes mellitus with unspecified complications; 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 Goal A1c is to remain below 7.0 (3) Hypothyroidism: Code(s): E03.9 - Hypothyroidism, unspecified Category: Medical Qualifiers: Hypothyroidism type: acquired Qualified Code(s): E03.9 - Hypothyroidism, unspecified Plan: Most recent TSH elevated. Will increase her levothyroxine dose for better control over low functioning thyroid. Will recheck TSH in 6 weeks. (4) Hyperlipidemia LDL goal <100: Code(s): E78.5 - Hyperlipidemia, unspecified Category: Medical Plan: Most recent lipid panel showing good control over total cholesterol and LDL. Goal LDL is to be below 100 (5) Rheumatic mitral stenosis: Comment: followed w/HCS in past-last saw 2022-follows only w/PCP currently Code(s): I05.0 - Rheumatic mitral stenosis Category: Medical Plan: Has history of mitral valve stenosis, most recent echocardiogram in 2022. She has no overt signs of Congestive heart failure. Will continue to follow echocardiograms Orders: Orders CA echo transthoracic complete 08/04/25 I05.0 - Rheumatic mitral stenosis Comprehensive [place]. 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
[2025-08-04 09:15] VITALS: BP 120/80; PULSE 62; TEMP 36.3; O2SAT 98; BMI 23.4
--- OUTSIDE RECORDS SUMMARY | 2025-08-04 10:18 | XMS_ITS | Clinical Summary ---
Author Organization [facility] Address [address] [place] [address] Phone Care Team Providers Care Business Development Professional Name Role Phone Aleyda Paul MD Primary Care Provider [phone] Allergies No known active allergies Medications citalopram [...] MG tablet 12/29/2021 Active ergocalciferol 1.25 MG (04392 UT) capsule Take 1 capsule (50,000 Units [...] Exam 09/16/2021 Influenza Vaccine (#1) 2025 Insurance [facility] Medicaid [facility] Medicaid Care Teams Business Development Professional Relationship Specialty Start Date End Date Aleyda Paul MD [address] [place], [place] PCP - General Internal Medicine 07/12/21
== END 2025-08-04 10:06 | disposition home or self-care (01) ==
LOC: HO.HMCH 09:10
PROVIDERS: PCP Physician Assistant; Visit Provider Physician Assistant
DX: Z00.00 Encounter for general adult medical examination without abnormal findings (principal); E11.8 Type 2 diabetes mellitus with unspecified complications; Z79.4 Long term (current) use of insulin; E03.9 Hypothyroidism, unspecified; E78.5 Hyperlipidemia, unspecified; I05.0 Rheumatic mitral stenosis

== ENCOUNTER → 2025-08-04 09:09 | Outpatient (BNVA) | payer OTHER, SELFPAY | PROVIDERS: PCP Nurse Practitioner Family; Visit Provider Physician Assistant | DX: Z00.00 Encounter for general adult medical examination without abnormal findings (principal); E11.8 Type 2 diabetes mellitus with unspecified complications; I10 Essential (primary) hypertension; G47.33 Obstructive sleep apnea (adult) (pediatric); F41.1 Generalized anxiety disorder; E03.9 Hypothyroidism, unspecified; E78.5 Hyperlipidemia, unspecified; I05.0 Rheumatic mitral stenosis; Z79.4 Long term (current) use of insulin; Z99.89 Dependence on other enabling machines and devices | CPT/HCPCS: 96127; 99396 ==

== ENCOUNTER 2025-08-06 10:58 | Outpatient (AMB) | payer OTHER, SELFPAY ==
--- NOTE | 2025-08-06 11:00 | A.OFFVIS_ITS ---
Vital Signs 08/06/25 11:01 Height 5 ft 7.5 in Weight 149 lb BMI 23.0 BP 119/60 Blood Pressure Location Rt brachial Position Sitting Pulse 63 Pulse Source Pulse Oximeter Pulse Oximetry (%) 100 Oxygen Delivery Method Room Air Intake Visit Reasons: cornelius Intake Note: Patient is here for a follow up on CORNELIUS. Ski Base Trimmer Required: Yes Ski Base Trimmer Name: Mala Adrian Vivek Allergies No Known Allergies Allergy (Verified 08/06/25 11:21) Medication List - Last Reconciled 08/06/25 by Daniel Ortega MD albuterol sulfate 2.5 mg (3 mL) inhalation Q4-6H PRN 90 days albuterol sulfate 90 mcg/actuation (Ventolin HFA) 1 puff PO QID PRN 90 days bisacodyl (Dulcolax (bisacodyl)) 10 mg (2 x 5 mg) PO BEDTIME blood sugar diagnostic (FreeStyle Lite Strips) Use daily As directed to check blood glucose blood-glucose meter (FreeStyle Lite Meter kit) Use daily As directed to check blood sugars blood-glucose sensor (FreeStyle Sera 3 Sensor device) Apply every 14 days As directed to monitor blood glucose cephalexin 500 mg PO Q12H cholecalciferol (vitamin D3) 125 mcg PO DAILY citalopram 40 mg PO DAILY 90 days diclofenac sodium 1% (Voltaren Arthritis Pain) 4 grams topical QID PRN docusate sodium (Colace) 100 mg PO DAILY duloxetine 60 mg PO DAILY ezetimibe (Zetia) 10 mg PO DAILY fluticasone propion-salmeterol 250-50 mcg/dose (Advair Diskus) 1 inh inhalation BID 90 days hydrochlorothiazide 25 mg PO DAILY hydroxyzine HCl 25 mg PO BID PRN ibuprofen 600 mg PO Q6H PRN insulin lispro (Humalog KwikPen (U-100) Insulin) 5 units breakfast, +2units for bg >200 subcut 3x per day. iron,carbonyl-vitamin C 65 mg iron- 125 mg (Vitron-C) 1 tab PO DAILY lancets (FreeStyle Lancets) use daily as directed to check blood glucose levothyroxine 112 mcg PO DAILY lisinopril 10 mg PO DAILY 90 days mirtazapine 30 mg PO BEDTIME miscellaneous medical supply 1 ea miscellaneous DAILY ondansetron 4 mg PO Q12H pen needle, diabetic (BD Ultra-Fine Ramya Pen Needle) As directed four times a day perphenazine 4 mg PO BID rosuvastatin 40 mg PO DAILY semaglutide (Ozempic) 0.5 mg (0.736 mL) subcut QWEEK sumatriptan succinate take 1 tab at onset of headache; if no relief may repeat 1 tab after at least 2 hrs; max = 4 tabs/24 hr PO 30 days tizanidine 2 mg PO BEDTIME PRN trazodone 200 mg PO BEDTIME PRN Do you need a note to return to daycare/school/sports/work: No HPI HPI cornelius: Details: This 54 years old very pleasant female, Moroccan-speaking, is here for follow-up. She is not using CPAP these days and is sleeping fairly well. She is still waiting for her home-based sleep study. She has lost more than 100 lb , as she is on Ozempic therapy. She claims that she is sleeping okay without the CPAP. She is being followed for her chronic asthma/COPD syndrome, which is remaining well controlled. Denies having had any acute exacerbation. Continue to use Advair twice a day and albuterol HFA or in the nebulizer only p.r.n.. PFSH Medical History Weight loss DVT (deep venous thrombosis) Type 2 diabetes mellitus with complication, with long-term current use of insulin Somnolence Sleep apnea Cervical high risk HPV (human papillomavirus) test positive Essential hypertension COVID-19 CKD (chronic kidney disease) HTN (hypertension) Diastolic dysfunction Rheumatic mitral stenosis Glaucoma Insomnia Rheumatic heart disease Depression Anxiety Hemorrhoids Hypothyroidism Hyperlipidemia LDL goal <100 Surgical History History of abdominoplasty History of hysteroscopy Hx of colonoscopy Hx of tubal ligation H/O hemorrhoidectomy History of section Family History Father Diabetes Mother Diabetes Stroke Maternal Aunt Stroke Hypertension Social History Household Members: Children Housing: Apartment Are you a primary career discovery teacher to a significant other at home: No Do you presently have visiting nurse or other home services: No Alcohol intake: current Alcohol intake frequency: does not drink Alcohol type: wine Patient Tobacco Use Status: Never used Tobacco e-Cigarette/Vaping Use: Never Used Second Hand Smoke Exposure: No service: No Current occupational status: unemployed Cognitive needs: No Hearing needs: No Vision needs: Yes Female Reproductive History Menstrual Age of Menarche: 9 Review of Systems Const All systems reviewed & are unremarkable except as noted in HPI and below Reports fatigue Eyes Reports no additional complaints ENT Reports nasal congestion (MILD OFF AND ON ) Card Denies irregular heart rhythm and Denies leg edema Resp Reports as per HPI GI Reports constipation Reports no additional complaints Musc Reports back pain and Reports myalgias Skin/Breast Reports system reviewed and no additional complaints, except as documented Neuro Reports no additional complaints Psych Reports anxiety and Reports depression Endo Reports fatigue and Reports other ( DIABETES MELLITUS, HYPOTHYROIDISM) Kody/Lymph Reports no additional complaints Aller/Immun Reports seasonal rhinorrhea Physical Exam Vital Signs: Last Vital Signs Pulse 63 08/06/25 11:01 BP 119/60 08/06/25 11:01 Pulse Ox 100 08/06/25 11:01 Oxygen Delivery Method Room Air 08/06/25 11:01 BMI result Body Mass Index 23.0 Const General: comfortable, no acute distress, alert and awake Orientation/consciousness: patient oriented x3 HEENT Head: Yes normal to inspection General nose exam: No nasal polyps present, No nasal discharge present and Other nasal findings present (MILD NASAL CONGESTION ) Face and sinus: Yes sinuses nontender Mouth: oropharynx normal Throat: Yes posterior oropharynx normal Eyes General: appearance normal, both eyes and all related structures Neck Neck: Yes normal visual inspection, Yes no lymphadenopathy, Yes trachea midline, Yes no JVD and Yes other ( NECK SIZE 16 IN) Thyroid: Thyroid normal and no nodules Chest Chest palpation & inspection: normal inspection of the chest, normal palpation of entire chest wall and no tenderness Resp Effort & Inspection: normal respiratory effort Auscultation: no crackles, no wheezes and No rub present Cardio Palpation: normal PMI Rate: regular rate Rhythm: regular rhythm Heart sounds: no gallops and no murmurs Peripheral pulses: Peripheral pulses 2+ throughout GI Palpation (GI): Soft to palpation, nontender, No hepatosplenomegaly present and no masses Auscultation: normal bowel sounds Back/Spine/Pelvis Thoracic/Lumbar Spine: thoracic and lumbar spine normal to inspection and thora co-lumbar ROM limited Skin General skin exam: no rashes or lesions noted Neuro General: patient oriented x3 and no focal motor deficits Cranial nerves: Yes CN's II-XII intact bilaterally Extrem General: Yes normal to inspection, Yes no clubbing, cyanosis or edema and Yes no calf tenderness Psych Appearance: grossly normal and well kempt Speech and movement: Normal speech and movement present Results Reviewed Results Reviewed: Home-based sleep study awaited Assessment & Plan Assessment & Plan (1) CORNELIUS (obstructive sleep apnea): Comment: Patient does have history of obstructive sleep apnea. Initially she was very compliant in using CPAP. Lately she is relatively noncompliant, but claims that she sleeps well. Patient actually claims that she has lost lot of weight almost like 100 lb since she was started on Semaglutide treatment. She sleeps okay even without the CPAP It should be noted that her sleep apnea was partly contributed by mild Retrognathia of the lower jaw, and she may still has some residual sleep apnea. Code(s): G47.33 - Obstructive sleep apnea (adult) (pediatric) Category: Medical Plan: Awaiting home-based sleep study. (2) Asthma: Comment: SHE HAS MILD ASTHMA /COPD WHICH FLARES UP WHENEVER SHE HAS NASAL CONGESTION OR UPPER RESPIRATORY INFECTION USUALLY ABOUT ONCE OR TWICE A YEAR . SHE HAS DONE MUCH BETTER SINCE SHE IS USING ADVAIR 250-50 1 INHALATION B.I.D. REGULARLY. SHE NEEDS TO USE ALBUTEROL EITHER THE INHALER OR BY NEBULIZER ONLY ONCE IN A WHILE. Code(s): J45.909 - Unspecified asthma, uncomplicated Category: Medical Qualifiers: Asthma severity: mild Asthma persistence: intermittent Asthma complication type: unspecified Qualified Code(s): J45.20 - Mild intermittent asthma, uncomplicated Plan: CONTINUE TO USE ADVAIR 250-50 1 INHALATION B.I.D. ALBUTEROL HFA 2 PUFFS Q 6 HOURS P.R.N. Coding Level of Care Code Est Pt Level 3 (99798) Diagnoses CORNELIUS (obstructive sleep apnea) G47.33 Mild intermittent asthma, unspecified whether complicated J45.20 Asthma severity: mild Asthma persistence: intermittent Asthma complication type: unspecified
[2025-08-06 11:01] VITALS: BP 119/60; PULSE 63; O2SAT 100; BMI 23.0
--- OUTSIDE RECORDS SUMMARY | 2025-08-06 13:59 | XMS_ITS | Clinical Summary ---
Author Organization [facility] Address [address] [place] [address] Phone Care Team Providers Care Rubber Engraver Name Role Phone Aleyda Paul MD Primary Care Provider [phone] Allergies No known active allergies Medications citalopram [...] MG tablet 12/29/2021 Active ergocalciferol 1.25 MG (29019 UT) capsule Take 1 capsule (50,000 Units [...] Exam 09/16/2021 Influenza Vaccine (#1) 2025 Insurance [facility] Care Teams Rubber Engraver Relationship Specialty Start Date End Date Aleyda Paul MD [address] [place], [place] PCP - General Internal Medicine 07/12/21
== END 2025-08-06 11:19 | disposition home or self-care (01) ==
LOC: HO.HPS 10:58
PROVIDERS: PCP Physician Assistant; Visit Provider Internal Medicine
DX: G47.33 Obstructive sleep apnea (adult) (pediatric) (principal); J45.20 Mild intermittent asthma, uncomplicated
CPT/HCPCS: 99213

== ENCOUNTER → 2025-08-06 10:58 | Outpatient (BNVA) | payer OTHER, SELFPAY | PROVIDERS: PCP Physician Assistant; Visit Provider Internal Medicine | DX: Z98.890 Other specified postprocedural states (principal); G47.33 Obstructive sleep apnea (adult) (pediatric); J45.20 Mild intermittent asthma, uncomplicated; Z87.2 Personal history of diseases of the skin and subcutaneous tissue; Z79.2 Long term (current) use of antibiotics; Z79.899 Other long term (current) drug therapy | CPT/HCPCS: 99212 ==

== ENCOUNTER 2025-08-06 14:43 | Outpatient (AMB) | payer OTHER, SELFPAY ==
--- NOTE | 2025-08-06 14:54 | MHC.OFFVISWM ---
VS Expanded 08/06/25 15:07 BP 118/60 Blood Pressure Location Rt brachial Blood Pressure Position Sitting Pulse 60 Pulse Source Pulse Oximeter Temp 96.8 F Temperature Source Temporal Artery Scan Pulse Oximetry 100 Oxygen Delivery Method Room Air Intake Visit Reasons: (OV) s/p Panniculectomy 07/07/25 Allergies No Known Allergies Allergy (Verified 08/06/25 15:07) Medication List - Last Reconciled 08/06/25 by ИРИНА Prince albuterol sulfate 2.5 mg (3 mL) inhalation Q4-6H PRN 90 days albuterol sulfate 90 mcg/actuation (Ventolin HFA) 1 puff PO QID PRN 90 days bisacodyl (Dulcolax (bisacodyl)) 10 mg (2 x 5 mg) PO BEDTIME blood sugar diagnostic (FreeStyle Lite Strips) Use daily As directed to check blood glucose blood-glucose meter (FreeStyle Lite Meter kit) Use daily As directed to check blood sugars blood-glucose sensor (FreeStyle Sera 3 Sensor device) Apply every 14 days As directed to monitor blood glucose cephalexin 500 mg PO Q12H cholecalciferol (vitamin D3) 125 mcg PO DAILY citalopram 40 mg PO DAILY 90 days diclofenac sodium 1% (Voltaren Arthritis Pain) 4 grams topical QID PRN docusate sodium (Colace) 100 mg PO DAILY duloxetine 60 mg PO DAILY ezetimibe (Zetia) 10 mg PO DAILY fluticasone propion-salmeterol 250-50 mcg/dose (Advair Diskus) 1 inh inhalation BID 90 days hydrochlorothiazide 25 mg PO DAILY hydroxyzine HCl 25 mg PO BID PRN ibuprofen 600 mg PO Q6H PRN insulin lispro (Humalog KwikPen (U-100) Insulin) 5 units breakfast, +2units for bg >200 subcut 3x per day. iron,carbonyl-vitamin C 65 mg iron- 125 mg (Vitron-C) 1 tab PO DAILY lancets (FreeStyle Lancets) use daily as directed to check blood glucose levothyroxine 112 mcg PO DAILY lisinopril 10 mg PO DAILY 90 days mirtazapine 30 mg PO BEDTIME miscellaneous medical supply 1 ea miscellaneous DAILY ondansetron 4 mg PO Q12H pen needle, diabetic (BD Ultra-Fine Ramya Pen Needle) As directed four times a day perphenazine 4 mg PO BID rosuvastatin 40 mg PO DAILY semaglutide (Ozempic) 0.5 mg (0.736 mL) subcut QWEEK sumatriptan succinate take 1 tab at onset of headache; if no relief may repeat 1 tab after at least 2 hrs; max = 4 tabs/24 hr PO 30 days tizanidine 2 mg PO BEDTIME PRN trazodone 200 mg PO BEDTIME PRN HPI Comments Details: Pt is 4w s/p panniculectomy 07/07/2025. Feeling well. No fevers at home. Tolerating meal plan per Dr. Rios. She has not walked as much this week. Drain output 21-25cc/day this week. [facility] Medical History Weight loss DVT (deep venous thrombosis) Type 2 diabetes mellitus with complication, with long-term current use of insulin Somnolence Sleep apnea Cervical high risk HPV (human papillomavirus) test positive Essential hypertension COVID-19 CKD (chronic kidney disease) HTN (hypertension) Diastolic dysfunction Rheumatic mitral stenosis Glaucoma Insomnia Rheumatic heart disease Depression Anxiety Hemorrhoids Hypothyroidism Hyperlipidemia LDL goal <100 Surgical History History of abdominoplasty History of hysteroscopy Hx of colonoscopy Hx of tubal ligation H/O hemorrhoidectomy History of section Family History Father Diabetes Mother Diabetes Stroke Maternal Aunt Stroke Hypertension Social History Household Members: Children Housing: Apartment Are you a primary floor care specialist to a significant other at home: No Do you presently have visiting nurse or other home services: No Alcohol intake: current Alcohol intake frequency: does not drink Alcohol type: wine Patient Tobacco Use Status: Never used Tobacco e-Cigarette/Vaping Use: Never Used Second Hand Smoke Exposure: No service: No Current occupational status: unemployed Cognitive needs: No Hearing needs: No Vision needs: Yes Female Reproductive History Menstrual Age of Menarche: 9 Physical Exam Vital Signs: Last Vital Signs Temp 96.8 F 08/06/25 15:07 Pulse 60 08/06/25 15:07 BP 118/60 08/06/25 15:07 Pulse Ox 100 08/06/25 15:07 Oxygen Delivery Method Room Air 08/06/25 15:07 Const General: cooperative, comfortable and no acute distress Orientation/consciousness: patient oriented x3 GI Other: soft, nontender, nondistended incisions c/d/i, drain output SS Neuro General: patient oriented x3 Assessment & Plan Assessment & Plan (1) S/P panniculectomy: Code(s): Z98.890 - Other specified postprocedural states Category: Surgical Plan Continue high protein diet. ABX keflex 500 BID x 2 weeks, extended as needed?(at least until drain comes out plus 1 week).? Drain out after consistently 20 mL or less daily- will keep this week, output still > 20cc/day.? Abdominal binder at all times except for care x 1 month?MINIMUM. If there are concerns longer.? No driving?until drain out.? No walking outside or exercise for 6 weeks minimum. Pt reports less activity this week. Assistance getting up for 4 weeks minimum.?No lifting greater than?10 pounds x 2 months and no abdominal exercises x 3 months. RTC 1 week.
[2025-08-06 15:07] VITALS: BP 118/60; PULSE 60; TEMP 36; O2SAT 100
== END 2025-08-06 15:59 | disposition home or self-care (01) ==
PROVIDERS: PCP Physician Assistant; Visit Provider Physician Assistant Surgical
DX: Z71.3 Dietary counseling and surveillance (principal); Z98.890 Other specified postprocedural states
CPT/HCPCS: 99024

== ENCOUNTER 2025-08-11 08:31 | Outpatient (AMB) | payer OTHER, SELFPAY ==
[2025-08-11 08:38] VITALS: BP 124/72; PULSE 63; O2SAT 96; BMI 22.8
--- NOTE | 2025-08-11 08:38 | A.OFFVIS_ITS ---
Vital Signs 08/11/25 08:38 Height 5 ft 7.5 in Weight 147 lb 11.355 oz BMI 22.8 BP 124/72 Blood Pressure Location Rt brachial Position Sitting Pulse 63 Pulse Source Pulse Oximeter Pulse Oximetry (%) 96 Oxygen Delivery Method Room Air Intake Visit Reasons: DM Intake Note: Patient presents today for a follow-up on Type 2 Diabetes Mellitus: Last Diabetic eye exam was on: DUE, patient needs to call to make an appt Last Podiatry exam was on: Patient does not see a Sole Stainer Most recent HbA1c: 5.7%, 08/11/2025 Random Glucose- 109 mg/dL, Today Computer Numerical Control Machinist Required: Yes Computer Numerical Control Machinist Language: Irish Accompanied by: Self / Same As Patient Allergies No Known Allergies Allergy (Verified 08/11/25 08:45) HPI HPI DM: Details: 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 Her A1c today is 5.7 She has been using humalog prn 1-3x a week.. She has been off of ozempic for 1 month due to recent panniculectomy. She can not restart it until after her procedures are completed. She was tolerating the Ozempic without difficulty. cgm: Usage 96%, average glucose 116, G mi 6.1%. Very hyperglycemic 0%, hypoglycemic 0%, in range 100%, hypoglycemic 0%, very hypoglycemic 0% -She was previously well-controlled on Mounjaro but had to discontinue this due to insurance issues. Did not tolerate Trulicity in the past. She is currently on Ozempic and tolerating CV: Blood pressure today in the office is 124/72. She is currently on lisinopril 10 mg, hydrochlorothiazide 25 mg daily. Her last cholesterol was WNL. She is on Crestor 40 mg and zetia. No myalgias. [facility] Medical History (Updated 08/11/25 @ 08:59 by Gita Nguyen PA-C) Obesity (BMI 30-39.9) Weight loss DVT (deep venous thrombosis) Type 2 diabetes mellitus with complication, with long-term current use of insulin Somnolence Sleep apnea Cervical high risk HPV (human papillomavirus) test positive Essential hypertension COVID-19 CKD (chronic kidney disease) HTN (hypertension) Diastolic dysfunction Rheumatic mitral stenosis Glaucoma Insomnia Rheumatic heart disease Depression Anxiety Hemorrhoids Hypothyroidism Hyperlipidemia LDL goal <100 Surgical History History of abdominoplasty History of hysteroscopy Hx of colonoscopy Hx of tubal ligation H/O hemorrhoidectomy History of section Family History Father Diabetes Mother Diabetes Stroke Maternal Aunt Stroke Hypertension Social History Household Members: Children Housing: Apartment Are you a primary point of care specialist to a significant other at home: No Do you presently have visiting nurse or other home services: No Alcohol intake: current Alcohol intake frequency: does not drink Alcohol type: wine Patient Tobacco Use Status: Never used Tobacco e-Cigarette/Vaping Use: Never Used Second Hand Smoke Exposure: No service: No Current occupational status: unemployed Cognitive needs: No Hearing needs: No Vision needs: Yes Female Reproductive History Menstrual Age of Menarche: 9 Physical Exam Vital Signs: Last Vital Signs Pulse 63 08/11/25 08:38 BP 124/72 08/11/25 08:38 Pulse Ox 96 08/11/25 08:38 Oxygen Delivery Method Room Air 08/11/25 08:38 BMI result Body Mass Index 22.8 Results AMB Hemoglobin A1c AMB Hemoglobin A1c 5.7 % Last Edit by CLARISSA Coffman on 08/11/25 09:03 Results Reviewed Results Reviewed: Laboratory Last Values Glucose (Clinic) 109 mg/dL (60-115) 08/11/25 08:44 Hgb A1c (Clinic) 5.7 % (4.0-6.0) 08/11/25 08:59 Laboratory Tests 05/09/25 07/04/25 07/07/25 09:31 06:54 06:24 Estimated GFR > 60 POC Glucose 90 Random Glucose 94 Hgb A1c (Clinic) 7.0 H Triglycerides 63 Cholesterol 161 LDL Cholesterol, Calc 83 HDL Cholesterol 66 Assessment & Plan Assessment & Plan (1) Type 2 diabetes mellitus with complication, with long-term current use of insulin: Comment: follows /[facility] Endocrinology-has CGM-only uses lispro insulin prn Code(s): E11.8 - Type 2 diabetes mellitus with unspecified complications; Z79.4 - assistant terminal manager (current) use of insulin Category: Medical Plan: Very well-controlled. Continue current regimen We will restart Ozempic if needed at the lower dose for appetite suppression/glycemic control so she would not need to use the insulin as much. (2) Essential hypertension: Code(s): I10 - Essential (primary) hypertension Category: Medical Plan: WNL. Continue current regimen Orders: Orders AMB Hemoglobin A1c Today E11.8 - Type 2 diabetes mellitus with unspecified complications, Z79.4 - assistant terminal manager (current) use of insulin Medications: New semaglutide (Ozempic) 0.25 mg (0.368 mL) subcut QWEEK 3 mL 3RF Refilled insulin lispro (Humalog KwikPen (U-100) Insulin) 5 units breakfast, +2units for bg >200 subcut 3x per day. 15 mL 2RF E11.65 - Type 2 diabetes mellitus with hyperglycemia Discontinued semaglutide (Ozempic) takes on Saturdays Discontinued Reason: Doctor's Order 0.5 mg (0.736 mL) subcut QWEEK 3 mL 4RF Coding Level of Care Code Est Pt Level 4 (98551) Complex EM visit Add On G2211 Diagnoses Type 2 diabetes mellitus with complication, with long-term current use of insulin E11.8; Z79.4 Essential hypertension I10
[2025-08-11 08:49] LABS: Glucose, Whole Blood 109 mg/dL (60-115)
--- OUTSIDE RECORDS SUMMARY | 2025-08-11 09:36 | XMS_ITS | Clinical Summary ---
Author Organization [facility] Address [address] [place] [address] Phone Care Team Providers Care System Architect Name Role Phone Aleyda Paul MD Primary Care Provider [phone] Allergies No known active allergies Medications citalopram [...] MG tablet 12/29/2021 Active ergocalciferol 1.25 MG (72361 UT) capsule Take 1 capsule (50,000 Units [...] Exam 09/16/2021 Influenza Vaccine (#1) 2025 Insurance [facility] Medicaid [facility] Medicaid Care Teams System Architect Relationship Specialty Start Date End Date Aleyda Paul MD [address] [place], [place] PCP - General Internal Medicine 07/12/21
== END 2025-08-11 08:57 | disposition home or self-care (01) ==
LOC: HO.ENCR 08:31
PROVIDERS: PCP Nurse Practitioner Family; Visit Provider Physician Assistant
DX: E11.8 Type 2 diabetes mellitus with unspecified complications (principal); Z79.4 Long term (current) use of insulin; I10 Essential (primary) hypertension

== ENCOUNTER → 2025-08-11 08:31 | Outpatient (BNVA) | payer OTHER, SELFPAY | PROVIDERS: PCP Nurse Practitioner Family; Visit Provider Physician Assistant | DX: E11.22 Type 2 diabetes mellitus with diabetic chronic kidney disease (principal); I12.9 Hypertensive chronic kidney disease with stage 1 through stage 4 chronic kidney disease, or unspecified chronic kidney disease; N18.9 Chronic kidney disease, unspecified; Z79.4 Long term (current) use of insulin | CPT/HCPCS: 82947; 83036; 99212 ==

== ENCOUNTER 2025-08-13 14:29 | Outpatient (AMB) | payer OTHER, SELFPAY ==
[2025-08-13 15:52] VITALS: BP 111/55; PULSE 60; TEMP 36.1; O2SAT 100
--- NOTE | 2025-08-13 15:52 | MHC.OFFVISWM ---
VS Expanded 08/13/25 15:52 BP 111/55 L Blood Pressure Location Rt brachial Blood Pressure Position Sitting Pulse 60 Pulse Source Pulse Oximeter Temp 96.9 F Temperature Source Temporal Artery Scan Pulse Oximetry 100 Oxygen Delivery Method Room Air Intake Visit Reasons: (OV) s/p Panniculectomy 07/07/25 Road Equipment Operator Name: [id number] Kt Grant Allergies No Known Allergies Allergy (Verified 08/13/25 15:53) HPI Comments Details: Pt is 5 weeks s/p panniculectomy 07/07/2025. Drain output 15cc/day. Tolerating meal plan. No fevers at home, taking abx. Wearing abdominal binder. [facility] Medical History (Updated 08/13/25 @ 16:10 by ИРИНА Prince) Obesity (BMI 30-39.9) Weight loss DVT (deep venous thrombosis) Type 2 diabetes mellitus with complication, with long-term current use of insulin Somnolence Sleep apnea Cervical high risk HPV (human papillomavirus) test positive Essential hypertension COVID-19 CKD (chronic kidney disease) HTN (hypertension) Diastolic dysfunction Rheumatic mitral stenosis Glaucoma Insomnia Rheumatic heart disease Depression Anxiety Hemorrhoids Hypothyroidism Hyperlipidemia LDL goal <100 Surgical History History of abdominoplasty History of hysteroscopy Hx of colonoscopy Hx of tubal ligation H/O hemorrhoidectomy History of section Family History Father Diabetes Mother Diabetes Stroke Maternal Aunt Stroke Hypertension Social History Household Members: Children Housing: Apartment Are you a primary hemodialysis patient care specialist to a significant other at home: No Do you presently have visiting nurse or other home services: No Alcohol intake: current Alcohol intake frequency: does not drink Alcohol type: wine Patient Tobacco Use Status: Never used Tobacco e-Cigarette/Vaping Use: Never Used Second Hand Smoke Exposure: No service: No Current occupational status: unemployed Cognitive needs: No Hearing needs: No Vision needs: Yes Female Reproductive History Menstrual Age of Menarche: 9 Physical Exam Vital Signs: Last Vital Signs Temp 96.9 F 08/13/25 15:52 Pulse 60 08/13/25 15:52 BP 111/55 L 08/13/25 15:52 Pulse Ox 100 08/13/25 15:52 Oxygen Delivery Method Room Air 08/13/25 15:52 Const General: cooperative, comfortable and no acute distress Orientation/consciousness: patient oriented x3 GI Other: soft, nontender, nondistended, incision and umbilicus healing well, drain output SS Neuro General: patient oriented x3 Assessment & Plan Assessment & Plan (1) S/P panniculectomy: Code(s): Z98.890 - Other specified postprocedural states Category: Medical (2) Overweight: Code(s): E66.3 - Overweight Category: Medical Plan Continue high protein diet. Drain removed today. ABX keflex 500 BID for one more week. Abdominal binder at all times except for care for one more week. No walking outside or exercise for 6 weeks minimum.?No lifting greater than?10 pounds and no abdominal exercises x 3 months. RTC 1 week.
--- OUTSIDE RECORDS SUMMARY | 2025-08-13 18:14 | XMS_ITS | Clinical Summary ---
Author Organization [facility] Address [address] [place] [address] Phone Care Team Providers Care Product Management Internship Name Role Phone Aleyda Paul MD Primary Care Provider [phone] Allergies No known active allergies Medications citalopram [...] MG tablet 12/29/2021 Active ergocalciferol 1.25 MG (18633 UT) capsule Take 1 capsule (50,000 Units [...] Exam 09/16/2021 Influenza Vaccine (#1) 2025 Insurance [facility] Medicaid [facility] Medicaid Care Teams Product Management Internship Relationship Specialty Start Date End Date Aleyda Paul MD [address] [place], [place] PCP - General Internal Medicine 07/12/21
== END 2025-08-13 16:13 | disposition home or self-care (01) ==
LOC: HO.HBS 14:30
PROVIDERS: PCP Physician Assistant; Visit Provider Physician Assistant Surgical
DX: E66.3 Overweight (principal); Z98.890 Other specified postprocedural states
CPT/HCPCS: 99024

== ENCOUNTER → 2025-08-13 14:29 | Outpatient (BNVA) | payer OTHER, SELFPAY | PROVIDERS: PCP Physician Assistant; Visit Provider Physician Assistant Surgical | DX: Z48.817 Encounter for surgical aftercare following surgery on the skin and subcutaneous tissue (principal); E66.3 Overweight; Z79.2 Long term (current) use of antibiotics | CPT/HCPCS: 99212 ==

== ENCOUNTER 2025-08-20 14:43 | Outpatient (AMB) | payer OTHER, SELFPAY ==
--- NOTE | 2025-08-20 15:27 | A.OFFVIS_ITS ---
VS Expanded 08/20/25 15:33 BP 122/59 L Blood Pressure Location Rt brachial Blood Pressure Position Sitting Pulse 69 Pulse Source Pulse Oximeter Temp 97.3 F Temperature Source Temporal Artery Scan Pulse Oximetry 98 Oxygen Delivery Method Room Air Height 5 ft 7.5 in Weight 149 lb 3.2 oz BMI 23.0 Body Fat % 27.4 Body Fat Mass 40.8 Fat Free Mass 108.2 Visceral Fat Rating 5.0 Body Water % 51.5 Body Water Mass 76.8 Muscle Mass/Score 102.8 Basal Metabolic Rate/Score 1,436 Intake Visit Reasons: (OV) s/p Panniculectomy 07/07/25 Erp Engineer Required: Yes Erp Engineer Name: Mckenna De Leon, [id number] Allergies No Known Allergies Allergy (Verified 08/20/25 15:29) Medication List - Last Reconciled 08/20/25 by ИРИНА Prince albuterol sulfate 2.5 mg (3 mL) inhalation Q4-6H PRN 90 days albuterol sulfate 90 mcg/actuation (Ventolin HFA) 1 puff PO QID PRN 90 days bisacodyl (Dulcolax (bisacodyl)) 10 mg (2 x 5 mg) PO BEDTIME blood sugar diagnostic (FreeStyle Lite Strips) Use daily As directed to check blood glucose blood-glucose meter (FreeStyle Lite Meter kit) Use daily As directed to check blood sugars blood-glucose sensor (FreeStyle Sera 3 Sensor device) Apply every 14 days As directed to monitor blood glucose cephalexin 500 mg PO Q12H cholecalciferol (vitamin D3) 125 mcg PO DAILY citalopram 40 mg PO DAILY 90 days diclofenac sodium 1% (Voltaren Arthritis Pain) 4 grams topical QID PRN docusate sodium (Colace) 100 mg PO DAILY duloxetine 60 mg PO DAILY ezetimibe (Zetia) 10 mg PO DAILY fluticasone propion-salmeterol 250-50 mcg/dose (Advair Diskus) 1 inh inhalation BID 90 days hydrochlorothiazide 25 mg PO DAILY hydroxyzine HCl 25 mg PO BID PRN ibuprofen 600 mg PO Q6H PRN insulin lispro (Humalog KwikPen (U-100) Insulin) 5 units breakfast. iron,carbonyl-vitamin C 65 mg iron- 125 mg (Vitron-C) 1 tab PO DAILY lancets (FreeStyle Lancets) use daily as directed to check blood glucose levothyroxine 112 mcg PO DAILY lisinopril 10 mg PO DAILY 90 days mirtazapine 30 mg PO BEDTIME miscellaneous medical supply 1 ea miscellaneous DAILY ondansetron 4 mg PO Q12H pen needle, diabetic (BD Ultra-Fine Ramya Pen Needle) As directed four times a day perphenazine 4 mg PO BID rosuvastatin 40 mg PO DAILY semaglutide (Ozempic) 0.25 mg (0.368 mL) subcut QWEEK sumatriptan succinate take 1 tab at onset of headache; if no relief may repeat 1 tab after at least 2 hrs; max = 4 tabs/24 hr PO 30 days tizanidine 2 mg PO BEDTIME PRN trazodone 200 mg PO BEDTIME PRN HPI Comments Details: Pt is 6w s/p panniculectomy. Drain was removed last week. Pt denies fevers at home. Has continued antibiotics this week. Continues to wear abdominal binder. She does report some fullness above the center of incision. FORMERLY [facility], [facility] Medical History (Updated 08/13/25 @ 16:10 by ИРИНА Prince) Obesity (BMI 30-39.9) Weight loss DVT (deep venous thrombosis) Type 2 diabetes mellitus with complication, with long-term current use of insulin Somnolence Sleep apnea Cervical high risk HPV (human papillomavirus) test positive Essential hypertension COVID-19 CKD (chronic kidney disease) HTN (hypertension) Diastolic dysfunction Rheumatic mitral stenosis Glaucoma Insomnia Rheumatic heart disease Depression Anxiety Hemorrhoids Hypothyroidism Hyperlipidemia LDL goal <100 Surgical History History of abdominoplasty History of hysteroscopy Hx of colonoscopy Hx of tubal ligation H/O hemorrhoidectomy History of section Family History Father Diabetes Mother Diabetes Stroke Maternal Aunt Stroke Hypertension Social History Household Members: Children Housing: Apartment Are you a primary child caregiver private home to a significant other at home: No Do you presently have visiting nurse or other home services: No Alcohol intake: current Alcohol intake frequency: does not drink Alcohol type: wine Patient Tobacco Use Status: Never used Tobacco e-Cigarette/Vaping Use: Never Used Second Hand Smoke Exposure: No service: No Current occupational status: unemployed Cognitive needs: No Hearing needs: No Vision needs: Yes Female Reproductive History Menstrual Age of Menarche: 9 Physical Exam Vital Signs: Last Vital Signs Temp 97.3 F 08/20/25 15:33 Pulse 69 08/20/25 15:33 BP 122/59 L 08/20/25 15:33 Pulse Ox 98 08/20/25 15:33 Oxygen Delivery Method Room Air 08/20/25 15:33 BMI result Body Mass Index 23.0 Const General: cooperative, comfortable and no acute distress Orientation/consciousness: patient oriented x3 GI Other: soft, nontender, nondistended, all incisions healing well including drain site, vertical fold at umbilicus extending to lower incision Neuro General: patient oriented x3 Assessment & Plan Assessment & Plan (1) S/P panniculectomy: Code(s): Z98.890 - Other specified postprocedural states Category: Medical Plan Drain was removed last week. can complete abx today. Continue meal plan until 3mo postop. Continue binder until 3mo postop. Pt may resume gentle cardio exercise but no lifting/core work until 3mo postop. Discussed that healing process was still ongoing and she may have some numbness and fullness for another few months but should continue to improve with time. RTC 6weeks for 3mo visit.
[2025-08-20 15:33] VITALS: BP 122/59; PULSE 69; TEMP 36.3; O2SAT 98; BMI 23.0
--- OUTSIDE RECORDS SUMMARY | 2025-08-20 17:18 | XMS_ITS | Clinical Summary ---
Author Organization [facility] Address [address] [place] [address] Phone Care Team Providers Care Process Development Associate Name Role Phone Aleyda Paul MD Primary Care Provider [phone] Allergies No known active allergies Medications citalopram [...] MG tablet 12/29/2021 Active ergocalciferol 1.25 MG (09459 UT) capsule Take 1 capsule (50,000 Units [...] Exam 09/16/2021 Influenza Vaccine (#1) 2025 Insurance [facility] Medicaid [facility] Medicaid Care Teams Process Development Associate Relationship Specialty Start Date End Date Aleyda Paul MD [address] [place], [place] PCP - General Internal Medicine 07/12/21
== END 2025-08-20 16:05 | disposition home or self-care (01) ==
LOC: HO.HBS 14:44
PROVIDERS: PCP Physician Assistant; Visit Provider Physician Assistant Surgical
DX: Z71.3 Dietary counseling and surveillance (principal); Z98.890 Other specified postprocedural states
CPT/HCPCS: 99024

== ENCOUNTER → 2025-08-20 14:43 | Outpatient (BNVA) | payer OTHER, SELFPAY | PROVIDERS: PCP Physician Assistant; Visit Provider Physician Assistant Surgical | DX: Z48.817 Encounter for surgical aftercare following surgery on the skin and subcutaneous tissue (principal); Z98.890 Other specified postprocedural states | CPT/HCPCS: 99212 ==

== ENCOUNTER → 2025-08-28 11:00 | Outpatient (REF) | payer OTHER, SELFPAY ==
--- NOTE | 2025-08-28 11:02 | CA_ITS ---
Transthoracic Echocardiogram Patient (Last, First, Middle): Sirena Griffin, Gender: Female Date of : 1970 Age: 55 Procedure Date: 08/28/2025 Procedure Type: Transthoracic Echocardiogram Location: OP Height: 170.18 cm Weight: 67.59 kg BSA: 1.78 m2 Heart Rate: bpm BP: 122 / 59 mmHg Cargo Vessel Stewardess: TONIO Referring MD: Bismark Benitez PA-C Symptoms: I05.0 - Rheumatic mitral stenosis Study Quality: Adequate ECG Rhythm: Sinus Conclusions: - The left atrium is severely dilated. - The left ventricular systolic function is normal. The calculated ejection fraction is 64% by biplane method. - The mitral valve appears rheumatic. There is mild to moderate mitral valve regurgitation. There is mild mitral valve stenosis. - There is mild aortic valve regurgitation. - There is moderate tricuspid valve regurgitation. - Mild pulmonary hypertension is present. Findings Left Ventricle Normal left ventricular cavity size. There is mildly increased left ventricular wall thickness. The left ventricular systolic function is normal. The calculated ejection fraction is 64% by biplane method. There is no evidence of regional wall motion abnormalities. Diastolic function is indeterminate on the basis of available data. Right Ventricle Normal right ventricular cavity size and systolic function. Atria The left atrium is severely dilated. The right atrium is normal in size. Aortic Valve There is a normal trileaflet aortic valve. There is mild aortic valve regurgitation. No significant aortic stenosis. Mitral Valve The mitral valve appears rheumatic. There is mild anterior and posterior mitral leaflet thickening. There is mild to moderate mitral valve regurgitation. There is mild mitral valve stenosis. Pulmonic Valve The pulmonic valve is likely normal. Tricuspid Valve There is moderate tricuspid valve regurgitation. Mild pulmonary hypertension is present. Great Vessels The asc aorta is normal in size. Venous The inferior vena cava is normal in size and collapses greater than 50% with inspiration. Pericardium/Pleural There is a trivial pericardial effusion. Prior Study Comparison No significant change compared to prior study dated: 01/26/2023. Measurements 2D Linear Measurements IVSd: 1.01 0.6-0.9/0.6-1.0 cm LVIDd: 4.49 3.9-5.3/4.2-5.9 cm LVIDd Index: 2.52 2.4-3.2/2.2-3.1 cm/m2 LVIDs: 2.75 2.0-3.6 cm LVPWd: 1.06 0.7-1.1 cm LA Diam: 4.40 2.7-3.8/3.0-4.0 cm LAIDs Index: 2.47 1.5-2.3 cm/m2 LV Mass: 199.45 67-162/88-224 g LV Mass Index: 112.05 43-95/49-115 g/m2 LVOT Diam: 2.00 3.0+(-)1.3 cm 2D Systolic Function EF 4C: 60.10 >55% EF 2C: 67.90 >55% EF BiP: 64.30 >55% Mitral Valve MV VTI: 0.66 MV Pk Wander: 1.95 MV Mn Wander: 1.14 MV Pk Grad: 15.00 MV Mn Grad: 6.00 MV Pk E: 1.39 MV PK A: 1.60 MV Decel Time: 420.00 E/A: 0.90 E'Lateral: 5.22 E'Medial: 5.55 E/E' Med: 25.00 E/E' Lat: 26.60 PHT: 123.00 MVA PHT: 1.79 MVA Continuity: 1.38 Decel Ste[place]: 3.30 Aortic Valve AoV Pk Wander: 2.22 AoV Mn Wander: 1.55 AoV VTI: 0.56 AoV Pk Grad: 20.00 Aov Mn Grad: 11.00 MUNIRA Cont.VTI: 1.62 AI Pk Wander: 4.85 AI [place]: 2.24 LVOT LVOT Pk Wander: 1.23 LVOT Mn Wander: 0.82 LVOT VTI: 0.29 LVOT Pk Grad: 6.00 LVOT Mn Grad: 3.00 LVOT Diam: 2.00 LVOT Area: 3.14 Diastolic Function MV Pk E: 1.39 MV Pk A: 1.60 E/A: 0.90 E'Medial: 5.55 E/E' Med: 25.00 E' Laterial: 5.22 E/E' Lat: 26.60 Right Ventricle TAPSE (mm): 24.50 TVS' Wander: 15.20 Tricuspid Valve TR Pk Wander: 3.19 TR Pk Grad: 41.00 RA Press: 3.00 RVSP: 44.00 Great Vessels Aorta Sinus of Valsalva: 2.92 2.0-3.[address] Ridge: 2.66 1.7-3.4 cm Ao Asc: 3.20 2.1-3.4 cm Pulmonary Veins Pulm Vein S/D 2.30 Updated in Other Vendor System with Status of Final Deacon Sharp MD electronically signed on 08/30/2025 12:36:52 PM with status of Final
== END ==
LOC: HO.CARD 11:00
PROVIDERS: PCP Physician Assistant; Visit Provider Physician Assistant
DX: I05.0 Rheumatic mitral stenosis (principal)
CPT/HCPCS: 93306

== ENCOUNTER → 2025-08-28 11:02 | Outpatient (BNV) | payer OTHER, SELFPAY | PROVIDERS: PCP Physician Assistant; Visit Provider Internal Medicine | DX: I34.0 Nonrheumatic mitral (valve) insufficiency (principal); I51.7 Cardiomegaly; I36.1 Nonrheumatic tricuspid (valve) insufficiency | CPT/HCPCS: 93306 ==

== ENCOUNTER → 2025-09-04 13:52 | Outpatient (REF) | payer OTHER, SELFPAY | LOC: HO.SL 13:52 | PROVIDERS: PCP Physician Assistant; Visit Provider Internal Medicine | DX: G47.33 Obstructive sleep apnea (adult) (pediatric) (principal) | CPT/HCPCS: 95806 ==

== ENCOUNTER → 2025-09-04 14:09 | Outpatient (BNV) | payer OTHER, SELFPAY | PROVIDERS: PCP Physician Assistant; Visit Provider Internal Medicine | DX: G47.10 Hypersomnia, unspecified (principal) | CPT/HCPCS: 95806 ==

== ENCOUNTER 2025-10-01 08:56 | Outpatient (AMB) | payer OTHER, SELFPAY ==
--- NOTE | 2025-10-01 09:15 | MHC.OFFVISWM ---
VS Expanded 10/01/25 09:34 BP 130/71 Blood Pressure Location Rt brachial Blood Pressure Position Sitting Pulse 65 Pulse Source Pulse Oximeter Temp 96.6 F L Temperature Source Temporal Artery Scan Pulse Oximetry 99 Oxygen Delivery Method Room Air Height 5 ft 7.5 in Weight 148 lb 9.6 oz BMI 22.9 Body Fat % 31.5 Body Fat Mass 46.8 Fat Free Mass 101.8 Visceral Fat Rating 6.0 Body Water % 48.7 Body Water Mass 72.4 Muscle Mass/Score 96.8 Basal Metabolic Rate/Score 1,370 Intake Visit Reasons: (OV) s/p Panniculectomy 07/07/25 Planning Consultant Required: Yes Planning Consultant Name: Mckenna Vo, [id number] Information Interpreted: clinical only Allergies No Known Allergies Allergy (Verified 10/01/25 09:25) Medication List - Last Reconciled 10/01/25 by ИРИНА Prince albuterol sulfate 2.5 mg (3 mL) inhalation Q4-6H PRN 90 days albuterol sulfate 90 mcg/actuation (Ventolin HFA) 1 puff PO QID PRN 90 days bisacodyl (Dulcolax (bisacodyl)) 10 mg (2 x 5 mg) PO BEDTIME blood sugar diagnostic (FreeStyle Lite Strips) Use daily As directed to check blood glucose blood-glucose meter (FreeStyle Lite Meter kit) Use daily As directed to check blood sugars blood-glucose sensor (FreeStyle Sera 3 Sensor device) Apply every 14 days As directed to monitor blood glucose cholecalciferol (vitamin D3) 125 mcg PO DAILY citalopram 40 mg PO DAILY 90 days diclofenac sodium 1% (Voltaren Arthritis Pain) 4 grams topical QID PRN docusate sodium 100 mg PO DAILY duloxetine 60 mg PO DAILY ezetimibe (Zetia) 10 mg PO DAILY fluticasone propion-salmeterol 250-50 mcg/dose (Advair Diskus) 1 inh inhalation BID 90 days hydrochlorothiazide 25 mg PO DAILY hydroxyzine HCl 25 mg PO BID PRN ibuprofen 600 mg PO Q6H PRN insulin lispro (Humalog KwikPen (U-100) Insulin) 5 units breakfast. iron,carbonyl-vitamin C 65 mg iron- 125 mg (Vitron-C) 1 tab PO DAILY lancets (FreeStyle Lancets) use daily as directed to check blood glucose levothyroxine 112 mcg PO DAILY lisinopril 10 mg PO DAILY 90 days mirtazapine 30 mg PO BEDTIME miscellaneous medical supply 1 ea miscellaneous DAILY ondansetron 4 mg PO Q12H pen needle, diabetic (BD Ultra-Fine Ramya Pen Needle) As directed four times a day perphenazine 4 mg PO BID rosuvastatin 40 mg PO DAILY semaglutide (Ozempic) 0.25 mg (0.368 mL) subcut QWEEK sumatriptan succinate take 1 tab at onset of headache; if no relief may repeat 1 tab after at least 2 hrs; max = 4 tabs/24 hr PO 30 days tizanidine 2 mg PO BEDTIME PRN trazodone 200 mg PO BEDTIME PRN HPI Comments Details: Pt is 3mo s/p panniculectomy 07/07/2025. Pt denies fevers at home. Off abx. Continues to wear abdominal binder. She does report some fullness/ hard ball above the center of incision. She is concerned there is a hernia there. Mildly painful, no open areas or redness. [facility]LY [facility] Medical History (Updated 09/08/25 @ 12:33 by Bismark Benitez PA-C) Obesity (BMI 30-39.9) Weight loss DVT (deep venous thrombosis) Type 2 diabetes mellitus with complication, with long-term current use of insulin Somnolence Sleep apnea Cervical high risk HPV (human papillomavirus) test positive Essential hypertension COVID-19 CKD (chronic kidney disease) HTN (hypertension) Diastolic dysfunction Rheumatic mitral stenosis Glaucoma Insomnia Rheumatic heart disease Depression Anxiety Hemorrhoids Hypothyroidism Hyperlipidemia LDL goal <100 Surgical History History of abdominoplasty History of hysteroscopy Hx of colonoscopy Hx of tubal ligation H/O hemorrhoidectomy History of section Family History Father Diabetes Mother Diabetes Stroke Maternal Aunt Stroke Hypertension Social History Household Members: Children Housing: Apartment Are you a primary pet caregiver to a significant other at home: No Do you presently have visiting nurse or other home services: No Alcohol intake: current Alcohol intake frequency: does not drink Alcohol type: wine Patient Tobacco Use Status: Never used Tobacco e-Cigarette/Vaping Use: Never Used Second Hand Smoke Exposure: No service: No Current occupational status: unemployed Cognitive needs: No Hearing needs: No Vision needs: Yes Female Reproductive History Menstrual Age of Menarche: 9 Physical Exam Vital Signs: Last Vital Signs Temp 96.6 F L 10/01/25 09:34 Pulse 65 10/01/25 09:34 BP 130/71 10/01/25 09:34 Pulse Ox 99 10/01/25 09:34 Oxygen Delivery Method Room Air 10/01/25 09:34 BMI result Body Mass Index 22.9 Const General: cooperative, comfortable and no acute distress Orientation/consciousness: patient oriented x3 GI Other: soft, nontender, nondistended, incisions well healed, to right of umbilicus there is a palpable, mobile firm area perhaps 1.5cm in diameter, no overlying erythema Neuro General: patient oriented x3 Assessment & Plan Assessment & Plan (1) S/P panniculectomy: Code(s): Z98.890 - Other specified postprocedural states Category: Medical Plan Cleared for all exercise and activity starting next week once she is 3 months postop. Will obtain ultrasound to rule out seroma; I think it is likely scar tissue. We discussed that her healing is still ongoing and may take 6-12 months before final result. Can trial scar massage on affected area. RTC 3mo for in person visit.
--- OUTSIDE RECORDS SUMMARY | 2025-10-01 09:28 | XMS_ITS | Clinical Summary ---
Author Organization [facility] Address [address] [place] [address] Phone Care Team Providers Care Tank Officer Name Role Phone Aleyda Paul MD Primary Care Provider [phone] Allergies No known active allergies Medications citalopram [...] MG tablet 12/29/2021 Active ergocalciferol 1.25 MG (10646 UT) capsule Take 1 capsule (50,000 Units [...] Exam 09/16/2021 Influenza Vaccine (#1) 2025 Insurance [facility] Medicaid [facility] Medicaid Care Teams Tank Officer Relationship Specialty Start Date End Date Aleyda Paul MD [address] [place], [place] PCP - General Internal Medicine 07/12/21
[2025-10-01 09:34] VITALS: BP 130/71; PULSE 65; TEMP 35.9; O2SAT 99; BMI 22.9
== END 2025-10-01 10:04 | disposition home or self-care (01) ==
PROVIDERS: PCP Physician Assistant; Visit Provider Physician Assistant Surgical
DX: Z71.3 Dietary counseling and surveillance (principal); Z98.890 Other specified postprocedural states
CPT/HCPCS: 99024

== ENCOUNTER → 2025-10-01 08:56 | Outpatient (BNVA) | payer OTHER, SELFPAY | PROVIDERS: PCP Physician Assistant; Visit Provider Physician Assistant Surgical | DX: Z48.817 Encounter for surgical aftercare following surgery on the skin and subcutaneous tissue (principal) | CPT/HCPCS: 99212 ==

== ENCOUNTER 2025-10-06 13:49 | Outpatient (AMB) | payer OTHER, SELFPAY ==
--- NOTE | 2025-10-06 14:05 | A.OFFVIS_ITS ---
Vital Signs 10/06/25 14:06 Height 5 ft 7 in Weight 153 lb 14.122 oz BMI 24.1 BP 116/64 Blood Pressure Location Lt brachial Position Sitting Pulse 61 Pulse Source Pulse Oximeter Intake Visit Reasons: f/up/Bismark/ echo Intake Note: Follow up / Emmanuel / Echo Pt state sob when sleeping . Back Tender Paper Machine Required: Yes Back Tender Paper Machine Name: Kt delgado [id number] Juan Accompanied by: Self / Same As Patient Allergies No Known Allergies Allergy (Verified 10/06/25 14:10) Medication List - Last Reconciled 10/06/25 by Zachary Draper MD albuterol sulfate 2.5 mg (3 mL) inhalation Q4-6H PRN 90 days albuterol sulfate 90 mcg/actuation (Ventolin HFA) 1 puff PO QID PRN 90 days bisacodyl (Dulcolax (bisacodyl)) 10 mg (2 x 5 mg) PO BEDTIME blood sugar diagnostic (FreeStyle Lite Strips) Use daily As directed to check blood glucose blood-glucose meter (Auvik NetworksStyle Lite Meter kit) Use daily As directed to check blood sugars blood-glucose sensor (Airspan [employer]yle Sera 3 Sensor device) Apply every 14 days As directed to monitor blood glucose cholecalciferol (vitamin D3) 125 mcg PO DAILY citalopram 40 mg PO DAILY 90 days diclofenac sodium 1% (Voltaren Arthritis Pain) 4 grams topical QID PRN docusate sodium 100 mg PO DAILY duloxetine 60 mg PO DAILY ezetimibe (Zetia) 10 mg PO DAILY fluticasone propion-salmeterol 250-50 mcg/dose (Advair Diskus) 1 inh inhalation BID 90 days hydrochlorothiazide 25 mg PO DAILY hydroxyzine HCl 25 mg PO BID PRN ibuprofen 600 mg PO Q6H PRN insulin lispro (Humalog KwikPen (U-100) Insulin) 5 units breakfast. iron,carbonyl-vitamin C 65 mg iron- 125 mg (Vitron-C) 1 tab PO DAILY lancets (FreeStyle Lancets) use daily as directed to check blood glucose levothyroxine 112 mcg PO DAILY lisinopril 10 mg PO DAILY 90 days mirtazapine 30 mg PO BEDTIME miscellaneous medical supply 1 ea miscellaneous DAILY ondansetron 4 mg PO Q12H pen needle, diabetic (BD Ultra-Fine Ramya Pen Needle) As directed four times a day perphenazine 4 mg PO BID rosuvastatin 40 mg PO DAILY semaglutide (Ozempic) 0.25 mg (0.368 mL) subcut QWEEK sumatriptan succinate take 1 tab at onset of headache; if no relief may repeat 1 tab after at least 2 hrs; max = 4 tabs/24 hr PO 30 days tizanidine 2 mg PO BEDTIME PRN trazodone 200 mg PO BEDTIME PRN HPI Comments Details: Sirena comes after a long gap after recent echocardiogram. This echocardiogram was suggestive of mitral valve disease with mild mitral stenosis and [id number] mitral regurgitation. History was obtained with help of packaging sales representative. Because of this mitral valve findings she was referred for further evaluation. She continues to have symptoms of shortness of breath nighttime when she wakes her up from sleep. She said these symptoms are quite severe. She has a associated chest pressure. She also gets symptoms of exertional shortness of breath. She says the symptoms persist despite her having lost a significant amount of weight. She does not have any evidence of sleep apnea after losing weight. She is currently taking all her medications. Blood pressure has been well controlled. She denies any symptoms of prolonged palpitation irregular heartbeat. [facility] Medical History Obesity (BMI 30-39.9) Weight loss DVT (deep venous thrombosis) Type 2 diabetes mellitus with complication, with long-term current use of insulin Somnolence Sleep apnea Cervical high risk HPV (human papillomavirus) test positive Essential hypertension COVID-19 CKD (chronic kidney disease) HTN (hypertension) Diastolic dysfunction Rheumatic mitral stenosis Glaucoma Insomnia Rheumatic heart disease Depression Anxiety Hemorrhoids Hypothyroidism Hyperlipidemia LDL goal <100 Surgical History History of abdominoplasty History of hysteroscopy Hx of colonoscopy Hx of tubal ligation H/O hemorrhoidectomy History of section Family History Father Diabetes Mother Diabetes Stroke Maternal Aunt Stroke Hypertension Social History Household Members: Children Housing: Apartment Are you a primary geriatric care manager to a significant other at home: No Do you presently have visiting nurse or other home services: No Alcohol intake: current Alcohol intake frequency: does not drink Alcohol type: wine Patient Tobacco Use Status: Never used Tobacco e-Cigarette/Vaping Use: Never Used Second Hand Smoke Exposure: No service: No Current occupational status: unemployed Cognitive needs: No Hearing needs: No Vision needs: Yes Female Reproductive History Menstrual Age of Menarche: 9 Review of Systems Const Denies daytime sleepiness, Denies difficulty sleeping, Denies snoring, Denies stops breathing during sleep and Denies weakness Card Denies chest pain, Denies rapid heart rate, Denies irregular heart rhythm, Denies claudication, Denies leg edema, Denies lightheadedness, Denies palpitations, Denies dyspnea, Denies dyspnea on exertion, Reports orthopnea, Denies paroxysmal nocturnal dyspnea and Denies slow heart rate Resp Denies cough, Denies dyspnea, Denies dyspnea on exertion and Denies snoring GI Reports no additional complaints, Denies hematochezia, Denies change in stool character and Denies dyspepsia Musc Denies abnormal gait, Denies muscle weakness and Denies numbness Neuro Denies abnormal gait, Denies numbness and Denies weakness Endo Denies palpitations Physical Exam Vital Signs: Last Vital Signs Pulse 61 10/06/25 14:06 BP 116/64 10/06/25 14:06 BMI result Body Mass Index 24.1 Const General: cooperative, comfortable, no acute distress, alert and awake Nutritional Appearance: obese Orientation/consciousness: patient oriented x3 Limitations: no limitations HEENT Head: Yes normocephalic and Yes atraumatic Neck Neck: Yes trachea midline, Yes supple and Yes no JVD Chest Chest palpation & inspection: normal inspection of the chest Resp Effort & Inspection: normal respiratory effort Auscultation: wheezes expiratory wheezes and posterior (Right) Cardio Jugular venous distension: no JVD Palpation: normal PMI Rate: regular rate Rhythm: regular rhythm Heart sounds: S1 normal heart sound present, S2 normal heart sound present and Murmur heart sound present diastolic and systolic GI Auscultation: normal bowel sounds Skin General skin exam: no rashes or lesions noted Neuro General: patient oriented x3 and no focal motor deficits Extrem General: Yes no clubbing, cyanosis or edema Psych Appearance: grossly normal Assessment & Plan Assessment & Plan (1) Rheumatic mitral stenosis: Comment: followed w/[facility] in past-last saw 2022-follows only w/PCP currently Code(s): I05.0 - Rheumatic mitral stenosis Category: Medical Plan: Mitral valve disease with rheumatic mitral valve disease with mild mitral stenosis and [id number] mitral regurgitation. Will symptoms out of proportion in her to at rest mitral valve disease. Would suggest her to undergo further evaluation with dobutamine stress echocardiogram to evaluate for worsening of either mitral stenosis or mitral regurgitation or worsening of pulmonary hypertension with dobutamine infusion. Also would help with evaluation for coronary artery disease with wall motion analysis. This was discussed with her. She is agreeable. This will be scheduled in near future. Otherwise if she has no significant mitral valve disease or coronary artery disease other causes for her shortness of breath needs to be evaluated. At this point time a blood pressure is well optimized encouraged to continue with the same. Low-dose aspirin therapy is advised. Continue lipid modification with target goal LDL less than 70 mg/dL. Follow up in the clinic after above-mentioned test. Thank you for allowing me to partake in her care Orders: Orders NT Pro B Type Natriuretic Pept 10/06/25 I05.0 - Rheumatic mitral stenosis Basic Metabolic Panel 10/06/25 I05.0 - Rheumatic mitral stenosis CA Dobutamine Stress Echo 10/06/25 I05.0 - Rheumatic mitral stenosis Coding Level of Care Code Est Pt Level 4 (20484) Complex EM visit Add On G2211 Diagnoses Rheumatic mitral stenosis I05.0
[2025-10-06 14:06] VITALS: BP 116/64; PULSE 61; BMI 24.1
== END 2025-10-06 14:27 | disposition home or self-care (01) ==
LOC: HO.HCS 13:50
PROVIDERS: PCP Physician Assistant; Visit Provider Internal Medicine Cardiovascular Disease
DX: I05.0 Rheumatic mitral stenosis (principal)
CPT/HCPCS: 99214

== ENCOUNTER → 2025-10-06 13:49 | Outpatient (BNVA) | payer OTHER, SELFPAY | PROVIDERS: PCP Physician Assistant; Visit Provider Internal Medicine Cardiovascular Disease | DX: I05.0 Rheumatic mitral stenosis (principal) | CPT/HCPCS: 99212 ==

== ENCOUNTER → 2025-10-31 10:35 | Outpatient (REF) | payer OTHER, SELFPAY ==
--- NOTE | 2025-10-31 10:41 | CA_ITS ---
Acquisition Time: 2025-10-31 11:22:02 Total Exercise Time: 00:31:26 Test Indications: CP,Dyspnea MITRAL STENOSIS Medications: SEE H&P Protocol: DOBUTAMINE Max HR: 176 BPM 106% of Pred: 165 BPM Max BP: 170/60 mmHG Max Work Load: 1.0 METS Pharmacological stress test with Dobutamine infusion max dose at 40mcg/kg/min, stopped infusion at 31mins 26 secs, achieving 79% MPHR, with reports of mid chest tightness 5/10 that resolved in recovery, later reporting 2/10 left sided chest pain that is reproducible with palpation, reports of SOB, without any arrythmias, with normotensive response to infusion. Without any EKG changes meeting criteria for ischemia. In recovery, symptoms resolved and pt feeling back to baseline. Echo images obtained by tech at rest, mid infusion at 20mcg/kg/min and post peak HR. Definity contrast utilized. Test reviewed with Dr. Sharp. Referred By: Zachary Draper Electronically Signed By: Flakito Altamirano
== END ==
LOC: HO.CARD 10:35
PROVIDERS: PCP Physician Assistant; Visit Provider Internal Medicine Cardiovascular Disease
DX: I05.0 Rheumatic mitral stenosis (principal)
CPT/HCPCS: 93351; J1250; Q9957

== ENCOUNTER → 2025-10-31 10:41 | Outpatient (BNV) | payer OTHER, SELFPAY | PROVIDERS: PCP Physician Assistant | DX: R07.89 Other chest pain (principal); R06.02 Shortness of breath | CPT/HCPCS: 93016; 93018; 93350; 93352 ==

== ENCOUNTER 2025-11-13 08:23 | Outpatient (REF) | payer OTHER, SELFPAY ==
--- NOTE | ~2025-11-13 | US_ITS ---
CLINICAL HISTORY: Z98.890 - Other specified postprocedural states,s p panniculectomy --- Additional Notes or Special Instructions: small firm area to right of umbilicus- rule out seroma vs scar tissue Targeted ultrasound of right paraumbilical abdominal wall Comparison: None provided Technique: Targeted sonographic imaging, including color Doppler imaging to the area of interest of right paraumbilical abdominal wall was performed by the gynecological assistant. Multiple sales representative jewelry static and cine images were saved for review. Findings: The imaged soft tissue is normal, no mass, fluid collection, hernia or abnormal vascular flow. Impression: No sonographic abnormality. This document has been electronically signed by: Lia Tello MD on 11/13/2025 16:07:44
--- OUTSIDE RECORDS SUMMARY | 2025-11-13 08:39 | XMS_ITS | Clinical Summary ---
Author Organization [facility] Address [address] [place] [address] Phone Care Team Providers Care Aircraft Cleaner Name Role Phone Aleyda Paul MD Primary Care Provider [phone] Allergies No known active allergies Medications citalopram [...] MG tablet 12/29/2021 Active ergocalciferol 1.25 MG (22342 UT) capsule Take 1 capsule (50,000 Units [...] Hospital Medicaid [facility] Medicaid Care Teams Aircraft Cleaner Relationship Specialty Start Date End Date Aleyda Paul MD [address] [place], [place] PCP - General Internal Medicine 07/12/21
== END 2025-11-13 08:24 | disposition home or self-care (01) ==
LOC: HO.US 08:23
PROVIDERS: PCP Physician Assistant; Visit Provider Physician Assistant Surgical
DX: Z98.890 Other specified postprocedural states (principal)
CPT/HCPCS: 76705

== ENCOUNTER → 2025-11-13 08:25 | Outpatient (BNV) | payer OTHER, SELFPAY | PROVIDERS: PCP Physician Assistant; Visit Provider Radiology Diagnostic Radiology | DX: Z98.890 Other specified postprocedural states (principal) | CPT/HCPCS: 76705 ==

== ENCOUNTER 2025-11-17 08:28 | Outpatient (AMB) | payer OTHER, SELFPAY ==
--- NOTE | 2025-11-17 08:36 | A.OFFVIS_ITS ---
Vital Signs 11/17/25 08:39 Height 5 ft 7 in Weight 161 lb 6.054 oz BMI 25.3 BP 130/62 Blood Pressure Location Lt brachial Position Sitting Pulse 58 Pulse Source Pulse Oximeter Intake Visit Reasons: 6wk testing NS Intake Note: 6wk testing ns Process Control Operator Required: Yes Process Control Operator Language: Director Of Business Systems Services: Process Control Operator Offered & Declined Process Control Operator Name: husban/maltese Accompanied by: Significant Other Allergies No Known Allergies Allergy (Verified 10/06/25 14:10) Medication List - Last Reconciled 11/17/25 by Luh Shane NP-C albuterol sulfate 2.5 mg (3 mL) inhalation Q4-6H PRN 90 days albuterol sulfate 90 mcg/actuation (Ventolin HFA) 1 puff PO QID PRN 90 days bisacodyl (Dulcolax (bisacodyl)) 10 mg (2 x 5 mg) PO BEDTIME blood sugar diagnostic (FreeStyle Lite Strips) Use daily As directed to check blood glucose blood-glucose meter (FreeStyle Lite Meter kit) Use daily As directed to check blood sugars blood-glucose sensor (Slime SandwichStyle Sera 3 Sensor device) Apply every 14 days As directed to monitor blood glucose cholecalciferol (vitamin D3) 125 mcg PO DAILY citalopram 40 mg PO DAILY 90 days diclofenac sodium 1% (Voltaren Arthritis Pain) 4 grams topical QID PRN docusate sodium 100 mg PO DAILY duloxetine 60 mg PO DAILY ezetimibe (Zetia) 10 mg PO DAILY fluticasone propion-salmeterol 250-50 mcg/dose (Advair Diskus) 1 inh inhalation BID 90 days hydrochlorothiazide 25 mg PO DAILY hydroxyzine HCl 25 mg PO BID PRN ibuprofen 600 mg PO Q6H PRN insulin lispro (Humalog KwikPen (U-100) Insulin) 5 units breakfast. iron,carbonyl-vitamin C 65 mg iron- 125 mg (Vitron-C) 1 tab PO DAILY lancets (FreeStyle Lancets) use daily as directed to check blood glucose levothyroxine 112 mcg PO DAILY lisinopril 10 mg PO DAILY 90 days mirtazapine 30 mg PO BEDTIME miscellaneous medical supply 1 ea miscellaneous DAILY ondansetron 4 mg PO Q12H pen needle, diabetic (BD Ultra-Fine Ramya Pen Needle) As directed four times a day perphenazine 4 mg PO BID rosuvastatin 40 mg PO DAILY semaglutide (Ozempic) 0.25 mg (0.368 mL) subcut QWEEK sumatriptan succinate take 1 tab at onset of headache; if no relief may repeat 1 tab after at least 2 hrs; max = 4 tabs/24 hr PO 30 days tizanidine 2 mg PO BEDTIME PRN trazodone 200 mg PO BEDTIME PRN HPI HPI 6wk testing NS: Details: The patient is a 55 year old female presenting for a follow-up visit after a recent stress echocardiogram performed for evaluation of mitral stenosis and mitral regurgitation. The stress echocardiogram, completed on 10/31/2025, showed no EKG or echo evidence of ischemia, but there was a rise in pulmonary artery systolic pressure with dobutamine. Her last echocardiogram on 08/28/2025 showed an ejection fraction of 64%, a rheumatic mitral valve with mild to moderate mitral regurgitation and mild mitral stenosis, mild aortic regurgitation, moderate tricuspid regurgitation, and mild pulmonary hypertension. Past medical history is significant for obesity, DVT, diabetes, hypertension, hyperlipidemia, chronic kidney disease, rheumatic heart disease, and sleep apnea which has since resolved with weight loss. She has successfully lost over 100 pounds. Current cardiac medications include Zetia, hydrochlorothiazide, lisinopril, and rosuvastatin. Recent labs from 07/04/2025 showed an LDL of 83, potassium of 4.8, and creatinine of 0.88. She reports occasional shortness of breath, which has improved since her weight loss. She also experiences occasional palpitations described as a skipping sensation but denies chest pain. She is very active, exercising for two hours Monday through Monday, utilizing a treadmill, sit-up bench, and weights. [facility] Medical History Obesity (BMI 30-39.9) Weight loss DVT (deep venous thrombosis) Type 2 diabetes mellitus with complication, with long-term current use of insulin Somnolence Sleep apnea Cervical high risk HPV (human papillomavirus) test positive Essential hypertension COVID-19 CKD (chronic kidney disease) HTN (hypertension) Diastolic dysfunction Rheumatic mitral stenosis Glaucoma Insomnia Rheumatic heart disease Depression Anxiety Hemorrhoids Hypothyroidism Hyperlipidemia LDL goal <100 Surgical History History of abdominoplasty History of hysteroscopy Hx of colonoscopy Hx of tubal ligation H/O hemorrhoidectomy History of section Family History Father Diabetes Mother Diabetes Stroke Maternal Aunt Stroke Hypertension Social History Household Members: Children Housing: Apartment Are you a primary senior care specialist to a significant other at home: No Do you presently have visiting nurse or other home services: No Alcohol intake: current Alcohol intake frequency: does not drink Alcohol type: wine Patient Tobacco Use Status: Never used Tobacco e-Cigarette/Vaping Use: Never Used Second Hand Smoke Exposure: No service: No Current occupational status: unemployed Cognitive needs: No Hearing needs: No Vision needs: Yes Female Reproductive History Menstrual Age of Menarche: 9 Review of Systems Const All systems reviewed & are unremarkable except as noted in HPI and below Denies chills, Denies fatigue, Denies fever(s), Denies frequent falls, Denies weakness, Denies weight gain and Denies weight loss ENT Denies dizziness Card Denies chest pain, Denies leg edema, Denies lightheadedness, Denies palpitations, Denies dyspnea and Denies dyspnea on exertion Resp Denies cough, Denies dyspnea and Denies dyspnea on exertion GI Denies hematochezia Musc Denies abnormal gait, Denies muscle weakness, Denies numbness, Denies radiating pain into limb and Denies tingling Neuro Denies abnormal gait, Denies dizziness, Denies frequent falls, Denies numbness, Denies tingling and Denies weakness Endo Denies fatigue and Denies palpitations Physical Exam Vital Signs: BMI result Body Mass Index 25.3 Const General: cooperative, healthy appearing, comfortable and no acute distress Orientation/consciousness: patient oriented x3 Neck Neck: Yes normal visual inspection Resp Effort & Inspection: normal respiratory effort Auscultation: clear to auscultation bilaterally, no crackles, no rales, no rhonchi and no wheezes Cardio Rate: regular rate Rhythm: regular rhythm Heart sounds: S1 normal heart sound present, S2 normal heart sound present, no gallops, Murmur heart sound present (systolic, mitral position) and no rubs Neuro General: patient oriented x3 Extrem General: Yes normal to inspection Psych Appearance: grossly normal Mental Status: mental status grossly normal Speech and movement: Normal speech and movement present Assessment & Plan Assessment & Plan (1) Rheumatic mitral stenosis: Comment: followed w/[facility] in past-last saw 2022-follows only w/PCP currently Code(s): I05.0 - Rheumatic mitral stenosis Category: Medical Plan: History of rheumatic heart disease. Most recent echo is showing mild mitral stenosis and dkeo-ey-glwnacng mitral regurgitation. Dobutamine stress echocardiogram confirms mitral stenosis is not severe. Valve disease will be monitored with periodic echocardiograms. Will plan for repeat echocardiogram 1 year from the last with cardiology follow-up when results are available. (2) Rheumatic heart disease: Comment: moderate mitral stenosis & regurgitation-currently follows w/PCP only Code(s): I09.9 - Rheumatic heart disease, unspecified Category: Medical Plan: As above (3) Essential hypertension: Code(s): I10 - Essential (primary) hypertension Category: Medical Plan: Blood pressure goal less than 130/80. At goal at present time. No medication changes made (4) Hyperlipidemia LDL goal <100: Code(s): E78.5 - Hyperlipidemia, unspecified Category: Medical Plan: [place] LDL goal less than 100. Labs 07/04/2025 showed LDL 83. Continue Zetia and rosuvastatin. (5) Pulmonary hypertension: Code(s): I27.20 - Pulmonary hypertension, unspecified Category: Medical Plan: Finding of mild pulmonary hypertension on recent echocardiogram. Dobutamine stress echo shows a rise in pulmonary systolic pressure with dobutamine use. Resting RVSP 31 mm of Hg and peak dobutamine 55 mmHg. Finding of pulmonary hypertension reviewed with her. Currently asymptomatic with normal ADLs. Will refer to Pulmonary hypertension specialist per Dr. Draper's request. Plan I reviewed the results of her recent stress echocardiogram with the patient. I e xplained that although her mitral valve is stiff, it is working well enough to be followed. 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 I discussed the finding of elevated pressures in her lungs, known as pulmonary hypertension, which was noted on her test. I explained that this condition requires special monitoring and treatment because it can strain the heart, and I reassured her that it is not an emergency but important for her future health. I informed her that a referral will be placed for her to see a pulmonary hypertension specialist in [place]. We agreed on a plan to recheck her heart with an ultrasound in one year () and to schedule a follow-up visit with me after that test is completed. Orders: Orders CA echo transthoracic complete 08/31/26 I09.9 - Rheumatic heart disease, unspecified Referrals Pulmonology Referral I27.20 - Pulmonary hypertension, unspecified Patient Instructions: - We found that you have high blood pressure in your lungs, called pulmonary hypertension. This is not an emergency, but it is important to treat. - We are referring you to a lung specialist in [place] for this condition. Our office will help set up this referral. - Please continue with your current diet and exercise routine, as you have had excellent results. - You will need to schedule another heart ultrasound (echocardiogram) in about a year, around next August. - Please schedule a follow-up appointment in our office after you have completed the ultrasound next year. Patient was informed and verbally consented to the use of an ambient scribe for clinic note documentation during this visit. Visit time spent on chart review, interview, assessment, orders, documentation. Coding Level of Care Code Est Pt Level 4 (64519) Add On Problem Visit Only Diagnoses Rheumatic mitral stenosis I05.0 Rheumatic heart disease I09.9 Essential hypertension I10 Hyperlipidemia LDL goal <100 E78.5 Pulmonary hypertension I27.20 Time Spent (min) 28
[2025-11-17 08:39] VITALS: BP 130/62; PULSE 58; BMI 25.3
--- OUTSIDE RECORDS SUMMARY | 2025-11-17 08:41 | XMS_ITS | Clinical Summary ---
Author Organization [facility] Address [address] [place] [address] Phone Care Team Providers Care Button Tufter Name Role Phone Aleyda Paul MD Primary Care Provider [phone] Allergies No known active allergies Medications citalopram [...] MG tablet 12/29/2021 Active ergocalciferol 1.25 MG (48837 UT) capsule Take 1 capsule (50,000 Units [...] Exam 09/16/2021 Influenza Vaccine (#1) 2025 Insurance [facility] Medicaid [facility] Medicaid Care Teams Button Tufter Relationship Specialty Start Date End Date Aleyda Paul MD [address] [place], [place] PCP - General Internal Medicine 07/12/21
== END 2025-11-17 09:02 | disposition home or self-care (01) ==
LOC: HO.HCS 08:29
PROVIDERS: PCP Physician Assistant; Visit Provider Nurse Practitioner Family
DX: I05.0 Rheumatic mitral stenosis (principal); I09.9 Rheumatic heart disease, unspecified; I10 Essential (primary) hypertension; E78.5 Hyperlipidemia, unspecified; I27.20 Pulmonary hypertension, unspecified
CPT/HCPCS: 99214

== ENCOUNTER → 2025-11-17 08:28 | Outpatient (BNVA) | payer OTHER, SELFPAY | PROVIDERS: PCP Physician Assistant; Visit Provider Nurse Practitioner Family | DX: I05.0 Rheumatic mitral stenosis (principal); I09.9 Rheumatic heart disease, unspecified; I11.9 Hypertensive heart disease without heart failure; E78.5 Hyperlipidemia, unspecified; I27.20 Pulmonary hypertension, unspecified | CPT/HCPCS: 99212 ==